=== PATIENT | male | born 1935 | race Caucasian/White ===

== ENCOUNTER → 2016-03-19 | Outpatient (CLI) | payer BC ==
[~2016-03-19] MED LIST: AMT25 PO; ASPI-435 PO; AZEL0.056 NAE; B-CO-25 PO; CHOL20007 PO; COEN150C PO; COEN1CAP46 PO; COLC0.6T54 PO; FRN PO; GLUC15002 PO; HYDR-5688 PO; LPT40 PO; MAGN200T3 PO; MAGN250T3 PO; MULT-221 PO; NITR0.4S UT; OMEGCAP2 PO; PANT1TAB48 PO; PANT40TA PO; PROP60CA5 PO; RANI150T3 PO; RIZA10TA18 PO; SUCR1TAB29 PO; TRAMTAB5 PO; TRIA0.25 PO; TRIA0.2580 PO; ZINC1TAB PO; tumeric PO
[2016-03-19 17:56] LABS: URINE APPEARANCE CLEAR (CLEAR); URINE BILIRUBIN NEG (NEG); URINE COLOR YELLOW; URINE NITRITE NEG (NEG); URINE PH 5.5 (4.5-7.5); URINE SPECIFIC GRAVITY 1.024 (1.000-1.030); UROBILINOGEN NEG (NEG)
[2016-03-19 18:08] LABS: MANUAL MICROSCOPIC REQUIRED? NO; REVIEW REQ? NO
[2016-03-19 18:24] LABS: HEMATOCRIT 42.5 % (42-52); MEAN CELL VOLUME 86.4 fL (80-100); MEAN CORPUSCULAR HEMOGLOBIN 28.3 pg (25-34); MEAN CORPUSCULAR HGB CONC 32.7 g/dl (32-36); MEAN PLATELET VOLUME 11.1 fL (7.4-10.4); PLATELET COUNT 182 K/uL (130-400); RED BLOOD COUNT 4.92 M/uL (4.7-6.1); WHITE BLOOD COUNT 7.72 K/uL (4.8-10.8)
== END | disposition home or self-care (01) ==
LOC: C.LABMFLN 15:13
PROVIDERS: ATTEND Family Medicine
DX: Z00.00 Encounter for general adult medical examination without abnormal findings (principal)

== ENCOUNTER 2016-05-11 11:25 | Emergency (ER) | payer BC ==
[~2016-05-11] VITALS: Ht 177.8 cm; Wt 93.4 kg
[~2016-05-11 11:25] MED LIST changes: -B-CO-25 PO; -CHOL20007 PO; -COEN150C PO; -MAGN250T3 PO; -MULT-221 PO; -NITR0.4S UT; -OMEGCAP2 PO; -PANT40TA PO; -RANI150T3 PO; -SUCR1TAB29 PO; -TRAMTAB5 PO; -TRIA0.25 PO; -tumeric PO
[2016-05-11 11:28] VITALS: TEMP 36.6; Ht 177.8 cm; Wt 93.4 kg
[2016-05-11] MEDS ORDERED: MoRPHine SULFATE 4 MG/ML 1 ML CARP\\VIAL IV STA (11:49)
[2016-05-11] MEDS ORDERED: ONDANSETRON INJ 2 MG/ML 2 ML VIAL IV STA (11:49)
[2016-05-11] MEDS ORDERED: MULT-221 PO (11:54)
[2016-05-11] MEDS ORDERED: COEN150C PO (11:54)
[2016-05-11] MEDS ORDERED: OMEGCAP2 PO (11:54)
--- NOTE | 2016-05-11 12:24 | DIAGNOSTIC IMAGING REPORT ---
SINGLE VIEW CHEST CLINICAL HISTORY: Hiatal hernia. Esophageal reflux. Atypical chest pain. FINDINGS: An AP, portable, upright chest radiograph is compared to study dated 12/07/2014. The examination is degraded by portable technique and patient rotation. The cardiac silhouette is mildly enlarged and there is atherosclerotic calcification of the thoracic aorta. The pulmonary vasculature is noncongested. Chronic interstitial thickening is similar to previous. There is minimal bibasilar atelectasis. No airspace consolidation, large pleural effusion, or pneumothorax is seen. The skeletal structures are osteopenic. The bony thorax is grossly intact. Degenerative change is noted throughout the thoracic spine. IMPRESSION: Mild cardiac enlargement and chronic parenchymal changes as above. There is no acute cardiopulmonary abnormality. Electronically signed by: Donis Camarena M.D. 05/11/2016 12:23 PM Dictated Date/Time: 05/11/2016 12:22 PM
[2016-05-11 12:25] LABS: BASO % 0.1 %; BASO ABS # 0.01 K/uL (0-0.2); COMPLETE YES; EOS % 1.8 %; HEMATOCRIT 42.9 % (42-52); IG% 0.1 %; LYMPH % 32.5 %; LYMPH ABS # 2.22 K/uL (1.2-3.4); MEAN CELL VOLUME 85.8 fL (80-100); MEAN CORPUSCULAR HEMOGLOBIN 27.2 pg (25-34); MEAN CORPUSCULAR HGB CONC 31.7 g/dl (32-36); MEAN PLATELET VOLUME 9.9 fL (7.4-10.4); MONO % 8.5 %; PLATELET COUNT 214 K/uL (130-400); WHITE BLOOD COUNT 6.83 K/uL (4.8-10.8)
[2016-05-11 12:34] LABS: PARTIAL THROMBOPLASTIN RATIO 0.9; PROTHROMBIN TIME (PATIENT) 10.2 SECONDS (9.0-12.0)
[2016-05-11 12:56] LABS: ALT/SGPT 46 U/L (12-78); AST/SGOT 25 U/L (15-37); BLOOD UREA NITROGEN 13 mg/dl (7-18); BUN/CREATININE RATIO 13.2 (10-20); CALCIUM 8.8 mg/dl (8.5-10.1); CARBON DIOXIDE 29 mmol/L (21-32); CHLORIDE 107 mmol/L (98-107); CREATININE 0.99 mg/dl (0.60-1.40); GLUCOSE 98 mg/dl (70-99); SODIUM 144 mmol/L (136-145)
[2016-05-11 13:01] LABS: ALKALINE PHOSPHATASE 65 U/L (45-117)
--- NOTE | 2016-05-11 13:54 | DIAGNOSTIC IMAGING REPORT ---
ULTRASOUND RIGHT UPPER QUADRANT ABDOMEN CLINICAL HISTORY: Right upper quadrant abdominal pain. COMPARISON STUDY: Abdominal ultrasound dated 12/07/2014. Abdominal CT dated 08/11/2014. TECHNIQUE: Real-time, grayscale, and color flow sonography of the right upper quadrant of the abdomen was performed. Images are reviewed in the transverse and longitudinal planes. FINDINGS: Liver: The liver is normal in size and demonstrates heterogeneously increased echotexture suggesting hepatic steatosis. There is no intrahepatic biliary ductal dilatation. The main portal vein is patent. Gallbladder: The gallbladder is normal in appearance. No gallstones are identified. There is no gallbladder wall thickening or pericholecystic fluid. A sonographic Brice's sign is reportedly absent. The common bile duct measures up to 0.5 cm in diameter. Pancreas: Visualized portions of the pancreatic head and body are normal in appearance. The splenic vein is patent. Right kidney: Survey images of the right kidney demonstrate cortical atrophy. There is no hydronephrosis. Ascites: None. IMPRESSION: 1. No acute sonographic abnormality is identified. No gallstones are seen. 2. Findings suggest mild hepatic steatosis. Electronically signed by: Donis Camarena M.D. 05/11/2016 1:53 PM Dictated Date/Time: 05/11/2016 1:51 PM
[2016-05-11 14:20] LABS: MANUAL MICROSCOPIC REQUIRED? NO; REVIEW REQ? NO; URINE APPEARANCE CLEAR (CLEAR); URINE BILIRUBIN NEG (NEG); URINE COLOR YELLOW; URINE NITRITE NEG (NEG); URINE PH 5.5 (4.5-7.5); URINE SPECIFIC GRAVITY 1.018 (1.000-1.030); UROBILINOGEN NEG (NEG)
[2016-05-11] MEDS ORDERED: OPTIRAY 320 IV PRN (14:30)
--- NOTE | 2016-05-11 15:13 | DIAGNOSTIC IMAGING REPORT ---
CT SCAN OF THE ABDOMEN AND PELVIS WITH IV CONTRAST CLINICAL HISTORY: Generalized abdominal pain. Nausea and diarrhea. COMPARISON STUDY: Abdominal CT dated 08/11/2014. Abdominal ultrasound dated 05/11/2016. TECHNIQUE: Following the IV administration of 118 cc of Optiray 320, CT scan of the abdomen and pelvis is performed from the lung bases to the proximal femora. Images are reviewed in the axial, sagittal, and coronal planes. IV contrast was administered without complication. Automated dose control exposure was utilized. CT DOSE: 596.04 mGy.cm FINDINGS: Lung bases: The heart is enlarged and without pericardial effusion. There is a calcified granuloma at the right lung base. The lung bases are otherwise clear noting dependent atelectasis. A small to moderate hiatal hernia is noted. Liver: The contrast-enhanced liver is normal in size, contour, and attenuation. There is no intrahepatic biliary ductal dilatation. The hepatic veins and portal veins are patent. Gallbladder: Unremarkable. Spleen: Normal in size and attenuation. Pancreas: Unremarkable. Adrenal glands: Unremarkable. Kidneys: The contrast enhanced kidneys demonstrate cortical atrophy and are without hydronephrosis. The kidneys enhance symmetrically. A 1.7 cm indeterminant hypodensity in the left kidney seen on image #149 has not significant changed from 08/11/2014. This was previously shown to represent a complex/hyperdense cyst. Small simple cysts measure up to 1.6 cm. Additional subcentimeter cortical hypodensities likely represent cysts but are too small for definitive characterization. There is a retroaortic left renal vein. Abdominal vasculature: The abdominal aorta is normal in course and caliber noting moderate atherosclerotic calcification. Bowel: The small bowel and colon are normal in course and caliber. The appendix is well-visualized and normal. Peritoneum: There is no intraperitoneal free air or abdominal ascites. There is a small fat-containing umbilical hernia. Lymphadenopathy: None. Pelvic viscera: The prostate gland is mildly enlarged and heterogeneous. The bladder is partially decompressed and grossly unremarkable. There is a small fat-containing left inguinal hernia. There is trace fluid in the pelvis. Skeletal structures: The skeletal structures are osteopenic. Mild lumbosacral spondylosis is observed. No lytic or blastic lesions are seen. IMPRESSION: 1. There is trace nonspecific free fluid in the pelvis, likely reactive. 2. No additional infectious or inflammatory findings are identified in the abdomen or pelvis. 3. Cardiomegaly and hiatal hernia. 4. Additional findings as above. Electronically signed by: Donis Camarena M.D. 05/11/2016 3:12 PM Dictated Date/Time: 05/11/2016 3:04 PM
[2016-05-11] MEDS ORDERED: SUCRALFATE 1 GM TAB PO ONE (15:30)
[2016-05-11] MEDS ORDERED: SUCR1TAB29 PO (15:36)
[2016-05-11 16:05] VITALS: BP 114/70; PULSE 58; O2SAT 97
--- NOTE | 2016-05-11 17:11 | EMERGENCY ROOM VISIT NOTE ---
History Report prepared by Rabia: Uma Robertson Under the Supervision of: Dr. Bryan Hodges M.D. First contact with patient: 11:41 Chief Complaint: ABDOMINAL PAIN Stated Complaint: PAIN AND NAUSEA/STOMACH History of Present Illness The patient is an 80 year old male who presents to the Emergency Room with complaints of persistent mid abdominal pain that began last night around midnight. He currently rates his discomfort as a 5/10 in severity, describing his discomfort as a pressure. The patient states that he has had ongoing acid reflux problems for the past several years, but notes that his symptoms are much more severe recently. He states that he takes Zantac and Protonix daily. The patient states that his pain is worsened with eating. He additionally associates nausea and increased acid reflux with his symptoms. The patient notes that for the last week and a half he has had loose, diarrhea stool. He denies any recent antibiotic use. The patient notes a family history of gallbladder disease, noting that his mother had a cholecystectomy in her 50s. He notes a history of a hernia repair, but denies any other abdominal surgeries. The patient additionally notes that he has had a rash to the back of his legs. The patient denies any chest pain, shortness of breath, fever vomiting, hematochezia, or melena. He reports normal urination. Source of History: patient Onset: last night around midnight Position: abdomen (mid) Symptom Intensity: 5/10 Quality: pressure Timing: other (persistent) Modifying Factors (Worsening): eating Associated Symptoms: + nausea, + urinary symptoms (loose), No SOB, No chest pain, No fevers, No hematochezia, No melena, No vomiting Note: Associated Symptoms: increased acid reflux Review of Systems See HPI for pertinent positives & negatives. A total of 10 systems reviewed and were otherwise negative. Past Medical & Surgical Medical Problems: (1) Arthritis (2) Heart stents (3) Kidney stones Family History Diabetes mellitus Hypertension Kidney disease Kidney stones Seizures Social History Smoking Status: Never Smoker Alcohol Use: none Drug Use: none Marital Status: Housing Status: lives with significant other Occupation Status: retired Current/Historical Medications Scheduled Amitriptyline HCl (Amitriptyline HCl), 25 MG PO HS Aspirin (Aspirin 81), 81 MG PO QAM Atorvastatin (Atorvastatin Calcium), 40 MG PO HS Coenzyme Q10 (Ubidecarenone) (Co Q-10), 150 MG PO DAILY Colchicine (Colchicine), 0.6 MG PO BID Magnesium (Magnesium), 100 MG PO DAILY Multiple Vitamins W/ Minerals (Multi For Him 50+), 1 TAB PO DAILY [place]-3 Fatty Acids (Fish Oil), 1 CAP PO DAILY Pantoprazole (Protonix), 40 MG PO BID Propranolol Hcl (Inderal La), 60 MG PO QAM Sucralfate (Carafate), 1 TAB PO TID Zinc Gluconate (Zinc), 50 MG PO HS Scheduled PRN Yxuxdcmwkn-Brwwhhm-Ukwzwpdp (Butalbital/Aspirin/Caffei 50-325-40 mg), 1 CAP PO for Headache Rizatriptan Benzoate (Maxalt), 10 MG PO UD PRN for Headache Allergies Coded Allergies: No Known Allergies (Unverified , 06/12/14) Physical Exam Vital Signs Date Time Temp Pulse Resp B/P Pulse Ox O2 Delivery O2 Flow Rate FiO2 05/11/16 16:05 58 18 114/70 97 05/11/16 11:28 36.6 66 18 115/73 97 Room Air Physical Exam Constitutional: Vital signs reviewed. Eyes: Pupils are equal round reactive to light. Conjunctiva are noninjected. ENT: Pharynx is clear without erythema or exudate. Mucous membranes are moist. Neck supple without meningeal signs. Respiratory: Clear to auscultation bilaterally. Breath sounds are equal bilaterally. Cardiovascular: Regular rate and rhythm. No rubs or gallops. GI: Epigastric, right sided abdominal tenderness, no guarding. Soft, nondistended. Bowel sounds are present. Musculoskeletal: No peripheral edema. No lower extremity tenderness. Integumentary: Tinea cruris. Neurological: The patient is awake and alert. No focal deficits. Psychiatric: Normal affect. Medical Decision & Procedures ER Provider Diagnostic Interpretation: Radiology results as stated below per my review and the radiologist's interpretation: ULTRASOUND RIGHT UPPER QUADRANT ABDOMEN CLINICAL HISTORY: Right upper quadrant abdominal pain. COMPARISON STUDY: Abdominal ultrasound dated 12/07/2014. Abdominal CT dated 08/11/2014. TECHNIQUE: Real-time, grayscale, and color flow sonography of the right upper quadrant of the abdomen was performed. Images are reviewed in the transverse and longitudinal planes. FINDINGS: Liver: The liver is normal in size and demonstrates heterogeneously increased echotexture suggesting hepatic steatosis. There is no intrahepatic biliary ductal dilatation. The main portal vein is patent. Gallbladder: The gallbladder is normal in appearance. No gallstones are identified. There is no gallbladder wall thickening or pericholecystic fluid. A sonographic Brice's sign is reportedly absent. The common bile duct measures up to 0.5 cm in diameter. Pancreas: Visualized portions of the pancreatic head and body are normal in appearance. The splenic vein is patent. Right kidney: Survey images of the right kidney demonstrate cortical atrophy. There is no hydronephrosis. Ascites: None. IMPRESSION: 1. No acute sonographic abnormality is identified. No gallstones are seen. 2. Findings suggest mild hepatic steatosis. Electronically signed by: Donis Camarena M.D. 05/11/2016 1:53 PM Dictated Date/Time: 05/11/2016 1:51 PM SINGLE VIEW CHEST CLINICAL HISTORY: Hiatal hernia. Esophageal reflux. Atypical chest pain. FINDINGS: An AP, portable, upright chest radiograph is compared to study dated 12/07/2014. The examination is degraded by portable technique and patient rotation. The cardiac silhouette is mildly enlarged and there is atherosclerotic calcification of the thoracic aorta. The pulmonary vasculature is noncongested. Chronic interstitial thickening is similar to previous. There is minimal bibasilar atelectasis. No airspace consolidation, large pleural effusion, or pneumothorax is seen. The skeletal structures are osteopenic. The bony thorax is grossly intact. Degenerative change is noted throughout the thoracic spine. IMPRESSION: Mild cardiac enlargement and chronic parenchymal changes as above. There is no acute cardiopulmonary abnormality. Electronically signed by: Donis Camarena M.D. 05/11/2016 12:23 PM Dictated Date/Time: 05/11/2016 12:[address] SCAN OF THE ABDOMEN AND PELVIS WITH IV CONTRAST CLINICAL HISTORY: Generalized abdominal pain. Nausea and diarrhea. COMPARISON STUDY: Abdominal CT dated 08/11/2014. Abdominal ultrasound dated 05/11/2016. TECHNIQUE: Following the IV administration of 118 cc of Optiray 320, CT scan of the abdomen and pelvis is performed from the lung bases to the proximal femora. Images are reviewed in the axial, sagittal, and coronal planes. IV contrast was administered without complication. Automated dose control exposure was utilized. CT DOSE: 596.04 mGy.cm FINDINGS: Lung bases: The heart is enlarged and without pericardial effusion. There is a calcified granuloma at the right lung base. The lung bases are otherwise clear noting dependent atelectasis. A small to moderate hiatal hernia is noted. Liver: The contrast-enhanced liver is normal in size, contour, and attenuation. There is no intrahepatic biliary ductal dilatation. The hepatic veins and portal veins are patent. Gallbladder: Unremarkable. Spleen: Normal in size and attenuation. Pancreas: Unremarkable. Adrenal glands: Unremarkable. Kidneys: The contrast enhanced kidneys demonstrate cortical atrophy and are without hydronephrosis. The kidneys enhance symmetrically. A 1.7 cm indeterminant hypodensity in the left kidney seen on image #149 has not significant changed from 08/11/2014. This was previously shown to represent a complex/hyperdense cyst. Small simple cysts measure up to 1.6 cm. Additional subcentimeter cortical hypodensities likely represent cysts but are too small for definitive characterization. There is a retroaortic left renal vein. Abdominal vasculature: The abdominal aorta is normal in course and caliber noting moderate atherosclerotic calcification. Bowel: The small bowel and colon are normal in course and caliber. The appendix is well-visualized and normal. Peritoneum: There is no intraperitoneal free air or abdominal ascites. There is a small fat-containing umbilical hernia. Lymphadenopathy: None. Pelvic viscera: The prostate gland is mildly enlarged and heterogeneous. The bladder is partially decompressed and grossly unremarkable. There is a small fat-containing left inguinal hernia. There is trace fluid in the pelvis. Skeletal structures: The skeletal structures are osteopenic. Mild lumbosacral spondylosis is observed. No lytic or blastic lesions are seen. IMPRESSION: 1. There is trace nonspecific free fluid in the pelvis, likely reactive. 2. No additional infectious or inflammatory findings are identified in the abdomen or pelvis. 3. Cardiomegaly and hiatal hernia. 4. Additional findings as above. Electronically signed by: Donis Camarena M.D. 05/11/2016 3:12 PM Dictated Date/Time: 05/11/2016 3:04 PM Laboratory Results 05/11/16 12:15 Red Blood Count 5.00, Mean Corpuscular Volume 85.8, Mean Corpuscular Hemoglobin 27.2, Mean Corpuscular Hemoglobin Concent 31.7, Mean Platelet Volume 9.9, Neutrophils (%) (Auto) 57.0, Lymphocytes (%) (Auto) 32.5, Monocytes (%) (Auto) 8.5, Eosinophils (%) (Auto) 1.8, Basophils (%) (Auto) 0.1, Neutrophils # (Auto) 3.89, Lymphocytes # (Auto) 2.22, Monocytes # (Auto) 0.58, Eosinophils # (Auto) 0.12, Basophils # (Auto) 0.01 05/11/16 12:15 Test 05/11/16 12:15 05/11/16 14:00 White Blood Count 6.83 K/uL (4.8-10.8) Red Blood Count 5.00 M/uL (4.7-6.1) Hemoglobin 13.6 g/dL (14.0-18.0) Hematocrit 42.9 % (42-52) Mean Corpuscular Volume 85.8 fL (80-100) Mean Corpuscular Hemoglobin 27.2 pg (25-34) Mean Corpuscular Hemoglobin Concent 31.7 g/dl (32-36) Platelet Count 214 K/uL (130-400) Mean Platelet Volume 9.9 fL (7.4-10.4) Neutrophils (%) (Auto) 57.0 % Lymphocytes (%) (Auto) 32.5 % Monocytes (%) (Auto) 8.5 % Eosinophils (%) (Auto) 1.8 % Basophils (%) (Auto) 0.1 % Neutrophils # (Auto) 3.89 K/uL (1.4-6.5) Lymphocytes # (Auto) 2.22 K/uL (1.2-3.4) Monocytes # (Auto) 0.58 K/uL (0.11-0.59) Eosinophils # (Auto) 0.12 K/uL (0-0.5) Basophils # (Auto) 0.01 K/uL (0-0.2) RDW Standard Deviation 41.3 fL (36.4-46.3) RDW Coefficient of Variation 13.2 % (11.5-14.5) Immature Granulocyte % (Auto) 0.1 % Immature Granulocyte # (Auto) 0.01 K/uL (0.00-0.02) Prothrombin Time 10.2 SECONDS (9.0-12.0) Prothromb Time International Ratio 1.0 (0.9-1.1) Activated Partial Thromboplast Time 24.0 SECONDS (21.0-31.0) Partial Thromboplastin Ratio 0.9 Anion Gap 8.0 mmol/L (3-11) Est Creatinine Clear Calc Drug Dose 68.3 ml/min Estimated GFR () 83.0 Estimated GFR (Non- 71.6 BUN/Creatinine Ratio 13.2 (10-20) Calcium Level 8.8 mg/dl (8.5-10.1) Total Bilirubin 0.3 mg/dl (0.2-1) Direct Bilirubin < 0.1 mg/dl (0-0.2) Aspartate Amino Transf (AST/SGOT) 25 U/L (15-37) Alanine Aminotransferase (ALT/SGPT) 46 U/L (12-78) Alkaline Phosphatase 65 U/L (45-117) Troponin I < 0.015 ng/ml (0-0.045) Total Protein 6.7 gm/dl (6.4-8.2) Albumin 3.3 gm/dl (3.4-5.0) Lipase 325 U/L (73-393) Urine Color YELLOW Urine Appearance CLEAR (CLEAR) Urine pH 5.5 (4.5-7.5) Urine Specific [place] 1.018 (1.000-1.030) Urine Protein NEG (NEG) Urine Glucose (UA) NEG (NEG) Urine Ketones NEG (NEG) Urine Occult Blood NEG (NEG) Urine Nitrite NEG (NEG) Urine Bilirubin NEG (NEG) Urine Urobilinogen NEG (NEG) Urine Leukocyte Esterase NEG (NEG) Laboratory results as reviewed by me. Medications Administered Medications (Trade) Dose Ordered Sig/Yasmany Route Start Time Stop Time Status Last Admin Dose Admin Morphine Sulfate (MoRPHine SULFATE INJ) 4 mg ONE STAT IV 05/11/16 11:49 05/11/16 11:53 DC 05/11/16 12:20 4 MG Ondansetron HCl (Zofran Inj) 4 mg NOW STAT IV 05/11/16 11:49 05/11/16 11:53 DC 05/11/16 12:19 4 MG Sucralfate (Carafate Tab) 1 gm NOW ONCE PO 05/11/16 15:30 05/11/16 15:31 DC 05/11/16 15:35 1 GM ECG Indication: abdominal pain Rate (beats per minute): 56 Rhythm: sinus bradycardia Findings: no acute ischemic change, no ectopy ED Course 1142: The patient was evaluated in room A11B. A complete history and physical exam was performed. 1149: Ordered Zofran Inj 4 mg IV, Morphine Sulfate 4 mg IV. 1354: I reevaluated the patient and he states that he feels better. I discussed his blood tests with him at this time. 1530: I reevaluated the patient and he is doing fine. I discussed the test results with him and his and I discussed the treatment plan. I recommended close follow up, due to the cause of his pain being unclear. He is going to be placed on Carafate for his reflux. The patient denies any current pain or abdominal tenderness. He verbalized complete understanding and agreement. He is ready to go home. Ordered Carafate Tab 1 gm PO. Medical Decision This is an 80-year-old male who presents with heartburn and abdominal pain with diarrhea. Differential diagnosis includes GERD, cholelithiasis, cholecystitis, peptic ulcer disease, pancreatitis. I did perform a limited focused review of portions of the patient's old chart on the electronic medical record. The patient has had no recent pertinent visits to this hospital. I did evaluate the patient as noted above. Patient is presenting with mid abdominal pain and has tenderness in the epigastric region as well as the right abdomen. He does not have a Brice sign. He also complains of reflux disease. He is on Protonix and Zantac and has had reflux for a long time. He does state that it has been getting worse. He is compliant with his medications. IV access was established. I did treat patient with IV morphine and Zofran. I did order and personally review the patient's 12-lead EKG and chest x-ray as described above. I did order and review the patient's blood work as noted in the electronic medical record. His white blood cell count is not elevated. LFTs and lipase are unremarkable. Troponin is negative. I did order an ultrasound of the right upper quadrant. I did review the images myself as well as the radiology report as described above. There is no evidence of gallbladder disease. I did order a CT of the abdomen and pelvis after discussion with the patient. The CAT scan did not show any evidence of acute process. He did have some incidental findings which I discussed with him. On reexamination the patient is not having any pain or tenderness. He states he feels much better. Urinalysis showed no evidence of infection. The cause of his pain is unclear at this time and so I recommended close follow up with his doctor. There is no indication for hospitalization currently. He was given Carafate and discharged with a prescription for Carafate. He was given return instructions as outlined below. Impression Primary Impression: Right upper quadrant abdominal pain Additional Impression: Heart burn Scribe Attestation The scribe's documentation has been prepared under my direct and personally reviewed by me in its entirety. I confirm that the note above accurately reflects all work, treatment, procedures, and medical decision making performed by me. Departure Information Dispostion Home / Self-Care Prescriptions Sucralfate (CARAFATE) 1 Gm Tab 1 TAB PO TID, #40 TAB 1 Refill Prov: Bryan Hodges M.D. 05/11/16 Referrals No Doctor, Assigned (PCP) Forms HOME CARE DOCUMENTATION FORM, IMPORTANT VISIT INFORMATION Patient Instructions ED Abd Pain Unkn Cause Male, My [facility] Additional Instructions You have been examined and treated today on an emergency basis only. This is not a substitute for, or an effort to provide, complete comprehensive medical care. It is impossible to recognize and treat all injuries or illnesses in a single emergency department visit. It is therefore important that you follow up closely with your physician in 48 hours. Call as soon as possible for an appointment. Return for worsening symptoms or if you develop fever, vomiting, rectal bleeding, chest pain, shortness of breath or any other concerning symptoms. Problem Qualifiers
[2016-07-19] MEDS ORDERED: CHOL20007 PO (08:12)
[2016-07-19] MEDS ORDERED: NITR0.4S UT (08:12)
[2016-07-19] MEDS ORDERED: MAGN250T3 PO (08:12)
[2016-07-19] MEDS ORDERED: TRAMTAB5 PO (08:12)
[2016-07-19] MEDS ORDERED: PANT40TA PO (08:12)
[2016-07-19] MEDS ORDERED: RANI150T3 PO (08:12)
[2016-07-19] MEDS ORDERED: B-CO-25 PO (08:12)
[2016-07-19] MEDS ORDERED: SUCR1TAB29 PO (08:12)
[2016-07-19] MEDS ORDERED: TRIA0.25 PO (08:22)
[2016-09-06] MEDS ORDERED: tumeric PO (10:31)
== END 2016-05-11 16:06 | disposition home or self-care (01) ==
LOC: C.EDB 11:27 → C.EDA 16:06
DX: R10.11 Right upper quadrant pain (principal); R12 Heartburn; M19.90 Unspecified osteoarthritis, unspecified site

== ENCOUNTER → 2016-06-27 | Outpatient (CLI) | payer BC ==
[~2016-06-27] MED LIST changes: -AZEL0.056 NAE; +B-CO-25 PO; +CHOL20007 PO; +COEN150C PO; -COEN1CAP46 PO; -GLUC15002 PO; -HYDR-5688 PO; +MAGN250T3 PO; +MULT-221 PO; +NITR0.4S UT; +OMEGCAP2 PO; +PANT40TA PO; +RANI150T3 PO; +SUCR1TAB29 PO; +TRAMTAB5 PO; +TRIA0.25 PO; -TRIA0.2580 PO; +tumeric PO
[2016-06-27 13:48] LABS: BLOOD UREA NITROGEN 14 mg/dl (7-18); BUN/CREATININE RATIO 12.8 (10-20); CALCIUM 9.3 mg/dl (8.5-10.1); CARBON DIOXIDE 32 mmol/L (21-32); CHLORIDE 108 mmol/L (98-107); GLUCOSE 98 mg/dl (70-99); POTASSIUM 4.3 mmol/L (3.5-5.1); SODIUM 144 mmol/L (136-145)
[2016-06-27 13:49] LABS: ESTIMATED AVERAGE GLUCOSE 131 mg/dl; HA1C FLAG Normal (Normal)
--- NOTE | 2016-07-01 09:40 | CODING QUERY MEDICAL NECESSITY ---
SUPPORTING DIAGNOSIS NEEDED A supporting diagnosis is required for the test/procedure performed on this patient in order for us to be reimbursed by the patient's insurance. Please provide a supporting diagnosis for the following test/procedure listed below next to the test name along with your signature. *If there is no additional diagnosis for this patient that would support the following test/procedure please document that below next to the test/procedure. Test(s)/Procedure(s) that require a supporting diagnosis: DOS 06/27 * Hba1c DIAGNOSIS: Provider Signature: Date: Thank you Bryanna Roca Health Information Management Once completed, please kindly fax back to [phone] For questions please call [phone]
== END | disposition home or self-care (01) ==
LOC: C.LABMFLN 09:11
PROVIDERS: ATTEND Family Medicine
DX: Z13.1 Encounter for screening for diabetes mellitus (principal); E11.9 Type 2 diabetes mellitus without complications

== ENCOUNTER → 2016-07-08 | Outpatient (CLI) | payer BC ==
--- NOTE | 2016-07-08 11:32 | DIAGNOSTIC IMAGING REPORT ---
CT OF THE LUMBAR SPINE WITHOUT CONTRAST CT DOSE: 940.61 mGy.cm CLINICAL HISTORY: Back pain with radiculopathy. TECHNIQUE: Axial images of the lumbar spine were obtained without IV contrast. Sagittal and coronal reconstructions were viewed. COMPARISON STUDY: Lumbar spine radiograph December 08, 2015. FINDINGS: For purposes of numbering on this exam, the L5-S1 disc space is assigned to axial image 334 of 410. Alignment of the lumbar spine is anatomic. Vertebral body heights are maintained. There is no fracture or suspicious lesion. A 1.5 cm hyperdense left renal cyst is better depicted on prior imaging studies. No paravertebral abnormalities are identified. Central canal is suboptimally assessed by CT but no epidural fluid collection is identified. Central canal and neural foramen are suboptimally assessed by CT. L1-L2: The central canal and neural foramen are patent. L2-L3: The central canal and neural foramen are patent. L3-L4: There is disc bulge with ligamentous hypertrophy and facet arthrosis. There is suspected moderate narrowing of the central canal and lateral recesses as well as the neural foramen. L4-L5: There is disc space narrowing with vacuum disc phenomenon. There is minimal narrowing of the central canal and mild narrowing of both neural foramen. L5-S1: The central canal is patent. There is facet arthrosis. There is mild disc bulge. There is moderate narrowing of the left neural foramen. IMPRESSION: 1. No acute lumbar spine fracture or subluxation. 2. 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 Disc bulge with ligamentous hypertrophy and facet arthrosis at L3-L4 likely result in moderate narrowing of the central canal, lateral recesses and neural foramen. Electronically signed by: Piero Hahn M.D. 07/08/2016 11:31 AM Dictated Date/Time: 07/08/2016 11:13 AM
== END | disposition home or self-care (01) ==
LOC: C.CTS 10:50
PROVIDERS: ATTEND Family Medicine
DX: M54.16 Radiculopathy, lumbar region (principal)

== ENCOUNTER → 2016-07-23 | Day surgery (SDC) | payer BC ==
[2016-07-19 08:13] VITALS: Ht 177.8 cm; Wt 93.2 kg
[~2016-07-23] VITALS: Ht 177.8 cm; Wt 93.2 kg
[~2016-07-23] MED LIST changes: -COLC0.6T54 PO; +LIDOCAINE HCL 2% 2 ML VIAL (20MG/ML) ONE; -MAGN200T3 PO; +MIDAZOLAM HCL 1 MG/ML 2ML VIAL ONE; -MULT-221 PO; -OMEGCAP2 PO; +ONDANSETRON INJ 2 MG/ML 2 ML VIAL ONE; -PANT1TAB48 PO; +PROPOFOL IV EMULSION 10 MG/ML 20 ML VIAL IV ONE; +SODIUM CHLORIDE 0.9% 500ML 500 ML IV ONE
--- NOTE | 2016-07-23 08:48 | Endo History and Physical ---
History & Physical Date of Service: July 23, 2016. Chief Complaint: GERD Referring Physician: DR VICKERS History of Present Illness 81 yo CM who presents for EGD secondary to severe GERD with worsening symptoms. Past Medical History Angioplasty/Stent, Arthritis, ASHD, Reflux, High Cholesterol, Heart Disease, Hypertension, Kidney Disease, Depression Past Surgical History Hx Cardiac Surgery: Yes (HEART CATH, STENT X2) Hx Internal Defibrillator: No Hx Pacemaker: No Hx Abdominal Surgery: Yes (HERNIA REPAIR) Hx of Implantable Prosthesis: No Hx Post-Op Nausea and Vomiting: No Hx Cancer Surgery: No Hx Thoracic Surgery: No Hx Orthopedic: Yes (RT KNEE SCOPE, LT SHOULDER SURGERY) Hx Urinary Tract Surgery: Yes (URETAL STENTS, LITHOTRIPSY, AND ATTEMPT FOR REMOVAL) Family History None Social History Smoking Status: Never Smoker Hx Substance Use: No Hx Alcohol Use: Yes (RARELY) Allergies Uncoded Allergies: SHINGLES VACCINE (Allergy, Unknown, HIVES AND SORENESS AT INJECTION SITE, ) Current Medications Reported Home Medications Medications Dose Route/Sig Max Daily Dose Days Date Category Halcion (Triazolam) 0.25 Mg Tab 0.25 Mg PO HS PRN 07/19/16 Reported Magnesium 250 mg (Magnesium) 1 Tab Tab 1 Tab PO QAM 07/19/16 Reported Vitamin D3 (Cholecalciferol) 2,000 Unit Tab 1 Tab PO QAM 07/19/16 Reported Super B Complex Maxi (B-Complex W/ Folic Acid) 1 Tab Tab 1 Tab PO QPM 07/19/16 Reported Nitrostat (Nitroglycerin) 0.4 Mg Sub 0.4 Mg UT PRN PRN 07/19/16 Reported Ultracet (Tramadol/Acetaminophen) 37.5 Mg/325 Mg Tab 1 Tab PO TID PRN 07/19/16 Reported Carafate (Sucralfate) 1 Gm Tab 1 Gm PO QID 07/19/16 Reported Zantac (Ranitidine HCl) 150 Mg Tab 150 Mg PO BID 07/19/16 Reported Protonix (Pantoprazole Sodium) 40 Mg Tab 40 Mg PO BID 07/19/16 Reported Co Q-10 (Coenzyme Q10 (Ubidecarenone)) 150 Mg Cap 100 Mg PO QAM 05/11/16 Reported Maxalt (Rizatriptan Benzoate) 10 Mg Tab 10 Mg PO UD PRN 12/07/14 Reported Zinc (Zinc Gluconate) 50 Mg Tab 50 Mg PO QPM 06/09/14 Reported Inderal La (Propranolol Hcl) 60 Mg Cap 60 Mg PO QAM 06/09/14 Reported Butalbital/Aspirin/Caffei 50-325-40 mg (Ycjgeqnrly-Rhkobmt-Hljbpimm) 1 Cap Cap 1 Cap PO Q4-6H PRN 06/09/14 Reported Atorvastatin Calcium (Atorvastatin) 40 Mg Tab 40 Mg PO HS 06/09/14 Reported Aspirin 81 (Aspirin) 81 Mg Tab 81 Mg PO QAM 06/09/14 Reported Amitriptyline HCl 25 Mg Tab 25 Mg PO HS 06/09/14 Reported Vital Signs Weight (Kilograms): 93.18 Height (Feet): 5 Height (Inches): 10 Date Time Temp Pulse Resp B/P Pulse Ox O2 Delivery O2 Flow Rate FiO2 07/23/16 08:32 36.6 70 20 129/81 97 Room Air Physical Exam General Appearance: WD/WN, no apparent distress Respiratory/Chest: Auscultation: breath sounds normal Cardiovascular: Heart Auscultation: RRR Abdomen: Bowel Sounds: normal Inspection & Palpation: soft, non-distended, no tenderness, guarding & rebound Assessment and Plan Assessment: 81 yo CM who presents for EGD secondary to severe GERD with worsening symptoms. Plan: Proceed with EGD.
--- NOTE | 2016-07-23 09:33 | Discharge Instructions ---
Endoscopy Patient Instructions Date / Procedure(s) Performed July 23, 2016. EGD Allergy Information Uncoded Allergies: SHINGLES VACCINE (Allergy, Unknown, HIVES AND SORENESS AT INJECTION SITE, ) Discharge Date / Findings July 23, 2016. Gastritis s/p biopsies Hiatal hernia Schatzki's Ring s/p dilation Medication Instructions Stopped Medication(s): ASPIRIN 81MG LAST DOSE 07/22/16 CARAFATE STOPPED 07/21/16 0900 DIRECTED OK to resume all medications today as prescribed Reported Home Medications Medications Dose Route/Sig Max Daily Dose Days Date Category Halcion (Triazolam) 0.25 Mg Tab 0.25 Mg PO HS PRN 07/19/16 Reported Magnesium 250 mg (Magnesium) 1 Tab Tab 1 Tab PO QAM 07/19/16 Reported Vitamin D3 (Cholecalciferol) 2,000 Unit Tab 1 Tab PO QAM 07/19/16 Reported Super B Complex Maxi (B-Complex W/ Folic Acid) 1 Tab Tab 1 Tab PO QPM 07/19/16 Reported Nitrostat (Nitroglycerin) 0.4 Mg Sub 0.4 Mg UT PRN PRN 07/19/16 Reported Ultracet (Tramadol/Acetaminophen) 37.5 Mg/325 Mg Tab 1 Tab PO TID PRN 07/19/16 Reported Carafate (Sucralfate) 1 Gm Tab 1 Gm PO QID 07/19/16 Reported Zantac (Ranitidine HCl) 150 Mg Tab 150 Mg PO BID 07/19/16 Reported Protonix (Pantoprazole Sodium) 40 Mg Tab 40 Mg PO BID 07/19/16 Reported Co Q-10 (Coenzyme Q10 (Ubidecarenone)) 150 Mg Cap 100 Mg PO QAM 05/11/16 Reported Maxalt (Rizatriptan Benzoate) 10 Mg Tab 10 Mg PO UD PRN 12/07/14 Reported Zinc (Zinc Gluconate) 50 Mg Tab 50 Mg PO QPM 06/09/14 Reported Inderal La (Propranolol Hcl) 60 Mg Cap 60 Mg PO QAM 06/09/14 Reported Butalbital/Aspirin/Caffei 50-325-40 mg (Yubtczgsft-Ksoivav-Rhccfghh) 1 Cap Cap 1 Cap PO Q4-6H PRN 06/09/14 Reported Atorvastatin Calcium (Atorvastatin) 40 Mg Tab 40 Mg PO HS 06/09/14 Reported Aspirin 81 (Aspirin) 81 Mg Tab 81 Mg PO QAM 06/09/14 Reported Amitriptyline HCl 25 Mg Tab 25 Mg PO HS 06/09/14 Reported Provider Instructions Activity Restrictions - No exercising or heavy lifting for 24 hours. - Do not drink alcohol the day of the procedure. - Do not drive a car or operate machinery until the day after the procedure. - Do not make any important decisions or sign important papers in 24 hours after the procedure. Following Day: - Return to full activity which may include returning to work/school. Diet Start your diet with liquids and light foods (jello, soup, juice, toast). Then eat your usual diet if not nauseated. Treatment For Common After Affects For mild abdominal pain, bloating, or excessive gas: - Rest - Eat lightly - Lie on right side Follow-Up Information Follow-up with DR VICKERS as scheduled Anesthesia Information What You Should Know You have had a procedure that required some medicine to reduce anxiety and discomfort. This treatment is called moderate sedation. After receiving the treatment, you may be sleepy, but you will be able to breathe on your own. The effects of the treatment may last for several hours. Follow these instructions along with Activity/Diet recommendations noted above: * Do NOT do anything where dizziness or clumsiness would be dangerous. * Rest quietly at home today, then you can be up and about tomorrow. * Have a responsible person stay with you the rest of today. * You may have had an I.V. today. If so, you may take the dressing off later today. Recommendations Call your doctor if: * Trouble breathing * Continuous vomiting for more than 24 hours * Temperature above 101 degrees * Severe abdominal pain or bloating * Pain not relieved by pain medicine ordered * There is increased drainage or redness from any incision * A large amount of rectal bleeding greater than 2-3 tablespoons. (If you had a polyp/s removed or have hemorrhoids, a small amount of blood - from the rectum is to be expected.) * You have any unanswered questions or concerns. IN THE EVENT OF A SERIOUS EMERGENCY, GO TO THE NEAREST EMERGENCY ROOM Your discharge instructions were prepared by provider Osmel Regalado. Patient Instructions Signature Page Travis Benito Patient (or Guardian) Signature/Date: I have read and understand the instructions given to me by my caregivers. Caregiver/RN/Doctor Signature/Date: The above-named patient and/or guardian has received patient instructions on this date. + Original Patient Signature Page (only) stays with chart. Please make copy for patient.
--- NOTE | 2016-07-23 09:37 | GI REPORT ---
Procedure Date: 07/23/2016 8:49 AM Procedure: Upper GI endoscopy Indications: Gastro-esophageal reflux disease Medicines: Monitored Anesthesia Care Complications: No immediate complications. Estimated Blood Loss: Estimated blood loss: none. Procedure: Pre-Anesthesia Assessment: - Prior to the procedure, a History and Physical was performed, and patient medications and allergies were reviewed. The patient's tolerance of previous anesthesia was also reviewed. The risks and benefits of the procedure and the sedation options and risks were discussed with the patient. All questions were answered, and informed consent was obtained. Prior Anticoagulants: The patient has taken aspirin, last dose was 1 day prior to procedure. ASA Grade Assessment: III - A patient with severe systemic disease. After reviewing the risks and benefits, the patient was deemed in satisfactory condition to undergo the procedure. After obtaining informed consent, the endoscope was passed under direct vision. Throughout the procedure, the patient's blood pressure, pulse, and oxygen saturations were monitored continuously. The scope was introduced through the mouth, and advanced to the second part of duodenum. The upper GI endoscopy was accomplished without difficulty. The patient tolerated the procedure well. Findings: A mild Schatzki ring (acquired) was found at the gastroesophageal junction. A TTS dilator was passed through the scope. Dilation with an 18-19-20 mm balloon (to a maximum balloon size of 20 mm) dilator was performed. The dilation site was examined and showed no change. A medium-sized hiatus hernia was present. Localized mild inflammation characterized by erythema was found in the gastric antrum. Biopsies were taken with a cold forceps for histology. The examined duodenum was normal. Impression: - Mild Schatzki ring. Dilated. - Medium-sized hiatus hernia. - Gastritis. Biopsied. - Normal examined duodenum. Recommendation: - Resume previous diet. - Continue present medications. - Await pathology results. - Return to GI office as previously scheduled. Osmel Regalado DO 07/23/2016 9:36:19 AM This report has been signed electronically. Note Initiated On: 07/23/2016 8:49 AM I attest to the content of the Intraoperative Record and orders documented therein, exceptions below
[2016-07-23 10:15] VITALS: BP 125/82; PULSE 64; O2SAT 97
--- NOTE | 2016-07-23 10:31 | Anesthesiology Progress Note ---
Anesthesia Post Op Note Date & Time July 23, 2016 at 10:31 Vital Signs Pain Intensity: 0 Vital Signs Past 12 Hours Date Time Temp Pulse Resp B/P Pulse Ox O2 Delivery O2 Flow Rate FiO2 07/23/16 10:15 64 20 125/82 97 Room Air 07/23/16 09:51 70 16 126/75 95 Room Air 07/23/16 09:36 69 16 126/75 95 Room Air 07/23/16 08:32 36.6 70 20 129/81 97 Room Air Notes Mental Status: alert / awake / arousable, participated in evaluation Pt Amnestic to Procedure: Yes Nausea / Vomiting: adequately controlled Pain: adequately controlled Airway Patency, RR, SpO2: stable & adequate BP & HR: stable & adequate Hydration State: stable & adequate Anesthetic Complications: no major complications apparent
== END | disposition home or self-care (01) ==
LOC: C.GI 07:45
PROVIDERS: ATTEND Internal Medicine
DX: K21.9 Gastro-esophageal reflux disease without esophagitis (principal); I25.10 Atherosclerotic heart disease of native coronary artery without angina pectoris; K22.2 Esophageal obstruction; K44.9 Diaphragmatic hernia without obstruction or gangrene; K29.70 Gastritis, unspecified, without bleeding; Z98.890 Other specified postprocedural states; E78.00 Pure hypercholesterolemia, unspecified; I10 Essential (primary) hypertension; M19.90 Unspecified osteoarthritis, unspecified site; Z88.7 Allergy status to serum and vaccine; Z68.29 Body mass index [BMI] 29.0-29.9, adult

== ENCOUNTER → 2016-12-27 | Outpatient (CLI) | payer BC ==
[~2016-12-27] MED LIST changes: -LIDOCAINE HCL 2% 2 ML VIAL (20MG/ML) ONE; -MIDAZOLAM HCL 1 MG/ML 2ML VIAL ONE; -ONDANSETRON INJ 2 MG/ML 2 ML VIAL ONE; -PROPOFOL IV EMULSION 10 MG/ML 20 ML VIAL IV ONE; -SODIUM CHLORIDE 0.9% 500ML 500 ML IV ONE; -SUCR1TAB29 PO; -TRAMTAB5 PO
[2016-12-27 14:34] LABS: ALKALINE PHOSPHATASE 60 U/L (45-117); ALT/SGPT 33 U/L (12-78); CHOLESTEROL 148 mg/dl (0-200); CHOLESTEROL/HDL RATIO 3.6; FERRITIN 57.8 ng/ml (8.0-388.0); HDL CHOLESTEROL 41 mg/dl; TRIGLYCERIDES 128 mg/dl (0-150); URIC ACID 6.5 mg/dl (2.6-7.2); VERY LOW DENSITY LIPOPROT CALC 26 mg/dl
== END | disposition home or self-care (01) ==
LOC: C.LABMFLN 08:44
PROVIDERS: ATTEND Family Medicine
DX: M11.269 Other chondrocalcinosis, unspecified knee (principal); E78.00 Pure hypercholesterolemia, unspecified

== ENCOUNTER 2017-02-23 14:34 | Observation (INO) | payer BC ==
[~2017-02-23] VITALS: Ht 177.8 cm; Wt 92.0 kg
[2017-02-23] MEDS ORDERED: ONDANSETRON INJ 2 MG/ML 2 ML VIAL IV STA (14:44)
[2017-02-23] MEDS ORDERED: SODIUM CHLORIDE 0.9% 1000ML 1,000 ML IV STA (14:44)
[2017-02-23] MEDS ORDERED: FAMOTIDINE 20MG/5ML IV PUSH IV STA (14:44)
[2017-02-23] MEDS ORDERED: OPTIRAY 320 IV PRN (15:00)
--- NOTE | 2017-02-23 15:07 | DIAGNOSTIC IMAGING REPORT ---
CHEST ONE VIEW PORTABLE CLINICAL HISTORY: 81 years-old Male presenting with CHEST PAIN. TECHNIQUE: Portable upright AP view of the chest was obtained. COMPARISON: 05/11/2016. FINDINGS: Atherosclerosis of aortic arch. Cardiac silhouette normal in size. Coronary artery stents versus coronary artery calcification may be present. Mild prominence of pulmonary vasculature. Improved aeration of the left lung base. No focal infiltrate. No large effusion or pneumothorax. Osseous structures normal. Upper abdomen normal. IMPRESSION: 1. Mild volume overload may be present. Otherwise no acute cardiopulmonary disease. Electronically signed by: Stephan Baird M.D. 02/23/2017 3:06 PM Dictated Date/Time: 02/23/2017 3:05 PM
--- NOTE | 2017-02-23 15:07 | EMERGENCY ROOM VISIT NOTE ---
History Report prepared by Rabia: Abdoulaye Daniels Under the Supervision of: Dr. Aiden Otoole M.D. First contact with patient: 14:41 Chief Complaint: BACK PAIN Stated Complaint: BACK PAIN History of Present Illness The patient is an 81 year old male who presents to the Emergency Room with complaints of constant severe back pain beginning an hour ago. The patient states that he began feeling abdominal pain yesterday afternoon. He notes that he went to a green party yesterday afternoon, and ate a large meal and became nauseous and began experiencing pain. He reports that his pain lasted for about 4 hours, but disappeared after he drank a little david kvng. He states that his nausea persisted even after his abdominal pain stopped. He denies drinking any alcohol at the green party. He notes that he still felt mildly nauseous this morning when he woke up. He reports that he took a nap today, but woke up an hour ago with severe pain in his back. The patient states that his pain does not feel like a tearing in his back. He notes that he took a baby aspirin early today, and took 4 nitro tablets in the last hour with relief of his symptoms. He reports that he is still experiencing mild abdominal discomfort, as well as left shoulder and arm pain that is worse than usual. He denies any diarrhea, SOB , and vomiting. The patient states that he has body pain and sleeping difficulty , for which he takes daily hydrocodone and sleeping pills. He notes that he has had two stents placed. He rates his current pain as a 3-4/10, but notes that his initial pain was a 9-10/10. Source of History: patient Onset: an hour ago Position: back Symptom Intensity: originally 9-10/10, but down to a 3-4/10 with nitro Timing: constant Modifying Factors (Relieving): other (nitro tablets) Associated Symptoms: + nausea, No SOB, No vomiting, No diarrhea Note: He also complains of left shoulder and arm pain, as well as abdominal discomfort. Review of Systems See HPI for pertinent positives and negatives. A total of ten systems were reviewed and were otherwise negative. Past Medical & Surgical Medical Problems: (1) Arthritis (2) BPH (benign prostatic hyperplasia) (3) Heart stents (4) Kidney stones (5) Pain in scapula (6) Rheumatoid arthritis Surgical Problems: (1) History of heart artery stent Family History Diabetes mellitus Hypertension Kidney disease Kidney stones Seizures Social History Smoking Status: Never Smoker Alcohol Use: none Drug Use: none Marital Status: Housing Status: lives with significant other Occupation Status: retired Current/Historical Medications Scheduled Aspirin (Aspirin 81), 81 MG PO QAM Atorvastatin (Atorvastatin Calcium), 40 MG PO HS B-Complex W/ Folic Acid (Super B Complex Maxi), 1 TAB PO QPM Cholecalciferol (Vitamin D3), 1 TAB PO QAM Coenzyme Q10 (Ubidecarenone) (Co Q-10), 100 MG PO QAM Magnesium (Magnesium 250 mg), 1 TAB PO QAM Pantoprazole (Protonix), 40 MG PO DAILY Ranitidine Hcl (Zantac), 150 MG PO DAILY Zinc Gluconate (Zinc), 50 MG PO QPM Scheduled PRN Wqxkybevpn-Aedzhjc-Yxaxbkvp (Butalbital/Aspirin/Caffei 50-325-40 mg), 1 CAP PO Q4-6H PRN for Headache Nitroglycerin (Nitrostat), 0.4 MG UT PRN PRN for Chest Pain Rizatriptan Benzoate (Maxalt), 10 MG PO UD PRN for Headache Triazolam (Halcion), 0.25 MG PO HS PRN for Sleep Allergies Uncoded Allergies: SHINGLES VACCINE (Allergy, Unknown, HIVES AND SORENESS AT INJECTION SITE, ) Physical Exam Vital Signs Date Time Temp Pulse Resp B/P (MAP) Pulse Ox O2 Delivery O2 Flow Rate FiO2 02/23/17 20:01 135/84 02/23/17 20:00 60 23 99 02/23/17 19:26 67 18 127/79 98 Room Air 02/23/17 19:25 63 02/23/17 18:38 63 20 121/78 100 Room Air 02/23/17 17:16 62 26 112/70 99 Room Air 02/23/17 16:49 59 19 100 02/23/17 16:39 111/66 02/23/17 15:49 58 20 98 02/23/17 15:34 62 17 96 02/23/17 15:22 63 02/23/17 15:19 65 26 96 02/23/17 15:08 96 Room Air 02/23/17 14:36 36.8 80 18 110/70 96 Room Air Physical Exam GENERAL: Awake, alert, uncomfortable-appearing, in no distress HENT: Normocephalic, atraumatic. Oropharynx unremarkable. Dry mucous membranes. EYES: Normal conjunctiva. Sclera non-icteric. NECK: Supple. No nuchal rigidity. FROM. No JVD. RESPIRATORY: Clear to auscultation. CARDIAC: Regular rate, normal rhythm. Extremities warm and well perfused. Pulses equal. ABDOMEN: Soft, non-distended. No tenderness to palpation. No rebound or guarding. No masses. RECTAL: Deferred. MUSCULOSKELETAL: Chest examination reveals no tenderness. The back is symmetrical on inspection without obvious abnormality. There is no CVA tenderness to palpation. No joint edema. LOWER EXTREMITIES: Calves are equal size bilaterally and non-tender. No edema. No discoloration. NEURO: Normal sensorium. No sensory or motor deficits noted. SKIN: No rash or jaundice noted. Medical Decision & Procedures ER Provider Diagnostic Interpretation: Radiology results as stated below per my review and radiologist interpretation: CHEST ONE VIEW PORTABLE FINDINGS: Atherosclerosis of aortic arch. Cardiac silhouette normal in size. Coronary artery stents versus coronary artery calcification may be present. Mild prominence of pulmonary vasculature. Improved aeration of the left lung base. No focal infiltrate. No large effusion or pneumothorax. Osseous structures normal. Upper abdomen normal. IMPRESSION: 1. Mild volume overload may be present. Otherwise no acute cardiopulmonary disease. Electronically signed by: Stephan Baird M.D. 02/23/2017 3:06 PM CHEST COMBO ANGIO DISSECTION FINDINGS: Plant Maintenance Technician topogram: Unremarkable. Pulmonary vasculature: The study is adequate for assessment of the aorta. Precontrast imaging demonstrates no evidence of intramural hematoma or postsurgical change. Postcontrast imaging demonstrates a three-vessel aortic arch with mild atherosclerosis. Patent origins of the branch vessels. No evidence of acute aortic injury. No filling defect within the pulmonary arteries to suggest embolus. Main pulmonary artery is not enlarged. No flattening of the interventricular septum. No intracardiac intracardiac filling defect. No reflux of contrast into the hepatic veins. Mild coronary artery calcification. Normal heart size. Remaining chest: On soft tissue windows, normal thyroid and thoracic inlet. Numerous prominent subcentimeter mediastinal and bilateral hilar lymph nodes. No pericardial or pleural effusion. Small hiatal hernia. Hepatic steatosis by liver density. On lung windows, dependent opacities likely atelectasis. No other focal infiltrate. Large airways patent. On bone windows, mildly exaggerated thoracic kyphosis. Mild degenerative changes of the thoracic spine. Osteopenia. IMPRESSION: 1. No evidence of acute aortic injury or pulmonary embolus. 2. Numerous prominent subcentimeter mediastinal and bilateral hilar lymph nodes likely reactive. 3. Hepatic steatosis. 4. Small hiatal hernia. 5. Osteopenia. Electronically signed by: Stephan Baird M.D. 02/23/2017 4:31 PM ANGIO ABD/PELVIS WITH CONTRAST FINDINGS: Plant Maintenance Technician topogram: Unremarkable. Lung bases: Minimal dependent changes likely atelectasis. Calcified granuloma noted at the right lung base. Minimal bandlike opacity likely also atelectasis at the right lower lobe. Normal heart size. No pericardial or pleural effusion. Liver: Normal morphology. Density consistent with hepatic steatosis. Accessory left hepatic artery arising from the left gastric artery. Biliary: No gross biliary ductal dilatation allowing for the phase of contrast. Normal gallbladder. Pancreas: Mild parenchymal atrophy. Spleen: Normal. Adrenal glands: Normal. Kidneys and ureters: Multifocal hypodensities in the kidneys likely cysts, some too small to characterize. Single right main renal artery with a widely patent origin though with atherosclerosis. 2 left renal arteries also patent. Ureters normal. Bladder: Normal. Pelvic organs: Prostate enlargement likely secondary to benign prostatic hyperplasia. Bowel: Normal appendix. No bowel obstruction. Small hiatal hernia. Peritoneal cavity: No free fluid or intraperitoneal gas. Lymph nodes: No enlarged lymph nodes in the abdomen or pelvis. Vasculature: Atherosclerosis of the normal caliber abdominal aorta. Major branch vessels are patent although mild stenosis of the celiac artery is noted 5 mm from its origin. Calcified atherosclerotic plaque at the origin of the superior mesenteric artery does not significantly narrow its lumen. The inferior mesenteric artery is also widely patent. Beyond the aortic bifurcation, a dissection flap or web is evident in the right external iliac artery (series 8 image 349). This is limited to the right external iliac artery and does not extend proximally or distally. Abdominal wall: Fat-containing left inguinal hernia. Musculoskeletal: Degenerative changes of the spine. Degenerative changes of the hips and sacroiliac joints. Osteopenia without evidence of a compression deformity. IMPRESSION: 1. No evidence of aortic dissection or acute aortic injury. 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 2. No acute intra-abdominal pathology. 3. Prostatomegaly. 4. Osteopenia without evidence of a compression deformity. Electronically signed by: Stephan Baird M.D. 02/23/2017 4:42 PM Laboratory Results Test 02/23/17 15:01 Immature Granulocyte % (Auto) 0.0 % White Blood Count 5.45 K/uL (4.8-10.8) Red Blood Count 4.75 M/uL (4.7-6.1) Hemoglobin 13.2 g/dL (14.0-18.0) Hematocrit 41.3 % (42-52) Mean Corpuscular Volume 86.9 fL (80-100) Mean Corpuscular Hemoglobin 27.8 pg (25-34) Mean Corpuscular Hemoglobin Concent 32.0 g/dl (32-36) Platelet Count 175 K/uL (130-400) Mean Platelet Volume 10.6 fL (7.4-10.4) Neutrophils (%) (Auto) 50.9 % Lymphocytes (%) (Auto) 37.2 % Monocytes (%) (Auto) 7.3 % Eosinophils (%) (Auto) 4.2 % Basophils (%) (Auto) 0.4 % Neutrophils # (Auto) 2.77 K/uL (1.4-6.5) Lymphocytes # (Auto) 2.03 K/uL (1.2-3.4) Monocytes # (Auto) 0.40 K/uL (0.11-0.59) Eosinophils # (Auto) 0.23 K/uL (0-0.5) Basophils # (Auto) 0.02 K/uL (0-0.2) Immature Granulocyte # (Auto) 0.00 K/uL (0.00-0.02) Total Bilirubin 0.3 mg/dl (0.2-1) Direct Bilirubin < 0.1 mg/dl (0-0.2) Aspartate Amino Transf (AST/SGOT) 22 U/L (15-37) Alanine Aminotransferase (ALT/SGPT) 32 U/L (12-78) Alkaline Phosphatase 65 U/L (45-117) Pro-B-Type Natriuretic Peptide 112 pg/ml (0-1800) Total Protein 6.5 gm/dl (6.4-8.2) Albumin 3.4 gm/dl (3.4-5.0) Lipase 306 U/L (73-393) Laboratory results reviewed by me Medications Administered Medications (Trade) Dose Ordered Sig/Yasmany Route Start Time Stop Time Status Last Admin Dose Admin Sodium Chloride 1,000 ml @ 999 mls/hr Q1H1M STAT IV 02/23/17 14:44 02/23/17 15:44 DC 02/23/17 15:21 999 MLS/HR Famotidine (Pepcid 20mg Iv Push) 20 mg NOW STAT IV 02/23/17 14:44 02/23/17 14:52 DC 02/23/17 15:21 20 MG Ondansetron HCl (Zofran Inj) 4 mg NOW STAT IV 02/23/17 14:44 02/23/17 14:52 DC 02/23/17 15:21 4 MG ECG Indication: back/shoulder pain Rate (beats per minute): 63 Rhythm: normal sinus Findings: no acute ischemic change, other (Normal axis) ED Course 1443: The patient was evaluated in room B2. A complete history and physical exam was performed. 1649: I paged the hospitalist. 1714: I reevaluated and updated the patient. 1715: The secretaries confirmed that the hospitalist was aware of the patient. 8: Upon reexamination, the patient was stable. I discussed the test results and treatment plan with him. The patient will be evaluated for further management. Medical Decision I reviewed the patient's past medical history, medications, and the nursing notes as described above. Differential diagnoses include: ACS, PE, dissection, CHF, pneumonia, bronchitis , gastritis, reflux, and peptic ulcer. The patient is an 81-year-old gentleman with a past medical history of CAD status post stents who presents emergency Department with back pain that woke him up from a nap today in the setting of having epigastric pain with nausea that began yesterday per history of present illness. Patient took nitroglycerin at home with some improvement in his back pain from an 8 to 3. EKG shows LAD but otherwise unremarkable. CTA was done negative for acute dissection is a question of an iliac chronic dissection. Troponin negative. PE not likely given not hypoxic or tachycardic. Otherwise, patient has a heart score of 5, moderate risk, thus admission for further ACS rule out is appropriate. Patient will be admitted to the [facility] hospitalist service. Case d/ w Dr. Spears, who will admit the patient for further management. Medication Reconcilliation Current Medication List: was personally reviewed by me Blood Pressure Screening Patient's blood pressure: Normal blood pressure Blood pressure disposition: Did not require urgent referral Consults Time Called: 1646 Consulting Physician: ZEINAB Pantoja Returned Call: 1648 I paged the hospitalist. Additional Consults: Time Called: 2045 Consulted Physician: ZEINAB Landaverde Returned Call: [phone] Additional Comments: I discussed the patient with ZEINAB Landaverde. He will evaluate the patient for further treatment. Impression Primary Impression: Substernal chest pain Scribe Attestation The scribe's documentation has been prepared under my direction and personally reviewed by me in its entirety. I confirm that the note above accurately reflects all work, treatment, procedures, and medical decision making performed by me. Departure Information Dispostion Being Evaluated By Hospitalist Referrals No Doctor, Assigned (PCP) Patient Instructions My [facility]
[2017-02-23 15:17] LABS: BASO % 0.4 %; BASO ABS # 0.02 K/uL (0-0.2); COMPLETE YES; EOS % 4.2 %; HEMATOCRIT 41.3 % (42-52); LYMPH % 37.2 %; LYMPH ABS # 2.03 K/uL (1.2-3.4); MEAN CELL VOLUME 86.9 fL (80-100); MEAN CORPUSCULAR HEMOGLOBIN 27.8 pg (25-34); MEAN PLATELET VOLUME 10.6 fL (7.4-10.4); MONO % 7.3 %; NEUT % 50.9 %; PLATELET COUNT 175 K/uL (130-400); RED BLOOD COUNT 4.75 M/uL (4.7-6.1); WHITE BLOOD COUNT 5.45 K/uL (4.8-10.8)
[2017-02-23 15:35] LABS: ALT/SGPT 32 U/L (12-78); AST/SGOT 22 U/L (15-37); BLOOD UREA NITROGEN 16 mg/dl (7-18); BUN/CREATININE RATIO 14.1 (10-20); CALCIUM 8.7 mg/dl (8.5-10.1); CARBON DIOXIDE 28 mmol/L (21-32); CHLORIDE 109 mmol/L (98-107); GLUCOSE 119 mg/dl (70-99); POTASSIUM 4.5 mmol/L (3.5-5.1); SODIUM 143 mmol/L (136-145)
[2017-02-23 15:40] LABS: ALKALINE PHOSPHATASE 65 U/L (45-117)
--- NOTE | 2017-02-23 16:32 | DIAGNOSTIC IMAGING REPORT ---
CHEST COMBO ANGIO DISSECTION CLINICAL HISTORY: 81 years-old Male presenting with ^back and abd pain, r/o dissection. TECHNIQUE: Multidetector CT angiography of the chest was performed after administration of intravenous contrast. 3-D volumetric and/or maximum intensity projection (MIP) images were subsequently reconstructed for review. IV contrast: 118 mL of Optiray 320. A dose lowering technique was used consistent with the principles of ALARA (as low as reasonably achievable). COMPARISON: None. CT DOSE (mGy.cm): The estimated cumulative dose is 1536.19 inclusive of the CTA abdomen and pelvis. FINDINGS: Three Dimensional Art Instructor topogram: Unremarkable. Pulmonary vasculature: The study is adequate for assessment of the aorta. Precontrast imaging demonstrates no evidence of intramural hematoma or postsurgical change. Postcontrast imaging demonstrates a three-vessel aortic arch with mild atherosclerosis. Patent origins of the branch vessels. No evidence of acute aortic injury. No filling defect within the pulmonary arteries to suggest embolus. Main pulmonary artery is not enlarged. No flattening of the interventricular septum. No intracardiac intracardiac filling defect. No reflux of contrast into the hepatic veins. Mild coronary artery calcification. Normal heart size. Remaining chest: On soft tissue windows, normal thyroid and thoracic inlet. Numerous prominent subcentimeter mediastinal and bilateral hilar lymph nodes. No pericardial or pleural effusion. Small hiatal hernia. Hepatic steatosis by liver density. On lung windows, dependent opacities likely atelectasis. No other focal infiltrate. Large airways patent. On bone windows, mildly exaggerated thoracic kyphosis. Mild degenerative changes of the thoracic spine. Osteopenia. IMPRESSION: 1. No evidence of acute aortic injury or pulmonary embolus. 2. Numerous prominent subcentimeter mediastinal and bilateral hilar lymph nodes likely reactive. 3. Hepatic steatosis. 4. Small hiatal hernia. 5. Osteopenia. Electronically signed by: Stephan Baird M.D. 02/23/2017 4:31 PM Dictated Date/Time: 02/23/2017 4:23 PM
--- NOTE | 2017-02-23 16:44 | DIAGNOSTIC IMAGING REPORT ---
ANGIO ABD/PELVIS WITH CONTRAST CLINICAL HISTORY: 81 years-old Male presenting with back and abdominal pain, clinical concern for aortic dissection. TECHNIQUE: Multidetector CT angiography of the abdomen and pelvis was performed after the administration of intravenous contrast. 3-D volumetric and/or maximum intensity projection (MIP) images were subsequently reconstructed for review. IV contrast: 118 mL of Optiray 320. A dose lowering technique was used consistent with the principles of ALARA (as low as reasonably achievable). Stenosis measurements were based on NASCET-like criteria. COMPARISON: 05/11/2016. CT DOSE (mGy.cm): The estimated cumulative dose is 1536.19 mGy.cm. FINDINGS: Inspector Mechanical topogram: Unremarkable. Lung bases: Minimal dependent changes likely atelectasis. Calcified granuloma noted at the right lung base. Minimal bandlike opacity likely also atelectasis at the right lower lobe. Normal heart size. No pericardial or pleural effusion. Liver: Normal morphology. Density consistent with hepatic steatosis. Accessory left hepatic artery arising from the left gastric artery. Biliary: No gross biliary ductal dilatation allowing for the phase of contrast. Normal gallbladder. Pancreas: Mild parenchymal atrophy. Spleen: Normal. Adrenal glands: Normal. Kidneys and ureters: Multifocal hypodensities in the kidneys likely cysts, some too small to characterize. Single right main renal artery with a widely patent origin though with atherosclerosis. 2 left renal arteries also patent. Ureters normal. Bladder: Normal. Pelvic organs: Prostate enlargement likely secondary to benign prostatic hyperplasia. Bowel: Normal appendix. No bowel obstruction. Small hiatal hernia. Peritoneal cavity: No free fluid or intraperitoneal gas. Lymph nodes: No enlarged lymph nodes in the abdomen or pelvis. Vasculature: Atherosclerosis of the normal caliber abdominal aorta. Major branch vessels are patent although mild stenosis of the celiac artery is noted 5 mm from its origin. Calcified atherosclerotic plaque at the origin of the superior mesenteric artery does not significantly narrow its lumen. The inferior mesenteric artery is also widely patent. Beyond the aortic bifurcation, a dissection flap or web is evident in the right external iliac artery (series 8 image 349). This is limited to the right external iliac artery and does not extend proximally or distally. Abdominal wall: Fat-containing left inguinal hernia. Musculoskeletal: Degenerative changes of the spine. Degenerative changes of the hips and sacroiliac joints. Osteopenia without evidence of a compression deformity. IMPRESSION: 1. No evidence of aortic dissection or acute aortic injury. 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 2. No acute intra-abdominal pathology. 3. Prostatomegaly. 4. Osteopenia without evidence of a compression deformity. Electronically signed by: Stephan Baird M.D. 02/23/2017 4:42 PM Dictated Date/Time: 02/23/2017 4:32 PM
[2017-02-23] MEDS ORDERED: NITROGLYCERIN 0.4 MG SL PER TAB CHARGE UT PRN (20:30)
[2017-02-23] MEDS ORDERED: MoRPHine SULFATE 2 MG/ML CARP IV PRN (20:30)
[2017-02-23] MEDS ORDERED: NITROGLYCERIN 0.4 MG SL PER TAB CHARGE SL PRN (20:30)
[2017-02-23] MEDS ORDERED: POLYETHYLENE (MIRALAX) 17 GM PACK PO PRN (20:30)
[2017-02-23] MEDS ORDERED: ZOLPIDEM TARTRATE 5 MG TAB PO PRN (20:30)
[2017-02-23] MEDS ORDERED: RIZATRIPTAN BENZOATE 10 MG TAB PO PRN (20:30)
[2017-02-23] MEDS ORDERED: ALUMINUM/MAGNESIUM/SIMETH (MAALOX MAX) 30 ML UDC PO PRN (20:30)
[2017-02-23] MEDS ORDERED: ONDANSETRON INJ 2 MG/ML 2 ML VIAL IV PRN (20:30)
[2017-02-23] MEDS ORDERED: MAGNESIUM HYDROXIDE SUSP 30 ML UDC PO PRN (20:30)
[2017-02-23] MEDS ORDERED: ACETAMINOPHEN 325 MG TAB PO PRN (20:30)
--- NOTE | 2017-02-23 20:33 | History and Physical ---
History & Physical Date & Time of Service: Feb 23, 2017 at 20:30 Chief Complaint: Back Pain Primary Care Physician: Antony Long M.D. History of Present Illness Source: patient, family, clinic records, hospital records 81M with a PMHx of cardiac stents in 2008, GERD p/w abdominal discomfort and scapular pain x 1 day. Patient was recently at an [employer] constitution party yesterday and shortly afterward felt nauseous and starting having abdominal pain in the epigastric area. He was unable to sleep because of abdominal discomfort although he admits he does have chronic insomnia issues. Today after holiness he started having scapular pain as well. He has a history of chronic joint and muscle aches that has tentatively been diagnosed as fibromyalgia but he has never had mid scapular pain as part of his symptoms. He describe the scapular pain as sharp and stabbing. His nausea and epigastric abdominal discomfort persisted to today. His scapular pain went away after taking his 4th nitro tablets earlier this afternoon. He admits he may have eaten something odd at [employer] however he denies any vomiting or changes in his bowel movements. According to Dr. Dinero the patient admits to getting abdominal pain after eating x many months and loose stools over this time period. PMHx: chronic pain, fibromyalgia, he has been self weaning from Opiate medications, has only taken 1 oxycodone in about two weeks. Past Medical/Surgical History Medical Problems: (1) Arthritis Status: Chronic (2) Heart stents Status: Chronic (3) Kidney stones Status: Resolved Family History Diabetes mellitus Hypertension Kidney disease Kidney stones Seizures Social History Smoking Status: Never Smoker Smokeless Tobacco Use: No Alcohol Use: none Drug Use: none Marital Status: Housing status: lives with family Occupational Status: retired Immunizations History of Influenza Vaccine: Unknown History of Tetanus Vaccine?: Unknown History of Pneumococcal: Unknown History of Hepatitis B Vaccine: Unknown Multi-Drug Resistant Organisms History of MDRO: No Allergies Uncoded Allergies: SHINGLES VACCINE (Allergy, Unknown, HIVES AND SORENESS AT INJECTION SITE, ) Home Medications Scheduled Aspirin (Aspirin 81), 81 MG PO QAM Atorvastatin (Atorvastatin Calcium), 40 MG PO HS B-Complex W/ Folic Acid (Super B Complex Maxi), 1 TAB PO QPM Cholecalciferol (Vitamin D3), 1 TAB PO QAM Coenzyme Q10 (Ubidecarenone) (Co Q-10), 100 MG PO QAM Magnesium (Magnesium 250 mg), 1 TAB PO QAM Pantoprazole (Protonix), 40 MG PO DAILY Ranitidine Hcl (Zantac), 150 MG PO DAILY Zinc Gluconate (Zinc), 50 MG PO QPM Scheduled PRN Ytfjnvrofh-Lqxjigq-Oorpfnmq (Butalbital/Aspirin/Caffei 50-325-40 mg), 1 CAP PO Q4-6H PRN for Headache Nitroglycerin (Nitrostat), 0.4 MG UT PRN PRN for Chest Pain Rizatriptan Benzoate (Maxalt), 10 MG PO UD PRN for Headache Triazolam (Halcion), 0.25 MG PO HS PRN for Sleep Review of Systems Constitutional: No fever, No chills ENT: No hearing loss Respiratory: No cough, No sputum, No wheezing, No shortness of breath, No dyspnea on exertion Abdomen: + pain, + nausea, No vomiting, No diarrhea, No constipation Musculoskeletal: + joint pain (chronic) Genitourinary - Male: No dysuria Integumentary: No rash Physical Exam Vital Signs Date Time Temp Pulse Resp B/P (MAP) Pulse Ox O2 Delivery O2 Flow Rate FiO2 02/23/17 19:26 67 18 127/79 98 Room Air 02/23/17 19:25 63 02/23/17 18:38 63 20 121/78 100 Room Air 02/23/17 17:16 62 26 112/70 99 Room Air 02/23/17 16:49 59 19 100 02/23/17 16:39 111/66 02/23/17 15:49 58 20 98 02/23/17 15:34 62 17 96 02/23/17 15:22 63 02/23/17 15:19 65 26 96 02/23/17 15:08 96 Room Air 02/23/17 14:36 36.8 80 18 110/70 96 Room Air General Appearance: WD/WN, no apparent distress Eyes: PERRL Neck: supple Respiratory/Chest: chest non-tender, lungs clear, normal breath sounds, no respiratory distress, no accessory muscle use Cardiovascular: regular rate, rhythm, no edema, no gallop, no JVD, no murmur, normal peripheral pulses Abdomen/GI: normal bowel sounds, non tender, soft, no organomegaly Extremities/Musculoskelatal: normal inspection, no pedal edema, + pertinent finding (feet were cold but not purple, 2+ DP pulses bilaterally, no calf tenderness. No tendeness in the scapular, shoulder exam was normal (no pain on passive ROM, pain when trying to put his arms above his head), no pain on shoulder internal or external rotation against resistance. 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, no motor/sensory deficits, alert, normal mood/affect, oriented x 3 Diagnostics Laboratory Results Results Past 24 Hours Test 02/23/17 15:01 Range/Units White Blood Count 5.45 4.8-10.8 K/uL Red Blood Count 4.75 4.7-6.1 M/uL Hemoglobin 13.2 14.0-18.0 g/dL Hematocrit 41.3 42-52 % Mean Corpuscular Volume 86.9 80-100 fL Mean Corpuscular Hemoglobin 27.8 25-34 pg Mean Corpuscular Hemoglobin Concent 32.0 32-36 g/dl Platelet Count 175 130-400 K/uL Mean Platelet Volume 10.6 7.4-10.4 fL Neutrophils (%) (Auto) 50.9 % Lymphocytes (%) (Auto) 37.2 % Monocytes (%) (Auto) 7.3 % Eosinophils (%) (Auto) 4.2 % Basophils (%) (Auto) 0.4 % Neutrophils # (Auto) 2.77 1.4-6.5 K/uL Lymphocytes # (Auto) 2.03 1.2-3.4 K/uL Monocytes # (Auto) 0.40 0.11-0.59 K/uL Eosinophils # (Auto) 0.23 0-0.5 K/uL Basophils # (Auto) 0.02 0-0.2 K/uL RDW Standard Deviation 41.4 36.4-46.3 fL RDW Coefficient of Variation 12.9 11.5-14.5 % Immature Granulocyte % (Auto) 0.0 % Immature Granulocyte # (Auto) 0.00 0.00-0.02 K/uL Sodium Level 143 136-145 mmol/L Potassium Level 4.5 3.5-5.1 mmol/L Chloride Level 109 98-107 mmol/L Carbon Dioxide Level 28 21-32 mmol/L Anion Gap 7.0 3-11 mmol/L Blood Urea Nitrogen 16 7-18 mg/dl Creatinine 1.10 0.60-1.40 mg/dl Est Creatinine Clear Calc Drug Dose 60.3 ml/min Estimated GFR () 72.6 Estimated GFR (Non- 62.6 BUN/Creatinine Ratio 14.1 10-20 Random Glucose 119 70-99 mg/dl Calcium Level 8.7 8.5-10.1 mg/dl Total Bilirubin 0.3 0.2-1 mg/dl Direct Bilirubin < 0.1 0-0.2 mg/dl Aspartate Amino Transf (AST/SGOT) 22 15-37 U/L Alanine Aminotransferase (ALT/SGPT) 32 12-78 U/L Alkaline Phosphatase 65 45-117 U/L Troponin I < 0.015 0-0.045 ng/ml Pro-B-Type Natriuretic Peptide 112 0-1800 pg/ml Total Protein 6.5 6.4-8.2 gm/dl Albumin 3.4 3.4-5.0 gm/dl Lipase 306 73-393 U/L Diagnostic Radiology ANGIO ABD/PELVIS WITH CONTRAST CLINICAL HISTORY: 81 years-old Male presenting with back and abdominal pain, clinical concern for aortic dissection. TECHNIQUE: Multidetector CT angiography of the abdomen and pelvis was performed after the administration of intravenous contrast. 3-D volumetric and/or maximum intensity projection (MIP) images were subsequently reconstructed for review. IV contrast: 118 mL of Optiray 320. A dose lowering technique was used consistent with the principles of ALARA (as low as reasonably achievable). Stenosis measurements were based on NASCET-like criteria. COMPARISON: 05/11/2016. CT DOSE (mGy.cm): The estimated cumulative dose is 1536.19 mGy.cm. 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 Lung bases: Minimal dependent changes likely atelectasis. Calcified granuloma noted at the right lung base. Minimal bandlike opacity likely also atelectasis at the right lower lobe. Normal heart size. No pericardial or pleural effusion. Liver: Normal morphology. Density consistent with hepatic steatosis. Accessory left hepatic artery arising from the left gastric artery. Biliary: No gross biliary ductal dilatation allowing for the phase of contrast. Normal gallbladder. Pancreas: Mild parenchymal atrophy. Spleen: Normal. Adrenal glands: Normal. Kidneys and ureters: Multifocal hypodensities in the kidneys likely cysts, some too small to characterize. Single right main renal artery with a widely patent origin though with atherosclerosis. 2 left renal arteries also patent. Ureters normal. Bladder: Normal. Pelvic organs: Prostate enlargement likely secondary to benign prostatic hyperplasia. Bowel: Normal appendix. No bowel obstruction. Small hiatal hernia. Peritoneal cavity: No free fluid or intraperitoneal gas. Lymph nodes: No enlarged lymph nodes in the abdomen or pelvis. Vasculature: Atherosclerosis of the normal caliber abdominal aorta. Major branch vessels are patent although mild stenosis of the celiac artery is noted 5 mm from its origin. Calcified atherosclerotic plaque at the origin of the superior mesenteric artery does not significantly narrow its lumen. The inferior mesenteric artery is also widely patent. Beyond the aortic bifurcation, a dissection flap or web is evident in the right external iliac artery (series 8 image 349). This is limited to the right external iliac artery and does not extend proximally or distally. Abdominal wall: Fat-containing left inguinal hernia. Musculoskeletal: Degenerative changes of the spine. Degenerative changes of the hips and sacroiliac joints. Osteopenia without evidence of a compression deformity. IMPRESSION: 1. No evidence of aortic dissection or acute aortic injury. 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 2. No acute intra-abdominal pathology. 3. Prostatomegaly. 4. Osteopenia without evidence of a compression deformity. CHEST COMBO ANGIO DISSECTION CLINICAL HISTORY: 81 years-old Male presenting with ^back and abd pain, r/o dissection. TECHNIQUE: Multidetector CT angiography of the chest was performed after administration of intravenous contrast. 3-D volumetric and/or maximum intensity projection (MIP) images were subsequently reconstructed for review. IV contrast: 118 mL of Optiray 320. A dose lowering technique was used consistent with the principles of ALARA (as low as reasonably achievable). COMPARISON: None. CT DOSE (mGy.cm): The estimated cumulative dose is 1536.19 inclusive of the CTA abdomen and pelvis. 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 Pulmonary vasculature: The study is adequate for assessment of the aorta. Precontrast imaging demonstrates no evidence of intramural hematoma or postsurgical change. Postcontrast imaging demonstrates a three-vessel aortic arch with mild atherosclerosis. Patent origins of the branch vessels. No evidence of acute aortic injury. No filling defect within the pulmonary arteries to suggest embolus. Main pulmonary artery is not enlarged. No flattening of the interventricular septum. No intracardiac intracardiac filling defect. No reflux of contrast into the hepatic veins. Mild coronary artery calcification. Normal heart size. Remaining chest: On soft tissue windows, normal thyroid and thoracic inlet. Numerous prominent subcentimeter mediastinal and bilateral hilar lymph nodes. No pericardial or pleural effusion. Small hiatal hernia. Hepatic steatosis by liver density. On lung windows, dependent opacities likely atelectasis. No other focal infiltrate. Large airways patent. On bone windows, mildly exaggerated thoracic kyphosis. Mild degenerative changes of the thoracic spine. Osteopenia. IMPRESSION: 1. No evidence of acute aortic injury or pulmonary embolus. 2. Numerous prominent subcentimeter mediastinal and bilateral hilar lymph nodes likely reactive. 3. Hepatic steatosis. 4. Small hiatal hernia. 5. Osteopenia. CHEST ONE VIEW PORTABLE CLINICAL HISTORY: 81 years-old Male presenting with CHEST PAIN. TECHNIQUE: Portable upright AP view of the chest was obtained. COMPARISON: 05/11/2016. FINDINGS: Atherosclerosis of aortic arch. Cardiac silhouette normal in size. Coronary artery stents versus coronary artery calcification may be present. Mild prominence of pulmonary vasculature. Improved aeration of the left lung base. No focal infiltrate. No large effusion or pneumothorax. Osseous structures normal. Upper abdomen normal. IMPRESSION: 1. Mild volume overload may be present. Otherwise no acute cardiopulmonary disease. EKG Normal sinus rhythm Normal ECG When compared with ECG of 11-MAY-2016 12:00, No significant change was found Impression Assessment and Plan 81M p/w two day history of abdo pain and stabbing scapular pain. Substernal/Epigastric Pain +Scapular Pain with the history of history of CAD - Trop neg x 1, BNP normal, CT shows no evidence of aortic dissection. - Per chart review h/o kidney stones but no CVA tenderness. - EKG reviewed, normal sinus rhythm - Echo in the AM - Daily EKGs. - Admit to tele. - Trop neg x 1, will trend. - c/w home ASA daily. Acute on Chronic Abdo pain in a history of loose stools. - History of RUQ pain after eating for many months suspicious of GB pathology. - Afebrile, WBC normal. Abdomen non tender to palpation. Hepatic Steatosis on CT. - LFTs WNL, Lipase WNL. - Will make NPO after midnight. 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 Made patient aware. To be included in discharge instructions. - Monitor BP. Numerous prominent subcentimeter mediastinal and bilateral hilar lymph nodes likely reactive. - Unsure where the reactive LN are coming from, lungs clear, afebrile, no WBC count, could be related to GB/ - Will get UA. HLD -Continue Lipitor 40mg daily. GERD - c/w PPI +Ranitidine. H/o Migraines Maxalt 10 MG PO UD PRN for Headache Dispo: Tele, Obs, NPO after midnight for HIDA scan. DVT Proph: Hep SQ BID. FULL CODE Attending addendum: I have physically seen this patient, have supervised the medical residents activities, and agree with the H&P unless as otherwise noted. Assessment and Plan: Substernal/epigastric/intrascapular pain/CAD/coronary artery stents-- The patient will be admitted to telemetry for serial cardiac enzymes, cardiac rhythm monitoring and a 2-D echocardiogram with Dopplers. Continue aspirin 81 mg every morning Epigastric/right upper quadrant pain/loose stools for several months/hepatic steatosis on CT of abdomen and pelvis-- Nothing by mouth after midnight except meds Continue pantoprazole 40 mg by mouth every morning and Yvonne Bryn 150 mg by mouth daily. Order HIDA scan with gallbladder ejection fraction. Chronic right external iliac artery dissection/web-- No symptoms of claudication She'll be monitored by outpatient physician Bilateral mediastinal/hilar lymphadenopathy-- Suggestion of prior granulomatous infection No active issues as far symptoms go at this time. Migraine headaches-- Maxalt 10 mg daily when necessary Hyperlipidemia--continue atorvastatin 40 mg by mouth bedtime Level of Care Telemetry Advanced Directives Existing Advance Directive: No Existing Living Will: No Existing Power of [employer]ed [employer] Panels Deburrer: No Resuscitation Status FULL RESUSCITATION VTE Prophylaxis VTE Risk Assessment Done? Y/N: Yes Risk Level: Moderate Given or contraindicated: SCD's Resident Involvement: Resident Care Provided Care Provided: Adult Hospital Medicine
[2017-02-23] MEDS ORDERED: IV FLUIDS COMPLETED PRN (20:45)
[2017-02-23 21:46] VITALS: BP 139/77; PULSE 60; TEMP 36.8; O2SAT 96; Ht 177.8 cm; Wt 92.0 kg
[2017-02-23 22:48] LABS: URINE APPEARANCE CLEAR (CLEAR); URINE BILIRUBIN NEG (NEG); URINE COLOR YELLOW; URINE NITRITE NEG (NEG); URINE PH 7.5 (4.5-7.5); URINE SPECIFIC GRAVITY > 1.045 (1.000-1.030); UROBILINOGEN NEG (NEG); ZZUR CULT IF INDIC CLEAN CATCH NO
[2017-02-23 23:00] LABS: MANUAL MICROSCOPIC REQUIRED? NO; REVIEW REQ? NO
[2017-02-23] MEDS: ATORVASTATIN 40 MG TAB PO SCH (23:11)
[2017-02-23] MEDS: NITROGLYCERIN OINT 2% 1GM PACKET EXT SCH (23:12)
[2017-02-23] MEDS: ZOLPIDEM TARTRATE 5 MG TAB PO PRN (23:12)
[2017-02-24] VITALS (7 sets, daily range): BP systolic 116–149; BP diastolic 62–82; PULSE 59–72; TEMP 36.3–36.8; O2SAT 94–98
[2017-02-24 02:02] LABS: HEMATOCRIT 39.2 % (42-52); MEAN CORPUSCULAR HEMOGLOBIN 27.6 pg (25-34); MEAN CORPUSCULAR HGB CONC 32.1 g/dl (32-36); MEAN PLATELET VOLUME 10.1 fL (7.4-10.4); PLATELET COUNT 158 K/uL (130-400); RED BLOOD COUNT 4.56 M/uL (4.7-6.1); WHITE BLOOD COUNT 6.96 K/uL (4.8-10.8)
[2017-02-24 02:20] LABS: PARTIAL THROMBOPLASTIN RATIO 0.8; PROTHROMBIN TIME (PATIENT) 10.4 SECONDS (9.0-12.0)
[2017-02-24 02:35] LABS: BLOOD UREA NITROGEN 14 mg/dl (7-18); BUN/CREATININE RATIO 13.8 (10-20); CALCIUM 8.5 mg/dl (8.5-10.1); CARBON DIOXIDE 28 mmol/L (21-32); CHLORIDE 110 mmol/L (98-107); CHOLESTEROL 137 mg/dl (0-200); CHOLESTEROL/HDL RATIO 4.4; CKMB/CK RATIO 2.5 (0-3.0); GLUCOSE 93 mg/dl (70-99); HDL CHOLESTEROL 31 mg/dl; LDL CHOLESTEROL CALCULATED 58 mg/dl; POTASSIUM 3.8 mmol/L (3.5-5.1); SODIUM 141 mmol/L (136-145); TRIGLYCERIDES 239 mg/dl (0-150); VERY LOW DENSITY LIPOPROT CALC 48 mg/dl
[2017-02-24] MEDS: NITROGLYCERIN OINT 2% 1GM PACKET EXT SCH ×4 (04:37→22:21)
[2017-02-24] MEDS ORDERED: SODIUM CHLORIDE 0.9% IV ONE (08:30)
[2017-02-24] MEDS ORDERED: SINCALIDE IV ONE (08:30)
[2017-02-24] MEDS ORDERED: ASPIRIN 81 MG ECTAB PO SCH (09:00)
[2017-02-24] MEDS ORDERED: ASPIRIN 81 MG CHEW PO SCH (09:00)
[2017-02-24] MEDS ORDERED: ASPIRIN 325 MG ECTAB PO SCH (09:00)
[2017-02-24] MEDS: PANTOprazole SOD 40 MG TAB PO SCH (10:16)
[2017-02-24] MEDS: ASPIRIN 81 MG ECTAB PO SCH (10:16)
[2017-02-24] MEDS: RANITIDINE HCL 150 MG TAB PO SCH (10:17)
[2017-02-24] MEDS: HEPARIN SOD 5000 UNIT/0.5 ML CARP SQ SCH ×2 (10:19→20:35)
--- NOTE | 2017-02-24 10:20 | DIAGNOSTIC IMAGING REPORT ---
NUCLEAR MEDICINE HEPATOBILIARY SCAN INCLUDING EJECTION FRACTION ANALYSIS CLINICAL HISTORY: Right upper quadrant abdominal pain after eating COMPARISON STUDY: No previous studies for comparison. FINDINGS: The patient was injected with 5.5 mCi of technetium 99m Choletec. Sequential anterior imaging was performed. The gallbladder was first visualized on the 10 minute image. Hepatic excretion appeared unremarkable. At 1 hour, the patient was administered 1.87 mcg of sincalide utilizing a 30 minute intravenous infusion. The gallbladder ejection fraction was normal measuring 98%. There is normal passage of activity into small bowel. IMPRESSION: Normal study. No evidence of cystic duct obstruction. Normal gallbladder ejection fraction of 98%. Electronically signed by: Rhett Hameed M.D. 02/24/2017 10:19 AM Dictated Date/Time: 02/24/2017 10:03 AM
[2017-02-24 12:22] LABS: CKMB/CK RATIO 2.4 (0-3.0)
[2017-02-24] MEDS ORDERED: DOBUTamine HCL 12.5 MG/ML 20 ML VIAL ONE (13:32)
[2017-02-24] MEDS ORDERED: ATROPINE SULFATE 0.1 MG/ML 5ML SYR ONE (13:32)
[2017-02-24] MEDS ORDERED: METOPROLOL TARTRATE 1 MG/ML VIAL ONE (13:32)
--- NOTE | 2017-02-24 14:17 | Progress Note ---
Subjective Date of Service: Feb 24, 2017. Subjective Pt evaluation today including: conversation w/ patient, conversation w/ family , physical exam, chart review, lab review, review of studies, conversation w/ employee relations consultant, review of inpatient medication list Voiding: no voiding problems No pain, tolerate diet, Problem List Medical Problems: (1) Substernal chest pain Status: Acute Review of Systems Constitutional: No fever, No chills, No sweats, No weight loss, No weakness, No fatigue, No problem reported Eyes: No worsening of vision, No eye pain, No redness, No discharge, No diplopia ENT: No hearing loss, No unusual epistaxis, No nasal symptoms, No sore throat, No tinnitus, No dental problems, No trouble swallowing Respiratory: No cough, No sputum, No wheezing, No shortness of breath, No dyspnea on exertion, No dyspnea at rest, No hemoptysis Cardiac: No chest pain, No orthopnea, No PND, No edema, No claudication, No palpitations Abdomen: No pain, No nausea, No vomiting, No diarrhea, No constipation Musculoskeletal: No joint pain, No muscle pain, No swelling, No calf pain Male : No dysuria, No urinary frequency, No incontinence, No nocturia more than once/night, No slowing stream, No hematuria Neurologic: No memory loss, No paralysis, No weakness, No numbness/tingling, No vertigo, No balance problems Psychiatric: No depression symptoms, No anhedonism, No anxiety, No insomnia, No substance abuse Heme: No abnormal bleeding/bruising, No clotting problems, No swollen lymph nodes, No night sweats Endo: No fatigue, No excessive thirst, No excessive urination Skin: No rash, No itch, No new/changing skin lesions, No color change, No bleeding Objective Vital Signs Date Time Temp Pulse Resp B/P (MAP) Pulse Ox O2 Delivery O2 Flow Rate FiO2 02/24/17 12:00 Room Air 02/24/17 12:00 36.5 59 18 149/82 (104) 95 Room Air 02/24/17 08:00 Room Air 02/24/17 07:41 36.8 72 18 136/62 (86) 96 02/24/17 04:37 36.8 59 18 116/63 (80) 98 Room Air 02/24/17 04:00 Room Air 02/24/17 00:08 36.3 66 18 120/67 (84) 96 Room Air 02/24/17 00:02 Room Air 02/23/17 21:46 36.8 60 22 139/77 96 Room Air 02/23/17 21:03 36.8 64 16 113/74 97 02/23/17 21:00 61 16 113/74 97 02/23/17 20:30 62 20 98 02/23/17 20:01 135/84 02/23/17 20:00 60 23 99 02/23/17 19:26 67 18 127/79 98 Room Air 02/23/17 19:25 63 02/23/17 18:38 63 20 121/78 100 Room Air 02/23/17 17:16 62 26 112/70 99 Room Air 02/23/17 16:49 59 19 100 02/23/17 16:39 111/66 02/23/17 15:49 58 20 98 02/23/17 15:34 62 17 96 02/23/17 15:22 63 02/23/17 15:19 65 26 96 02/23/17 15:08 96 Room Air 02/23/17 14:36 36.8 80 18 110/70 96 Room Air Physical Exam General Appearance: WD/WN, no apparent distress Eyes: normal inspection, PERRL, EOMI, sclerae normal ENT: normal ENT inspection, hearing grossly normal, pharynx normal Neck: supple, no adenopathy, thyroid normal, no JVD, no carotid bruits, trachea midline Respiratory/Chest: chest non-tender, normal breath sounds, no respiratory distress, no accessory muscle use, + decreased breath sounds Cardiovascular: regular rate, rhythm, no edema, no gallop, no JVD, no murmur Abdomen: normal bowel sounds, non tender, soft, no organomegaly, no pulsatile mass Extremities: normal range of motion, non-tender, normal inspection, no pedal edema, no calf tenderness, normal capillary refill, pelvis stable 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, no motor/sensory deficits, alert, normal mood/affect, oriented x 3 Skin: normal color, warm/dry, no rash Lymphatic: no adenopathy Laboratory Results Last 24 Hours Test 02/23/17 15:01 02/23/17 22:15 02/24/17 01:53 02/24/17 11:31 White Blood Count 5.45 K/uL 6.96 K/uL Red Blood Count 4.75 M/uL 4.56 M/uL Hemoglobin 13.2 g/dL 12.6 g/dL Hematocrit 41.3 % 39.2 % Mean Corpuscular Volume 86.9 fL 86.0 fL Mean Corpuscular Hemoglobin 27.8 pg 27.6 pg Mean Corpuscular Hemoglobin Concent 32.0 g/dl 32.1 g/dl Platelet Count 175 K/uL 158 K/uL Mean Platelet Volume 10.6 fL 10.1 fL Neutrophils (%) (Auto) 50.9 % Lymphocytes (%) (Auto) 37.2 % Monocytes (%) (Auto) 7.3 % Eosinophils (%) (Auto) 4.2 % Basophils (%) (Auto) 0.4 % Neutrophils # (Auto) 2.77 K/uL Lymphocytes # (Auto) 2.03 K/uL Monocytes # (Auto) 0.40 K/uL Eosinophils # (Auto) 0.23 K/uL Basophils # (Auto) 0.02 K/uL RDW Standard Deviation 41.4 fL 40.9 fL RDW Coefficient of Variation 12.9 % 13.0 % Immature Granulocyte % (Auto) 0.0 % Immature Granulocyte # (Auto) 0.00 K/uL Sodium Level 143 mmol/L 141 mmol/L Potassium Level 4.5 mmol/L 3.8 mmol/L Chloride Level 109 mmol/L 110 mmol/L Carbon Dioxide Level 28 mmol/L 28 mmol/L Anion Gap 7.0 mmol/L 3.0 mmol/L Blood Urea Nitrogen 16 mg/dl 14 mg/dl Creatinine 1.10 mg/dl 1.00 mg/dl Est Creatinine Clear Calc Drug Dose 60.3 ml/min 66.6 ml/min Estimated GFR () 72.6 81.4 Estimated GFR (Non- 62.6 70.3 BUN/Creatinine Ratio 14.1 13.8 Random Glucose 119 mg/dl 93 mg/dl Calcium Level 8.7 mg/dl 8.5 mg/dl Total Bilirubin 0.3 mg/dl Direct Bilirubin < 0.1 mg/dl Aspartate Amino Transf (AST/SGOT) 22 U/L Alanine Aminotransferase (ALT/SGPT) 32 U/L Alkaline Phosphatase 65 U/L Troponin I < 0.015 ng/ml < 0.015 ng/ml < 0.015 ng/ml Pro-B-Type Natriuretic Peptide 112 pg/ml Total Protein 6.5 gm/dl Albumin 3.4 gm/dl Lipase 306 U/L Urine Color YELLOW Urine Appearance CLEAR Urine pH 7.5 Urine Specific [place] > 1.045 Urine Protein NEG Urine Glucose (UA) NEG Urine Ketones NEG Urine Occult Blood NEG Urine Nitrite NEG Urine Bilirubin NEG Urine Urobilinogen NEG Urine Leukocyte Esterase NEG Prothrombin Time 10.4 SECONDS Prothromb Time International Ratio 1.0 Activated Partial Thromboplast Time 21.0 SECONDS Partial Thromboplastin Ratio 0.8 Magnesium Level 2.0 mg/dl Total Creatine Kinase 59 U/L 59 U/L Creatine Kinase MB 1.5 ng/ml 1.4 ng/ml Creatine Kinase MB Ratio 2.5 2.4 Triglycerides Level 239 mg/dl Cholesterol Level 137 mg/dl HDL Cholesterol 31 mg/dl LDL Cholesterol, Calculated 58 mg/dl VLDL Cholesterol, Calculated 48 mg/dl Cholesterol/HDL Ratio 4.4 Assessment and Plan 81M admitted on 02/23/2017 because of two day history of abdo pain and stabbing scapular pain. Substernal/Epigastric Pain +Scapular Pain with the history of history of CAD with 2 stents Trop neg x 2, BNP normal, CT shows no evidence of aortic dissection, or acute pulmonary embolization c/w home ASA daily, ordered a stress echo tomorrow to rule out ACS because of Patient has significant heart disease with 2 stents Acute on Chronic Abdo pain in a history of loose stools. 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 Made patient aware. To be included in discharge instructions, advise him to follow-up with PCP about this Numerous prominent subcentimeter mediastinal and bilateral hilar lymph nodes likely reactive, advise patient to follow-up with PCP HLD GERD H/o Migraines Above condition stable continue home medication DVT prophylaxis is covered Possible discharge home tomorrow afternoon negative stress test, will consult [facility] advertising manager if stress test positive Continued [facility] stay due to: multiple IV medications needed Discharge planning: home
--- NOTE | 2017-02-24 15:35 | ECHOCARDIOGRAM REPORT ---
*NOTICE TO RECEIVING REPUBLICAN AGENCY This information is strictly Confidential and protected under [place] law. [place] law prohibits you from making any further disclosure of this information unless further disclosure is expressly permitted by the written consent of the person to whom it pertains or is authorized by law. A general authorization for the release of medical or other information is not sufficient for this purpose. Hospital accepts no responsibility if the information is made available to any other person, INCLUDING THE PATIENT. Interpretation Summary * Name: HOMAR BLUM Study Date: 02/24/2017 06:48 AM BP: 136/62 mmHg * Patient Location: C.2T\S\S230\S\1 HR: 72 * : 1935 (M/d/yyy) Gender: Male Height: 70 in * Age: 81 yrs Ethnicity: [place] Weight: 205 lb * Ordering Physician: Amish Sosa * Referring Physician: Self, Referred * Performed By: Uma Arzola RDCS * * Reason For Study: CHEST PAIN * BSA: 2.1 m2 * -- Conclusions -- * 1. Normal LV size. Normal LV wall thickness. * 2. Normal LV systolic function. LVEF 65-70%. No regional wall motion abnormalities. * 3. Normal RV size and function. * 4. Aortic valve sclerosis without stenosis. * 5. Mild mitral regurgitation. * 6. Compared with prior study on 12/08/2014: No significant change Procedure Details * A complete two-dimensional transthoracic echocardiogram was performed (2D, M-mode, Doppler and color flow Doppler). Left Ventricle * The left ventricle is grossly normal size. * There is normal left ventricular wall thickness. * Ejection Fraction = 65-70%. * No regional wall motion abnormalities noted. Right Ventricle * The right ventricle is grossly normal size. * The right ventricular systolic function is normal as assessed by tricuspid annular plane systolic excursion (TAPSE) (normal >1.5 cm). Atria * The left atrial size is normal. * Right atrial size is normal. * No ASD detected; PFO is not assessed. Mitral Valve * The mitral valve anatomy is normal. * There is no mitral valve stenosis. * There is mild mitral regurgitation. Tricuspid Valve * The tricuspid valve is not well visualized, but is grossly normal. * There is no tricuspid stenosis. * There is trace tricuspid regurgitation. Aortic Valve * The aortic valve is trileaflet. * Aortic valve sclerosis mild, without significant aortic valvular stenosis. * No hemodynamically significant valvular aortic stenosis. * There is no significant aortic regurgitation. Pulmonic Valve * The pulmonary valve is inadequately visualized, but the Doppler data is adequate for interpretation. * Pulmonic stenosis is absent. * There is no significant pulmonary regurgitation. Great Vessels * The aortic root and proximal ascending aorta are normal sized. Pericardium/Pleural * There is no pericardial effusion. Great Vessels * IVC < 2.1, <50% change with respiration. Est 8 mmHg. MMode 2D Measurements and Calculations IVSd 1.4 cm IVSs 1.9 cm LVIDd 3.5 cm LVIDs 2.3 cm LVPWd 1.6 cm LVPWs 1.9 cm IVS/LVPW 0.88 FS 34.6 % EDV(Teich) 50.5 ml ESV(Teich) 17.8 ml EF(Teich) 64.8 % EDV(cubed) 42.4 ml ESV(cubed) 11.9 ml EF(cubed) 72.0 % % IVS thick 39.1 % % LVPW thick 22.3 % LV mass(C)d 184.2 grams LV mass(C)dI 87.3 grams/m\S\2 LV mass(C)s 177.9 grams LV mass(C)sI 84.3 grams/m\S\2 SV(Teich) 32.7 ml SI(Teich) 15.5 ml/m\S\2 SV(cubed) 30.6 ml SI(cubed) 14.5 ml/m\S\2 Ao root diam 3.4 cm Ao root area 9.1 cm\S\2 LA dimension 3.7 cm LA/Ao 1.1 LVAd ap4 30.7 cm\S\2 LVLd ap4 8.8 cm EDV(MOD-sp4) 89.5 ml EDV(sp4-el) 90.8 ml LVAs ap4 16.3 cm\S\2 LVLs ap4 7.2 cm ESV(MOD-sp4) 31.7 ml ESV(sp4-el) 31.5 ml EF(MOD-sp4) 64.7 % EF(sp4-el) 65.3 % LVAd ap2 28.9 cm\S\2 LVLd ap2 8.7 cm EDV(MOD-sp2) 81.5 ml EDV(sp2-el) 81.7 ml LVAs ap2 15.1 cm\S\2 LVLs ap2 7.4 cm ESV(MOD-sp2) 27.7 ml ESV(sp2-el) 26.2 ml EF(MOD-sp2) 66.0 % EF(sp2-el) 67.9 % LVLd %diff -1.44 % EDV(MOD-bp) 86.0 ml LVLs %diff 2.8 % ESV(MOD-bp) 29.7 ml EF(MOD-bp) 65.5 % SV(MOD-sp4) 57.9 ml SI(MOD-sp4) 27.4 ml/m\S\2 SV(MOD-sp2) 53.8 ml SI(MOD-sp2) 25.5 ml/m\S\2 SV(MOD-bp) 56.3 ml SI(MOD-bp) 26.7 ml/m\S\2 SV(sp4-el) 59.2 ml SI(sp4-el) 28.1 ml/m\S\2 SV(sp2-el) 55.5 ml SI(sp2-el) 26.3 ml/m\S\2 Doppler Measurements and Calculations MV E max lesa 85.6 cm/sec MV A max lesa 78.7 cm/sec MV E/A 1.1 MV dec time 0.18 sec Ao V2 max 162.5 cm/sec Ao max PG 10.6 mmHg Ao max PG (full) 7.1 mmHg LV V1 max PG 3.5 mmHg LV V1 max 93.7 cm/sec TR max lesa 227.4 cm/sec
--- NOTE | 2017-02-24 15:41 | DOBUTAMINE ECHO ---
*NOTICE TO RECEIVING CONSTITUTION PARTY AGENCY This information is strictly Confidential and protected under [place] law. [place] law prohibits you from making any further disclosure of this information unless further disclosure is expressly permitted by the written consent of the person to whom it pertains or is authorized by law. A general authorization for the release of medical or other information is not sufficient for this purpose. Hospital accepts no responsibility if the information is made available to any other person, INCLUDING THE PATIENT. Interpretation Summary * : HOMAR BLUM Study Date: 02/24/2017 01:41 PM BP: 149/65 mmHg * Patient Location: C.2T\S\S230\S\1 HR: 74 * : 1935 (M/d/y) Gender: Male Height: 70 in * Age: 81 yrs Ethnicity: [place] Weight: 206 lb * Ordering Physician: Landon Thompson * Referring Physician: Self, Referred * Performed By: Uma Arzola RDCS * * Reason For Study: CHEST PAIN * BSA: 2.1 m2 * -- Conclusions -- * 1. Negative dobutamine stress echo for ischemia at 87% MPHR. * 2. Negative dobutamine stress ECG for ischemia. * 3. Normal resting LV size and function. See prior echo report from earlier today for full details of resting function. Procedure Details * DOBUTAMINE ECHO, CPT#91721 Left Ventricular Findings with Stress * This was essentially a normal study. Stress Parameters * Normal baseline electrocardiogram. * Stress ECG: No ST changes. No arrhythmias. * Rest heart rate was '74' BPM. * Rest blood pressure was '149/65' * Maximum heart rate achieved was 121 bpm. * Maximum heart rate was 87 % of maximum age-predicted heart rate. * Maximum blood pressure was '160/35' * Maximum Dobutamine infusion rate was '50' mcg/kg/min. * Dobutamine infusion was terminated due to achieving target heart rate * A total of 5 mg of IV Metoprolol was administered to reverse Dobutamine-induced tachycardia. Left Ventricular Findings with Stress * The study was technically good with many images being of high quality.
[2017-02-24 16:16] LABS: CKMB/CK RATIO 1.8 (0-3.0)
[2017-02-24] MEDS: ATORVASTATIN 40 MG TAB PO SCH (20:32)
[2017-02-24 21:09] LABS: CKMB/CK RATIO 2.1 (0-3.0)
[2017-02-24] MEDS: ZOLPIDEM TARTRATE 5 MG TAB PO PRN (23:55)
[2017-02-25 03:03] VITALS: BP 125/75; PULSE 59; TEMP 36.5; O2SAT 99
[2017-02-25] MEDS: NITROGLYCERIN OINT 2% 1GM PACKET EXT SCH (05:00)
[2017-02-25 06:15] LABS: HEMATOCRIT 41.3 % (42-52); MEAN CORPUSCULAR HEMOGLOBIN 27.4 pg (25-34); MEAN CORPUSCULAR HGB CONC 32.2 g/dl (32-36); MEAN PLATELET VOLUME 10.9 fL (7.4-10.4); PLATELET COUNT 184 K/uL (130-400); RED BLOOD COUNT 4.86 M/uL (4.7-6.1); WHITE BLOOD COUNT 7.02 K/uL (4.8-10.8)
[2017-02-25 06:42] LABS: BUN/CREATININE RATIO 16.3 (10-20); CALCIUM 8.9 mg/dl (8.5-10.1); CREATININE 1.02 mg/dl (0.60-1.40); MAGNESIUM 2.1 mg/dl (1.8-2.4)
[2017-02-25 08:06] VITALS: BP 146/74; PULSE 74; TEMP 36.9; O2SAT 98
[2017-02-25] MEDS: PANTOprazole SOD 40 MG TAB PO SCH (08:22)
[2017-02-25] MEDS: ASPIRIN 81 MG ECTAB PO SCH (08:22)
[2017-02-25] MEDS: RANITIDINE HCL 150 MG TAB PO SCH (08:22)
[2017-02-25] MEDS: HEPARIN SOD 5000 UNIT/0.5 ML CARP SQ SCH (09:00)
[2017-02-25 11:09] VITALS: BP 158/81; PULSE 66; TEMP 36.9; O2SAT 98
--- NOTE | 2017-02-25 11:12 | Discharge Instructions ---
Discharge Instructions Date of Service Feb 25, 2017. Admission Reason for Admission: Pain In Scapula Discharge Discharge Diagnosis / Problem: atypical Substernal/Epigastric Pain has aron our ACS Discharge Goals Goal(s): Decrease discomfort, Improve function, Increase independence, Improve disease control, Improve nutritional status, Learn about illness, Diagnostic testing, Therapeutic intervention, Prevent Disease Progression, Specific goals Activity Recommendations Activity Limitations: resume your previous activity . Instructions / Follow-Up Instructions / Follow-Up you have Substernal/Epigastric Pain +Scapular Pain with history of CAD with 2 stents so far , your pain likely is noncardiac related, however I recommend you to follow up with your PCP and your qc lab technician, further evaluation if needed You have Acute on Chronic Abdo pain in a history of loose stools. 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 he need to to follow-up with PCP about this You have Numerous prominent subcentimeter mediastinal and bilateral hilar lymph nodes likely reactive, you need to to follow-up with PCP - you need to follow up with your primary care physician in 1 week, - take medication as instructed, never overdose or any misuse, or take with alcohol, because misuse of medicine may cause organ damage or , call your primary care physician if have questions of medicaitons. - call your primary care physician OR go to local emergency room if has any fever/chill, chest pain, shortness of breathing, nausea/vomiting/abdominal pain , facial droop/slurry speech/local weakness, or if has any questions. - fall precaution - diet as instructed - you need to follow up with your subspecialist - you should understand that it is important to follow up the above instruction , and "not following the above instruction" may cause delayed or missed care of your medical conditions which may cause permanent organ damage and even . Current Hospital Diet Patient's current hospital diet: AHA Diet (Heart Healthy) Discharge Diet Recommended Diet: AHA Diet (Heart Healthy) Pending Studies Studies pending at discharge: no Laboratory Results Lipid Panel Test 02/24/17 01:53 Range/Units Triglycerides Level 239 H 0-150 mg/dl Cholesterol Level 137 0-200 mg/dl HDL Cholesterol 31 mg/dl Cholesterol/HDL Ratio 4.4 LDL Cholesterol, Calculated 58 mg/dl Medical Emergencies . Who to Call and When: Medical Emergencies: If at any time you feel your situation is an emergency, please call 911 immediately. . Non-Emergent Contact Non-Emergency issues call your: Primary Care Provider, Group Captain . . "Provider Documentation" section prepared by Landon Thompson. . VTE Core Measure Inpt VTE Proph given/why not?: SCD's
[2017-02-25 11:19] VITALS: BP 158/81; PULSE 66; TEMP 36.9; O2SAT 98
--- NOTE | 2017-02-25 15:02 | Discharge Summary ---
Discharge Summary Date of Service Feb 25, 2017. Discharge Summary Admission Date: Feb 23, 2017 at 20:24 Discharge Date: Feb 25, 2017 Discharge Disposition: Home Principal Diagnosis: atypical chest pain Problems/Secondary Diagnoses: Acute on Chronic Abdo pain , HIDA Scan is being done which is unremarkable Chronic Right External Iliac Artery Dissection, Numerous prominent subcentimeter mediastinal and bilateral hilar lymph nodes likely reactive Immunizations: Have You Had Influenza Vaccine: Unknown History of Tetanus Vaccine?: Unknown History of Pneumococcal: Unknown History of Hepatitis B Vaccine: Unknown Procedures: No Consultations: No Medication Reconciliation Continued Medications: Aspirin (Aspirin 81) 81 Mg Tab 81 MG PO QAM Atorvastatin (Atorvastatin Calcium) 40 Mg Tab 40 MG PO HS B-Complex W/ Folic Acid (Super B Complex Maxi) 1 Tab Tab 1 TAB PO QPM Epxvquhdws-Mdulzqe-Fvcsdset (Butalbital/Aspirin/Caffei 50-325-40 mg) 1 Cap Cap 1 CAP PO Q4-6H PRN for Headache Cholecalciferol (Vitamin D3) 2,000 Unit Tab 1 TAB PO QAM Coenzyme Q10 (Ubidecarenone) (Co Q-10) 150 Mg Cap 100 MG PO QAM Magnesium (Magnesium 250 mg) 1 Tab Tab 1 TAB PO QAM Nitroglycerin (Nitrostat) 0.4 Mg Sub 0.4 MG UT PRN PRN for Chest Pain Pantoprazole (Protonix) 40 Mg Tab 40 MG PO DAILY Ranitidine Hcl (Zantac) 150 Mg Tab 150 MG PO DAILY Rizatriptan Benzoate (Maxalt) 10 Mg Tab 10 MG PO UD PRN for Headache, TAB Triazolam (Halcion) 0.25 Mg Tab 0.25 MG PO HS PRN for Sleep Zinc Gluconate (Zinc) 50 Mg Tab 50 MG PO QPM Discharge Exam No more chest pain, up and walk, no complaint, no dyspnea on exertion, no exertional chest pain Review of Systems: Constitutional: No fever, No chills, No sweats, No weight loss, No weakness , No fatigue, No problem reported Eyes: No worsening of vision, No eye pain, No redness, No discharge, No diplopia, No problem reported ENT: No hearing loss, No unusual epistaxis, No nasal symptoms, No sore throat, No tinnitus, No dental problems, No trouble swallowing, No problem reported Respiratory: No cough, No sputum, No wheezing, No shortness of breath, No dyspnea on exertion, No dyspnea at rest, No hemoptysis, No problem reported Cardiovascular: No chest pain, No orthopnea, No PND, No edema, No claudication, No palpitations, No problem reported Abdomen: No pain, No nausea, No vomiting, No diarrhea, No constipation, No GI bleeding, No problem reported Musculoskeletal: No joint pain, No muscle pain, No swelling, No calf pain, No problem reported Genitourinary - Male: No hematuria, No dysuria, No urinary frequency, No urinary urgency, No urinary hesitancy, No urinary retention, No urinary incontinence, No penile discharge, No lesions, No impotence, No problem reported Neurologic: No memory loss, No paralysis, No weakness, No numbness/tingling , No vertigo, No balance problems, No problem reported Psychiatric: No depression symptoms, No anhedonism, No anxiety, No insomnia , No substance abuse, No problem reported Endocrine: No fatigue, No excessive thirst, No excessive urination, No problem reported Hematologic / Lymphatic: No abnormal bleeding/bruising, No clotting problems , No swollen lymph nodes, No night sweats, No problem reported Integumentary: No rash, No itch, No new/changing skin lesions, No color change, No bleeding, No problem reported Hospital Course 81M admitted on 02/23/2017 because of two day history of abdo pain and stabbing scapular pain. Substernal/Epigastric Pain +Scapular Pain with the history of history of CAD with 2 stents Trop neg x 2, BNP normal, CT shows no evidence of aortic dissection, or acute pulmonary embolization c/w home ASA daily, ordered a stress echo tomorrow to rule out ACS because of Patient has significant heart disease with 2 stents. Stress echo was negative per report, therefore patient was having atypical chest pain Acute on Chronic Abdo pain in a history of loose stools. 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 Made patient aware. To be included in discharge instructions, advise him to follow-up with PCP about this Numerous prominent subcentimeter mediastinal and bilateral hilar lymph nodes likely reactive, advise patient to follow-up with PCP HLD GERD H/o Migraines Above condition stable continue home medication DVT prophylaxis is covered Possible discharge home tomorrow afternoon negative stress test, will consult [facility] rehabilitation clerk if stress test positive Instructions / Follow-Up you have Substernal/Epigastric Pain +Scapular Pain with history of CAD with 2 stents so far , your pain likely is noncardiac related, however I recommend you to follow up with your PCP and your rehabilitation clerk, further evaluation if needed You have Acute on Chronic Abdo pain in a history of loose stools. 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 he need to to follow-up with PCP about this You have Numerous prominent subcentimeter mediastinal and bilateral hilar lymph nodes likely reactive, you need to to follow-up with PCP - you need to follow up with your primary care physician in 1 week, - take medication as instructed, never overdose or any misuse, or take with alcohol, because misuse of medicine may cause organ damage or , call your primary care physician if have questions of medicaitons. - call your primary care physician OR go to local emergency room if has any fever/chill, chest pain, shortness of breathing, nausea/vomiting/abdominal pain , facial droop/slurry speech/local weakness, or if has any questions. - fall precaution - diet as instructed - you need to follow up with your subspecialist - you should understand that it is important to follow up the above instruction , and "not following the above instruction" may cause delayed or missed care of your medical conditions which may cause permanent organ damage and even . Total Time Spent: Less than 30 minutes This includes examination of the patient, discharge planning, medication reconciliation, and communication with other providers. Discharge Instructions Please refer to the electronic Patient Visit Report (Discharge Instructions) for additional information. Additional Copies To Antony Long M.D.
== END 2017-02-25 11:15 | disposition home or self-care (01) ==
LOC: C.EDB 14:35 → C.2T 20:24 → ENRESERV 20:38
PROVIDERS: ADMIT Hospitalist; ATTEND Hospitalist
DX: R07.89 Other chest pain (principal); I25.10 Atherosclerotic heart disease of native coronary artery without angina pectoris; Z95.5 Presence of coronary angioplasty implant and graft; M06.9 Rheumatoid arthritis, unspecified; N40.0 Benign prostatic hyperplasia without lower urinary tract symptoms; M19.90 Unspecified osteoarthritis, unspecified site; Z79.82 Long term (current) use of aspirin; Z79.899 Other long term (current) drug therapy; G89.29 Other chronic pain; R10.13 Epigastric pain; I77.72 Dissection of iliac artery; R59.0 Localized enlarged lymph nodes; E78.5 Hyperlipidemia, unspecified; K21.9 Gastro-esophageal reflux disease without esophagitis

== ENCOUNTER → 2017-03-12 | Outpatient (CLI) | payer BC ==
[~2017-03-12] MED LIST changes: -AMT25 PO; -PROP60CA5 PO; +VERA120T15 PO; -tumeric PO
== END | disposition home or self-care (01) ==
LOC: C.LABMFLN 10:21
PROVIDERS: ATTEND Family Medicine
DX: M81.0 Age-related osteoporosis without current pathological fracture (principal)

== ENCOUNTER → 2017-03-13 | Outpatient (CLI) | payer BC ==
[~2017-03-13] MED LIST changes: -VERA120T15 PO
== END | disposition home or self-care (01) ==
LOC: C.LABMFLN 10:06
PROVIDERS: ATTEND Family Medicine
DX: R19.7 Diarrhea, unspecified (principal)

== ENCOUNTER → 2017-06-12 | Outpatient (CLI) | payer BC ==
[~2017-06-12] MED LIST changes: -PANT40TA PO; -ZINC1TAB PO
[2017-06-12 18:01] LABS: HEMATOCRIT 44.3 % (42-52); HEMOGLOBIN 14.3 g/dL (14.0-18.0)
[2017-06-12 18:17] LABS: ALBUMIN 3.6 gm/dl (3.4-5.0); ALKALINE PHOSPHATASE 58 U/L (45-117); ALT/SGPT 41 U/L (12-78); AST/SGOT 23 U/L (15-37); TOTAL PROTEIN 7.3 gm/dl (6.4-8.2)
== END | disposition home or self-care (01) ==
LOC: C.LABMFLN 16:48
PROVIDERS: ATTEND Family Medicine
DX: K29.00 Acute gastritis without bleeding (principal)

== ENCOUNTER → 2017-10-01 | Outpatient (CLI) | payer BC | END | disposition home or self-care (01) | LOC: C.LABMFLN 10:08 | PROVIDERS: ATTEND Urology | DX: N40.1 Benign prostatic hyperplasia with lower urinary tract symptoms (principal) ==

== ENCOUNTER 2018-11-30 09:51 | Observation (INO) ==
--- NOTE | 2018-11-30 11:12 | Emergency Department Note ---
History of Present Illness General Chief complaint: Shortness of Breath/Dyspnea Stated complaint: NAUSEA Time Seen by Provider: 11/30/18 10:52 History of Present Illness This is an 83-year-old male presenting to the emergency department for evaluation of chest tightness that began around 7 AM, roughly 3 hours prior to arrival. The patient reports a history of stroke last month where he was evaluated in [facility]. He was ultimately discharged home. Patient has been recovering well and does not have ambulatory dysfunction. The reports that since the stroke the patient has been experiencing increased anxiety and restlessness, especially at night. The patient has difficulty falling asleep most nights, and often wakes up and walks around the house. The patient was not doing anything out of the ordinary at the time of onset of symptoms. He does not have reports of fevers or chills. He does not have distinct chest pains. He may have had some swelling in his feet yesterday but this has resolved. No new medications. He rates his current discomfort a 1/10. He has not taken anything ctua-nhl-kwwajlq for his symptoms. He does not identify aggravating or alleviating factors. Home Medications Home Medications Medication Instructions Recorded Confirmed Type baclofen 20 mg PO BID PRN 02/10/18 11/30/18 History rzlobnscaf-wkwobehyap-qxe-cod 1 cap PO Q4H PRN 02/10/18 11/30/18 History cholecalciferol (vitamin D3) 2,000 unit PO QAM 02/10/18 11/30/18 History [Vitamin D3] docusate sodium [Colace] 100 mg PO BID 02/10/18 11/30/18 History rizatriptan 10 mg PO UD PRN 02/10/18 11/30/18 History zinc 50 mg PO HS 02/10/18 11/30/18 History atorvastatin 40 mg PO PM 07/01/18 11/30/18 History ipratropium bromide 2 spray INTRANASAL BID 07/01/18 11/30/18 History vitamin B complex [Super B-50 1 cap PO QAM 07/01/18 11/30/18 History Complex] coenzyme Q10 [Co Q-10] 100 mg PO BID 09/03/18 11/30/18 History gabapentin 100 mg PO TID 09/03/18 11/30/18 History xkdhkmpd-tfxhf-vsr6-C-sobeida-bor 1 tab PO BID 09/03/18 11/30/18 History [Fwvorhci-Cxzbe-OLE(with boron)] loratadine [Claritin] 10 mg PO QAM 09/03/18 11/30/18 History omeprazole magnesium [Prilosec OTC] 20 mg PO QAM 09/03/18 11/30/18 History levetiracetam [Keppra] 500 mg PO BID 11/01/18 11/30/18 History magnesium oxide [MagOx] 400 mg PO QAM 11/01/18 11/30/18 History dutasteride 0.5 mg PO QAM 11/30/18 11/30/18 History tadalafil 20 mg PO DAILY PRN 11/30/18 11/30/18 History triazolam 0.5 mg PO HS 11/30/18 11/30/18 History Allergies Allergy/AdvReac Type Severity Reaction Status Date / Time celecoxib [From Celebrex] Allergy Unknown Verified 11/30/18 10:46 tramadol Allergy Unknown Verified 11/30/18 10:46 SHINGLES VACCINE Allergy Unknown HIVES AND Uncoded 11/30/18 10:46 SORENESS AT INJECTION SITE Past Med/Surg History Medical History Hiatal hernia (Chronic) Migraine (Chronic) 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) Seizure disorder (Chronic) CAD (coronary artery disease) (Chronic) 2008 - GINNA to LAD and 2nd diagonal 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 Kidney stones (Resolved) GERD (gastroesophageal reflux disease) (Chronic) BPH (benign prostatic hyperplasia) (Chronic) Arthritis (Chronic) Surgical History History of lithotripsy (Chronic) History of hernia surgery (Chronic) History of left cataract surgery (Chronic) Was given 2mg of versed on 07/14 18 Family History Grandfather (Paternal) Family history of diabetes mellitus Social History Preferred Language: Uzbek Communication Ability: Effective Seal Skinner Required: No Beliefs That Will Affect Care: Muslim Muslim Beliefs: Mosque marital status: Current Living Situation: Spouse Other Information That Helps Us Care for You: No Feels Safe at Home: Yes Safety Concerns: Feels Safe At This Time Smoking Status: Never smoker Second Hand Exposure: No ; Hx Alcohol Use: No Hx Substance Use: No Review of Systems A total of 10 systems reviewed and were otherwise negative Physical Exam Vital Signs Vital Signs - 24 hr 11/30/18 09:57 11/30/18 10:34 11/30/18 10:36 Temperature 36.8 C Temperature Source Oral Sepsis Recent Fever Within 48 Hours No Sepsis New/Unexplained Change in Mental Status No Sepsis Action Taken by Nursing No Action Required Pulse Rate 61 55 L Pulse Rate from SpO2 Sensor 55 L Respiratory Rate 18 13 Respiratory Effort / Characteristics Non-Labored Spontaneous Respiratory Depth Normal Normal Respiratory Pattern Regular Blood Pressure 107/69 111/61 Blood Pressure Mean 81 77 Pulse Oximetry 96 97 Oxygen Delivery Method Room Air 11/30/18 12:30 11/30/18 13:00 11/30/18 13:30 Temperature Temperature Source Sepsis Recent Fever Within 48 Hours Sepsis New/Unexplained Change in Mental Status Sepsis Action Taken by Nursing Pulse Rate 56 L 56 L 57 L Pulse Rate from SpO2 Sensor 56 L 56 L 57 L Respiratory Rate 21 17 16 Respiratory Effort / Characteristics Respiratory Depth Respiratory Pattern Blood Pressure 113/63 123/68 117/63 Blood Pressure Mean 79 86 81 Pulse Oximetry 98 98 98 Oxygen Delivery Method 11/30/18 13:55 11/30/18 14:00 11/30/18 15:00 Temperature Temperature Source Sepsis Recent Fever Within 48 Hours Sepsis New/Unexplained Change in Mental Status Sepsis Action Taken by Nursing Pulse Rate 101 H 56 L Pulse Rate from SpO2 Sensor 98 H 56 L Respiratory Rate 17 17 Respiratory Effort / Characteristics Respiratory Depth Respiratory Pattern Blood Pressure 141/80 H 127/81 Blood Pressure Mean 100 96 Pulse Oximetry 93 99 Oxygen Delivery Method VITALS: Vitals are noted on the nurse's note and reviewed by myself. Vital signs stable. GENERAL: Well-developed, well-nourished, white male, who is in no acute distress and resting comfortably. Patient is cooperative with the examination. HEAD: Normocephalic atraumatic. NECK: Supple without nuchal rigidity. No lymphadenopathy. No thyromegaly. Cervical spine is nontender. HEART: Regular rate and rhythm with systolic murmur LUNGS: Clear to auscultation bilaterally without wheezes, rales or rhonchi. No retractions or accessory muscle use. ABDOMEN: Positive normal bowel sounds x 4. Soft, nontender, without masses or organomegaly. No guarding or rebound tenderness. MUSCULOSKELETAL: No muscle atrophy, erythema, or edema noted. Full range of motion in all extremities. NEURO: Patient was alert and oriented to person place and time. CN II through XII grossly intact. GCS 15. No obvious neurologic deficit. Medical Decision Making Differential Diagnosis Differential diagnosis includes, but is not limited to: Myocardial infarction, dysrhythmia, pericarditis, pneumothorax, aortic aneurysm/dissection, DVT/PE, anxiety, GERD, PUD, electrolyte imbalance, thyroid disorder, pneumonia, bronchitis, pancreatitis, and others Laboratory Data Result diagrams: 11/30/18 10:40 11/30/18 10:40 Lab Results 11/30/18 11/30/18 11/30/18 Range/Units 10:40 10:40 12:58 WBC 9.75 (4.8-10.8) K/uL RBC 4.49 L (4.7-6.1) M/uL Hgb 12.7 L (14.0-18.0) g/dL Hct 39.7 L (42-52) % MCV 88.4 (80-100) fL MCH 28.3 (25-34) pg MCHC 32.0 (32-36) g/dL RDW Std Deviation 42.0 (36.4-46.3) fL RDW Coeff of Sukhdev 13.1 (11.5-14.5) % Plt Count 168 (130-400) K/uL MPV 11.4 H (7.4-10.4) fL Immature Gran % (Auto) 0.1 % Neut % (Auto) 74.1 % Lymph % (Auto) 17.5 % Cross % (Auto) 6.8 % Eos % (Auto) 1.4 % Baso % (Auto) 0.1 % Immature Gran # (Auto) 0.01 (0.00-0.02) K/uL Neut # (Auto) 7.22 H (1.4-6.5) K/uL Lymph # (Auto) 1.71 (1.2-3.4) K/uL Cross # (Auto) 0.66 H (0.11-0.59) K/uL Eos # (Auto) 0.14 (0-0.5) K/uL Baso # (Auto) 0.01 (0-0.2) K/uL Sodium 141 (136-145) mmol/L Potassium 4.4 (3.5-5.1) mmol/L Chloride 107 (98-107) mmol/L Carbon Dioxide 29 (21-32) mmol/L Anion Gap 5.0 (3-11) BUN 19 H (7-18) mg/dl Creatinine 0.97 (0.6-1.4) mg/dl Est Cr Clr Drug Dosing 59.6 ml/min Est GFR ( Amer) 83.3 Est GFR (Non-Af Amer) 71.9 BUN/Creatinine Ratio 19.5 (10-20) Glucose 101 H (70-99) mg/dl Calcium 9.5 (8.5-10.1) mg/dl Magnesium 2.2 (1.8-2.4) mg/dl Total Bilirubin 0.4 (0.2-1) mg/dl AST 17 (15-37) U/L ALT 25 (12-78) U/L Alkaline Phosphatase 65 (45-117) U/L Troponin I 0.027 0.041 (0-0.045) ng/ml Total Protein 6.9 (6.4-8.2) gm/dl Albumin 3.5 (3.4-5.0) gm/dl Globulin 3.4 (2.5-4.0) gm/dl Albumin/Globulin Ratio 1.0 (0.9-2) TSH 0.325 (0.300-4.500) uIu/ml Urine Color Urine Appearance (Clear) Urine pH (4.5-7.5) Ur Specific [place] (1.000-1.030) Urine Protein (Negative) Urine Glucose (UA) (Negative) Urine Ketones (Negative) Urine Blood (Negative) Urine Nitrite (Negative) Urine Bilirubin (Negative) Urine Urobilinogen (Negative) Ur Leukocyte Esterase (Negative) 11/30/18 Range/Units 13:43 WBC (4.8-10.8) K/uL RBC (4.7-6.1) M/uL Hgb (14.0-18.0) g/dL Hct (42-52) % MCV (80-100) fL MCH (25-34) pg MCHC (32-36) g/dL RDW Std Deviation (36.4-46.3) fL RDW Coeff of Sukhdev (11.5-14.5) % Plt Count (130-400) K/uL MPV (7.4-10.4) fL Immature Gran % (Auto) % Neut % (Auto) % Lymph % (Auto) % Cross % (Auto) % Eos % (Auto) % Baso % (Auto) % Immature Gran # (Auto) (0.00-0.02) K/uL Neut # (Auto) (1.4-6.5) K/uL Lymph # (Auto) (1.2-3.4) K/uL Cross # (Auto) (0.11-0.59) K/uL Eos # (Auto) (0-0.5) K/uL Baso # (Auto) (0-0.2) K/uL Sodium (136-145) mmol/L Potassium (3.5-5.1) mmol/L Chloride (98-107) mmol/L Carbon Dioxide (21-32) mmol/L Anion Gap (3-11) BUN (7-18) mg/dl Creatinine (0.6-1.4) mg/dl Est Cr Clr Drug Dosing ml/min Est GFR ( Amer) Est GFR (Non-Af Amer) BUN/Creatinine Ratio (10-20) Glucose (70-99) mg/dl Calcium (8.5-10.1) mg/dl Magnesium (1.8-2.4) mg/dl Total Bilirubin (0.2-1) mg/dl AST (15-37) U/L ALT (12-78) U/L Alkaline Phosphatase (45-117) U/L Troponin I (0-0.045) ng/ml Total Protein (6.4-8.2) gm/dl Albumin (3.4-5.0) gm/dl Globulin (2.5-4.0) gm/dl Albumin/Globulin Ratio (0.9-2) TSH (0.300-4.500) uIu/ml Urine Color Yellow Urine Appearance Clear (Clear) Urine pH 7.0 (4.5-7.5) Ur Specific [place] 1.022 (1.000-1.030) Urine Protein Negative (Negative) Urine Glucose (UA) Negative (Negative) Urine Ketones Negative (Negative) Urine Blood Negative (Negative) Urine Nitrite Negative (Negative) Urine Bilirubin Negative (Negative) Urine Urobilinogen Negative (Negative) Ur Leukocyte Esterase Negative (Negative) Imaging Data Radiologist's Impression: XR chest 2V routine CLINICAL HISTORY: 83 years-old Male presenting with Chest tightness. TECHNIQUE: PA and lateral views of the chest were obtained. COMPARISON: 11/09/2018. FINDINGS: Atherosclerosis of the aortic arch. Cardiac silhouette normal in size. Lungs and pleural spaces clear. Flowing anterior osteophytosis likely diffuse idiopathic skeletal hyperostosis. Upper abdomen normal. IMPRESSION: 1. No acute cardiopulmonary disease. ECG Data Additional Comments: Sinus bradycardia @53bpm No acute ST elevation Cannot rule out Inferior infarct , age undetermined Abnormal ECG When compared with ECG of 09-NOV-2018 08:07, No significant change was found MDM Narrative Physical exam and history were performed. Nursing notes, EMR, and Medication List were personally reviewed. Patient appears to have chest tightness for the past several hours bringing him to the ER. The patient has a recent history of hemorrhagic stroke, and because of this I did hold aspirin and nitroglycerin. EKG was performed and was sinus bradycardia without significant changes from previous EKG. The patient does not appear toxic on examination. IV access was established and labs were obtained. He was placed on the awake overnight monitor. The patient blood work is as above and was reviewed. He does not have a significantly elevated white blood cell count, gross anemia, bandemia, or significant electrolyte imbalance. Lipase and transaminases are not diagnostic. Initial troponin was 0.027. Repeat troponin performed roughly 2 hours later was 0.041. Overall I do have concern for the patient overall well-being. The case was discussed with my attending, Dr. Hodges, who also independently evaluated the patient. The patient has had some significant health issues over the past month, and at this time he does have a troponin that while normal, is trending up. [facility] to evaluate the patient here in the ER. Please see their dictation for further patient course, plan, and disposition. The chart was completed utilizing [employer] Voice Recognition Software. Grammatical errors, random word insertions, pronoun errors, and incomplete sentences are an occasional consequence of this system due to software limitations, ambient noise, and hardware issues. Any formal questions or concerns about the content, text, or information contained within the body of this dictation should be directly addressed to the provider for clarification. . Impression & Plan Chest tightness Discharge Plan Visit Data *Final* Discharge Date/Time: 11/30/18 16:55 Chief Complaint: Shortness of Breath/Dyspnea Stated Complaint: NAUSEA ED Provider: Bryan Hodges ED Midlevel Provider: Feliz Conley Discharge Problem: Chest tightness Patient Disposition: Admitted As Inpatient Discharge Instructions Interventions: ED Discharge Assessment Last Done: 11/30/18 16:55
[2018-11-30 11:35] LABS: Basophils # (auto) 0.01 K/uL (0-0.2); Basophils % (auto) 0.1 %; Eosinophils # (auto) 0.14 K/uL (0-0.5); Eosinophils % (auto) 1.4 %; Hematocrit (blood only) 39.7 % (42-52); Hemoglobin 12.7 g/dL (14.0-18.0); Immature Granulocytes # (auto) 0.01 K/uL (0.00-0.02); Immature Granulocytes % (auto) 0.1 %; Lymphocytes # (auto) 1.71 K/uL (1.2-3.4); Lymphocytes % (auto) 17.5 %; Mean Corpuscular Hemoglobin 28.3 pg (25-34); Mean Corpuscular Volume 88.4 fL (80-100); Mean Platelet Volume 11.4 fL (7.4-10.4); Monocytes # (auto) 0.66 K/uL (0.11-0.59); Monocytes % (auto) 6.8 %; Neutrophils # (auto) 7.22 K/uL (1.4-6.5); Neutrophils % (auto) 74.1 %; Platelet Count 168 K/uL (130-400); RDW Coefficient of Variation 13.1 % (11.5-14.5); Red Blood Count 4.49 M/uL (4.7-6.1); White Blood Count 9.75 K/uL (4.8-10.8)
[2018-11-30 11:46] LABS: Albumin Level 3.5 gm/dl (3.4-5.0); BUN Creatinine Ratio 19.5 (10-20); Calcium 9.5 mg/dl (8.5-10.1); Creatinine Clr Calc Pharmacy 59.6 ml/min; Est GFR (African American) 83.3; Est GFR (Non-African American) 71.9; Magnesium 2.2 mg/dl (1.8-2.4); Potassium 4.4 mmol/L (3.5-5.1)
[2018-11-30 11:57] LABS: Bilirubin,Total 0.4 mg/dl (0.2-1); Globulin 3.4 gm/dl (2.5-4.0); Thyroid Stimulating Hormone 0.325 uIu/ml (0.300-4.500); Total Protein 6.9 gm/dl (6.4-8.2); Troponin I 0.027 ng/ml (0-0.045)
--- NOTE | 2018-11-30 13:47 | Emergency Department Note ---
ED Visit Note I did evaluate and examine this patient myself. I did guide management for the patient. I agree with the PA's assessment as discussed. Please see the PAs dictation for further details. I did independently review the twelve-lead EKG and blood work. The patient has been having chest tightness since this morning. He has a delta upwards for his repeat troponin and so he will be hospitalized for repeat cardiac biomarkers and further evaluation. .
--- NOTE | 2018-11-30 14:14 | XRay Report ---
XR chest 2V routine CLINICAL HISTORY: 83 years-old Male presenting with Chest tightness. TECHNIQUE: PA and lateral views of the chest were obtained. COMPARISON: 11/09/2018. FINDINGS: Atherosclerosis of the aortic arch. Cardiac silhouette normal in size. Lungs and pleural spaces clear . Flowing anterior osteophytosis likely diffuse idiopathic skeletal hyperostosis. Upper abdomen yaneth l. IMPRESSION: 1. No acute cardiopulmonary disease. Electronically signed by: Stephan Baird M.D. 11/30/2018 2:13 PM
[2018-11-30 14:16] LABS: Appearance Urine Clear (Clear); Bilirubin Urine Negative (Negative); Blood Urine Negative (Negative); Color Urine Yellow; Glucose Urine UA Negative (Negative); Ketones Urine Negative (Negative); Leukocyte Esterase Urine Negative (Negative); Nitrite Urine Negative (Negative); Protein Urine Negative (Negative); Specific Gravity Urine 1.022 (1.000-1.030); Urobilinogen Urine Negative (Negative)
--- NOTE | 2018-11-30 16:06 | Cardiology Consultation ---
Date of Consultation November 30, 2018 Assessment & Plan (1) Chest pain: Patient presented with chest discomfort. History is little bit difficult to determine due to his cognitive impairment. EKG is reassuring. Although troponin not undetectable, it is still within normal limits. Continue to follow the patient. Check resting echocardiogram for comparison to the one that he had [place] [facility] Remain off of antiplatelet therapy. The admitting team was going to discuss the patient's case with his neurologist in [place]. The patient's most recent CT of the brain had taken place on 11/17/2018 with reported evolution of right MCA territory hemorrhagic stroke without new problem. (2) Hemorrhagic stroke: As noted above, will continue to follow the patient. Continue statin therapy. History of Present Illness History of Present Illness Javan Benito is an 83 year old male seen in cardiology consultation per the request [facility]LE[facility] the [facility] of chest pain. The patient was seen in ED room B. During my assessment the patient is asymptomatic. He denies any chest discomfort at present. He noted awaking this morning at around 7:00, and had mild chest pressure. He went for a brief walk, his symptoms persisted. EKG was performed at 1027 this morning which revealed sinus bradycardia 53 bpm. Age-indeterminate inferior infarction pattern cannot be excluded based on small Q waves noted in inferior leads III and aVF, with normal ST segments, unchanged compared to a prior EKG in the [facility] system dated 10/15/2018 per my personal comparison. Past Cardiac / Vascular History: 1. History of chronic coronary heart disease having had a cardiac catheterization at [facility] in [facility] 2008. He had drug-eluting stents placed to a bifurcating lesion of the LAD and second diagonal. 2. Patient transitioned his cardiac care from [place] to [facility] having been seen by the undersigned 1 tablet 05/25/2018, at that time he described on anginal chest, shoulder, and hip pain. His cardiac medications were continued at that time including aspirin 81 mg, and atorvastatin 40 mg 3. 3.Presented to the emergency department at [facility] in October 2018 with lower extremity weakness, he was transferred to [facility] [place], and was found to have a right middle cerebral artery territory ischemic stroke. Echocardiogram performed at [facility] dated 10/16/2018 revealed normal LV systolic function normal valve function. In order for a Zio cardiac monittor was placed during that admission by neurology, but it does not appear that this has taken place yet. The patient was ultimately hospitalized from 10/15/2018 to 10/17/2018 at [facility] and was discharged with having transitioned his aspirin 81 mg to clopidogrel 75 mg 4. 11/04/2018, 11/06/2018, seen by urology for hematuria 5. 11/09/18 , presented to the emergency room again with several complaints incl uding back pain, family had noticed recent changes in his personality, and a CT of the brain revealed a right intraparenchymal hematoma encompassing the frontal and right parietal lobes consistent with hemorrhagic conversion of the recent subacute stroke. The patient was transferred to [facility]. Plavix discontinued. Allergies Allergy/AdvReac Type Severity Reaction Status Date / Time celecoxib [From Celebrex] Allergy Unknown Verified 11/30/18 10:46 tramadol Allergy Unknown Verified 11/30/18 10:46 SHINGLES VACCINE Allergy Unknown HIVES AND Uncoded 11/30/18 10:46 SORENESS AT INJECTION SITE Home Medications Home Medications Medication Instructions Recorded Confirmed Type baclofen 20 mg PO BID PRN 02/10/18 11/30/18 History pvaucpmbgm-kmkhsyvdnw-tim-cod 1 cap PO Q4H PRN 02/10/18 11/30/18 History cholecalciferol (vitamin D3) 2,000 unit PO QAM 02/10/18 11/30/18 History [Vitamin D3] docusate sodium [Colace] 100 mg PO BID 02/10/18 11/30/18 History rizatriptan 10 mg PO UD PRN 02/10/18 11/30/18 History zinc 50 mg PO HS 02/10/18 11/30/18 History atorvastatin 40 mg PO PM 07/01/18 11/30/18 History ipratropium bromide 2 spray INTRANASAL BID 07/01/18 11/30/18 History vitamin B complex [Super B-50 1 cap PO QAM 07/01/18 11/30/18 History Complex] coenzyme Q10 [Co Q-10] 100 mg PO BID 09/03/18 11/30/18 History gabapentin 100 mg PO TID 09/03/18 11/30/18 History dtenlvbx-cqeud-gko6-C-sobeida-bor 1 tab PO BID 09/03/18 11/30/18 History [Xvqliizl-Dinzj-MVZ(with boron)] loratadine [Claritin] 10 mg PO QAM 09/03/18 11/30/18 History omeprazole magnesium [Prilosec OTC] 20 mg PO QAM 09/03/18 11/30/18 History levetiracetam [Keppra] 500 mg PO BID 11/01/18 11/30/18 History magnesium oxide [MagOx] 400 mg PO QAM 11/01/18 11/30/18 History dutasteride 0.5 mg PO QAM 11/30/18 11/30/18 History tadalafil 20 mg PO DAILY PRN 11/30/18 11/30/18 History triazolam 0.5 mg PO HS 11/30/18 11/30/18 History Patient History Medical History Arthritis (Chronic) BPH (benign prostatic hyperplasia) GERD (gastroesophageal reflux disease) Hearing deficit HOOPA Hiatal hernia History of gastric ulcer History of kidney stones Hyperlipidemia Migraine Transient ischemic attack (TIA) APPROX 1 MONTH AGO unconfirmed, symptoms lasted for 1 day (left sided weakness), called PCP office and made aware (no further testing or medications added). Informed him that it needs to be brought up with his PCP appointment on 07/08. Surgical History History of cardiac cath 06/2008 - [facility] HERNANDE[facility] - CP - 2 STENTS PLACED - FOLLOWS W/ [facility] History of colonoscopy History of cystoscopy History of heart artery stent History of hernia surgery History of left cataract surgery Was given 2mg of versed on 07/14 18 History of lithotripsy History of removal of cyst Social History Preferred Language: Panamanian Communication Ability: Effective Rn Palliative Care Required: No Beliefs That Will Affect Care: None marital status: Current Living Situation: Spouse Feels Safe at Home: Yes Smoking Status: Never smoker Second Hand Exposure: No ; Hx Alcohol Use: Yes Alcohol type: beer Hx Substance Use: No Review of Systems Review of Systems: All systems reviewed & are unremarkable except as noted in HPI & below Physical Exam Physical Exam: Temp Pulse Resp BP Pulse Ox 36.8 C 56 L 17 127/81 99 11/30/18 09:57 11/30/18 15:00 11/30/18 15:00 11/30/18 14:00 11/30/18 15:00 Constitutional: WD/WN, vitals as above Respiratory: normal respiratory effort, lungs clear to auscultation Cardiovascular: RRR, no murmur, no edema Gastrointestinal (Abdomen): normal bowel sounds, soft, nontender, no hepatosplenomegaly Neurologic: No apparent recent focal motor deficits, the patient and his spouse describe mild cognitive impairment in terms of his recent memory. Results & Data Vital Signs (Past 12 Hours) Vital Signs Temp Pulse Resp BP Pulse Ox 11/30/18 15:00 56 L 17 99 11/30/18 14:00 127/81 11/30/18 13:55 101 H 17 141/80 H 93 11/30/18 13:30 57 L 16 117/63 98 11/30/18 13:00 56 L 17 123/68 98 11/30/18 12:30 56 L 21 113/63 98 11/30/18 10:36 97 11/30/18 10:34 55 L 13 111/61 11/30/18 09:57 36.8 C 61 18 107/69 96 Laboratory Results Cardiac Enzymes 11/30/18 11/30/18 Range/Units 10:40 12:58 AST 17 (15-37) U/L Troponin I 0.027 0.041 (0-0.045) ng/ml CBC 11/30/18 Range/Units 10:40 WBC 9.75 (4.8-10.8) K/uL RBC 4.49 L (4.7-6.1) M/uL Hgb 12.7 L (14.0-18.0) g/dL Hct 39.7 L (42-52) % Plt Count 168 (130-400) K/uL Neut # (Auto) 7.22 H (1.4-6.5) K/uL Lymph # (Auto) 1.71 (1.2-3.4) K/uL [place] # (Auto) 0.66 H (0.11-0.59) K/uL Eos # (Auto) 0.14 (0-0.5) K/uL Baso # (Auto) 0.01 (0-0.2) K/uL Comprehensive Metabolic Panel 11/30/18 Range/Units 10:40 Sodium 141 (136-145) mmol/L Potassium 4.4 (3.5-5.1) mmol/L Chloride 107 (98-107) mmol/L Carbon Dioxide 29 (21-32) mmol/L BUN 19 H (7-18) mg/dl Creatinine 0.97 (0.6-1.4) mg/dl Glucose 101 H (70-99) mg/dl Calcium 9.5 (8.5-10.1) mg/dl AST 17 (15-37) U/L ALT 25 (12-78) U/L Alkaline Phosphatase 65 (45-117) U/L Total Protein 6.9 (6.4-8.2) gm/dl Albumin 3.5 (3.4-5.0) gm/dl Intake and Output 11/30/18 11/30/18 11/30/18 06:59 14:59 22:59 Other: Weight 87.5 kg Patient Weight 12/01/18 06:59 Weight 87.5 kg
[2018-11-30] MEDS ORDERED: ACETAMINOPHEN 325 MG TAB PO PRN (16:54)
--- NOTE | 2018-11-30 18:30 | History & Physical Report ---
Date of Service November 30, 2018 Assessment & Plan (1) Chest pain: (2) CAD (coronary artery disease): -Admit to telemetry -Patient presenting from home with reports of chest pressure that subsequently resolved on its own -History of CAD, S/P GINNA to LAD and second diagonal in 2008 -Recently taken off aspirin and Plavix due to right MCA CVA with hemorrhagic conversion -EKG without acute ST changes, troponin 0.027 -> .041 -Continue cycle cardiac enzymes, check resting echo -? If symptoms are due to underlying anxiety -Cardiology consult, case discussed with Dr. Anders -Attempted to contact patient's neurologist, Dr. Singh in [place] ([phone]) to discuss reinitiating aspirin/Plavix however she is out of the office today (3) CVA (cerebral vascular accident): -Recent right MCA CVA with hemorrhagic conversion -Continue statin -Per neurology, aspirin and Plavix are on hold (4) Anxiety and depression: -Patient has been struggling with increasing anxiety and depression since his recent stroke -Willing to speak to mental health while admitted (5) Seizure disorder: -Continue Keppra (6) BPH (benign prostatic hyperplasia): -Continue dutasteride (7) GERD (gastroesophageal reflux disease): -Continue PPI (8) DVT prophylaxis: -SCDs due to recent CVA with hemorrhagic conversion History of Present Illness Chief Complaint: Chest Pressure Primary Care Provider: Scar Porras MD 83-year-old male who presents to the ED for evaluation of chest pain. Recent history includes, patient was admitted to [facility] 10/15 through 10/17 for right MCA CVA. EEG was also completed that showed right frontotemporal sharp waves. During that admission, patient's prior aspirin was changed to Plavix and he was also started on Keppra. Patient then presented to [facility] ED on 11/09 with back pain and personality changes. CT head showed hemorrhagic conversion of prior stroke and patient was transferred to [facility]. While there, Plavix was discontinued. Patient did not require any acute interventions. He was discharged on 11/11. Since his recent CVA, patient has had significant personality changes with anxiety. He reports persistent anxiety and very poor sleeping patterns. He reports he is up most of the night pacing. He states he feels depressed because he is unable to do many of the things he used to as he was very active. He reports sometimes he wishes he wasn't here however denies any active suicidal or homicidal plans. This morning, around 7 AM, patient developed some chest pressure. He then went outside to take a walk however chest pressure worsened. He then presented to the ED for further evaluation. He denies any associated shortness of breath, diaphoresis, nausea, lightheadedness. He does have sublingual nitroglycerin at home however did not take any. Chest pressure eventually subsided on its own. Patient denies abdominal pain, vomiting, diarrhea. No other recent illnesses, fevers, chills. He denies any urinary symptoms. In the ED, EKG does not show any acute ST changes. Initial troponin was 0.027 and repeat 0.041. Allergies Allergy/AdvReac Type Severity Reaction Status Date / Time celecoxib [From Celebrex] Allergy Unknown Verified 11/30/18 10:46 tramadol Allergy Unknown Verified 11/30/18 10:46 SHINGLES VACCINE Allergy Unknown HIVES AND Uncoded 11/30/18 10:46 SORENESS AT INJECTION SITE Home Medications Home Medications Medication Instructions Recorded Confirmed Type baclofen 20 mg PO BID PRN 02/10/18 11/30/18 History panpnxvaui-xqhrleicdf-lcb-cod 1 cap PO Q4H PRN 02/10/18 11/30/18 History cholecalciferol (vitamin D3) 2,000 unit PO QAM 02/10/18 11/30/18 History [Vitamin D3] docusate sodium [Colace] 100 mg PO BID 02/10/18 11/30/18 History rizatriptan 10 mg PO UD PRN 02/10/18 11/30/18 History zinc 50 mg PO HS 02/10/18 11/30/18 History atorvastatin 40 mg PO PM 07/01/18 11/30/18 History ipratropium bromide 2 spray INTRANASAL BID 07/01/18 11/30/18 History vitamin B complex [Super B-50 1 cap PO QAM 07/01/18 11/30/18 History Complex] coenzyme Q10 [Co Q-10] 100 mg PO BID 09/03/18 11/30/18 History gabapentin 100 mg PO TID 09/03/18 11/30/18 History vysnuroo-cigzu-qcz2-C-sobeida-bor 1 tab PO BID 09/03/18 11/30/18 History [Dffqufsb-Dryfk-TPN(with boron)] loratadine [Claritin] 10 mg PO QAM 09/03/18 11/30/18 History omeprazole magnesium [Prilosec OTC] 20 mg PO QAM 09/03/18 11/30/18 History levetiracetam [Keppra] 500 mg PO BID 11/01/18 11/30/18 History magnesium oxide [MagOx] 400 mg PO QAM 11/01/18 11/30/18 History dutasteride 0.5 mg PO QAM 11/30/18 11/30/18 History tadalafil 20 mg PO DAILY PRN 11/30/18 11/30/18 History triazolam 0.5 mg PO HS 11/30/18 11/30/18 History Past Med/Surg History Medical History Hiatal hernia (Chronic) Migraine (Chronic) 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) Seizure disorder (Chronic) CAD (coronary artery disease) (Chronic) 2008 - GINNA to LAD and 2nd diagonal 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 Kidney stones (Resolved) GERD (gastroesophageal reflux disease) (Chronic) BPH (benign prostatic hyperplasia) (Chronic) Arthritis (Chronic) Surgical History History of lithotripsy (Chronic) History of hernia surgery (Chronic) History of left cataract surgery (Chronic) Was given 2mg of versed on 07/14 18 Family History Grandfather (Paternal) Family history of diabetes mellitus Social History Preferred Language: Georgian Communication Ability: Effective 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: No Beliefs That Will Affect Care: Synagogue Synagogue Beliefs: Yazidism marital status: Current Living Situation: Spouse Other Information That Helps Us Care for You: No Feels Safe at Home: Yes Safety Concerns: Feels Safe At This Time Smoking Status: Never smoker Second Hand Exposure: No ; Hx Alcohol Use: No Hx Substance Use: No Review of Systems Review of Systems: ROS per HPI, all other systems reviewed and negative Physical Exam Constitutional: WD/WN, vitals as above Eyes: PERRL, conjunctivae normal, anicteric sclerae ENMT: external ear and nose normal, oropharynx normal Respiratory: normal respiratory effort, lungs clear to auscultation Cardiovascular: Rate/Rhythm: regular rate and regular rhythm Vessels: normal peripheral pulses Extremities: no edema Gastrointestinal (Abdomen): normal bowel sounds, soft, nontender, no hepatosplenomegaly Musculoskeletal: no cyanosis or clubbing, extremities motor strength 5/5 Skin: no rashes, warm and dry Neurologic: PERRL, EOMI, accommodation nl, no face palsy, no dysarthria Psychiatric: Orientation: alert and oriented x 3 Affect: + depressed affect Results & Data Vital Signs (Past 12 Hours) Vital Signs Temp Pulse Pulse Resp BP BP Pulse Ox 11/30/18 16:43 36.7 C 56 L 18 144/74 H 99 11/30/18 15:00 56 L 17 99 11/30/18 14:00 127/81 11/30/18 13:55 101 H 17 141/80 H 93 11/30/18 13:30 57 L 16 117/63 98 11/30/18 13:00 56 L 17 123/68 98 11/30/18 12:30 56 L 21 113/63 98 11/30/18 10:36 97 11/30/18 10:34 55 L 13 111/61 11/30/18 09:57 36.8 C 61 18 107/69 96 Laboratory Results Short CBC 11/30/18 11/30/18 11/30/18 Range/Units 10:40 10:40 12:58 WBC 9.75 (4.8-10.8) K/uL Hgb 12.7 L (14.0-18.0) g/dL Hct 39.7 L (42-52) % Plt Count 168 (130-400) K/uL Troponin I 0.027 0.041 (0-0.045) ng/ml BMP 11/30/18 10:40 Sodium 141 Potassium 4.4 Chloride 107 Carbon Dioxide 29 BUN 19 H Creatinine 0.97 Glucose 101 H Calcium 9.5 Cardiac Enzymes 11/30/18 11/30/18 Range/Units 10:40 12:58 Troponin I 0.027 0.041 (0-0.045) ng/ml Liver Function 09/23/19 Range/Units 10:40 Total Bilirubin 0.4 (0.2-1) mg/dl AST 17 (15-37) U/L ALT 25 (12-78) U/L Alkaline Phosphatase 65 (45-117) U/L Albumin 3.5 (3.4-5.0) gm/dl Urine 11/30/18 Range/Units 13:43 Urine Color Yellow Urine Appearance Clear (Clear) Urine pH 7.0 (4.5-7.5) Ur Specific [place] 1.022 (1.000-1.030) Urine Protein Negative (Negative) Urine Glucose (UA) Negative (Negative) Diagnostic Findings CXR IMPRESSION: 1. No acute cardiopulmonary disease. Code Status & VTE Plan Code Status Patient is a full code as per my discussion with him. VTE Prophylaxis Plan VTE Prophylaxis will be ordered: Yes Supervising Physician Co-Signing Physician Notes HISTORY: Record reviewed. Patient interviewed and examined in ED. Care coordinated with SELENA Nguyen; please refer to her documentation for patient's history. Briefly, 83 YO male with history of CAD s/p PCI years ago. Suffered ischemic right MCA stroke in October of this year with subsequent hemorrhagic transformation in November. No significant residual deficit, but has been troubled by severe anxiety, insomnia, and depression since the event. Experienced chest pressure today while ambulating. Pain-free in ED. EXAM: General- no distress Lungs- clear to auscultation; no respiratory distress Cardiovascular- RRR; no murmur; no gallop; no JVD; no pretibial edema Abdomen- + bowel sounds, soft, nontender Extremities- no cyanosis; no calf tenderness Neuro- alert, oriented; PERRL, EOMI; no facial palsy; no dysarthria or aphasia; motor strength upper and lower extremities 5/5 Skin- warm & dry DATA: Troponin 0.027. Other lab studies as noted. Chest x-ray did not show any acute findings. EKG performed at 10:27 reviewed and demonstrated SB at 53 / minute, possible age-indeterminate inferior TX. ASSESSMENT AND PLAN: Exertional chest pain. History of CAD. Has not been on antiplatelet meds for past few weeks because of hemorrhagic transformation of right MCA stroke. No beta anna because of bradycardia. Continue statin. Check serial cardiac markers. Consult Cardiology. Severe anxiety, insomnia, depression since stroke. Tried mirtazapine, but had side effects. Best to avoid SSRI's because of their antiplatelet effects. Check TSH. Try trazodone HS. Psychiatry consulted. Please refer to WRAREN Jhaveri's documentation for discussion of other issues.
[2018-11-30] MEDS: GABAPENTIN 100 MG CAP PO SCH (20:54)
[2018-11-30] MEDS: levETIRAcetam 500 MG TAB PO SCH (20:54)
[2018-11-30] MEDS: ATORVASTATIN 40 MG TAB PO SCH (20:54)
[2018-11-30] MEDS: DOCUSATE SODIUM 100 MG CAP PO SCH (20:54)
[2018-11-30] MEDS ORDERED: TRAZODONE HCL 50 MG TAB PO SCH (21:00)
[2018-11-30] MEDS ORDERED: TRIAZOLAM 0.5 MG PO SCH (21:00)
[2018-11-30] MEDS ORDERED: NON-FORMULARY MEDICATION (Coenzyme Q10 [Co Q-10] 100 MG) PO SCH (21:00)
[2018-12-01] MEDS: ALPRAZolam 0.25 MG TABLET PO PRN (03:10)
[2018-12-01 07:12] LABS: Hematocrit (blood only) 38.3 % (42-52); Hemoglobin 12.1 g/dL (14.0-18.0); Mean Corpuscular Hemoglobin 27.7 pg (25-34); Mean Corpuscular Hgb Conc 31.6 g/dL (32-36); Mean Corpuscular Volume 87.6 fL (80-100); Mean Platelet Volume 10.7 fL (7.4-10.4); Platelet Count 157 K/uL (130-400); RDW Coefficient of Variation 12.9 % (11.5-14.5); RDW Standard Deviation 41.6 fL (36.4-46.3); Red Blood Count 4.37 M/uL (4.7-6.1); White Blood Count 6.56 K/uL (4.8-10.8)
[2018-12-01 07:42] LABS: BUN Creatinine Ratio 17.1 (10-20); Calcium 9.8 mg/dl (8.5-10.1); Creatinine Clr Calc Pharmacy 61.5 ml/min; Est GFR (African American) 86.6; Est GFR (Non-African American) 74.7
[2018-12-01 07:52] LABS: Thyroid Stimulating Hormone 0.345 uIu/ml (0.300-4.500)
[2018-12-01] MEDS: DOCUSATE SODIUM 100 MG CAP PO SCH ×2 (08:31→21:38)
[2018-12-01] MEDS: levETIRAcetam 500 MG TAB PO SCH ×2 (08:32→21:37)
[2018-12-01] MEDS: GABAPENTIN 100 MG CAP PO SCH ×3 (08:32→21:37)
[2018-12-01] MEDS: PANTOprazole 40 MG TAB PO SCH (08:32)
[2018-12-01] MEDS: CHOLECALCIFEROL 1,000 UNITS TAB PO SCH (08:33)
[2018-12-01] MEDS: LORATADINE 10 MG TAB PO SCH (08:33)
[2018-12-01] MEDS: MAGNESIUM OXIDE 400 MG TAB PO SCH (08:33)
[2018-12-01] MEDS: VITAMIN B COMPLEX TAB PO SCH (08:34)
--- NOTE | 2018-12-01 10:32 | Psychiatric Consultation ---
Date of Consultation December 01, 2018 Impression / Recommendations Impression 83-year-old male admitted medically on 11/30/18 after presenting to the ED with chest pain. Pt reportedly suffered from a CVA on 10/15/18 and was hospitalized at [facility]. It is reported that the patient has experienced "personality changes" and anxiety since his CVA. Pt and 's larger concern is patient's lack of sleep since the CVA - which they feel is largely contributing to these concerns. Given lack of prior psychiatric history any presence of symptoms for only a few weeks, diagnoses of adjustment disorder with anxiety and depressed mood and insomnia seem to be most appropriate diagnoses at this time. Pt reports difficulty falling asleep, only able to sustain sleep for ~1 hour at night, if at all. Pt reports he had benefitted from triazolam 0.25mg for several years in the past for sleep, but had stopped the medication about 6 weeks before his stroke. He states he has been concerned to restart the medication without discussing the option with his neurologist. Although there are cases in which benefit outweighs risk, it is not generally ideal that benzodiazepines be utilized long-term in the elderly population due to increased risk of confusion, falls, and respiratory depression. Will defer to patient's PCP/Neurologist for decision to resume triazolam as an outpatient. It would be appropriate to consider the following options for interim treatment, or even long-term management. Would consider continuation of trazodone to assist with sleep. Trial of 100mg qHS seems appropriate, as patient did not notice significant response to initial dose of trazodone 50mg last evening but also denies side effects. This medication could also be beneficial for mood and anxiety concerns. Another option would be consideration of hydroxyzine or diphenhydramine to encourage sleep. Could utilize 50-100mg of hydroxyzine or 50mg of diphenhydramine to assist with sleep. Of course, healthy sleep habits can be beneficial as well, including avoiding "screen time" for at least a half hour prior to sleep, remaining compliant with a regular and relaxing sleep routine, keeping consistent sleep/wake times, and remaining active and awake during the day. The above treatment options were discussed with both the patient and the who are agreeable to recommendations, and are ultimately planning to follow-up with their neurologist after discharge. Will defer specific management and discharge planning to primary team, as it appears the patient may be discharged today and therefore our service's ability to monitor response to medications may not be possible. Pt is reportedly currently meeting with a psychologist/counselor though a stroke recovery program, and patient and admit they would be interested in learning more about therapy options in their area as patient continues to cope with his medical conditions and recovery process. We will provide patient with a booklet of mental health services in the area. If time permits prior to discharge, it may be possible to make referrals if the family is interested. Dr. Stefani Houston was directly involved in review and discussion of the patient's case and participated in medical decision making regarding treatment recommendations. PLAN: 12/01 - Consider continuation of trazodone, with titration to 100mg qHS to assist with sleep - Alternative consideration to utilize hydroxyzine (50-100mg) or diphenhydramine (50mg) for sleep - Will defer to patient's PCP/Neurologist with regard to consideration to restart triazolam, which had previously been beneficial for sleep per the patient - No acute psychiatric needs requiring inpatient psychiatric treatment CPT Code Initial Consultation: 47791 Psych History Identifying Data 83-year-old male admitted medically on 11/30/18 due to chest pain. Pt was admitted to [facility] from 10/15/18 - 10/17/18 after a right MCA CVA, which has reported contributed to worsening anxiety and depression. There is also concern for recent difficulty sleeping, further contributing to patient's anxiety. Psychiatric consultation was requested to evaluated patient for anxiety. Information is gathered from hospital documentation, patient's , and the patient himself - the combination of which is considered to be reliable. Chief Complaint "With the depression and anxiety since my stroke, I have not been able to sleep." History of Present Illness Travis Benito is an 83-year-old male admitted medically on 11/30/18 after presenting to the ED with chest pain. Patient suffered from a CVA on 10/15/18, and it is reported that he has since developed anxiety, depression, and personality changes. Pt was hospitalized for observation and continued cardiac monitoring. Psychiatric consultation was requested to evaluate patient for anxiety. Patient's case was reviewed with psychiatric nurse liaison and psychiatrist. It appears that last evening the patient was provided with trazodone 50mg. He later received alprazolam 0.25mg. There is also a canceled order for diphenhydramine, which appears to have not been given to the patient. Nursing notes suggest the patient was awake during hourly round after the 2:00AM hour. Patient was agreeable to psychiatric evaluation, and requests that his , Leydi, remain present to assist with interview. Pt states, "With the depression and anxiety since my stroke, I have not been able to sleep." Pt and both report significant concern related to patient's ongoing insomnia. Pt states that he has had difficulty sleeping for several years, previously treated with triazolam 0.25mg. He states that his dose had recently been increased to allow for a second 0.25mg dose during the night if necessary. He states that he had stopped the medication about 6 weeks prior to his stroke, and has been hesitant to resume the medication without discussing with his Neurologist, "Dr. Travis" Pt admits that he may sleep in about 1 hour increments since his stroke, but reports more often "there I times I don't even get to sleep." Pt's states that she also has had difficulty sleeping, "I'm up and keeping an eye on him, worried about him." The patient's states that he is able to briefly sleep with a particular news show, and states, "I usually record it an wait to watch it until around 8:00(pm), he's usually asleep within 2 minutes, but that's the only thing that works." The patient admits that he has undergone a lot of adjustments since his stroke, and is finding this difficult. Between the patient's lack of sleep and adjustment difficulties, he reports increased anxiety and worry. Pt's largest concerns surround finding activities he is able to participate in that continue to give him a purpose. Pt admits that he has already been looking for volunteer opportunities around their alf community that can help to keep him busy. Pt states, "I get cabin fever. That makes the anxiety worse. We used to travel all the time and now I feel like I can't go anywhere." He states he has a hard time relying more heavily on his for driving and other needs. Despite these difficulties, the patient admits that he continues to bike and walk daily. He is eating regularly with no significant change in appetite. He admits to difficulty concentrating, but feels this is not due to the presence of racing thoughts. Pt states that he has a lot of motivation to get back to enjoying activities, but finds it difficult to accept that this may take time. When asked about the presence of hopelessness, the patient states, "yes, I find I'm not sure if I'll keep getting enjoyment out of things." When asked about the presence of suicidal thoughts, he denies active ideation. He states, "I'm too much of a coward to hurt myself, but I have prayed to the Lord to take me home, to leave this mess behind." Pt states he is a judaism man and feels that there is "a beautiful spot waiting for me in psychiatric hospital when the Lord is ready to call me home, it sounds delightful, doesn't it?" He states that while he is not afraid of , he has not thought about taking any steps to quicken his demise. Pt denies any psychiatric history prior to his stroke. He states he has not suffered from low mood or decreased motivation for several weeks or months. He denies history of anxiety as well. Upon further review, it appears patient was prescribed duloxetine 20mg in 12/2017, but denied known prior history of antidepressant medication trials. He was given mirtazapine to assist with sleep, filled 11/16/18, but did not tolerate the medication. It is reported that the patient became more irritable on the medication. Pt's states there were 1-2 episodes in which the patient had demonstrated paranoia and delusions ("He removed all the candles from the windows and put them on the table. He started calling me a witch, just the accusations... He didn't remember any of it when he woke up."). believes this may be related to the mirtazapine, as it has not recurred since the medication was discontinued. Patient's states that the patient is currently enrolled in a stroke recovery program which incorporates nursing services, physical/speech therapies, and psychotherapy. This service is likely brief, but they admit they would be interested in continuing with a counselor on an outpatient basis if possible. Past Psychiatric History Previous Psych History: Denies, reports anxiety and depressive symptoms began after a CVA on 10/15/18 Outpatient Services: No outpatient psychiatrist. Brief counseling services available through a stroke recovery program, which includes access to therapis ts, nursing, and psychologists. Previous Psych Admissions: Denies History of Previous Suicide Attempt: No Past Medication Trials: Per patient reports: 1. Remeron - anger, confusion, paranoia 2. Cymbalta - external med list shows Rx filled for Cymbalta 20mg in 12/2017 3. Triazolam - reportedly beneficial for sleep for 5+ years Allergies Allergy/AdvReac Type Severity Reaction Status Date / Time celecoxib [From Celebrex] Allergy Unknown Verified 11/30/18 10:46 tramadol Allergy Unknown Verified 11/30/18 10:46 SHINGLES VACCINE Allergy Unknown HIVES AND Uncoded 11/30/18 10:46 SORENESS AT INJECTION SITE Home Medications Home Medications Medication Instructions Recorded Confirmed Type baclofen 20 mg PO BID PRN 02/10/18 11/30/18 History ujxxlztzdm-syxyauunzh-udz-cod 1 cap PO Q4H PRN 02/10/18 11/30/18 History cholecalciferol (vitamin D3) 2,000 unit PO QAM 02/10/18 11/30/18 History [Vitamin D3] docusate sodium [Colace] 100 mg PO BID 02/10/18 11/30/18 History rizatriptan 10 mg PO UD PRN 02/10/18 11/30/18 History zinc 50 mg PO HS 02/10/18 11/30/18 History atorvastatin 40 mg PO PM 07/01/18 11/30/18 History ipratropium bromide 2 spray INTRANASAL BID 07/01/18 11/30/18 History vitamin B complex [Super B-50 1 cap PO QAM 07/01/18 11/30/18 History Complex] coenzyme Q10 [Co Q-10] 100 mg PO BID 09/03/18 11/30/18 History gabapentin 100 mg PO TID 09/03/18 11/30/18 History cjkzivxj-kjxtc-pcu3-C-sobeida-bor 1 tab PO BID 09/03/18 11/30/18 History [Yknelsbp-Hldei-NGB(with boron)] loratadine [Claritin] 10 mg PO QAM 09/03/18 11/30/18 History omeprazole magnesium [Prilosec OTC] 20 mg PO QAM 09/03/18 11/30/18 History levetiracetam [Keppra] 500 mg PO BID 11/01/18 11/30/18 History magnesium oxide [MagOx] 400 mg PO QAM 11/01/18 11/30/18 History dutasteride 0.5 mg PO QAM 11/30/18 11/30/18 History tadalafil 20 mg PO DAILY PRN 11/30/18 11/30/18 History triazolam 0.5 mg PO HS 11/30/18 11/30/18 History Family History No known family history of mental health diagnoses. Substance Abuse History Denies tobacco use. Episodic alcohol use, reporting a case of beer generally lasts about 2 years. Pt denies use of other illicit substances. 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) Seizure disorder (Chronic) CAD (coronary artery disease) (Chronic) 2008 - GINNA to LAD and 2nd diagonal 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 Kidney stones (Resolved) GERD (gastroesophageal reflux disease) (Chronic) BPH (benign prostatic hyperplasia) (Chronic) Arthritis (Chronic) Surgical History History of lithotripsy (Chronic) History of hernia surgery (Chronic) History of left cataract surgery (Chronic) Was given 2mg of versed on 07/14 18 Family History Grandfather (Paternal) Family history of diabetes mellitus Social History Preferred Language: [place]er Communication Ability: Effective 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 Pt is appropriately dressed in a hospital gown. Pt appears well-groomed with adequate hygiene. Level of hydration appears adequate. Eye Contact: good eye contact Motor Behavior: no abnormal motor movements (observed while laying in bed) Speech: normal rate/rhythm/volume of speech (soft tone) Affect: + blunted affect (not appearing overtly depressed, but is subdued) and mood congruent with affect Mood: + depressed mood and + anxious mood Thought Process: goal directed thought process, linear/logical thought process, clear/coherent thought process and thought association intact Thought Content: reality based without delusions and + hopelessness ("not sure how to get enjoyment out of things anymore", episodic) Suicidal Thoughts: denies suicidal thoughts, denies suicidal plan and denies suicidal intent But admits, "I have prayed to the Lord to take me home and leave this all behind." Homicidal Thoughts: denies homicidal thoughts Hallucinations: no auditory hallucinations and no visual hallucinations Cognition: remote memory grossly intact, attention grossly intact and language grossly intact Estimated Intelligence: consistent with education level Insight: + fair insight Judgement: + fair judgement Vital Signs (Past 24 Hours): Last Vital Signs Temp 36.6 C 12/01/18 07:49 Pulse 58 L 12/01/18 07:49 Resp 16 12/01/18 07:49 BP 125/71 12/01/18 07:49 Pulse Ox 96 12/01/18 07:49 Review of Systems Constitutional: reports fatigue, difficulty sleeping Cardiovascular: reports improvement in chest pain Respiratory: denied Gastrointestinal: denied Neurological: denied Musculoskeletal: reports generalized body aches and stiffness Psychiatric: denies symptoms other than stated above Total of at least 10 systems reviewed, pertinent positives as above and in HPI. Results & Data Medications Administered Alprazolam (Xanax) 0.25 mg PO Q12H PRN PRN Reason: insomnia or anxiety Stop: 12/31/18 02:39 Last Admin: 12/01/18 03:10 Dose: 0.25 mg Documented by: [id number] Atorvastatin Calcium (Lipitor) 40 mg PO PM [facility] Stop: 12/30/18 20:59 Last Admin: 11/30/18 20:54 Dose: 40 mg Documented by: [id number] Docusate Sodium (Colace) 100 mg PO BID [facility] Stop: 12/30/18 20:59 Last Admin: 12/01/18 08:31 Dose: 100 mg Documented by: [id number] Cosigned by: [id number] Admin: 11/30/18 20:54 Dose: 100 mg Documented by: [id number] Gabapentin (Neurontin) 100 mg PO TID [facility] Stop: 12/30/18 20:59 Last Admin: 12/01/18 08:32 Dose: 100 mg Documented by: [id number] Cosigned by: [id number] Admin: 11/30/18 20:54 Dose: 100 mg Documented by: [id number] Levetiracetam (Keppra) 500 mg PO BID [facility] Stop: 12/30/18 20:59 Last Admin: 12/01/18 08:32 Dose: 500 mg Documented by: [id number] Cosigned by: [id number] Admin: 11/30/18 20:54 Dose: 500 mg Documented by: [id number] Loratadine (Claritin) 10 mg PO QAM [facility] Stop: 12/31/18 08:59 Last Admin: 12/01/18 08:33 Dose: 10 mg Documented by: [id number] Cosigned by: [id number] Magnesium Oxide (Mag-Ox) 400 mg PO QAM [facility] Stop: 12/31/18 08:59 Last Admin: 12/01/18 08:33 Dose: 400 mg Documented by: [id number] Cosigned by: [id number] Miscellaneous (Order Awaiting Action) 1 ea N/A QS [facility] Stop: 12/31/18 00:00 Last Admin: 12/01/18 08:37 Dose: Not Given Documented by: [id number] Admin: 12/01/18 01:48 Dose: Not Given Documented by: [id number] Pantoprazole Sodium (Protonix) 40 mg PO QAM [facility] Stop: 12/31/18 08:59 Last Admin: 12/01/18 08:32 Dose: 40 mg Documented by: [id number] Cosigned by: [id number] Trazodone HCl (Desyrel) 50 mg PO [facility] Stop: 12/30/18 20:59 Last Admin: 11/30/18 22:58 Dose: 50 mg Documented by: [id number] Vitamin B Complex (Vitamin B Complex) 1 tab PO [facility] Stop: 12/31/18 08:59 Last Admin: 12/01/18 08:34 Dose: 1 tab Documented by: [id number] Cosigned by: [id number] Vitamin D (Vitamin D3) 2,000 units PO [facility] Stop: 12/31/18 08:59 Last Admin: 12/01/18 08:33 Dose: 2,000 units Documented by: [id number] Cosigned by: [id number]
--- NOTE | 2018-12-01 13:31 | Cardiology Progress Note ---
Date of Service December 01, 2018 Assessment & Plan (1) Chest tightness: EKG nonischemic. Symptoms resolved. The patient's troponin peaked at 0.049 NG per mL overnight last night, upper limit of normal 0.045 ng/ml, and then trended down to 0.038 ng/ml. I think this is reassuring. The patient had a recent ischemic right middle cerebral artery territory stroke with subsequent hemorrhagic conversion after he had been transitioned from aspirin to clopidogrel. At this time, he is less than 1 month out from this event, and I would continue to hold antiplatelet therapy. Await echocardiogram. Patient's significant concerns are his difficulty with sleeping. Psychiatry input noted and appreciated. Subjective Chief complaint: Follow-up chest pain Subjective: Patient seen and examined this morning. No recurrent chest discomfort thus far. EKG this morning 12/01/18 7:16 AM and reviewed independently revealed sinus bradycardia at 50 bpm with first-degree AV block, normal ST segments were noted. Review of Systems Review of Systems: All systems reviewed & are unremarkable except as noted in HPI & below Physical Exam Physical Exam: Temp Pulse Resp BP Pulse Ox 36.7 C 63 19 117/67 99 12/01/18 11:40 12/01/18 11:40 12/01/18 11:40 12/01/18 11:40 12/01/18 11:40 Constitutional: WD/WN, vitals as above Respiratory: normal respiratory effort, lungs clear to auscultation Cardiovascular: RRR, no murmur, no edema Gastrointestinal (Abdomen): normal bowel sounds, soft, nontender, no hepatosplenomegaly Neurologic: No focal motor deficit, mild cognitive impairment. Results & Data Vital Signs (Past 12 Hours) Vital Signs Temp Pulse Pulse Resp BP Pulse Ox 12/01/18 11:40 36.7 C 63 19 117/67 99 12/01/18 07:49 36.6 C 58 L 16 125/71 96 12/01/18 05:37 36.5 C 76 20 133/77 97 12/01/18 02:44 36.4 C L 59 L 18 125/70 96
--- NOTE | 2018-12-01 13:41 | Hospitalist Progress Note ---
Date of Service December 01, 2018 Assessment & Plan (1) Chest pain: Presented with transient chest heaviness, Symptom has completely resolved, Appreciate input from cardiology, (2) CAD (coronary artery disease): -Presented from home with reports of chest pressure that subsequently resolved on its own -History of CAD, S/P GINNA to LAD and second diagonal in 2008 -Recently taken off aspirin and Plavix due to right MCA CVA with hemorrhagic conversion -EKG without acute ST changes, troponin 0.027 -> peaked at 0 .041- then trended down to 0.038 Not had any recurrence of chest heaviness since admission Much of his symptoms possibly secondary to anxiety related -Appreciate input from cardiology Given patient has recent ischemic right middle cerebellar artery stroke with subsequent hemorrhagic conversion Within last 4 weeks, Patient should not be placed on antiplatelets Resting echo ordered, No change of medication recommended per cardiology (3) CVA (cerebral vascular accident): -Recent right MCA CVA with hemorrhagic conversion noted on CT scan on 10/17/2018 -Continue statin -Aspirin and Plavix has been kept on hold for hemorrhagic CVA Complaint of headache, no new neurological symptoms of weakness or paresthesia Repeat CT head noncontrast ordered -A patient follows with neurologist, Dr. Singh in [place] ([phone]) (4) Anxiety and depression: -Patient has been struggling with increasing anxiety and depression since his recent stroke Has been having a lack of sleep/severe insomnia Patient has been following with psychologist as a part of stroke recover program -Had adverse reaction with Remeron in the past leading to agitation combativeness Psychiatry consulted appreciate input Recommends continue trazodone: Started last night, pt reports did not had much benefit with 50 mg dose increased to 100 mg hs added prn benadryl (5) Seizure disorder: -Continue Keppra (6) BPH (benign prostatic hyperplasia): -Continue dutasteride (7) GERD (gastroesophageal reflux disease): -Continue PPI (8) DVT prophylaxis: -SCDs due to recent CVA with hemorrhagic conversion Subjective Patient seen in room 231 bed 1, Sitting comfortable in chair, No complaint of chest pain or chest heaviness His biggest concern is lack of sleep/insomnia which has been ongoing since his stroke in October 2018. Patient denies of any dizzy spell or lightheadedness no shortness of breath no dyspnea on exertion, vitals remained stable no fever chills Review of Systems Review of Systems: All systems reviewed & are unremarkable except as noted in HPI & below Physical Exam Constitutional: WD/WN, vitals as above Eyes: PERRL, conjunctivae normal, anicteric sclerae ENMT: external ear and nose normal, oropharynx normal Neck: trachea midline, no thyromegaly Respiratory: normal respiratory effort, lungs clear to auscultation Cardiovascular: RRR, no murmur, no edema Gastrointestinal (Abdomen): normal bowel sounds, soft, nontender, no hepatosplenomegaly Musculoskeletal: no cyanosis or clubbing, extremities motor strength 5/5 Skin: no rashes, warm and dry Neurologic: PERRL, EOMI, accommodation nl, no face palsy, no dysarthria Psychiatric: A+Ox3, euthymic affect Results & Data Vital Signs (Past 12 Hours) Vital Signs Temp Pulse Pulse Resp BP Pulse Ox 12/01/18 11:40 36.7 C 63 19 117/67 99 12/01/18 07:49 36.6 C 58 L 16 125/71 96 12/01/18 05:37 36.5 C 76 20 133/77 97 12/01/18 02:44 36.4 C L 59 L 18 125/70 96
[2018-12-01] MEDS ORDERED: TRAZODONE HCL 50 MG TAB PO SCH (21:00)
[2018-12-01] MEDS: ATORVASTATIN 40 MG TAB PO SCH (21:37)
[2018-12-02] MEDS: ALPRAZolam 0.25 MG TABLET PO PRN (01:23)
[2018-12-02] MEDS: PANTOprazole 40 MG TAB PO SCH (08:40)
[2018-12-02] MEDS: DOCUSATE SODIUM 100 MG CAP PO SCH (08:40)
[2018-12-02] MEDS: LORATADINE 10 MG TAB PO SCH (08:40)
[2018-12-02] MEDS: GABAPENTIN 100 MG CAP PO SCH ×2 (08:41→13:06)
[2018-12-02] MEDS: CHOLECALCIFEROL 1,000 UNITS TAB PO SCH (08:41)
[2018-12-02] MEDS: MAGNESIUM OXIDE 400 MG TAB PO SCH (08:41)
[2018-12-02] MEDS: VITAMIN B COMPLEX TAB PO SCH (08:41)
[2018-12-02] MEDS: levETIRAcetam 500 MG TAB PO SCH (08:41)
--- NOTE | 2018-12-02 09:00 | CT Scan Report ---
CT OF THE HEAD WITHOUT CONTRAST CLINICAL HISTORY: RECENT CVA WITH HGE CHANGE COMPARISON STUDY: Head CT November 17, 2018. CT DOSE: 614.27 mGy.cm TECHNIQUE: Helical axial images of the head were obtained without IV contrast. Automated exposure con trol was utilized for the study. A dose lowering technique was utilized adhering to the principles o f ALARA. FINDINGS: A small amount of hemorrhage within the right temporoparietal region has diminished since S epte2018. Suspected associated infarct is again noted. No new sites of hemorrhage are presen t. There is no mass effect. Ventricular system is unremarkable. The basilar cisterns are patent. Ther e are no extra-axial collections. There are no findings to suggest acute dural sinus thrombosis. Ther e are no significant calvarial abnormalities. IMPRESSION: Expected evolution of the suspected hemorrhagic infarct within the right temporoparietal region since head CT of November 17, 2018. Interval decrease in hemorrhage. No new sites of hemorrh age. No mass effect. Electronically signed by: Piero Hahn M.D. 12/02/2018 8:59 AM
--- NOTE | 2018-12-02 10:58 | Cardiology Progress Note ---
Date of Service December 02, 2018 Assessment & Plan (1) Chest tightness: No recurrent symptoms. EKGs without ischemic changes. Resting echo with normal wall motion. OK to discharge from cardiac perspective on prior to arrival cardiac medications. 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 CT of brain 12/02 with interval improvement. Follow up with neuro. Pt will need copy of films for review by his outside neurologist. Subjective CC: follow up chest tightness Subjective: Pt feeling well. No recurrent chest tightness. Rested well. He is off of telemetry. Review of Systems Review of Systems: All systems reviewed & are unremarkable except as noted in HPI & below Physical Exam Physical Exam: Temp Pulse Resp BP Pulse Ox 36.3 C L 62 16 118/69 95 12/02/18 07:05 12/02/18 07:05 12/02/18 07:05 12/02/18 07:05 12/02/18 07:05 Constitutional: WD/WN, vitals as above Respiratory: normal respiratory effort, lungs clear to auscultation Cardiovascular: RRR, no murmur, no edema Vessels: no JVD Gastrointestinal (Abdomen): normal bowel sounds, soft, nontender, no hepatosplenomegaly Neurologic: No focal motor deficit. 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 Results & Data Vital Signs (Past 12 Hours) Vital Signs Temp Pulse Resp BP Pulse Ox 12/02/18 07:05 36.3 C L 62 16 118/69 95 Laboratory Results Intake and Output 12/01/18 12/02/18 12/02/18 22:59 06:59 14:59 Other: Other Intake Source late transfer # Unmeasured Voids 2
--- NOTE | 2018-12-02 13:32 | Hospitalist Progress Note ---
Date of Service December 02, 2018 Assessment & Plan (1) Chest pain: Patient presented with transient chest heaviness EKG: No signs of acute ischemia ECHO: No wall motion abnormality No recurrence of symptoms Appreciate Cardiology Input (2) CAD (coronary artery disease): H/O CAD, S/P GINNA to LAD and second diagonal in 2008 Recently taken off aspirin and Plavix due to right MCA CVA with hemorrhagic conversion Troponin trended down Symptoms likely related to anxiety (3) CVA (cerebral vascular accident): Recent right MCA CVA with hemorrhagic conversion noted on CT scan on 10/17/2018 Continue statin Aspirin and Plavix has been kept on hold for hemorrhagic CVA No new neurological symptoms of weakness or paresthesia Repeat CT head-- Expected evolution of the suspected hemorrhagic infarct within the right temporoparietal region since head CT of November 17, 2018. Interval decrease in hemorrhage. No new sites of hemorrhage. No mass effect. Follows with neurologist, Dr. Singh in [place] ([phone]) (4) Anxiety and depression: Increased anxiety and depression since his recent stroke Also reports Insomnia Patient follows with psychologist as a part of stroke recover program H/O adverse reaction with Remeron in the past leading to agitation combativeness Appreciate Psychiatry Input Started on trazodone 100 mg hs for Insomnia (5) Seizure disorder: Continue Keppra (6) BPH (benign prostatic hyperplasia): Continue dutasteride (7) GERD (gastroesophageal reflux disease): Continue PPI (8) DVT prophylaxis: SCDs due to recent CVA with hemorrhagic conversion Code Status Full Code Disposition Plan to discharge home today Subjective Patient is seen and examined at bedside Doing well today No new complaints No recurrence of chest pain Reviewed CT head results with patient Want to be discharged home today Family at bedside Review of Systems Review of Systems: All systems reviewed & are unremarkable except as noted in HPI & below Physical Exam Physical Exam: Physical Exam: Vitals signs as noted above General Appearance:Moderately built and nourished, no apparent distress Head: normocephalic, Atraumatic Eyes: normal inspection, EOMI Neck: supple, Trachea midline Respiratory/Chest: Normal breath sounds, CTA Cardiovascular: S1, S2, No murmur Abdomen/GI:Soft, Non tender, Bowel sounds present Extremities/Musculoskelatal:normal inspection, no edema Neurologic/Psych:AAOX3, grossly no focal neurological deficits Skin: normal color, warm Results & Data Vital Signs (Past 12 Hours) Vital Signs Temp Pulse Resp BP Pulse Ox 12/02/18 07:05 36.3 C L 62 16 118/69 95
--- NOTE | 2018-12-02 13:38 | Discharge Summary ---
Date of Service December 02, 2018 Admission HPI Per Admitting Provider Travis Benito is an 83-year-old male admitted medically on 11/30/18 after presenting to the ED with chest pain. Patient suffered from a CVA on 10/15/18, and it is reported that he has since developed anxiety, depression, and personality changes. Pt was hospitalized for observation and continued cardiac monitoring. Psychiatric consultation was requested to evaluate patient for anxiety. Patient's case was reviewed with psychiatric nurse liaison and psychiatrist. It appears that last evening the patient was provided with trazodone 50mg. He later received alprazolam 0.25mg. There is also a canceled order for di phenhydramine, which appears to have not been given to the patient. Nursing notes suggest the patient was awake during hourly round after the 2:00AM hour. Patient was agreeable to psychiatric evaluation, and requests that his , Leydi, remain present to assist with interview. Pt states, "With the depression and anxiety since my stroke, I have not been able to sleep." Pt and both report significant concern related to patient's ongoing insomnia. Pt states that he has had difficulty sleeping for several years, previously treated with triazolam 0.25mg. He states that his dose had recently been increased to allow for a second 0.25mg dose during the night if necessary. He states that he had stopped the medication about 6 weeks prior to his stroke, and has been hesitant to resume the medication without discussing with his Neurologist, "Dr. Travis" Pt admits that he may sleep in about 1 hour increments since his stroke, but reports more often "there I times I don't even get to sleep." Pt's states that she also has had difficulty sleeping, "I'm up and keeping an eye on him, worried about him." The patient's states that he is able to briefly sleep with a particular news show, and states, "I usually record it an wait to watch it until around 8:00(pm), he's usually asleep within 2 minutes, but that's the only thing that works." The patient admits that he has undergone a lot of adjustments since his stroke, and is finding this difficult. Between the patient's lack of sleep and adjustment difficulties, he reports increased anxiety and worry. Pt's largest concerns surround finding activities he is able to participate in that continue to give him a purpose. Pt admits that he has already been looking for volunteer opportunities around their [employer] [facility] that can help to keep him busy. Pt states, "I get cabin fever. That makes the anxiety worse. We used to travel all the time and now I feel like I can't go anywhere." He states he has a hard time relying more heavily on his for driving and other needs. Despite these difficulties, the patient admits that he continues to bike and walk daily. He is eating regularly with no significant change in appetite. He admits to difficulty concentrating, but feels this is not due to the presence of racing thoughts. Pt states that he has a lot of motivation to get back to enjoying activities, but finds it difficult to accept that this may take time. When asked about the presence of hopelessness, the patient states, "yes, I find I'm not sure if I'll keep getting enjoyment out of things." When asked about the presence of suicidal thoughts, he denies active ideation. 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 Pt denies any psychiatric history prior to his stroke. He states he has not suffered from low mood or decreased motivation for several weeks or months. He denies history of anxiety as well. Upon further review, it appears patient was prescribed duloxetine 20mg in 12/2017, but denied known prior history of antidepressant medication trials. He was given mirtazapine to assist with sleep, filled 11/16/18, but did not tolerate the medication. It is reported that the patient became more irritable on the medication. Pt's states there were 1-2 episodes in which the patient had demonstrated paranoia and delusions ("He removed all the candles from the windows and put them on the table. He s tarted calling me a witch, just the accusations... He didn't remember any of it when he woke up."). believes this may be related to the mirtazapine, as it has not recurred since the medication was discontinued. Patient's states that the patient is currently enrolled in a stroke recovery program which incorporates nursing services, physical/speech therapies, and psychotherapy. This service is likely brief, but they admit they would be interested in continuing with a counselor on an outpatient basis if possible. Admission Exam Per Admitting Provider Physical Exam Constitutional: WD/WN, vitals as above Eyes: PERRL, conjunctivae normal, anicteric sclerae ENMT: external ear and nose normal, oropharynx normal Respiratory: normal respiratory effort, lungs clear to auscultation Cardiovascular: Rate/Rhythm: regular rate and regular rhythm Vessels: normal peripheral pulses Extremities: no edema Gastrointestinal (Abdomen): normal bowel sounds, soft, nontender, no hepatosplenomegaly Musculoskeletal: no cyanosis or clubbing, extremities motor strength 5/5 Skin: no rashes, warm and dry Neurologic: PERRL, EOMI, accommodation nl, no face palsy, no dysarthria Psychiatric: Orientation: alert and oriented x 3 Affect: + depressed affect Principal Diagnosis CHEST TIGHTNESS: RESOLVED, DEPRESSION/ANXIETY DISORDER STATUS POST ACUTE CVA INSOMNIA Discharge Data Allergies Allergy/AdvReac Type Severity Reaction Status Date / Time celecoxib [From Celebrex] Allergy Unknown Verified 11/30/18 10:46 tramadol Allergy Unknown Verified 11/30/18 10:46 SHINGLES VACCINE Allergy Unknown HIVES AND Uncoded 11/30/18 10:46 SORENESS AT INJECTION SITE Consultations 11/30/18 13:55 ED Decision to Admit Stat 11/30/18 16:54 Consult Cardiology Routine Consult Psychiatry Routine 12/02/18 12:55 Burn CD for patient Routine Procedures Performed CT Head: Expected evolution of the suspected hemorrhagic infarct within the right temporoparietal region since head CT of November 17, 2018. Interval decrease in hemorrhage. No new sites of hemorrhage. No mass effect. CXR: No acute cardiopulmonary disease. Ordered Studies 12/02/18 09:00 CT head/brain wo con Routine Hospital Course (1) Chest pain: Patient presented with transient chest heaviness EKG: No signs of acute ischemia ECHO: No wall motion abnormality No recurrence of symptoms Appreciate Cardiology Input (2) CAD (coronary artery disease): H/O CAD, S/P GINNA to LAD and second diagonal in 2008 Recently taken off aspirin and Plavix due to right MCA CVA with hemorrhagic conversion Troponin trended down Symptoms likely related to anxiety (3) CVA (cerebral vascular accident): Recent right MCA CVA with hemorrhagic conversion noted on CT scan on 10/17/2018 Continue statin Aspirin and Plavix has been kept on hold for hemorrhagic CVA No new neurological symptoms of weakness or paresthesia Repeat CT head-- Expected evolution of the suspected hemorrhagic infarct within the right temporoparietal region since head CT of November 17, 2018. Interval decrease in hemorrhage. No new sites of hemorrhage. No mass effect. Follows with neurologist, Dr. Singh in [place] ([phone]) (4) Anxiety and depression: Increased anxiety and depression since his recent stroke Also reports Insomnia Patient follows with psychologist as a part of stroke recover program H/O adverse reaction with Remeron in the past leading to agitation combativeness Appreciate Psychiatry Input Started on trazodone 100 mg hs for Insomnia (5) Seizure disorder: Continue Keppra (6) BPH (benign prostatic hyperplasia): Continue dutasteride (7) GERD (gastroesophageal reflux disease): Continue PPI (8) DVT prophylaxis: SCDs due to recent CVA with hemorrhagic conversion Code Status Full Code Disposition Plan to discharge home today Total Time Total Time Spent Total Time Spent (In Minutes): 38 minutes Total Time Includes: Examination of the Patient, Discharge Planning, Medication Reconciliation, Communication With Other Providers and Other Discharge Plan Discharge Items Patient Disposition: Home - Home Health Services Reason For Visit: CHEST PRESSURE Discharge Diagnosis: CHEST TIGHTNESS: RESOLVED, DEPRESSION/ANXIETY DISORDER STATUS POST ACUTE CVA INSOMNIA Activity: Resume your previous activity Non-emergency contact: Primary Care Provider and Neurologist Call non-emergency contact if: you have any medication questions, your symptoms worsen, your pain is not controlled, your pain is worsening, your pain is unusual for you, your pain is concerning for you and you have a fever Follow-up/Referrals: Scar Porras MD [Primary Care Provider] - 12/08/18 12:25 pm Diet: Heart Healthy Addtl Attending Provider Instructions: Follow up with your PCP on Dec 09, 2018 at 10:40AM Follow up with your Neurologist Dr. Singh in [place] in 2-4 weeks Seek immediate medical attention if your symptoms reoccur or worsens Pending Studies at Discharge: No Stand-Alone Forms: My [facility] Medications and DC Order Prescriptions: New trazodone 50 mg Tablet 100 mg PO HS 30 Days Qty: 60 RF: 0 Continued rizatriptan 10 mg tablet 10 mg PO UD PRN (Reason: Migraine Headache) RF: 0 baclofen 20 mg tablet 20 mg PO BID PRN (Reason: Cramps) RF: 0 fbhkhvcveq-eihwhodkkt-jnk-cod [id number] mg capsule 1 cap PO Q4H PRN (Reason: Migraine Headache) RF: 0 docusate sodium [Colace] 100 mg Capsule 100 mg PO BID RF: 0 zinc 50 mg Tablet 50 mg PO HS RF: 0 cholecalciferol (vitamin D3) [Vitamin D3] 2,000 unit Tablet 2,000 unit PO QAM RF: 0 atorvastatin 40 mg Tablet 40 mg PO PM RF: 0 ipratropium bromide 42 mcg (0.06 %) Piru,Non-Aerosol 2 spray INTRANASAL BID RF: 0 vitamin B complex [Super B-50 Complex] Capsule 1 cap PO QAM RF: 0 levetiracetam [Keppra] 500 mg tablet 500 mg PO BID RF: 0 magnesium oxide [MagOx] 400 mg (241.3 mg magnesium) Tablet 400 mg PO QAM RF: 0 dutasteride 0.5 mg capsule 0.5 mg PO QAM RF: 0 triazolam 0.25 mg tablet 0.5 mg PO HS RF: 0 tadalafil 20 mg tablet 20 mg PO DAILY PRN (Reason: Erectile Dysfunction) RF: 0 gabapentin 100 mg capsule 100 mg PO TID RF: 0 loratadine [Claritin] 10 mg Tablet 10 mg PO QAM RF: 0 coenzyme Q10 [Co Q-10] 100 mg Capsule 100 mg PO BID RF: 0 Prilosec OTC 20 mg Tablet,Delayed Release (Dr/Ec) 20 mg PO QAM RF: 0 capjulks-fpuxl-stp3-C-sobeida-bor [Echcmgzp-Kslor-REN(with boron)] [id number] mg Tablet 1 tab PO BID RF: 0 Discharge Orders: Discharge Order (Routine); Ordered 12/02/18 Ordered By: Sahil Swanson/Other Patient Handouts: Trazodone Hydrochloride Oral tablet Admission Data Admit Date/Time: 11/30/18 16:40 Attending Provider: Sahil Zaman Admit Provider: Javan Villagomez Primary Care Provider: Scar Porras I. Other Providers: Javan Villagomez ; Feliz Anders ; Antony Rosario I Other Interventions: Discharge Summary Assessment (RN) Last Done: 12/02/18 14:02 DC Date/Time DO NOT enter until pt leaves facility: 12/02/18 14:34
== END 2018-12-02 14:34 | disposition home health service (06) ==
LOC: ED 09:51 → 2S 09:51 → SUATTDRO 16:40 → 2S 16:55 → 3W 12-01 18:05

== ENCOUNTER 2019-02-08 16:12 | Inpatient (IN) ==
[2019-02-08 17:02] LABS: iSTAT Ionized Calcium 1.27 mmol/l (1.12-1.32); iSTAT Potassium 4.5 mEq/L (3.3-5.0)
[2019-02-08 17:03] LABS: Prothrombin Time 10.3 Seconds (9.0-12.0)
[2019-02-08 17:11] LABS: Alanine Aminotransferase 28 U/L (12-78); Albumin Level 3.7 gm/dl (3.4-5.0); Aspartate Aminotransferase 22 U/L (15-37); BUN Creatinine Ratio 15.4 (10-20); Blood Urea Nitrogen 16 mg/dl (7-18); Carbon Dioxide 27 mmol/L (21-32); Chloride 107 mmol/L (98-107); Creatinine Clr Calc Pharmacy 56.1 ml/min; Est GFR (African American) 77.5; Est GFR (Non-African American) 66.9; Glucose 112 mg/dl (70-99); Magnesium 2.1 mg/dl (1.8-2.4); Potassium 4.4 mmol/L (3.5-5.1); Sodium 140 mmol/L (136-145)
[2019-02-08 17:15] LABS: Albumin Globulin Ratio 1.1 (0.9-2); Alkaline Phosphatase 67 U/L (45-117); Bilirubin,Total 0.3 mg/dl (0.2-1); Globulin 3.5 gm/dl (2.5-4.0); Total Protein 7.2 gm/dl (6.4-8.2); Troponin I < 0.015 ng/ml (0-0.045)
[2019-02-08 17:16] LABS: Partial Thromboplastin Ratio 0.7; Partial Thromboplastin Time < 20.0 Seconds (21.0-31.0)
[2019-02-08] MEDS: SODIUM CHLORIDE 0.9% 1000ML 1,000 ML IV SCH (17:17)
--- NOTE | 2019-02-08 17:18 | XRay Report ---
XR chest 1V portable CLINICAL HISTORY: weak dyspnea COMPARISON STUDY: 01/19/2018 FINDINGS: The bones soft tissues and hemidiaphragms are normal. The cardiomediastinal silhouette is n ormal. The lungs are clear. The pulmonary vasculature is normal. IMPRESSION: Negative chest. The above report was generated using voice recognition software. It may contain grammatical, syntax or spelling errors. Electronically signed by: Amish Hayes M.D. 02/08/2019 5:17 PM
[2019-02-08 17:32] LABS: Basophils # (auto) 0.01 K/uL (0-0.2); Basophils % (auto) 0.1 %; Eosinophils # (auto) 0.02 K/uL (0-0.5); Eosinophils % (auto) 0.2 %; Hematocrit (blood only) 41.5 % (42-52); Hemoglobin 13.3 g/dL (14.0-18.0); Immature Granulocytes # (auto) 0.01 K/uL (0.00-0.02); Immature Granulocytes % (auto) 0.1 %; Lymphocytes # (auto) 0.84 K/uL (1.2-3.4); Lymphocytes % (auto) 10.3 %; Mean Corpuscular Hemoglobin 27.7 pg (25-34); Mean Corpuscular Volume 86.3 fL (80-100); Mean Platelet Volume 10.3 fL (7.4-10.4); Monocytes # (auto) 0.28 K/uL (0.11-0.59); Monocytes % (auto) 3.4 %; Neutrophils # (auto) 6.99 K/uL (1.4-6.5); Neutrophils % (auto) 85.9 %; Platelet Count 166 K/uL (130-400); RDW Coefficient of Variation 12.5 % (11.5-14.5); RDW Standard Deviation 39.9 fL (36.4-46.3); Red Blood Count 4.81 M/uL (4.7-6.1); White Blood Count 8.15 K/uL (4.8-10.8)
[2019-02-08] MEDS ORDERED: OPTIRAY 320 125ml IV PRN (17:39)
--- NOTE | 2019-02-08 17:51 | CT Scan Report ---
CT head/brain wo con CT DOSE: HISTORY: Mental status change Stroke evaluation TECHNIQUE: Multiaxial CT images of the head were performed without the use of intravenous contrast. A dose lowering technique was utilized adhering to the principles of ALARA. Comparison: 12/29/2018 Findings: The paranasal sinuses and mastoid air cells are clear. Old right temporoparietal infarct. N o evidence for hemorrhagic component at this time. No new or interval findings. The ventricular system is midline. Impression: 1. Old right cerebral infarct. This shows no evidence for residual hemorrhagic change. 3. No acute or interval findings. The above report was generated using voice recognition software. It may contain grammatical, syntax or spelling errors. Electronically signed by: Amish Hayes M.D. 02/08/2019 5:50 PM
--- NOTE | 2019-02-08 17:57 | CT Scan Report ---
CT angio head w con HISTORY: Dyspnea. Mental status change. weakness TECHNIQUE: Multiaxial CT angiography of the head was performed IV contrast: 100 cc Maximum intensi ty projection images were also obtained. A dose lowering technique was utilized adhering to the prin ciples of JAMIR. COMPARISON: 12/29/2018 FINDINGS: There is no mass, hematoma, midline shift, or acute infarct. Visualized intracranial ad operations intern al carotid arteries, distal vertebral arteries, and basilar artery are widely patent. There is no sig nificant stenosis, occlusion, or aneurysm seen within the bilateral ACAs, MCAs, or coronary care unit nurse. 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 This appears to be a pre-existing finding. IMPRESSION: 1. No acute intracranial vascular abnormality. 2. 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 The above report was generated using voice recognition software. It may contain grammatical, syntax or spelling errors. Electronically signed by: Amish Hayes M.D. 02/08/2019 5:56 PM
--- NOTE | 2019-02-08 18:00 | CT Scan Report ---
CT angio neck with con CLINICAL HISTORY: weakness POSSIBLE STROKE COMPARISON STUDY: 12/29/2018 TECHNIQUE: CT angiography was performed from the aortic arch to the skull base. MIP imaging was perfo rmed. The patient was scanned in a dynamic helical fashion during intravenous administration of 120 c c of Optiray 320. A dose lowering technique was utilized adhering to the principles of ALARA. CT DOSE: 1285.17 mGy.cm Technique: CT angiogram of the carotid and vertebral arteries was obtained using intravenous contrast and 3-D reconstruction. NASCET criteria was utilized. Findings: There is dense calcific plaque at the right carotid bifurcation. There is a 60-65% diameter stenosis of the proximal right internal carotid artery. There is no aneurysm. There is no dissection. There is atheromatous plaque at the level left carotid bulb without evidence of significant narrowing . There is no evidence of vertebral dissection. There is no evidence of hemodynamically significant sundar tebral artery stenosis. IMPRESSION: 1. 60-65% diameter stenosis of the proximal right internal carotid artery. 2. No evidence of hemodynamically significant left internal carotid artery stenosis. 3. No evidence of vertebral artery stenosis or dissection. Electronically signed by: Rhett Hameed M.D. 02/08/2019 5:58 PM
--- NOTE | 2019-02-08 18:50 | Emergency Department Note ---
Entered by Sepideh Ramirez acting as a scribe for History of Present Illness General Chief complaint: Neuro Symptoms/Deficit Stated complaint: MEMORY PROBLEMS Time Seen by Provider: 02/08/19 16:20 Source: patient History of Present Illness Provider complaint: Neuro Symptoms/Deficit Onset (ago): day(s) 1 Location: head Relieved By: + none Exacerbated By: + none Associated symptoms: + confusion; no headaches and no nausea/vomiting The patient is a 83 year old male who presents to the Emergency Room with complaints of neurological symptoms that began this morning. The patient notes that he felt fine when he went to bed and woke up "not feeling like himself." The patient states the symptoms are not relieved nor exacerbated by anything specific. The patient reports experiencing confusion but denies any headaches or nausea/vomiting. The patient mentioned that he has a history of a stroke and his doctors at [place] are not sure why it occurred. Home Medications Home Medications Medication Instructions Recorded Confirmed Type baclofen 20 mg PO BID PRN 02/10/18 02/08/19 History jbveaocjih-svahixoxrn-ger-cod 1 cap PO Q4H PRN 02/10/18 02/08/19 History cholecalciferol (vitamin D3) 2,000 unit PO QAM 02/10/18 02/08/19 History [Vitamin D3] docusate sodium [Colace] 100 mg PO BID 02/10/18 02/08/19 History atorvastatin 40 mg PO HS 07/01/18 02/08/19 History ipratropium bromide 2 spray INTRANASAL BID 07/01/18 02/08/19 History Prilosec OTC 20 mg PO QAM 09/03/18 02/08/19 History coenzyme Q10 [Co Q-10] 100 mg PO BID 09/03/18 02/08/19 History gabapentin 100 mg PO TID 09/03/18 02/08/19 History jehsmqem-xeugh-bze3-C-sobeida-bor 1 tab PO BID 09/03/18 02/08/19 History [Qdsiuqry-Gjxsu-DQR(with boron)] loratadine [Claritin] 10 mg PO QAM 09/03/18 02/08/19 History magnesium oxide [MagOx] 400 mg PO QAM 11/01/18 02/08/19 History dutasteride 0.5 mg PO QAM 11/30/18 02/08/19 History tadalafil 20 mg PO DAILY PRN 11/30/18 02/08/19 History acetaminophen [Tylenol Extra 500 mg PO Q6H PRN 01/19/19 02/08/19 History Strength] nitroglycerin [Nitrostat] 0.4 mg SUBLINGUAL DIRECTED PRN 01/19/19 02/08/19 History trazodone 100 mg PO HS 01/19/19 02/08/19 History lorazepam [Ativan] 1 mg PO BID PRN 02/08/19 02/08/19 History vitamin B complex-folic acid 1 tab PO DAILY 02/08/19 02/08/19 History [Super B Maxi Complex] zinc gluconate 50 mg PO DAILY 02/08/19 02/08/19 History Allergies Allergy/AdvReac Type Severity Reaction Status Date / Time vaccine adjuvant system, Allergy Intermediate HIVES AND Verified 02/08/19 16:51 [id number] liposomal SORENESS [From Shingrix (PF)] AT INJECTION SITE varicella-zoster virus Allergy Intermediate HIVES AND Verified 02/08/19 16:51 glycoprotein E, recombinant SORENESS [From Shingrix (PF)] AT INJECTION SITE celecoxib [From Celebrex] Allergy Unknown Unknown Verified 02/08/19 16:51 duloxetine [From Cymbalta] Allergy Unknown Unknown Verified 02/08/19 16:51 tramadol Allergy Unknown Unknown Verified 02/08/19 16:51 Past Med/Surg History Medical History Anxiety and depression Arthritis (Chronic) BPH (benign prostatic hyperplasia) (Chronic) CAD (coronary artery disease) (Chronic) 2008 - GINNA to LAD and 2nd diagonal 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 GERD (gastroesophageal reflux disease) (Chronic) Hiatal hernia (Chronic) Kidney stones (Resolved) Migraine (Chronic) 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) Seizure disorder (Chronic) Surgical History History of hernia surgery (Chronic) History of left cataract surgery (Chronic) Was given 2mg of versed on 07/14 18 History of lithotripsy (Chronic) Family History Grandfather (Paternal) Family history of diabetes mellitus Social History Preferred Language: Malay Communication Ability: Effective Test Center Manager Required: No Beliefs That Will Affect Care: Alevism Alevism Beliefs: Anabaptist marital status: Current Living Situation: Spouse Feels Safe at Home: Yes Smoking Status: Never smoker Second Hand Exposure: No ; Hx Alcohol Use: No Hx Substance Use: No Review of Systems See HPI for pertinent positives & negatives. and A total of 10 systems reviewed and were otherwise negative Physical Exam Vital Signs Vital Signs - 24 hr 02/08/19 16:17 02/08/19 17:51 02/08/19 18:30 Temperature 36.7 C Temperature Source Oral Pulse Rate 78 Pulse Rate [Apical] 65 59 L Pulse Rhythm [Apical] Regular Regular Respiratory Rate 20 17 17 Respiratory Effort / Characteristics Non-Labored Spontaneous Non-Labored Spontaneous Non-Labored Spontaneous Respiratory Depth Normal Normal Normal Respiratory Pattern Regular Regular Regular Blood Pressure 145/72 H Blood Pressure [Left Arm] 132/73 146/82 H Blood Pressure Mean 96 Blood Pressure Mean [Left Arm] 92 103 Pulse Oximetry 97 97 100 Oxygen Delivery Method Room Air Room Air Room Air Sepsis Recent Fever Within 48 Hours No Sepsis Action Taken by Nursing No Action Required GENERAL: Patient is awake, alert, and in no acute distress.Patient is resting comfortably and showing no signs of anxiety EYES: The conjunctivae are clear. The pupils are round and reactive. EARS, NOSE, MOUTH AND THROAT: The nose is without any evidence of any deformity. Mucous membranes are moist.Tongue is midline NECK: The neck is nontender and supple. RESPIRATORY: Normal respiratory effort is noted. There is no evidence of wheezing rhonchi or rales to auscultation. CARDIOVASCULAR: Regular rate and rhythm noted. There no murmurs rubs or gallops normal S1 normal S2 GASTROINTESTINAL: The abdomen is soft. Bowel sounds are present in all quadrants. Abdomen is nontender. MUSCULOSKELETAL/EXTREMITIES: There is no evidence of gross deformity. Full range of motion is noted in the hips and shoulders. SKIN: There is no obvious evidence of any rash. There are no petechiae, pallor or cyanosis noted. NEUROLOGIC: Patient is awake alert and oriented to person, place and situation. Speech was clear. Strength is symmetric. Patellar reflexes are 2+ bilaterally. No drift. Course Course 1625: Past medical records reviewed. The patient was evaluated in room B12B. A complete history and physical exam was performed. 1817: I reevaluated and discussed the test results with the patient. The patient is resting comfortably. 1836: I spoke with Li Lee PA-C about the patient's case and Dr. Villagomez- Hospitalist will accept the patient for further evaluation. Administered Medications Sodium Chloride (Nss 1000ml) 1,000 mls @ 50 mls/hr IV .Q20H ANDREY Stop: 03/10/19 16:44 Last Admin: 02/08/19 17:17 Dose: 50 mls/hr Documented by: [id number] Ioversol (Optiray 320 125ml) 120 ml IV ONCE PRN PRN Reason: Interaction Checking Stop: 02/12/19 17:38 Last Admin: 02/08/19 17:39 Dose: 120 ml Documented by: [id number] Medical Decision Making Differential Diagnosis Differential Diagnosis includes but is not limited to dehydration, stroke, anemia, hypoglycemia, hyponatremia, hypernatremia, urinary tract infection, pneu monia, bronchitis, sepsis, gastroenteritis, additional abdominal pathology, metabolic abnormalities and infections. Medical Records Attestation: I reviewed the patient's medical records. Home Medications Current Medication List: was personally reviewed by me Laboratory Data Attestation: I reviewed the patient's lab results. Result diagrams: 02/08/19 17:03 02/08/19 16:31 Lab Results 02/08/19 02/08/19 02/08/19 Range/Units 16:24 16:31 16:31 WBC TNP RBC TNP Hgb TNP POC Hgb (14.0-18.0) g/dl Hct TNP POC Hct (42-52) % MCV TNP MCH TNP MCHC TNP RDW Std Deviation TNP RDW Coeff of Sukhdev TNP Plt Count Not Reportable MPV (7.4-10.4) fL Immature Gran % (Auto) % Neut % (Auto) % Lymph % (Auto) % Cobb % (Auto) % Eos % (Auto) % Baso % (Auto) % Immature Gran # (Auto) (0.00-0.02) K/uL Neut # (Auto) (1.4-6.5) K/uL Lymph # (Auto) (1.2-3.4) K/uL Cobb # (Auto) (0.11-0.59) K/uL Eos # (Auto) (0-0.5) K/uL Baso # (Auto) (0-0.2) K/uL PT 10.3 (9.0-12.0) Seconds INR 1.0 (0.9-1.1) APTT < 20.0 L (21.0-31.0) Seconds PTT Ratio 0.7 POC Sodium (135-144) mEq/L Sodium (136-145) mmol/L POC Potassium (3.3-5.0) mEq/L Potassium (3.5-5.1) mmol/L POC Chloride (101-112) mEq/L Chloride (98-107) mmol/L Carbon Dioxide (21-32) mmol/L POC Total CO2 (24-31) mEq/l Anion Gap (3-11) POC Anion Gap (16-25) mmol/L POC BUN (7-18) mg/dl BUN (7-18) mg/dl Creatinine (0.6-1.4) mg/dl POC Creatinine (0.6-1.3) mg/dl Est Cr Clr Drug Dosing ml/min Est GFR ( Amer) Est GFR (Non-Af Amer) BUN/Creatinine Ratio (10-20) Glucose (70-99) mg/dl POC Glucose 115 H (70-99) POC Glucose (other) (70-99) mg/dl Calcium (8.5-10.1) mg/dl POC Ioniz Calcium Andrey (1.12-1.32) mmol/l Magnesium (1.8-2.4) mg/dl Total Bilirubin (0.2-1) mg/dl AST (15-37) U/L ALT (12-78) U/L Alkaline Phosphatase (45-117) U/L Troponin I (0-0.045) ng/ml Total Protein (6.4-8.2) gm/dl Albumin (3.4-5.0) gm/dl Globulin (2.5-4.0) gm/dl Albumin/Globulin Ratio (0.9-2) 02/08/19 02/08/19 02/08/19 Range/Units 16:31 16:45 17:03 WBC 8.15 RBC 4.81 Hgb 13.3 L POC Hgb 15.0 (14.0-18.0) g/dl Hct 41.5 L POC Hct 44 (42-52) % MCV 86.3 MCH 27.7 MCHC 32.0 RDW Std Deviation 39.9 RDW Coeff of Sukhdev 12.5 Plt Count 166 MPV 10.3 (7.4-10.4) fL Immature Gran % (Auto) 0.1 % Neut % (Auto) 85.9 % Lymph % (Auto) 10.3 % Cobb % (Auto) 3.4 % Eos % (Auto) 0.2 % Baso % (Auto) 0.1 % Immature Gran # (Auto) 0.01 (0.00-0.02) K/uL Neut # (Auto) 6.99 H (1.4-6.5) K/uL Lymph # (Auto) 0.84 L (1.2-3.4) K/uL Cobb # (Auto) 0.28 (0.11-0.59) K/uL Eos # (Auto) 0.02 (0-0.5) K/uL Baso # (Auto) 0.01 (0-0.2) K/uL PT (9.0-12.0) Seconds INR (0.9-1.1) APTT (21.0-31.0) Seconds PTT Ratio POC Sodium 140 (135-144) mEq/L Sodium 140 (136-145) mmol/L POC Potassium 4.5 (3.3-5.0) mEq/L Potassium 4.4 (3.5-5.1) mmol/L POC Chloride 105 (101-112) mEq/L Chloride 107 (98-107) mmol/L Carbon Dioxide 27 (21-32) mmol/L POC Total CO2 28 (24-31) mEq/l Anion Gap 6.0 (3-11) POC Anion Gap 12.0 L (16-25) mmol/L POC BUN 16 (7-18) mg/dl BUN 16 (7-18) mg/dl Creatinine 1.03 (0.6-1.4) mg/dl POC Creatinine 1.0 (0.6-1.3) mg/dl Est Cr Clr Drug Dosing 56.1 ml/min Est GFR ( Amer) 77.5 Est GFR (Non-Af Amer) 66.9 BUN/Creatinine Ratio 15.4 (10-20) Glucose 112 H (70-99) mg/dl POC Glucose (70-99) POC Glucose (other) 113 H (70-99) mg/dl Calcium 10.0 (8.5-10.1) mg/dl POC Ioniz Calcium Andrey 1.27 (1.12-1.32) mmol/l Magnesium 2.1 (1.8-2.4) mg/dl Total Bilirubin 0.3 (0.2-1) mg/dl AST 22 (15-37) U/L ALT 28 (12-78) U/L Alkaline Phosphatase 67 (45-117) U/L Troponin I < 0.015 (0-0.045) ng/ml Total Protein 7.2 (6.4-8.2) gm/dl Albumin 3.7 (3.4-5.0) gm/dl Globulin 3.5 (2.5-4.0) gm/dl Albumin/Globulin Ratio 1.1 (0.9-2) Imaging Data Radiologist's Impression: Radiology results as stated below per my review and the radiologist's interpretation: XR chest 1V portable CLINICAL HISTORY: weak dyspnea COMPARISON STUDY: 01/19/2018 FINDINGS: The bones soft tissues and hemidiaphragms are normal. The cardiomediastinal silhouette is normal. The lungs are clear. The pulmonary v asculature is normal. IMPRESSION: Negative chest. The above report was generated using voice recognition software. It may contain grammatical, syntax or spelling errors. Electronically signed by: Amish Hayes M.D. 02/08/2019 5:[address] head/brain wo con CT DOSE: HISTORY: Mental status change Stroke evaluation TECHNIQUE: Multiaxial CT images of the head were performed without the use of intravenous contrast. A dose lowering technique was utilized adhering to the principles of ALARA. Comparison: 12/29/2018 Findings: The paranasal sinuses and mastoid air cells are clear. Old right temporoparietal infarct. No evidence for hemorrhagic component at this time. No new or interval findings. The ventricular system is midline. Impression: 1. Old right cerebral infarct. This shows no evidence for residual hemorrhagic change. 3. No acute or interval findings. The above report was generated using voice recognition software. It may contain grammatical, syntax or spelling errors. Electronically signed by: Amish Hayes M.D. 02/08/2019 5:[address] angio head w con HISTORY: Dyspnea. Mental status change. weakness TECHNIQUE: Multiaxial CT angiography of the head was performed IV contrast: 100 cc Maximum intensity projection images were also obtained. A dose lowering technique was utilized adhering to the principles of ALARA. COMPARISON: 12/29/2018 FINDINGS: There is no mass, hematoma, midline shift, or acute infarct. Visualized intracranial internal carotid arteries, distal vertebral arteries, and basilar artery are widely patent. There is no significant stenosis, occlusion, or aneurysm seen within the bilateral ACAs, MCAs, or hand glass cutter. 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 This appears to be a pre-existing finding. IMPRESSION: 1. No acute intracranial vascular abnormality. 2. 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 The above report was generated using voice recognition software. It may contain grammatical, syntax or spelling errors. Electronically signed by: Amish Hayes M.D. 02/08/2019 5:56 PM ECG Data Attestation: I personally reviewed and interpreted this ECG as follows: Indication: + weakness Rate (beats per minute): 64 Rhythm: + normal sinus ECG ST segments: + Normal ST segments ECG Findings: no PACs and no PVCs Comparison ECG Date: from (03/21/18) Change: no significant change Blood Pressure Blood Pressure Findings: Elevated blood pressure Blood Pressure Disposition: further management by hospitalist [facility] Narrative The patient is an 83-year-old male who presented to the emergency department for neurologic complaints. The patient was recently diagnosed with a hemorrhagic CVA in November of this year. The patient states he had a good recovery from the stroke and was doing well up until this morning. The patient states when he awoke he felt "off". He is been seen by his primary care physician recently and started on medications for depression and anxiety. The patient states that he has been having trouble with his thought process since this morning. His significant other does provide some of the history as well. The patient's significant other states that the patient has been having significant problems with thinking and speaking. He has been having significant word finding and his voice is "soft" compared to his baseline. I discussed the patient's laboratory and radiographic studies with him. He does have a history of carotid stenosis. The patient appears to have no significant change in his presentation. Given the patient's recent history of hemorrhagic CVA I do feel that he is high risk for decompensation and given that his symptoms just started this morning I will discuss his case with the on-call [facility] hospitalist group. They have agreed to evaluate the patient in the emergency department for further management disposition. I discussed patient's laboratory and radiographic studies with him. Impression & Plan Confusion, Carotid stenosis Discharge Plan Visit Data Chief Complaint: Neuro Symptoms/Deficit Stated Complaint: MEMORY PROBLEMS ED Provider: Dutch Hester Discharge Problem: Confusion, Carotid stenosis Forms Stand Alone Forms: [facility] Prescriptions Prescriptions: No Action baclofen 20 mg tablet 20 mg PO BID PRN (Reason: Cramps) RF: 0 zbpeoifsrn-xdunmmrvhk-wcf-cod [id number] mg capsule 1 cap PO Q4H PRN (Reason: Migraine Headache) RF: 0 docusate sodium [Colace] 100 mg Capsule 100 mg PO BID RF: 0 cholecalciferol (vitamin D3) [Vitamin D3] 2,000 unit Tablet 2,000 unit PO QAM RF: 0 atorvastatin 40 mg Tablet 40 mg PO HS RF: 0 ipratropium bromide 42 mcg (0.06 %) [place],Non-Aerosol 2 spray INTRANASAL BID RF: 0 magnesium oxide [MagOx] 400 mg (241.3 mg magnesium) Tablet 400 mg PO QAM RF: 0 dutasteride 0.5 mg capsule 0.5 mg PO QAM RF: 0 tadalafil 20 mg tablet 20 mg PO DAILY PRN (Reason: Erectile Dysfunction) RF: 0 zinc gluconate 50 mg Tablet 50 mg PO DAILY RF: 0 vitamin B complex-folic acid [Super B Maxi Complex] 0.4 mg Tablet 1 tab PO DAILY RF: 0 lorazepam [Ativan] 1 mg tablet 1 mg PO BID PRN (Reason: anxiety) RF: 0 gabapentin 100 mg capsule 100 mg PO TID RF: 0 loratadine [Claritin] 10 mg Tablet 10 mg PO QAM RF: 0 coenzyme Q10 [Co Q-10] 100 mg Capsule 100 mg PO BID RF: 0 Prilosec OTC 20 mg Tablet,Delayed Release (Dr/Ec) 20 mg PO QAM RF: 0 xexfypou-xcyhe-ssg5-C-sobeida-bor [Jikhirno-Tacio-JVT(with boron)] 577-988-09-1 mg Tablet 1 tab PO BID RF: 0 trazodone 50 mg Tablet 100 mg PO HS RF: 0 acetaminophen [Tylenol Extra Strength] 500 mg Tablet 500 mg PO Q6H PRN (Reason: Pain) RF: 0 nitroglycerin [Nitrostat] 0.4 mg Tablet, Sublingual 0.4 mg sublingual DIRECTED PRN (Reason: Chest Pain) RF: 0 Discharge Problem: Carotid stenosis Qualifiers: Laterality: unspecified laterality Qualified Code(s): I65.29 - Occlusion and stenosis of unspecified carotid artery The scribe's documentation has been prepared under my direction and personally reviewed by me in its entirety. I confirm that the note above accurately reflects all work, treatment, procedures, and medical decision making performed by me.
--- NOTE | 2019-02-08 19:39 | History & Physical Report ---
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 -Difficulty with word finding, confusion since this morning -No focal neuro deficits on exam -CT head without acute intracranial abnormality, CTA head with known truncation of tributaries of the mid and distal right middle cerebral artery unchanged from prior studies and consistent with the patient's old right middle cerebral arterial territorial infarct. 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 No evidence of hemodynamically significant left internal carotid artery stenosis. No evidence of vertebral artery stenosis or dissection -Brain MRI w/wo contrast pending, echo with bubble study -Neuro checks, PT, OT, speech therapy evaluations -Routine neurology consult -Follows with neurologist, Dr. 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 Routine consult placed. (4) Seizure disorder: Previously taking Keppra but last filled in December 2018- patient states he was told to discontinue by one of his physicians -Will need further clarification from (attempted to call) and neurologist (5) CAD (coronary artery disease): H/O CAD, S/P GINNA to LAD and second diagonal in 2008 -Taken off of plavix and aspirin decreased to every other day 2/2 right MCA CVA with hemorrhagic conversion -No chest pain (6) Nodular prostate with lower urinary tract symptoms: Continue dutasteride DVT Ppx: SCDs in setting of h/o hemorrhagic conversion Code status: DNR per discussion with patient and PCP: Chiquita Dispo: Observation med tele. Discharge planning ordered. Patient seen in collaboration with Dr. Cobian. Please see addendum. 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 Patient states he was in normal state of health until this morning when he woke up and felt like he was mentating slowly and having difficulty getting his words out. Patient's states he definitely seemed confused this morning and much quieter than usual for the past 3 days. Since stroke back in October 2018, patient has struggled with anxiety and depression as a result of significant life changes. Has been taking trazodone 100 mg at bedtime for insomnia for the past 3 months. Was seen in [facility] 2.5 weeks ago for atypical chest pain and was prescribed Ativan 1 mg twice daily as needed, which seemed to help. Followed up with psychiatrist 4 days ago who changed Ativan dose to 0.5 mg 3 times daily as needed and started patient on Zoloft 25 mg daily. Patient denies any other medication changes. Patient denies any difficulty speaking or swallowing, weakness or sensory deficits. No ambulatory dysfunction. Denies any fever, chills, lightheadedness, dizziness, chest pain, palpitations, shortness of breath, nausea, vomiting, abdominal pain, dysuria, diarrhea or constipation. Allergies Allergy/AdvReac Type Severity Reaction Status Date / Time vaccine adjuvant system, Allergy Intermediate HIVES AND Verified 02/08/19 16:51 AS01B liposomal SORENESS [From Shingrix (PF)] AT INJECTION SITE varicella-zoster virus Allergy Intermediate HIVES AND Verified 02/08/19 16:51 glycoprotein E, recombinant SORENESS [From Shingrix (PF)] AT INJECTION SITE celecoxib [From Celebrex] Allergy Unknown Unknown Verified 02/08/19 16:51 duloxetine [From Cymbalta] Allergy Unknown Unknown Verified 02/08/19 16:51 tramadol Allergy Unknown Unknown Verified 02/08/19 16:51 Home Medications Home Medications Medication Instructions Recorded Confirmed Type baclofen 20 mg PO BID PRN 02/10/18 02/08/19 History dtidabpncg-vzosumdfrw-fkv-cod 1 cap PO Q4H PRN 02/10/18 02/08/19 History cholecalciferol (vitamin D3) 2,000 unit PO QAM 02/10/18 02/08/19 History [Vitamin D3] docusate sodium [Colace] 100 mg PO BID 02/10/18 02/08/19 History atorvastatin 40 mg PO HS 07/01/18 02/08/19 History ipratropium bromide 2 spray INTRANASAL BID 07/01/18 02/08/19 History Prilosec OTC 20 mg PO QAM 09/03/18 02/08/19 History coenzyme Q10 [Co Q-10] 100 mg PO BID 09/03/18 02/08/19 History vhcvejcd-cdmgu-eor9-C-sobeida-bor 1 tab PO BID 09/03/18 02/08/19 History [Vjcmupzx-Hahdv-DJY(with boron)] loratadine [Claritin] 10 mg PO QAM 09/03/18 02/08/19 History magnesium oxide [MagOx] 400 mg PO QAM 11/01/18 02/08/19 History dutasteride 0.5 mg PO QAM 11/30/18 02/08/19 History tadalafil 20 mg PO DAILY PRN 11/30/18 02/08/19 History acetaminophen [Tylenol Extra 500 mg PO Q6H PRN 01/19/19 02/08/19 History Strength] nitroglycerin [Nitrostat] 0.4 mg SUBLINGUAL DIRECTED PRN 01/19/19 02/08/19 History trazodone 100 mg PO HS 01/19/19 02/08/19 History aspirin 81 mg PO Q2D 02/08/19 02/08/19 History lorazepam [Ativan] 0.5 mg PO TID PRN 02/08/19 02/08/19 History sertraline 25 mg PO DAILY 02/08/19 02/08/19 History vitamin B complex-folic acid 1 tab PO DAILY 02/08/19 02/08/19 History [Super B Maxi Complex] zinc gluconate 50 mg PO DAILY 02/08/19 02/08/19 History Past Med/Surg History Medical History Anxiety and depression Arthritis (Chronic) BPH (benign prostatic hyperplasia) (Chronic) CAD (coronary artery disease) (Chronic) 2009 - GINNA to LAD and 2nd diagonal 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 GERD (gastroesophageal reflux disease) (Chronic) Hiatal hernia (Chronic) Kidney stones (Resolved) Migraine (Chronic) 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) Seizure disorder (Chronic) Family History Grandfather (Paternal) Family history of diabetes mellitus Social History Preferred Language: Kyrgyz Communication Ability: Effective 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 Physical Exam Physical Exam: General Appearance: WD/WN, vitals as above, NAD, sitting up in bed, pleasant, conversing easily, + anxious Head: normocephalic, atraumatic Eyes: normal inspection, PERRL, conjunctivae normal, anicteric sclerae ENT: external ear and nose normal, oropharynx normal Neck: trachea midline, no thyromegaly normal visual inspection Respiratory: normal respiratory effort, lungs clear to auscultation, no wheeze, rales, rhonchi. Normal insp/exp effort, no accessory muscle use Cardiovascular: regular rate, rhythm, no murmur, normal peripheral pulses. Vessels: no JVD or carotid bruit Chest: normal inspection of chest Abdomen/GI: normal bowel sounds, soft, nontender, no hepatosplenomegaly Extremities/Musculoskelatal: no cyanosis or clubbing, extremities motor strength 5/5 Neurologic: PERRL, EOMI, accommodation nl, no face palsy, no dysarthria, CN's II-XI intact bilaterally and moves all extremities Psychiatric: A+Ox3, anxious Skin: no rashes, normal color, warm/dry Results & Data Vital Signs (Past 12 Hours) Vital Signs Temp Pulse Pulse Resp BP BP Pulse Ox 02/08/19 18:30 59 L 17 146/82 H 100 02/08/19 17:51 65 17 132/73 97 02/08/19 16:17 36.7 C 78 20 145/72 H 97 Laboratory Results Short CBC 02/08/19 02/08/19 Range/Units 16:31 17:03 WBC TNP 8.15 Hgb TNP 13.3 L Hct TNP 41.5 L Plt Count Not Reportable 166 BMP 02/08/19 16:31 Sodium 140 Potassium 4.4 Chloride 107 Carbon Dioxide 27 BUN 16 Creatinine 1.03 Glucose 112 H Calcium 10.0 Cardiac Enzymes 02/08/19 Range/Units 16:31 Troponin I < 0.015 (0-0.045) ng/ml Liver Function 02/08/19 Range/Units 16:31 Total Bilirubin 0.3 (0.2-1) mg/dl AST 22 (15-37) U/L ALT 28 (12-78) U/L Alkaline Phosphatase 67 (45-117) U/L Albumin 3.7 (3.4-5.0) gm/dl Diagnostic Findings CT head: Impression: 1. Old right cerebral infarct. This shows no evidence for residual hemorrhagic change. 3. No acute or interval findings. Head CTA: IMPRESSION: 1. No acute intracranial vascular abnormality. 2. 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 Neck CTA: IMPRESSION: 1. 60-65% diameter stenosis of the proximal right internal carotid artery. 2. No evidence of hemodynamically significant left internal carotid artery stenosis. 3. No evidence of vertebral artery stenosis or dissection. CXR: IMPRESSION: Negative chest. Supervising Physician Co-Signing Physician Notes Care coordinated with Li Javier PA-C. Agree with above note. Patient seen and examined. Please refer to her notes for full details. Vital signs reviewed. Physical exam: General exam: Alert and oriented. Not in acute distress. Hard of hearing CVS: S1 and S2 heard, regular rate and rhythm, no murmurs. RS: Clear to auscultation, no wheezing or crackles. ABD: Soft, bowel sounds present, nontender, no distention. 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 EXT: No edema, no erythema. Labs: Reviewed. Assessment and plan: Confusion word finding dificulty Improved hx of Rt MCA stroke Ct head, CTA head and neck unremarkable except for 60-65% stenosis of right internal carotid artery. Will follow [facility] Neuro consult Medication induced? on trazadone, ativan and recently started on zoloft will hold zoloft and consult psychiatry in am Hx of questionable seizures marina says he never had seizures since there was a question of keppra causing depression it was stopped and he didnot take it since labour day weekend. will monitor Other diagnosis and plan of care as per Yaya Jefferson PA-C. Chapincito erwin MD.
[2019-02-08] MEDS ORDERED: BACLOFEN 20 MG TAB PO PRN (20:56)
[2019-02-08] MEDS ORDERED: ACETAMINOPHEN 500 MG TAB PO PRN (20:56)
[2019-02-08] MEDS ORDERED: PHARMACIST DISCHARGE MED REC CONSULT PRN (20:56)
[2019-02-08] MEDS ORDERED: NON-FORMULARY MEDICATION (Coenzyme Q10 [Co Q-10] 100 MG) PO SCH (21:00)
[2019-02-08] MEDS: ATORVASTATIN 40 MG TAB PO SCH (21:56)
[2019-02-08] MEDS: TRAZODONE HCL 100 MG TAB PO SCH (21:56)
[2019-02-08] MEDS: DOCUSATE SODIUM 100 MG CAP PO SCH (21:56)
[2019-02-09] MEDS ORDERED: GADOBUTROL 65ML VIAL IV PRN (00:54)
[2019-02-09 06:00] LABS: Estimated Average Glucose 126 mg/dl
--- NOTE | 2019-02-09 07:37 | Magnetic Resonance Report ---
MRI OF THE BRAIN COMBO CLINICAL HISTORY: Strokelike symptoms. COMPARISON STUDY: CT of the brain dated 02/08/2019. TECHNIQUE: MRI of the brain was performed utilizing various T1 and T2-weighted sequences in the axial , sagittal, and coronal planes. Contrast-enhanced sequences were acquired following the administratio n of 8.4 cc of Gadavist. The examination is compromised by motion artifact. FINDINGS: Brain parenchyma: Right temporoparietal encephalomalacia is consistent with a remote infarct. Minimal enhancement within the encephalomalacia likely represent gliosis. There are subcentimeter foci of re stricted diffusion identified within the left temporal and occipital lobe cortex consistent with acut e to subacute ischemia. There is no hemorrhage or mass effect. No enhancing mass lesion is identifie d on the postcontrast images. Vo-white matter differentiation is preserved. No extra-axial fluid co llection is seen. The cerebellar tonsils are normal in configuration. Ventricles, sulci, and cisterns: Prominent secondary to involutional change. Megacisterna magna is in cidentally noted. Pituitary and sella: Unremarkable. Intracranial vasculature: Normal flow voids are maintained at the skull base. Orbits: The bony orbits are grossly intact. Orbital contents are normal in appearance noting bilatera l ocular lens implants. Sinuses and mastoids: Clear. Calvarium: Unremarkable. Cervical cord: Partially visualized cervical spinal cord is normal in morphology and signal intensity . IMPRESSION: 1. There are 2 subcentimeter foci of restricted diffusion identified within the left temporal and occ ipital lobe cortex consistent with acute to subacute ischemia. 2. No additional foci of acute ischemia are identified. 3. There is no hemorrhage or mass effect. 4. Senescent change and remote infarct as above. Electronically signed by: Donis Camarena M.D. 02/09/2019 7:35 AM
[2019-02-09 07:42] LABS: Hematocrit (blood only) 41.6 % (42-52); Hemoglobin 13.1 g/dL (14.0-18.0); Mean Corpuscular Hemoglobin 27.1 pg (25-34); Mean Corpuscular Hgb Conc 31.5 g/dL (32-36); Mean Platelet Volume 10.3 fL (7.4-10.4); Platelet Count 154 K/uL (130-400); RDW Coefficient of Variation 12.5 % (11.5-14.5); RDW Standard Deviation 39.7 fL (36.4-46.3); Red Blood Count 4.84 M/uL (4.7-6.1); White Blood Count 8.42 K/uL (4.8-10.8)
[2019-02-09 08:14] LABS: BUN Creatinine Ratio 15.7 (10-20); Calcium 10.1 mg/dl (8.5-10.1); Creatinine Clr Calc Pharmacy 64.3 ml/min; Est GFR (African American) 92.5; Est GFR (Non-African American) 79.8; Potassium 4.5 mmol/L (3.5-5.1)
[2019-02-09] MEDS: LORATADINE 10 MG TAB PO SCH (10:19)
[2019-02-09] MEDS: DOCUSATE SODIUM 100 MG CAP PO SCH ×2 (10:20→19:44)
[2019-02-09] MEDS: PANTOprazole 40 MG TAB PO SCH (10:20)
[2019-02-09] MEDS: MAGNESIUM OXIDE 400 MG TAB PO SCH (10:20)
[2019-02-09] MEDS: CHOLECALCIFEROL 1,000 UNITS TAB PO SCH (10:21)
[2019-02-09] MEDS: VITAMIN B COMPLEX TAB PO SCH (10:21)
[2019-02-09] MEDS: ZINC SULFATE 220 MG CAPSULE PO SCH (10:21)
[2019-02-09] MEDS: LORazepam 0.5 MG TAB PO PRN ×2 (10:22→22:30)
--- NOTE | 2019-02-09 13:05 | Psychiatric Consultation ---
Date of Consultation February 09, 2019 Impression / Recommendations Impression 83-year-old male admitted medically on 02/08/19 with stroke-like symptoms. Pt had a prior CVA in 10/2018 - seen on psychiatric consult service during 11/2018 admission with concern for anxiety/depression. Recommendation at that time was to continue trazodone for sleep, with consideration for titration to 100mg qHS - which is now patient's current dose. Risk of long-term use of benzodiazepines was reviewed. He was provided with lorazepam 1mg BID prn in 01/2019 after an ED visit - which was continued by his PCP. Following evaluation by his new outpatient psychiatrist, lorazepam was adjusted to 0.5mg TID prn - which patient states he is utilizing at maximum availability (denying overuse). Sertraline was also initiated at 25mg during that visit. While the timing of initiation of sertraline is suspicious, it is unusual that such a low dose would alone be leading to his presenting symptoms. It is also unusual that symptoms are isolated to sertraline trial - as it seems that onset of confusion was rather acute, and developed several days after initiation of the medication. Would suggest continued work-up per medical team to rule-out other possible factors contributing to confusion this morning. Acute recommendations would be for development of coping strategies that will assist with management of anxiety, and outpatient psychiatric follow-up. The idea behind utilizing an SSRI to reduce generalized anxiety, and reserving lorazepam for acute anxiety was reviewed - as had been laid out by his outpatient psychiatrist. Although patient and verbalized understanding with this recommendation, they are not interested in resuming an SSRI until confusion has resolved. They are not interested in continuing sertraline at this time. Short-term management with lorazepam may be appropriate, if general goal is to continue taper to discontinuation on an outpatient basis. Risks of benzodiazepine use in the elderly population was reviewed with the patient and (concerns include: risk of dependence, confusion, falls, and respiratory depression). Would recommend patient resume visits with outpatient psychiatry after discharge to continue the treatment plan to seems to have been initiated, with consideration for alternative SSRI/SNRI. Dr. Stefani Houston was directly involved in review and discussion of the patient's case and participated in medical decision making regarding treatment recommendations. Psych History Identifying Data 83-year-old male admitted medically on 02/08/19 after presenting to the ED with AMS stroke-like symptoms. Pt was seen on psychiatric consult service in 11/2018 and evaluated for insomnia, anxiety, and depression - seemingly with some relation to lifestyle changes after suffering a CVA in 10/2018. Psychiatric consultation was requested on this admission for "confusion, recent psych medication changes." Information is gathered from hospital documentation, the p atient himself, and his - combination of which is considered to be reliable. Chief Complaint "Well, I was in 1-2 weeks ago and they put me on Ativan. I had a good week going for me...then I don't know what happened." History of Present Illness Travis Benito is an 83-year-old male admitted medically on 02/08/19 after presenting to the ED with AMS and stroke-like symptoms. Pt suffered a stroke in 10/2018, which has reportedly altered his lifestyle rather significantly. He was previously seen on psychiatric consult service during a hospitalization in 11/2018 - with evaluation for insomnia, anxiety, and depression. Psychiatric consultation is requested during this admission to evaluate patient for confusion, with concern related to recent psychiatric medication adjustments. Pt was initially interviewed independently, then joined by his - conversation continued with his verbal permission. Pt states that he had noticed improvement in insomnia after his trazodone had been titrated to 100mg qHS. He admits his anxiety continued to be elevated at times. He was seen in the ED on 01/19 for chest pain, seemingly related to anxiety. He was discharged from the ED with lorazepam to be utilized 1mg BID prn anxiety. This prescription was continued by his PCP until psychiatric referral could be completed. Pt was seen by a psychiatrist recently, who adjusted lorazepam dosing to 0.5mg TID prn and initiated sertraline 25mg daily. Patient and report concern that confusion today may be related to sertraline, as it had been started 2-3 days prior to reported AMS. Pt's states she noticed patient "could not form a sentence, could not talk" the morning of 02/08, and was concerned about his confusion. They did attend an appointment for an injection to treat hip pain and then presented to the ED, as confusion was ongoing. Pt's states she had made sandwiches for lunch "and he couldn't even put it together, he was still talking crazy. It was scary." Pt presented to the ED and was admitted medically for further work-up. Pt states that his anxiety had been adequately managed with lorazepam 0.5mg TID for anxiety (prescribed prn, but utilized at maximum availability at home). He states, "for 2 weeks I was doing excellent, for the first time in a while." Th is provider reviewed concern for long-term use of benzodiazepines and explained reasoning for initiation of sertraline to better manage anxiety long-term. They verbalized understanding, but state that "the sertraline was a set-back." We discussed that the primary medical team is continuing to rule out potential causes for his confusion and that trial of another SSRI would be recommended - they are not agreeable with this until he has cleared cognitively. Pt denies SI, HI, SIB, A/V hallucinations, paranoia, higinio/hypomania, other symptoms more suggestive of a bipolar presentation, and other specific psychiatric symptoms. Past Psychiatric History Current Psychiatric Diagnosis: Anxiety, depression Outpatient Services: Psychiatrist - Dr. Freedman Previous Psych Admissions: None History of Previous Suicide Attempt: No Past Medication Trials: Per prior documentation: 1. Remeron - concern for anger, confusion, and paranoia 2. Cymbalta - listed as allergy, with unknown response 3. Triazolam - reportedly beneficial for sleep for 5+ years 4. Lorazepam 5. Zoloft Allergies Allergy/AdvReac Type Severity Reaction Status Date / Time vaccine adjuvant system, Allergy Intermediate HIVES AND Verified 02/08/19 16:51 AS01B liposomal SORENESS [From Shingrix (PF)] AT INJECTION SITE varicella-zoster virus Allergy Intermediate HIVES AND Verified 02/08/19 16:51 glycoprotein E, recombinant SORENESS [From Shingrix (PF)] AT INJECTION SITE celecoxib [From Celebrex] Allergy Unknown Unknown Verified 02/08/19 16:51 duloxetine [From Cymbalta] Allergy Unknown Unknown Verified 02/08/19 16:51 tramadol Allergy Unknown Unknown Verified 02/08/19 16:51 Home Medications Home Medications Medication Instructions Recorded Confirmed Type baclofen 20 mg PO BID PRN 02/10/18 02/08/19 History ghbhvjtwbo-vlufqiqaxb-yte-cod 1 cap PO Q4H PRN 02/10/18 02/08/19 History cholecalciferol (vitamin D3) 2,000 unit PO QAM 02/10/18 02/08/19 History [Vitamin D3] docusate sodium [Colace] 100 mg PO BID 02/10/18 02/08/19 History atorvastatin 40 mg PO HS 07/01/18 02/08/19 History ipratropium bromide 2 spray INTRANASAL BID 07/01/18 02/08/19 History Prilosec OTC 20 mg PO QAM 09/03/18 02/08/19 History coenzyme Q10 [Co Q-10] 100 mg PO BID 09/03/18 02/08/19 History sztbcapj-xexdb-gps8-C-sobeida-bor 1 tab PO BID 09/03/18 02/08/19 History [Zyovrqkf-Hmjrn-JRF(with boron)] loratadine [Claritin] 10 mg PO QAM 09/03/18 02/08/19 History magnesium oxide [MagOx] 400 mg PO QAM 11/01/18 02/08/19 History dutasteride 0.5 mg PO QAM 11/30/18 02/08/19 History tadalafil 20 mg PO DAILY PRN 11/30/18 02/08/19 History acetaminophen [Tylenol Extra 500 mg PO Q6H PRN 01/19/19 02/08/19 History Strength] nitroglycerin [Nitrostat] 0.4 mg SUBLINGUAL DIRECTED PRN 01/19/19 02/08/19 History trazodone 100 mg PO HS 01/19/19 02/08/19 History aspirin 81 mg PO Q2D 02/08/19 02/08/19 History lorazepam [Ativan] 0.5 mg PO TID PRN 02/08/19 02/08/19 History sertraline 25 mg PO DAILY 02/08/19 02/08/19 History vitamin B complex-folic acid 1 tab PO DAILY 02/08/19 02/08/19 History [Super B Maxi Complex] zinc gluconate 50 mg PO DAILY 02/08/19 02/08/19 History Family History No known family history of mental health diagnoses. Substance Abuse History Denies tobacco use. Episodic alcohol use, reporting a case of beer generally lasts about 2 years. Pt denies use of other illicit substances. Personal History Living Arrangements: Supervised Living (with , both reportedly reside within a correction community) Born In: [place] Highest Grade Completed: High School Graduate Employment Status: Retired (Previously employed by [employer] - retired 22 years ago) Marital Status: (to second of 40 years; previously ) Number Of Children: 1 daughter; 1 step-daughter Beliefs That Will Affect Care: Baptism History of Legal Problems: Denies Psychological Trauma History Comment: Denies Patient History Medical History Anxiety and depression Arthritis (Chronic) BPH (benign prostatic hyperplasia) (Chronic) CAD (coronary artery disease) (Chronic) 2009 - GINNA to LAD and 2nd diagonal 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 GERD (gastroesophageal reflux disease) (Chronic) Hiatal hernia (Chronic) Kidney stones (Resolved) Migraine (Chronic) 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) Seizure disorder (Chronic) Surgical History History of hernia surgery (Chronic) History of left cataract surgery (Chronic) Was given 2mg of versed on 07/14 18 History of lithotripsy (Chronic) Family History Grandfather (Paternal) Family history of diabetes mellitus Social History Preferred Language: Vietnamese Communication Ability: Effective 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 Beliefs That Will Affect Care: Baptism Baptism Beliefs: Zoroastrian marital status: Current Living Situation: Spouse Other Information That Helps Us Care for You: No Feels Safe at Home: Yes Safety Concerns: Feels Safe At This Time Smoking Status: Never smoker Second Hand Exposure: No ; Hx Alcohol Use: No Hx Substance Use: No Physical Exam Psychiatric: Orientation: alert, oriented x 3 and cooperative Apperance: appropriately dressed (in hospital gown), appropriately groomed and appeared stated age Eye Contact: good eye contact Motor Behavior: no abnormal motor movements (observed while laying in bed) Speech: normal rate/rhythm/volume of speech Affect: + blunted affect and mood congruent with affect Mood: + depressed mood and + anxious mood ("yesterday was definitely a set-back") Thought Process: goal directed thought process, clear/coherent thought process and thought association intact Present thought process is organized and coherent - able to participate appropriately in conversation. Thought Content: reality based without delusions; no hopelessness Suicidal Thoughts: denies suicidal thoughts and denies suicidal intent Homicidal Thoughts: denies homicidal thoughts Hallucinations: no auditory hallucinations and no visual hallucinations Cognition: attention grossly intact and language grossly intact Insight: + fair insight Judgement: + fair judgement Vital Signs (Past 24 Hours): Last Vital Signs Temp 36.7 C 02/09/19 12:11 Pulse 62 02/09/19 12:11 Resp 18 02/09/19 12:11 BP 137/75 02/09/19 12:11 Pulse Ox 97 02/09/19 12:11 Review of Systems Constitutional: reports mild weakness, improvement in level of confusion Cardiovascular: denied Respiratory: denied Gastrointestinal: denied Neurological: denied Psychiatric: denies symptoms other than stated above Total of at least 10 systems reviewed, pertinent positives as above and in HPI. Results & Data Medications Administered Atorvastatin Calcium (Lipitor) 40 mg PO HS [facility] Stop: 03/10/19 20:59 Last Admin: 02/08/19 21:56 Dose: 40 mg Documented by: [id number] Docusate Sodium (Colace) 100 mg PO BID [facility] Stop: 03/10/19 20:59 Last Admin: 02/09/19 10:20 Dose: 100 mg Documented by: [id number] Admin: 02/08/19 21:56 Dose: 100 mg Documented by: [id number] Gadobutrol (Gadavist 65ml) 8.4 ml IV ONCE PRN PRN Reason: Interaction Checking Stop: 02/13/19 00:53 Last Admin: 02/09/19 00:34 Dose: 8.4 ml Documented by: [id number] Sodium Chloride (Nss 1000ml) 1,000 mls @ 50 mls/hr IV .Q20H [facility] Stop: 03/10/19 16:44 Last Infusion: 02/08/19 23:38 Dose: 0 mls/hr Documented by: [id number] Admin: 02/08/19 17:17 Dose: 50 mls/hr Documented by: [id number] Loratadine (Claritin) 10 mg PO QAM [facility] Stop: 03/11/19 08:59 Last Admin: 02/09/19 10:19 Dose: 10 mg Documented by: [id number] Lorazepam (Ativan) 0.5 mg PO TID PRN PRN Reason: Anxiety Stop: 03/10/19 21:30 Last Admin: 02/09/19 10:22 Dose: 0.5 mg Documented by: [id number] Magnesium Oxide (Mag-Ox) 400 mg PO QAM [facility] Stop: 03/11/19 08:59 Last Admin: 02/09/19 10:20 Dose: 400 mg Documented by: [id number] Miscellaneous (Order Awaiting Action) 1 ea N/A QS [facility] Stop: 03/11/19 00:00 Last Admin: 02/09/19 10:15 Dose: Not Given Documented by: [id number] Admin: 02/08/19 23:52 Dose: Not Given Documented by: [id number] Miscellaneous (Order Awaiting Action) 1 ea N/A QS [facility] Stop: 03/11/19 00:00 Last Admin: 02/09/19 10:15 Dose: Not Given Documented by: [id number] Admin: 02/08/19 23:53 Dose: Not Given Documented by: [id number] Pantoprazole Sodium (Protonix) 40 mg PO [facility] Stop: 03/11/19 08:59 Last Admin: 02/09/19 10:20 Dose: 40 mg Documented by: [id number] Trazodone HCl (Desyrel) 100 mg PO [facility] Stop: 03/10/19 20:59 Last Admin: 02/08/19 21:56 Dose: 100 mg Documented by: [id number] Vitamin B Complex (Vitamin B Complex) 1 tab PO DAILY [facility] Stop: 03/11/19 08:59 Last Admin: 02/09/19 10:21 Dose: 1 tab Documented by: [id number] Vitamin D (Vitamin D3) [facility] Stop: 03/11/19 08:59 Last Admin: 02/09/19 10:21 Dose: 2,000 units Documented by: [id number] Zinc Sulfate (Zinc Sulfate) 220 mg PO DAILY [facility] Stop: 03/11/19 08:59 Last Admin: 02/09/19 10:21 Dose: 220 mg Documented by: [id number] Coding Level of Care Code 03382 [facility] Intl Hosp Care Lvl 3
[2019-02-09] MEDS: SODIUM CHLORIDE 0.9% 1000ML 1,000 ML IV SCH (14:35)
--- NOTE | 2019-02-09 16:23 | Hospitalist Progress Note ---
Date of Service February 09, 2019 Assessment & Plan (1) Stroke-like symptoms: This is an 83yo M with a PMH of R MCA CVA with hemorrhagic conversion in October 2018, subsequent anxiety and depression, CAD (s/p stents), BPH and other medical problems as below who presents with strokelike symptoms since this morning. Possible stroke in left temporal and occipital lobe -Difficulty with word finding, confusion since this morning -No focal neuro deficits on exam -CT head without acute intracranial abnormality, CTA head with known truncation of tributaries of the mid and distal right middle cerebral artery unchanged from prior studies and consistent with the patient's old right middle cerebral arterial territorial infarct. 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 No evidence of hemodynamically significant left internal carotid artery stenosis. No evidence of vertebral artery stenosis or dissection -Brain MRI::1. There are 2 subcentimeter foci of restricted diffusion identified within the left temporal and occipital lobe cortex consistent with acute to subacute ischemia. 2. No additional foci of acute ischemia are identified. 3. There is no hemorrhage or mass effect. 4. Senescent change and remote infarct as above. ECHO: There is mild concentric left ventricular hypertrophy, left ventricle wall motion is normal, EF was 55 to 60%, interatrial septum is intact with no evidence of an atrial septal defect and no significant valvular abnormality -Neuro checks, PT, OT, speech therapy evaluations -Neuro consult requested -Follows with neurologist, Dr. 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 Routine consult placed. -Appreciate psychiatric input and recommendation (4) Seizure disorder: Previously taking Keppra but last filled in December 2018- patient states he was told to discontinue by one of his physicians -Will need further clarification from (attempted to call) and neurologist -No more seizures since discontinuation of medication (5) CAD (coronary artery disease): H/O CAD, S/P GINNA to LAD and second diagonal in 2008 -Taken off of plavix and aspirin decreased to every other day 2/2 right MCA CVA with hemorrhagic conversion -No chest pain (6) Nodular prostate with lower urinary tract symptoms: Continue dutasteride DVT Ppx: SCDs in setting of h/o hemorrhagic conversion Code status: DNR per discussion with patient and PCP: Chiquita Dispo: Observation med tele. Discharge planning ordered. Subjective 02/09 The patient was seen and examined in medical telemetry unit He has generalized anxiety disorder and was admitted with the dysphasia and mild confusion but did not have any focal localizing signs Admitted with the possible strokelike symptoms Denies any neurological symptoms today except anxiety Review of Systems Review of Systems: All systems reviewed and are unremarkable except as noted below Neurologic: Has generalized anxiety without any tremor Physical Exam Physical Exam: Lying in bed without any acute symptoms Constitutional: well developed, well nourished and + ill appearing; no acute d istress Eyes: PERRL, conjunctivae normal, anicteric sclerae ENMT: external ear and nose normal, oropharynx normal Neck: trachea midline, no thyromegaly Respiratory: normal respiratory effort; no respiratory distress Auscultation: lungs clear to auscultation bilaterally Cardiovascular: Rate/Rhythm: regular rate and regular rhythm Heart Sounds: no murmur Gastrointestinal (Abdomen): Inspection/Auscultation: abdomen normal to inspection and normal bowel sounds Percussion/Palpation: abdomen nontender Musculoskeletal: No acute arthritis in any joints Neurologic: moves all extremities; no focal motor deficits Speech / Cognition: normal speech Motor/Sensory: no tremor Alert, awake and oriented x3. No focal sensory and/or motor deficit appreciated. No more dysarthria Results & Data Vital Signs (Past 12 Hours) Vital Signs Temp Pulse Pulse Resp BP BP Pulse Ox 02/09/19 15:38 37.0 C 72 18 129/70 97 02/09/19 12:11 36.7 C 62 18 137/75 97 02/09/19 08:00 65 02/09/19 04:15 36.4 C L 66 16 143/80 H 98 Laboratory Results Short CBC 02/08/19 02/08/19 02/09/19 Range/Units 16:31 17:03 07:31 WBC TNP 8.15 8.42 Hgb TNP 13.3 L 13.1 L Hct TNP 41.5 L 41.6 L Plt Count Not Reportable 166 154 BMP 02/08/19 02/09/19 16:31 07:31 Sodium 140 140 Potassium 4.4 4.5 Chloride 107 108 H Carbon Dioxide 27 27 BUN 16 14 Creatinine 1.03 0.87 Glucose 112 H 103 H Calcium 10.0 10.1 Cardiac Enzymes 02/08/19 Range/Units 16:31 Troponin I < 0.015 (0-0.045) ng/ml Liver Function 02/08/19 Range/Units 16:31 Total Bilirubin 0.3 (0.2-1) mg/dl AST 22 (15-37) U/L ALT 28 (12-78) U/L Alkaline Phosphatase 67 (45-117) U/L Albumin 3.7 (3.4-5.0) gm/dl Medications Administered Current Inpatient Medications Acetaminophen (Tylenol) 500 mg PO Q6H PRN PRN Reason: Pain Stop: 03/10/19 20:55 Aspirin (Ecotrin Ectab) 81 mg PO Q2D@0900 [facility] Stop: 03/12/19 08:59 Atorvastatin Calcium (Lipitor) [address] [facility] Stop: 03/10/19 20:59 Last Admin: 02/08/19 21:56 Dose: 40 mg Documented by: Baclofen (Lioresal) 20 mg PO BID PRN PRN Reason: Cramps Stop: 03/10/19 20:55 Docusate Sodium (Colace) [address] [facility] Stop: 03/10/19 20:59 Last Admin: 02/09/19 10:20 Dose: 100 mg Documented by: Gadobutrol (Gadavist 65ml) 8.4 ml IV ONCE PRN PRN Reason: Interaction Checking Stop: 02/13/19 00:53 Last Admin: 02/09/19 00:34 Dose: 8.4 ml Documented by: Sodium Chloride (Nss 1000ml) 1,000 mls @ 50 mls/hr IV .Q20H [facility] Stop: 03/10/19 16:44 Last Admin: 02/09/19 14:35 Dose: 50 mls/hr Documented by: Loratadine (Claritin) [address] [facility] Stop: 03/11/19 08:59 Last Admin: 02/09/19 10:19 Dose: 10 mg Documented by: Lorazepam (Ativan) 0.5 mg PO TID PRN PRN Reason: Anxiety Stop: 03/10/19 21:30 Last Admin: 02/09/19 10:22 Dose: 0.5 mg Documented by: Magnesium Oxide (Mag-Ox) [address] [facility] Stop: 03/11/19 08:59 Last Admin: 02/09/19 10:20 Dose: 400 mg Documented by: Miscellaneous (Order Awaiting Action) 1 ea N/A QS [facility] Stop: 03/11/19 00:00 Last Admin: 02/09/19 10:15 Dose: Not Given Documented by: Miscellaneous (Order Awaiting Action) 1 ea N/A QS [facility] Stop: 03/11/19 00:00 Last Admin: 02/09/19 10:15 Dose: Not Given Documented by: Miscellaneous Information (Pharmacist Discharge Med Rec Consult) 1 ea N/A UD PRN PRN Reason: Consult Stop: 03/10/19 20:55 Pantoprazole Sodium (Protonix) 40 mg PO [facility] Stop: 03/11/19 08:59 Last Admin: 02/09/19 10:20 Dose: 40 mg Documented by: Sertraline HCl (Zoloft) [address] [facility] Stop: 03/11/19 08:59 Trazodone HCl (Desyrel) [address] [facility] Stop: 03/10/19 20:59 Last Admin: 02/08/19 21:56 Dose: 100 mg Documented by: Vitamin B Complex (Vitamin B Complex) [address] [facility] Stop: 03/11/19 08:59 Last Admin: 02/09/19 10:21 Dose: 1 tab Documented by: Vitamin D (Vitamin D3) 2,000 [facility] [place] Stop: 03/11/19 08:59 Last Admin: 02/09/19 10:21 Dose: 2,000 units Documented by: Zinc Sulfate (Zinc Sulfate) [address] [facility] Stop: 03/11/19 08:59 Last Admin: 02/09/19 10:21 Dose: 220 mg Documented by:
[2019-02-09] MEDS: SERTRALINE HCL 50 MG TABLET PO SCH (16:28)
--- NOTE | 2019-02-09 19:27 | Consultation Report ---
DATE OF CONSULTATION: 02/09/2019 REASON FOR CONSULTATION: New stroke. 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 He was in his usual state of health. Yesterday morning sometime after awakening, he noted some difficulty with language and word finding. This persisted for about 7 hours. In spite of this, the patient went to the hospital for lumbar epidural steroids, which were successfully given. At lunchtime, the patient's noted he was having difficulty making a sandwich and sounds as if he was both clumsy and dyspraxic. Symptoms have resolved. There was no alteration of consciousness. CT of the head noncontrast showed evolutionary changes of a right MCA infarction. There was no evidence of hemorrhagic transformation. MRI of the brain showed 2 subcentimeter foci of restricted diffusion in the left temporal and occipital lobe cortex consistent with acute to subacute ischemia. No additional foci of ischemia are identified. No hemorrhage or mass effect. Senescent changes and remote infarct as noted. I have some difficulty noting the occipital lobe cortical infarction. CTA of the head shows no acute intracranial vascular abnormality, truncation of tributaries of the right and distal MCA unchanged from prior studies consistent with the patient's old right MCA territorial infarct. CTA of the neck shows a 60%-65% diameter stenosis of the proximal right internal carotid artery. Echocardiography showed an ejection fraction of 55-60 and intact interatrial septum without ASD, no significant valvular abnormality. Left atrial size is normal, right atrial size is normal. The patient's electrocardiogram on admission showed normal sinus rhythm. By way of review in 10/2018, the patient presented to [facility] with weakness affecting the left side. A nondominant right MCA infarction was noted. According to the patient and his , the patient was not given TPA. At the time that the patient was hospitalized at [facility], he was placed on aspirin and Plavix. I believe he had taken aspirin regularly prior to that admission and while hospitalized, he was on subQ heparin. Subsequently, within a week or so after discharge, he re-presented to our hospital for chest pain. I believe a CAT scan of the head was done for further evaluation of the infarct with question of infarct and whether or not it would have an impact on management of cardiac chest pain. It was found that the right MCA infarction had undergone a hemorrhagic transformation. The patient was transferred to [place]. My understanding is that he was off antiplatelet therapy until about 3 weeks ago. He is followed by a neurologist at the [place] area. He was taking aspirin every other day until about 4-5 days ago when he stopped aspirin for his epidural spinal procedure. In the interim, he had also had gross hematuria, I am assuming this was attributed in part to aspirin, Plavix and the discovered kidney stone. When the patient had initially presented in October, by report, a provider in the Emergency Room thought that he had seen a seizure, so began the patient on Keppra. Keppra was continued upon discharge. Keppra was discontinued by the outside neurologist somewhere between 4-8 weeks ago. I am assuming an outpatient EEG was performed. In part, the Keppra was discontinued because the patient had mood-related changes, which have improved. In general, the patient had been otherwise well. Prior to the stroke, he had not had any unexplained weight loss, head or neck trauma, chest pain, palpitations other than noted above. He has no history of rheumatic fever, atrial fibrillation, DVT, or PE. FAMILY HISTORY: No family history of stroke. SOCIAL HISTORY: Nonsmoker, nondrinker. On this admission, laboratories, complete blood count was unremarkable. PT, PTT were normal. Chemistry profile notable for a nonfasting blood sugar of 112. Urinalysis negative. PHYSICAL EXAMINATION: VITAL SIGNS: 129/70, 71, 18, 37, 94%. GENERAL: The patient is awake, alert, and oriented x3. No right/left confusion. Naming, repetitions and 3-step commands are normal. NECK: There are no carotid bruits. HEART: No heart murmurs. Heart is regular rate and rhythm. NEUROLOGIC: Pupils are equal, but postsurgical. Optic nerves are grossly normal. There is normal somers and motility. No visual extinction. Normal facial sensation and facial symmetry. There may be mild weakness of the right software development coordinator strength. There are mildly decreased rapid alternating movements and the right hand is mildly clumsy. Sensation is intact to light touch and vibration sense. Obnbic-gz-oymt as above. Uzaf-zg-mleg normal. Gait is unremarkable. Reflexes symmetric. Toes are downgoing. IMPRESSION AND PLAN: This patient had a right middle cerebral artery infarction in October in the setting of moderate right internal carotid stenosis. Dual antiplatelet therapy was complicated by hemorrhagic transformation of the right middle cerebral artery infarction. It sounds as if that was asymptomatic. It also sounds if dual antiplatelet therapy was complicated by gross hematuria related to a kidney stone. The patient had mood-related changes on Keppra. This new stroke, which is cortical, occurred in the setting of the patient being off antiplatelet therapy. These bilateral infarctions raised the question of whether or not there may be a cardioembolic source. The patient needs to be monitored overnight to rule out atrial dysrhythmia and needs to be set up as an outpatient with a Zio patch or prolonged cardiac monitoring. We discussed potentially using dual antiplatelet therapy at present and the patient indicates that he is "gun-shy." We will resume aspirin. Lipids seem to be well managed as is blood pressure. Provided the EEG does not show any seizure activity, I have no objection to the patient being off anticonvulsants. It is difficult to say whether or not the patient had a seizure at the onset of his neurologic symptoms or stroke, although in the absence of an abnormal EEG, this would not necessarily warrant ongoing therapy. The patient elects to followup post-discharge with his neurologist in [place]. We will follow. BRIAN
[2019-02-09] MEDS: ATORVASTATIN 40 MG TAB PO SCH (19:44)
[2019-02-09] MEDS: TRAZODONE HCL 100 MG TAB PO SCH (19:44)
[2019-02-09] MEDS ORDERED: ONDANSETRON INJ 2 MG/ML 2 ML VIAL IV PRN (21:26)
[2019-02-09] MEDS ORDERED: OXYCODONE HCL IR 5 MG TAB (IMMEDIATE RELEASE) PO PRN (22:18)
[2019-02-10] MEDS ORDERED: ASPIRIN 81 MG ECTAB PO SCH (09:00)
[2019-02-10] MEDS: LORATADINE 10 MG TAB PO SCH (09:57)
[2019-02-10] MEDS: DOCUSATE SODIUM 100 MG CAP PO SCH (09:57)
[2019-02-10] MEDS: MAGNESIUM OXIDE 400 MG TAB PO SCH (09:58)
[2019-02-10] MEDS: VITAMIN B COMPLEX TAB PO SCH (09:58)
[2019-02-10] MEDS: PANTOprazole 40 MG TAB PO SCH (09:58)
[2019-02-10] MEDS: SERTRALINE HCL 50 MG TABLET PO SCH (10:00)
[2019-02-10] MEDS: ZINC SULFATE 220 MG CAPSULE PO SCH (10:00)
[2019-02-10] MEDS: CHOLECALCIFEROL 1,000 UNITS TAB PO SCH (10:00)
[2019-02-10] MEDS: LORazepam 0.5 MG TAB PO PRN (10:02)
[2019-02-10] MEDS: SODIUM CHLORIDE 0.9% 1000ML 1,000 ML IV SCH (10:49)
[2019-02-10] MEDS ORDERED: STROKE PATIENT DISCHARGE STA (14:17)
--- NOTE | 2019-02-10 14:38 | Discharge Summary ---
Date of Service February 10, 2019 Admission HPI Per Admitting Provider This is an 83yo M with a PMH of R MCA CVA with hemorrhagic conversion in October 2018, subsequent anxiety and depression, CAD (s/p stents), BPH and other medical problems as below who presents with strokelike symptoms since this morning. Patient states he was in normal state of health until this morning when he woke up and felt like he was mentating slowly and having difficulty getting his words out. Patient's states he definitely seemed confused this morning and much quieter than usual for the past 3 days. Since stroke back in October 2018, patient has struggled with anxiety and depression as a result of significant life changes. Has been taking trazodone 100 mg at bedtime for insomnia for the past 3 months. Was seen in [facility] ED 2.5 weeks ago for atypical chest pain and was prescribed Ativan 1 mg twice daily as needed, which seemed to help. Followed up with psychiatrist 4 days ago who changed Ativan dose to 0.5 mg 3 times daily as needed and started patient on Zoloft 25 mg daily. Patient denies any other medication changes. Patient denies any difficulty speaking or swallowing, weakness or sensory deficits. No ambulatory dysfunction. Denies any fever, chills, lightheadedness, dizziness, chest pain, palpitations, shortness of breath, nausea, vomiting, abdominal pain, dysuria, diarrhea or constipation. Admission Exam Per Admitting Provider General Appearance: WD/WN, vitals as above, NAD, sitting up in bed, pleasant, conversing easily, + anxious Head: normocephalic, atraumatic Eyes: normal inspection, PERRL, conjunctivae normal, anicteric sclerae ENT: external ear and nose normal, oropharynx normal Neck: trachea midline, no thyromegaly normal visual inspection Respiratory: normal respiratory effort, lungs clear to auscultation, no wheeze, rales, rhonchi. Normal insp/exp effort, no accessory muscle use Cardiovascular: regular rate, rhythm, no murmur, normal peripheral pulses. Vessels: no JVD or carotid bruit Chest: normal inspection of chest Abdomen/GI: normal bowel sounds, soft, nontender, no hepatosplenomegaly Extremities/Musculoskelatal: no cyanosis or clubbing, extremities motor st rength 5/5 Neurologic: PERRL, EOMI, accommodation nl, no face palsy, no dysarthria, CN's II-XI intact bilaterally and moves all extremities Psychiatric: A+Ox3, anxious Skin: no rashes, normal color, warm/dry Principal Diagnosis Stroke Discharge Exam Physical Exam: Elderly male lying in bed in no acute distress Constitutional: well developed, well nourished, no acute distress Eyes: PERRL, EOMI, conjunctivae normal, anicteric sclerae ENMT: external ear and nose normal, oropharynx normal Neck: trachea midline, no thyromegaly Respiratory: normal respiratory effort; no respiratory distress Auscultation: lungs clear to auscultation bilaterally Cardiovascular: Rate/Rhythm: regular rate and regular rhythm Heart Sounds: no murmur Gastrointestinal (Abdomen): Inspection/Auscultation: abdomen normal to inspection and normal bowel sounds Percussion/Palpation: abdomen nontender Musculoskeletal: No acute arthritis in any joints Neurologic: moves all extremities, strength 5/5 in all 4 extremities; no focal motor deficits Speech / Cognition: normal speech Motor/Sensory: no tremor Alert, awake and oriented x3. No focal sensory and/or motor deficit appreciated. No more dysarthria. Discharge Data Allergies Allergy/AdvReac Type Severity Reaction Status Date / Time vaccine adjuvant system, Allergy Intermediate HIVES AND Verified 02/08/19 16:51 AS01B liposomal SORENESS [From Shingrix (PF)] AT INJECTION SITE varicella-zoster virus Allergy Intermediate HIVES AND Verified 02/08/19 16:51 glycoprotein E, recombinant SORENESS [From Shingrix (PF)] AT INJECTION SITE celecoxib [From Celebrex] Allergy Unknown Unknown Verified 02/08/19 16:51 duloxetine [From Cymbalta] Allergy Unknown Unknown Verified 02/08/19 16:51 tramadol Allergy Unknown Unknown Verified 02/08/19 16:51 Consultations 02/08/19 18:37 ED Decision to Admit Stat 02/08/19 20:56 Consult Case Management - Discharge Planning Routine Consult Neurology Routine Consult Psychiatry Routine Risk Factors for Stroke: You can reduce your chances of stroke by working with your medical provider to adopt a healthy lifestyle. Some specific ways to lower your chance of stroke are: * If you are a smoker, now is the time to stop smoking cigarettes * If you are diabetic, improve the control of your blood sugars * Avoid excessive amounts of alcohol * Control high blood pressure * Lose weight if you are overweight * Be sure to lead an active lifestyle * Eat a healthy diet low in salt, cholesterol and fat You should know about other risk factors for stroke that you are unable to control. These include: * Age 55 years or older * Male gender * Certain racial groups: , or / * Family History of Stroke, Mini stroke or Heart Attack * Sickle Cell Disease Follow Up: It is important for you to keep your follow up appointments with your medical provider. Who to Call and When: Medical Emergencies: Call 911 immediately if you experience any of the following warning signs and symptoms of Stroke: * Sudden numbness or weakness of the face, arm or leg, especially on one side of the body * Sudden confusion, trouble speaking or understanding * Sudden trouble seeing in one or both eyes * Sudden trouble walking, dizziness, loss of balance or coordination * Sudden severe headache with no cause Do not delay calling 911 if you experience any warning signs or symptoms of a stroke. Delay in seeking medical attention may affect what treatments can be given to you. . Ordered Studies 02/08/19 16:31 CT head/brain wo con Stat FINDINGS: There is no mass, hematoma, midline shift, or acute infarct. Visualized intracranial internal carotid arteries, distal vertebral arteries, and basilar artery are widely patent. There is no significant stenosis, occlusion, or aneurysm seen within the bilateral ACAs, MCAs, or purchasing specialist. 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 This appears to be a pre-existing finding. IMPRESSION: 1. No acute intracranial vascular abnormality. 2. 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 02/08/19 16:34 CT angio head w con Stat CT angio neck with con Stat Findings: There is dense calcific plaque at the right carotid bifurcation. There is a 60- 65% diameter stenosis of the proximal right internal carotid artery. There is no aneurysm. There is no dissection. There is atheromatous plaque at the level left carotid bulb without evidence of significant narrowing. There is no evidence of vertebral dissection. There is no evidence of hemodynamically significant vertebral artery stenosis. IMPRESSION: 1. 60-65% diameter stenosis of the proximal right internal carotid artery. 2. No evidence of hemodynamically significant left internal carotid artery stenosis. 3. No evidence of vertebral artery stenosis or dissection. 02/08/19 20:56 MR brain wo/w con Routine FINDINGS: Brain parenchyma: Right temporoparietal encephalomalacia is consistent with a remote infarct. Minimal enhancement within the encephalomalacia likely represent gliosis. There are subcentimeter foci of restricted diffusion identified within the left temporal and occipital lobe cortex consistent with acute to subacute ischemia. There is no hemorrhage or mass effect. No enhancing mass lesion is identified on the postcontrast images. Vo-white matter differentiation is preserved. No extra-axial fluid collection is seen. The cerebellar tonsils are normal in configuration. Ventricles, sulci, and cisterns: Prominent secondary to involutional change. Megacisterna magna is incidentally noted. Pituitary and sella: Unremarkable. Intracranial vasculature: Normal flow voids are maintained at the skull base. Orbits: The bony orbits are grossly intact. Orbital contents are normal in appea cristian noting bilateral ocular lens implants. Sinuses and mastoids: Clear. Calvarium: Unremarkable. Cervical cord: Partially visualized cervical spinal cord is normal in morphology and signal intensity. IMPRESSION: 1. There are 2 subcentimeter foci of restricted diffusion identified within the left temporal and occipital lobe cortex consistent with acute to subacute ischemia. 2. No additional foci of acute ischemia are identified. 3. There is no hemorrhage or mass effect. 4. Senescent change and remote infarct as above. Hospital Course (1) Stroke-like symptoms: This is an 83yo M with a PMH of R MCA CVA with hemorrhagic conversion in October 2018, subsequent anxiety and depression, CAD (s/p stents), BPH and other medical problems as below who presents with strokelike symptoms since this morning. Stroke in left temporal and occipital lobe cortex (per MRI) -Difficulty with word finding, confusion -No focal neuro deficits on exam -CT head without acute intracranial abnormality, CTA head with known truncation of tributaries of the mid and distal right middle cerebral artery unchanged from prior studies and consistent with the patient's old right middle cerebral arterial territorial infarct. 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 No evidence of hemodynamically significant left internal carotid artery stenosis. No evidence of vertebral artery stenosis or dissection -Brain MRI::1. There are 2 subcentimeter foci of restricted diffusion identified within the left temporal and occipital lobe cortex consistent with acute to subacute ischemia. 2. No additional foci of acute ischemia are identified. 3. There is no hemorrhage or mass effect. 4. Senescent change and remote infarct as above. ECHO: There is mild concentric left ventricular hypertrophy, left ventricle wall motion is normal, EF was 55 to 60%, interatrial septum is intact with no evidence of an atrial septal defect and no significant valvular abnormality -Neuro checks, PT, OT, speech therapy evaluations - telemetry - remains in sinus rhythm -tPA not given on admission - likely d/t hx of hemorrhagic conversion in the past (pt had CVA in 10/2018) - continue statin -Neuro consulted -recommend to resume aspirin, follow-up with patient has neurologist in the [place] (02/16/2019 scheduled appointment), will fax neurology consultation note to patient's neurologist, patient was also provided with CD with images from this hospitalization, outpatient prolonged cardiac monitoring recommended -Follows with neurologist, Dr. 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 Routine consult placed. -Recommend coping strategies, follow-up with his psychiatrist as outpatient -Patient will follow-up as outpatient with his psychiatrist (4) Seizure disorder: Previously taking Keppra but last filled in December 2018- patient states he was told to discontinue by one of his physicians -No more seizures since discontinuation of medication -neurology consulted while inpt, do not recommend starting anticonvulsants at this time (5) CAD (coronary artery disease): H/O CAD, S/P GINNA to LAD and second diagonal in 2008 -Taken off of plavix and aspirin decreased to every other day 2/2 right MCA CVA with hemorrhagic conversion - plan to resume ASA (per neuro) - No chest pain (6) Nodular prostate with lower urinary tract symptoms: Continue dutasteride Total Time Total Time Spent Total Time Spent (In Minutes): 45 Total Time Includes: Examination of the Patient, Discharge Planning, Medication Reconciliation and Communication With Other Providers Discharge Plan Discharge Items Patient Disposition: Home - Self-Care Reason For Visit: CONFUSION, STROKELIKE SYMPTOMS Discharge Diagnosis: Stroke Activity: Resume your previous activity Activity Comment: as tolerated, pace yourself, ask for help as needed Non-emergency contact: Primary Care Provider and Neurologist Call non-emergency contact if: you have any medication questions and your symptoms worsen Follow-up/Referrals: Scar Porras MD [Primary Care Provider] - Diet: Heart Healthy Addtl Attending Provider Instructions: Make sure to follow-up with your primary care provider within 1 week of dis charge. Please make sure to follow-up with your neurologist, current appointment scheduled for February 16. Records of images were provided to you. We will fax neurology consult note from your hospitalization to your neurologist. Please continue to take aspirin daily. You will also need prolonged cardiac monitoring as outpatient, this will be communicated to your physicians. Pending Studies at Discharge: No Stand-Alone Forms: [facility] Dx, Smoking Cessation Medications and DC Order Prescriptions: Continued baclofen 20 mg tablet 20 mg PO BID PRN (Reason: Cramps) RF: 0 xggxfpyynq-qjkopqpcew-fnr-cod [id number] mg capsule 1 cap PO Q4H PRN (Reason: Migraine Headache) RF: 0 docusate sodium [Colace] 100 mg Capsule 100 mg PO BID RF: 0 cholecalciferol (vitamin D3) [Vitamin D3] 2,000 unit Tablet 2,000 unit PO QAM RF: 0 atorvastatin 40 mg Tablet 40 mg PO HS RF: 0 ipratropium bromide 42 mcg (0.06 %) Henefer,Non-Aerosol 2 spray INTRANASAL BID RF: 0 magnesium oxide [MagOx] 400 mg (241.3 mg magnesium) Tablet 400 mg PO QAM RF: 0 dutasteride 0.5 mg capsule 0.5 mg PO QAM RF: 0 tadalafil 20 mg tablet 20 mg PO DAILY PRN (Reason: Erectile Dysfunction) RF: 0 zinc gluconate 50 mg Tablet 50 mg PO DAILY RF: 0 vitamin B complex-folic acid [Super B Maxi Complex] 0.4 mg Tablet 1 tab PO DAILY RF: 0 lorazepam [Ativan] 1 mg tablet 0.5 mg PO TID PRN (Reason: anxiety) RF: 0 sertraline 25 mg Tablet 25 mg PO DAILY RF: 0 loratadine [Claritin] 10 mg Tablet 10 mg PO QAM RF: 0 coenzyme Q10 [Co Q-10] 100 mg Capsule 100 mg PO BID RF: 0 Prilosec OTC 20 mg Tablet,Delayed Release (Dr/Ec) 20 mg PO QAM RF: 0 inbnztft-qgetx-tcd2-C-sobeida-bor [Ovfapewq-Nigvr-KMC(with boron)] 565-647-92-1 mg Tablet 1 tab PO BID RF: 0 trazodone 50 mg Tablet 100 mg PO HS RF: 0 acetaminophen [Tylenol Extra Strength] 500 mg Tablet 500 mg PO Q6H PRN (Reason: Pain) RF: 0 nitroglycerin [Nitrostat] 0.4 mg Tablet, Sublingual 0.4 mg sublingual DIRECTED PRN (Reason: Chest Pain) RF: 0 Changed aspirin 81 mg Tablet,Delayed Release (Dr/Ec) 81 mg PO DAILY Qty: 0 RF: 0 Discharge Orders: Discharge Order (Routine); Ordered 02/10/19 Ordered By: Edilson Swanson/Other Patient Handouts: Diabetes Healthy Meals, Diabetes Exercise Benefits, A1C Admission Data Admit Date/Time: 02/09/19 11:45 Attending Provider: Edilson Welsh Admit Provider: Chapincito Cobian Primary Care Provider: Scar Porras I. Other Providers: Javan Villagomez ; Ivana Noel ; Stevie Ham ; Judy Hercules ; Casa Chamberlain ; Daniel Doty ; Deo Urias ; Liza Zamudio ; Jasper Kolb ; Malinda Mensah ; Stefani Houston ; Josefa Donaldson ; Parvin Charles ; Antony Rosario I. ; Gena Reid ; Sharmila Carty ; Vicki Langston ; [place] ; [place]ito Cobian ; Margie Qiu
== END 2019-02-10 15:45 | disposition home or self-care (01) | DRG 66 ==
LOC: ED 16:12 → 2W 16:12 → SUATTDRO 19:59 → 2W 20:28 → SUATTDRO 02-09 11:45

== ENCOUNTER 2019-03-15 12:08 | Inpatient (IN) ==
[2019-03-15] MEDS ORDERED: SODIUM CHLORIDE 0.9% 500 ML IV ONE (12:43)
[2019-03-15 12:57] LABS: Basophils # (auto) 0.01 K/uL (0-0.2); Basophils % (auto) 0.1 %; Eosinophils # (auto) 0.12 K/uL (0-0.5); Eosinophils % (auto) 1.4 %; Hematocrit (blood only) 42.6 % (42-52); Hemoglobin 13.3 g/dL (14.0-18.0); Immature Granulocytes # (auto) 0.01 K/uL (0.00-0.02); Immature Granulocytes % (auto) 0.1 %; Lymphocytes # (auto) 2.48 K/uL (1.2-3.4); Lymphocytes % (auto) 29.5 %; Mean Corpuscular Hemoglobin 27.8 pg (25-34); Mean Corpuscular Hgb Conc 31.2 g/dL (32-36); Mean Corpuscular Volume 89.1 fL (80-100); Mean Platelet Volume 10.9 fL (7.4-10.4); Monocytes # (auto) 0.57 K/uL (0.11-0.59); Monocytes % (auto) 6.8 %; Neutrophils # (auto) 5.23 K/uL (1.4-6.5); Neutrophils % (auto) 62.1 %; Platelet Count 148 K/uL (130-400); RDW Coefficient of Variation 13.3 % (11.5-14.5); RDW Standard Deviation 43.8 fL (36.4-46.3); Red Blood Count 4.78 M/uL (4.7-6.1); White Blood Count 8.42 K/uL (4.8-10.8)
[2019-03-15 13:04] LABS: Alanine Aminotransferase 27 U/L (12-78); Albumin Level 3.6 gm/dl (3.4-5.0); Aspartate Aminotransferase 17 U/L (15-37); BUN Creatinine Ratio 13.5 (10-20); Blood Urea Nitrogen 16 mg/dl (7-18); Calcium 10.3 mg/dl (8.5-10.1); Carbon Dioxide 29 mmol/L (21-32); Chloride 108 mmol/L (98-107); Creatinine Clr Calc Pharmacy 48.2 ml/min; Est GFR (African American) 64.4; Est GFR (Non-African American) 55.6; Glucose 117 mg/dl (70-99); Lipase 155 U/L (73-393); Magnesium 2.1 mg/dl (1.8-2.4); Sodium 143 mmol/L (136-145)
--- NOTE | 2019-03-15 13:12 | XRay Report ---
XR chest 1V portable CLINICAL HISTORY: Atypical chest pain COMPARISON STUDY: 02/08/2019 FINDINGS: The cardiac and mediastinal contours are normal. There is no evidence of focal pulmonary co nsolidation. There is no evidence of failure. No pleural effusions are visualized.[ IMPRESSION: No active disease in the chest. ACT 112: Negative or not required by law. Electronically signed by: Rhett aHmeed M.D. 03/15/2019 1:11 PM
[2019-03-15 13:15] LABS: Albumin Globulin Ratio 1.1 (0.9-2); Alkaline Phosphatase 51 U/L (45-117); Bilirubin,Total 0.5 mg/dl (0.2-1); Globulin 3.4 gm/dl (2.5-4.0); Phosphorus 3.4 mg/dl (2.5-4.9); Thyroid Stimulating Hormone 0.745 uIu/ml (0.300-4.500); Troponin I < 0.015 ng/ml (0-0.045)
[2019-03-15] MEDS ORDERED: FAMOTIDINE 20 MG TAB PO ONE (13:19)
[2019-03-15] MEDS ORDERED: GI COCKTAIL ED USE PO ONE (13:19)
[2019-03-15 13:59] LABS: Appearance Urine Clear (Clear); Bacteria Urine Automated Negative (Negative); Bilirubin Urine Negative (Negative); Blood Urine Negative (Negative); Color Urine Dark Yellow; Glucose Urine UA Negative (Negative); Ketones Urine Trace (Negative); Leukocyte Esterase Urine Negative (Negative); Nitrite Urine Negative (Negative); Protein Urine 1+ (Negative); RBC Urine Automated 0-4 /hpf (0-4); Specific Gravity Urine 1.026 (1.000-1.030); Urobilinogen Urine Negative (Negative)
[2019-03-15] MEDS ORDERED: OPTIRAY 320 125ml IV PRN (14:24)
--- NOTE | 2019-03-15 14:56 | CT Scan Report ---
CT angio chest dissec wo/w con CT DOSE: 828.06 mGy.cm HISTORY: Pain chest pain to back TECHNIQUE: Multiaxial CT images of the chest, abdomen, and pelvis were performed both before and afte r the intravenous administration of contrast to evaluate the aorta. Maximal intensity projection imag es were also obtained. A dose lowering technique was utilized adhering to the principles of ALARA. COMPARISON STUDY: 02/10/2018 FINDINGS: The thoracic aorta shows minimal atherosclerotic change. There is no evidence for aneurysm or dissection. No significant mediastinal or hilar adenopathy. Evaluation of the lung parenchyma shows no focal infiltrative change. There is minimal dependent basi lar atelectatic change. There is suggestion of a multifocal splenic laceration versus subcapsular hem atoma. There is no significant perisplenic fluid. There is a small pre-existing secondary and/or acce ssory spleen medial to the superior aspect of the spleen. A small hiatal hernia is present. IMPRESSION: 1. No evidence for aortic dissection. 2. Lungs are clear. 3. Apparent splenic rupture versus laceration with no significant perisplenic fluid at this time. ACT 112: Negative or not required by law. The above report was generated using voice recognition software. It may contain grammatical, syntax or spelling errors. Electronically signed by: Amish Hayes M.D. 03/15/2019 2:54 PM
--- NOTE | 2019-03-15 15:39 | Electrocardiogram Report ---
Test Reason : Blood Pressure : / mmHG Vent. Rate : 068 BPM Atrial Rate : 068 BPM P-R Int : 174 ms QRS Dur : 090 ms QT Int : 390 ms P-R-T Axes : 053 042 021 degrees QTc Int : 414 ms Normal sinus rhythm Normal ECG When compared with ECG of 08-FEB-2019 17:14, No significant change was found Confirmed by Dutch Rose ([id number]) on 03/15/2019 3:38:49 PM Referred By: REFERRED SELF Confirmed By:Dutch Rose
--- NOTE | 2019-03-15 16:56 | Surgery Consultation ---
Date of Consultation March 15, 2019 Assessment & Plan (1) Atypical chest pain: 83 year-old male who presented to ED with nausea and pain in left shoulder and back. History of fall off ladder in August or September however had CT scan of abdomen and pelvis in November which showed no abnormalities of the spleen at that time. Hemodynamically stable, no leukocytosis, H&H 13.3/42.6. No abdominal pain. Abdominal examination benign. Plan: Unsure of exact etiology of splenic abnormality. Could be chronic splenic laceration vs hematoma vs infarct vs metastatic disease (however does not have any known primary lesions). He has had no recent trauma. Likely more of a chronic etiology than acute/subacute however would recommend admission to hospital for observation for 1-2 days. Monitor abdominal examination, H&H, and vital signs. No need for surgical intervention at this time. Can have clear liquids Will follow along (2) History of CVA (cerebrovascular accident): previously on aspirin and plavix now just on 81 mg of aspirin Plan as above for splenic abnormality Dr. Olivares has seen patient. Please see addendum for further recommendations/plan. Supervising Physician Co-Signing Physician Notes I interviewed and examined this patient I agree with the above note. The nature and etiology of the splenic abnormality on CT scan is unclear. He has not been hemodynamically unstable and there is no history of recent trauma. He did have a fall in September but a CT scan in November did not demonstrate an issue. I do not feel there is any need for surgical intervention at this time. Would recommend observation and serial H&H for close monitoring. History of Present Illness Reason for Consultation: Splenic laceration vs subcapsular hematoma Requesting Physician: Dr. Otoole History of Present Illness Travis is a pleasant 83 year-old male who presented to emergency department today with complaint of nausea with central abdominal/lower chest pain that radiated to his left shoulder blade. Has a history of stroke in October and in February. Was on aspirin and plavix and now just 81 mg of aspirin. Had a fall in August or September 5 feet from ladder but not recent trauma or falls prior to this ED visit. States he has had some constipation since his stroke in which he takes bowel regimen. No bowel movement today. Travis states his appetite has been low but eats regularly. Denies of any fever, chills, vomiting, black/tarry stools, difficulty urinating, blood in urine. ER work-up included labs which showed no leukocytosis and hemoglobin 13 and CTA which showed suggestion of a multifocal splenic laceration versus subcapsular hematoma. There is no significant perisplenic fluid. There is a small pre-existing secondary and/or accessory spleen medial to the superior aspect of the spleen Allergies Allergy/AdvReac Type Severity Reaction Status Date / Time vaccine adjuvant system, Allergy Intermediate HIVES AND Verified 03/15/19 13:22 AS01B liposomal SORENESS [From Shingrix (PF)] AT INJECTION SITE varicella-zoster virus Allergy Intermediate HIVES AND Verified 03/15/19 13:22 glycoprotein E, recombinant SORENESS [From Shingrix (PF)] AT INJECTION SITE celecoxib [From Celebrex] Allergy Unknown Unknown Verified 03/15/19 13:22 duloxetine [From Cymbalta] Allergy Unknown Unknown Verified 03/15/19 13:22 tramadol Allergy Unknown Unknown Verified 03/15/19 13:22 Home Medications Home Medications Medication Instructions Recorded Confirmed Type iagsphqdvp-skrqibhnil-cyc-cod 1 cap PO Q4H PRN 02/10/18 03/15/19 History cholecalciferol (vitamin D3) 2,000 unit PO QAM 02/10/18 03/15/19 History [Vitamin D3] docusate sodium [Colace] 100 mg PO BID 02/10/18 03/15/19 History atorvastatin 40 mg PO HS 07/01/18 03/15/19 History ipratropium bromide 2 spray INTRANASAL BID 07/01/18 03/15/19 History Prilosec OTC 20 mg PO QAM 09/03/18 03/15/19 History coenzyme Q10 [Co Q-10] 100 mg PO BID 09/03/18 03/15/19 History arsvugun-gzkwm-jzv5-C-sobeida-bor 1 tab PO BID 09/03/18 03/15/19 History [Kkdrpjii-Giewh-EVO(with boron)] loratadine [Claritin] 10 mg PO QAM 09/03/18 03/15/19 History magnesium oxide [MagOx] 400 mg PO QAM 11/01/18 03/15/19 History dutasteride 0.5 mg PO QAM 11/30/18 03/15/19 History tadalafil 20 mg PO DAILY PRN 11/30/18 03/15/19 History acetaminophen [Tylenol Extra 500 mg PO Q6H PRN 01/19/19 03/15/19 History Strength] nitroglycerin [Nitrostat] 0.4 mg SUBLINGUAL DIRECTED PRN 01/19/19 03/15/19 History trazodone 100 mg PO HS 01/19/19 03/15/19 History lorazepam [Ativan] 0.5 mg PO TID PRN 02/08/19 03/15/19 History sertraline 25 mg PO DAILY 02/08/19 03/15/19 History vitamin B complex-folic acid 1 tab PO DAILY 02/08/19 03/15/19 History [Super B Maxi Complex] zinc gluconate 50 mg PO DAILY 02/08/19 03/15/19 History aspirin 81 mg PO DAILY #0 tab 02/10/19 03/15/19 Rx baclofen 20 mg PO BID 03/15/19 03/15/19 History divalproex 250 mg PO DAILY 03/15/19 03/15/19 History Patient History Medical History Anxiety and depression Arthritis (Chronic) BPH (benign prostatic hyperplasia) (Chronic) CAD (coronary artery disease) (Chronic) 2008 - GINNA to LAD and 2nd diagonal 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 GERD (gastroesophageal reflux disease) (Chronic) Hiatal hernia (Chronic) Kidney stones (Resolved) Migraine (Chronic) 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) Seizure disorder (Chronic) Surgical History History of hernia surgery (Chronic) History of left cataract surgery (Chronic) Was given 2mg of versed on 07/14 18 History of lithotripsy (Chronic) Family History Grandfather (Paternal) Family history of diabetes mellitus Social History Preferred Language: Chadian Communication Ability: Effective Straightener And Aligner Required: No Beliefs That Will Affect Care: Bahai Bahai Beliefs: Sikhism marital status: Current Living Situation: Spouse Feels Safe at Home: Yes Smoking Status: Never smoker Second Hand Exposure: No ; Hx Alcohol Use: No Hx Substance Use: No Review of Systems Review of Systems: All systems reviewed & are unremarkable except as noted in HPI & below Physical Exam Constitutional: WD/WN, vitals as above no acute distress Respiratory: normal respiratory effort, lungs clear to auscultation Cardiovascular: RRR, no murmur, no edema Gastrointestinal (Abdomen): Inspection/Auscultation: abdomen normal to inspection; abdomen not distended Percussion/Palpation: abdomen soft; abdomen nontender, no guarding and abdomen not rigid Skin: no rashes, warm and dry Psychiatric: A+Ox3, euthymic affect Results & Data Vital Signs (Past 12 Hours) Vital Signs Temp Pulse Resp BP Pulse Ox 03/15/19 16:30 62 15 151/74 H 96 03/15/19 16:01 87 15 03/15/19 15:30 55 L 19 123/64 99 03/15/19 15:25 58 L 17 116/64 99 03/15/19 15:00 54 L 16 97 03/15/19 14:34 58 L 23 03/15/19 14:00 58 L 14 105/56 L 97 03/15/19 13:31 61 22 100/64 95 03/15/19 13:00 63 23 98/58 L 98 03/15/19 12:31 98 03/15/19 12:30 64 20 99/57 L 96 03/15/19 12:18 36.7 C 85 16 84/56 L 96 Laboratory Results 03/15/19 03/15/19 03/15/19 Range/Units 14:01 13:45 12:34 WBC (4.8-10.8) K/uL RBC (4.7-6.1) M/uL Hgb (14.0-18.0) g/dL Hct (42-52) % MCV (80-100) fL MCH (25-34) pg MCHC (32-36) g/dL RDW Std Deviation (36.4-46.3) fL RDW Coeff of Sukhdev (11.5-14.5) % Plt Count (130-400) K/uL MPV (7.4-10.4) fL Immature Gran % (Auto) % Neut % (Auto) % Lymph % (Auto) % [place] % (Auto) % Eos % (Auto) % Baso % (Auto) % Immature Gran # (Auto) (0.00-0.02) K/uL Neut # (Auto) (1.4-6.5) K/uL Lymph # (Auto) (1.2-3.4) K/uL [place] # (Auto) (0.11-0.59) K/uL Eos # (Auto) (0-0.5) K/uL Baso # (Auto) (0-0.2) K/uL Sodium 143 (136-145) mmol/L Potassium 4.0 (3.5-5.1) mmol/L Chloride 108 H (98-107) mmol/L Carbon Dioxide 29 (21-32) mmol/L Anion Gap 6.0 (3-11) BUN 16 (7-18) mg/dl Creatinine 1.20 (0.6-1.4) mg/dl Est Cr Clr Drug Dosing 48.2 ml/min Est GFR ( Amer) 64.4 Est GFR (Non-Af Amer) 55.6 BUN/Creatinine Ratio 13.5 (10-20) Glucose 117 H (70-99) mg/dl Calcium 10.3 H (8.5-10.1) mg/dl Phosphorus 3.4 (2.5-4.9) mg/dl Magnesium 2.1 (1.8-2.4) mg/dl Total Bilirubin 0.5 (0.2-1) mg/dl AST 17 (15-37) U/L ALT 27 (12-78) U/L Alkaline Phosphatase 51 (45-117) U/L Troponin I < 0.015 < 0.015 (0-0.045) ng/ml Total Protein 7.0 (6.4-8.2) gm/dl Albumin 3.6 (3.4-5.0) gm/dl Globulin 3.4 (2.5-4.0) gm/dl Albumin/Globulin Ratio 1.1 (0.9-2) Lipase 155 (73-393) U/L TSH 0.745 (0.300-4.500) uIu/ml Urine Color Dark Yellow Urine Appearance Clear (Clear) Urine pH 5.0 (4.5-7.5) Ur Specific [place] 1.026 (1.000-1.030) Urine Protein 1+ H (Negative) Urine Glucose (UA) Negative (Negative) Urine Ketones Trace H (Negative) Urine Blood Negative (Negative) Urine Nitrite Negative (Negative) Urine Bilirubin Negative (Negative) Urine Urobilinogen Negative (Negative) Ur Leukocyte Esterase Negative (Negative) Urine WBC (Auto) 1-5 (0-5) /hpf Urine RBC (Auto) 0-4 (0-4) /hpf U Hyaline Cast (Auto) 10-30 H (0-5) /lpf U Epithel Cells (Auto) 10-20 H (0-5) /lpf Urine Bacteria (Auto) Negative (Negative) 03/15/19 Range/Units 12:34 WBC 8.42 (4.8-10.8) K/uL RBC 4.78 (4.7-6.1) M/uL Hgb 13.3 L (14.0-18.0) g/dL Hct 42.6 (42-52) % MCV 89.1 (80-100) fL MCH 27.8 (25-34) pg MCHC 31.2 L (32-36) g/dL RDW Std Deviation 43.8 (36.4-46.3) fL RDW Coeff of Sukhdev 13.3 (11.5-14.5) % Plt Count 148 (130-400) K/uL MPV 10.9 H (7.4-10.4) fL Immature Gran % (Auto) 0.1 % Neut % (Auto) 62.1 % Lymph % (Auto) 29.5 % [place] % (Auto) 6.8 % Eos % (Auto) 1.4 % Baso % (Auto) 0.1 % Immature Gran # (Auto) 0.01 (0.00-0.02) K/uL Neut # (Auto) 5.23 (1.4-6.5) K/uL Lymph # (Auto) 2.48 (1.2-3.4) K/uL [place] # (Auto) 0.57 (0.11-0.59) K/uL Eos # (Auto) 0.12 (0-0.5) K/uL Baso # (Auto) 0.01 (0-0.2) K/uL Sodium (136-145) mmol/L Potassium (3.5-5.1) mmol/L Chloride (98-107) mmol/L Carbon Dioxide (21-32) mmol/L Anion Gap (3-11) BUN (7-18) mg/dl Creatinine (0.6-1.4) mg/dl Est Cr Clr Drug Dosing ml/min Est GFR ( Amer) Est GFR (Non-Af Amer) BUN/Creatinine Ratio (10-20) Glucose (70-99) mg/dl Calcium (8.5-10.1) mg/dl Phosphorus (2.5-4.9) mg/dl Magnesium (1.8-2.4) mg/dl Total Bilirubin (0.2-1) mg/dl AST (15-37) U/L ALT (12-78) U/L Alkaline Phosphatase (45-117) U/L Troponin I (0-0.045) ng/ml Total Protein (6.4-8.2) gm/dl Albumin (3.4-5.0) gm/dl Globulin (2.5-4.0) gm/dl Albumin/Globulin Ratio (0.9-2) Lipase (73-393) U/L TSH (0.300-4.500) uIu/ml Urine Color Urine Appearance (Clear) Urine pH (4.5-7.5) Ur Specific [place] (1.000-1.030) Urine Protein (Negative) Urine Glucose (UA) (Negative) Urine Ketones (Negative) Urine Blood (Negative) Urine Nitrite (Negative) Urine Bilirubin (Negative) Urine Urobilinogen (Negative) Ur Leukocyte Esterase (Negative) Urine WBC (Auto) (0-5) /hpf Urine RBC (Auto) (0-4) /hpf U Hyaline Cast (Auto) (0-5) /lpf U Epithel Cells (Auto) (0-5) /lpf Urine Bacteria (Auto) (Negative) Diagnostic Findings CT angio chest dissec wo/w con CT DOSE: 828.06 mGy.cm HISTORY: Pain chest pain to back TECHNIQUE: Multiaxial CT images of the chest, abdomen, and pelvis were performed both before and after the intravenous administration of contrast to evaluate the aorta. Maximal intensity projection images were also obtained. A dose lowering technique was utilized adhering to the principles of ALARA. COMPARISON STUDY: 02/10/2018 FINDINGS: The thoracic aorta shows minimal atherosclerotic change. There is no evidence for aneurysm or dissection. No significant mediastinal or hilar adenopathy. Evaluation of the lung parenchyma shows no focal infiltrative change. There is minimal dependent basilar atelectatic change. There is suggestion of a multifocal splenic laceration versus subcapsular hematoma. There is no significant perisplenic fluid. There is a small pre-existing secondary and/or accessory spleen medial to the superior aspect of the spleen. A small hiatal hernia is present. IMPRESSION: 1. No evidence for aortic dissection. 2. Lungs are clear. 3. Apparent splenic rupture versus laceration with no significant perisplenic fluid at this time.
--- NOTE | 2019-03-15 18:27 | History & Physical Report ---
Date of Service March 15, 2019 Assessment & Plan (1) Abdominal pain: (2) Spleen hematoma: This is an 83yo M with a PMH of R MCA CVA with hemorrhagic conversion in October 2018 and L temporal and occipital lobe cortex CVA in 02/25,anxiety and depression, CAD (s/p stents), BPH and other medical problems listed below who is presenting with nausea, abdominal and back pain since earlier today and was found to have splenic abnormality on imaging. -Presented with abdominal and lower chest pain that is since resolved with GI cocktail and Pepcid -Chest CTA was negative for aortic dissection but did reveal apparent splenic rupture versus laceration with no significant perisplenic fluid at this time -Was evaluated by surgical service, who are unsure of exact etiology of splenic abnormality but considering chronic splenic laceration vs hematoma vs infarct vs metastatic disease (though no known primary lesion) in differential. Did have a CT abdomen pelvis performed in November that did not show any abnormalities of the spleen at that time -Hemodynamically stable with H&H of 13.3/42.6. No recent trauma -Likely more of a chronic etiology than acute/subacute but recommend observing for 1-2 days to continue monitoring vital signs and H&H. Okay to have clear liquids (3) Shoulder pain: Denies any chest pain. No EKG changes -Initial troponin negative but will repeat 1 more due to patient's shoulder pain. Likely musculoskeletal but has history of CAD -Baclofen for MSK pain (4) CAD (coronary artery disease): Continue baby aspirin, statin (5) History of CVA (cerebrovascular accident): Significant CVA history with R MCA CVA with hemorrhagic conversion in October 2018 and L temporal and occipital lobe cortex CVA in 02/25 -Continue baby aspirin due to significant stroke risk (6) Seizure disorder: Continue Depakote (7) Anxiety and depression: Continue SSRI and ativan PRN. Trazodone HS DVT Ppx: SCDs Code status: FULL per discussion with patient PCP: Chiquita Dispo: Admit to med tele. Discharge planning ordered. Patient seen in collaboration with Dr. Christie. Please see addendum. History of Present Illness Chief Complaint: Abdominal and lower chest pain Primary Care Provider: Scar Porras MD This is an 83yo M with a PMH of R MCA CVA with hemorrhagic conversion in October 2018 and L temporal and occipital lobe cortex CVA in 02/25,anxiety and depression, CAD (s/p stents), BPH and other medical problems listed below who is presenting with nausea, abdominal and back pain since earlier today. Patient endorses nausea beginning last evening and then pain in abdomen, lower chest, and bilateral shoulders starting earlier today. Thinks that shoulder pain may be related to ongoing musculoskeletal issues, with known cervical disc disease with last injection 6 months ago. Was given GI cocktail and Pepcid in the ED with resolution of abdominal and lower chest pain. Still having dull aching pain in bilateral shoulders. Underwent a chest CTA that was negative for aortic dissection but did reveal apparent splenic rupture versus laceration with no significant perisplenic fluid at this time. Was evaluated by surgical service, who are unsure of exact etiology of splenic abnormality but considering chronic splenic laceration vs hematoma vs infarct vs metastatic disease (though no known primary lesion) in differential. Did have a CT abdomen pelvis performed in November that did not show any abnormalities of the spleen at that time. Patient is afebrile and hemodynamically stable. H&H stable at 13.3/42.6. No recent trauma. Per surgery, likely more of a chronic etiology than acute/subacute but recommend observing for 1 to 2 days to continue monitoring vital signs and H&H. Okay to have clear liquids. Currently patient only endorsing shoulder discomfort. Denies any fever, chills, lightheadedness, visual changes, chest pain, shortness of breath, nausea, vomiting, abdominal pain, dysuria, diarrhea or constipation. Allergies Allergy/AdvReac Type Severity Reaction Status Date / Time vaccine adjuvant system, Allergy Intermediate HIVES AND Verified 03/15/19 13:22 AS01B liposomal SORENESS [From Shingrix (PF)] AT INJECTION SITE varicella-zoster virus Allergy Intermediate HIVES AND Verified 03/15/19 13:22 glycoprotein E, recombinant SORENESS [From Shingrix (PF)] AT INJECTION SITE celecoxib [From Celebrex] Allergy Unknown Unknown Verified 03/15/19 13:22 duloxetine [From Cymbalta] Allergy Unknown Unknown Verified 03/15/19 13:22 tramadol Allergy Unknown Unknown Verified 03/15/19 13:22 Home Medications Home Medications Medication Instructions Recorded Confirmed Type ujjvbadgkz-vtclmownvh-yxr-cod 1 cap PO Q4H PRN 02/10/18 03/15/19 History cholecalciferol (vitamin D3) 2,000 unit PO QAM 02/10/18 03/15/19 History [Vitamin D3] docusate sodium [Colace] 100 mg PO BID 02/10/18 03/15/19 History atorvastatin 40 mg PO HS 07/01/18 03/15/19 History ipratropium bromide 2 spray INTRANASAL BID 07/01/18 03/15/19 History Prilosec OTC 20 mg PO QAM 09/03/18 03/15/19 History coenzyme Q10 [Co Q-10] 100 mg PO BID 09/03/18 03/15/19 History xlzhhufo-xqjyl-txj3-C-sobeida-bor 1 tab PO BID 09/03/18 03/15/19 History [Bwaentes-Yezbp-GZS(with boron)] loratadine [Claritin] 10 mg PO QAM 09/03/18 03/15/19 History magnesium oxide [MagOx] 400 mg PO QAM 11/01/18 03/15/19 History tadalafil 20 mg PO DAILY PRN 11/30/18 03/15/19 History acetaminophen [Tylenol Extra 500 mg PO Q6H PRN 01/19/19 03/15/19 History Strength] nitroglycerin [Nitrostat] 0.4 mg SUBLINGUAL DIRECTED PRN 01/19/19 03/15/19 History trazodone 100 mg PO HS 01/19/19 03/15/19 History lorazepam [Ativan] 0.5 mg PO BID PRN 02/08/19 03/15/19 History sertraline 25 mg PO DAILY 02/08/19 03/15/19 History vitamin B complex-folic acid 1 tab PO DAILY 02/08/19 03/15/19 History [Super B Maxi Complex] zinc gluconate 50 mg PO DAILY 02/08/19 03/15/19 History aspirin 81 mg PO DAILY #0 tab 02/10/19 03/15/19 Rx baclofen 20 mg PO BID 03/15/19 03/15/19 History divalproex 250 mg PO DAILY 03/15/19 03/15/19 History Past Med/Surg History Medical History Anxiety and depression Arthritis (Chronic) BPH (benign prostatic hyperplasia) (Chronic) CAD (coronary artery disease) (Chronic) 2009 - [place] to LAD and 2nd diagonal 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 GERD (gastroesophageal reflux disease) (Chronic) Hiatal hernia (Chronic) Kidney stones (Resolved) Migraine (Chronic) 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) Seizure disorder (Chronic) Surgical History History of hernia surgery (Chronic) History of left cataract surgery (Chronic) Was given 2mg of versed on 07/14 18 History of lithotripsy (Chronic) Family History Grandfather (Paternal) Family history of diabetes mellitus Social History Preferred Language: Syriac Communication Ability: Effective Staff Reporter Required: No Beliefs That Will Affect Care: Rastafari Rastafari Beliefs: Temple marital status: Current Living Situation: Spouse Other Information That Helps Us Care for You: No Feels Safe at Home: Yes Smoking Status: Never smoker Second Hand Exposure: No ; Hx Alcohol Use: No Hx Substance Use: No Review of Systems Review of Systems: At least ten systems reviewed and negative except as noted in the HPI. Physical Exam Physical Exam: General Appearance: WD/WN, vitals as above, NAD, sitting up in bed, pleasant, conversing easily Head: normocephalic, atraumatic Eyes: normal inspection, PERRL, conjunctivae normal, anicteric sclerae ENT: external ear and nose normal, oropharynx normal Neck: trachea midline, no thyromegaly normal visual inspection Respiratory: lungs clear to auscultation, no wheeze, rales, rhonchi. Normal insp/exp effort, no accessory muscle use Cardiovascular: regular rate, rhythm, no murmur, normal peripheral pulses. Vessels: no JVD or carotid bruit Chest: normal inspection of chest, chest wall non-tender to palpation Abdomen/GI: normal bowel sounds, soft, nontender, no hepatosplenomegaly Extremities/Musculoskelatal: TTP along bony processes of clavicle and AC joints bilaterally. No Spinal TTP or deformities noted. No cyanosis or clubbing, extremities motor strength 5/5 Neurologic: PERRL, EOMI, accommodation nl, no face palsy, no dysarthria, CN's II-XI intact bilaterally and moves all extremities Psychiatric: A+Ox3, euthymic affect Skin: no rashes, normal color, warm/dry Results & Data Vital Signs (Past 12 Hours) Vital Signs Temp Pulse Resp BP Pulse Ox 03/15/19 17:30 63 23 140/79 98 03/15/19 17:00 66 20 134/73 99 03/15/19 16:30 62 15 151/74 H 96 03/15/19 16:01 87 15 03/15/19 15:30 55 L 19 123/64 99 03/15/19 15:25 58 L 17 116/64 99 03/15/19 15:00 54 L 16 97 03/15/19 14:34 58 L 23 03/15/19 14:00 58 L 14 105/56 L 97 03/15/19 13:31 61 22 100/64 95 03/15/19 13:00 63 23 98/58 L 98 03/15/19 12:31 98 03/15/19 12:30 64 20 99/57 L 96 03/15/19 12:18 36.7 C 85 16 84/56 L 96 Laboratory Results Short CBC 03/15/19 Range/Units 12:34 WBC 8.42 (4.8-10.8) K/uL Hgb 13.3 L (14.0-18.0) g/dL Hct 42.6 (42-52) % Plt Count 148 (130-400) K/uL BMP 03/15/19 12:34 Sodium 143 Potassium 4.0 Chloride 108 H Carbon Dioxide 29 BUN 16 Creatinine 1.20 Glucose 117 H Calcium 10.3 H Cardiac Enzymes 03/15/19 03/15/19 Range/Units 12:34 14:01 Troponin I < 0.015 < 0.015 (0-0.045) ng/ml Liver Function 03/15/19 Range/Units 12:34 Total Bilirubin 0.5 (0.2-1) mg/dl AST 17 (15-37) U/L ALT 27 (12-78) U/L Alkaline Phosphatase 51 (45-117) U/L Albumin 3.6 (3.4-5.0) gm/dl Urine 03/15/19 Range/Units 13:45 Urine Color Dark Yellow Urine Appearance Clear (Clear) Urine pH 5.0 (4.5-7.5) Ur Specific [place] 1.026 (1.000-1.030) Urine Protein 1+ H (Negative) Urine Glucose (UA) Negative (Negative) Diagnostic Findings CXR: IMPRESSION: No active disease in the chest. Chest CTA: IMPRESSION: 1. No evidence for aortic dissection. 2. Lungs are clear. 3. Apparent splenic rupture versus laceration with no significant perisplenic fluid at this time. ECG Rhythm: normal sinus Change: no significant change Code Status & VTE Plan VTE Prophylaxis Plan VTE Prophylaxis will be ordered: Yes Supervising Physician Co-Signing Physician Notes Pt was seen and examined. Agreed with Li BRISENO exam, assessment and plan. 83yo M with a PMH of R MCA CVA with hemorrhagic conversion in October 2018 and L temporal and occipital lobe cortex CVA in 02/25,anxiety and depression, CAD (s/p stents), BPH present with abdominal and back pain associated with nausea. He also complaints of b/l shoulder pain associated with chest pain. CT chest done in the ER showed No evidence for aortic dissection; apparent splenic rupture versus laceration with no significant perisplenic fluid at this time. Surgery on board and recommended conservative management. Hemoglobin stable. Pt is hemodynamically stable. Will continue aspirin 81 mg for now due to recent CVA. Will monitor hemoglobin. Continue pain control. Will continue monitor closely. MD Shahnaz (1) Spleen hematoma Encounter type: initial encounter Qualified Code(s): S36.029A - Unspecified contusion of spleen, initial encounter
--- NOTE | 2019-03-15 18:57 | Emergency Department Note ---
Entered by Vielka Moss acting as a scribe for Aiden Otoole MD History of Present Illness General Chief complaint: Chest Pain Stated complaint: CHEST PAIN, SLIGHT ARM PAIN, NECK PAIN Time Seen by Provider: 03/15/19 12:42 Source: patient History of Present Illness Onset (ago): hour(s) (0900 today) Location: chest Radiation: back and other (shoulder) Severity: similar to prior episodes Pain Consistency: + other (persistent) Maximum Pain Intensity: 7 Quality: + other (chest pain) Associated symptoms: + chest pain and + other (Positive burning abdomen sensation, urinary incontinence, shoulder pain. Negative neck pain.); no fever/chills and no shortness of breath Treatments prior to arrival: other (Nitroglycerin) The patient is an 83 year old male presenting to the Emergency Department complaining of persistent chest pain starting at 0900 today. The patient reports that he has chest pain that sometimes radiates to his back and shoulders. He states that 1 day ago he was indigested and described this as a burning sensation in his stomach. He notes that he went to his [facility] PCP this morning. He adds that he has experienced this kind of shoulder pain before but that it is worse than normal this time. 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 He states that he has shoulder and neck pain and used to receive steroid shots for this pain, however he no longer receives these shots because of his risk for DVT. He states that he last received a shot in the beginning of February 2019. He notes that he has been taking muscle relaxers for his shoulder pain that recently hasnt been helping. 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 The patients reports that the patient has an appointment with [facility] tomorrow. The patient denies current neck pain, shortness of breath, fevers and chills. Home Medications Home Medications Medication Instructions Recorded Confirmed Type olurucrivj-osrzosntoa-tcf-cod 1 cap PO Q4H PRN 02/10/18 03/15/19 History cholecalciferol (vitamin D3) 2,000 unit PO QAM 02/10/18 03/15/19 History [Vitamin D3] docusate sodium [Colace] 100 mg PO BID 02/10/18 03/15/19 History atorvastatin 40 mg PO HS 07/01/18 03/15/19 History ipratropium bromide 2 spray INTRANASAL BID 07/01/18 03/15/19 History Prilosec OTC 20 mg PO QAM 09/03/18 03/15/19 History coenzyme Q10 [Co Q-10] 100 mg PO BID 09/03/18 03/15/19 History ybjunyfz-fgyzm-afd7-C-sobeida-bor 1 tab PO BID 09/03/18 03/15/19 History [Ifvrdcoc-Mieqn-OJS(with boron)] loratadine [Claritin] 10 mg PO QAM 09/03/18 03/15/19 History magnesium oxide [MagOx] 400 mg PO QAM 11/01/18 03/15/19 History tadalafil 20 mg PO DAILY PRN 11/30/18 03/15/19 History acetaminophen [Tylenol Extra 500 mg PO Q6H PRN 01/19/19 03/15/19 History Strength] nitroglycerin [Nitrostat] 0.4 mg SUBLINGUAL DIRECTED PRN 01/19/19 03/15/19 History trazodone 100 mg PO HS 01/19/19 03/15/19 History lorazepam [Ativan] 0.5 mg PO BID PRN 02/08/19 03/15/19 History sertraline 25 mg PO DAILY 02/08/19 03/15/19 History vitamin B complex-folic acid 1 tab PO DAILY 02/08/19 03/15/19 History [Super B Maxi Complex] zinc gluconate 50 mg PO DAILY 02/08/19 03/15/19 History aspirin 81 mg PO DAILY #0 tab 02/10/19 03/15/19 Rx baclofen 20 mg PO BID 03/15/19 03/15/19 History divalproex 250 mg PO DAILY 03/15/19 03/15/19 History Allergies Allergy/AdvReac Type Severity Reaction Status Date / Time vaccine adjuvant system, Allergy Intermediate HIVES AND Verified 03/15/19 13:22 [id number] liposomal SORENESS [From Shingrix (PF)] AT INJECTION SITE varicella-zoster virus Allergy Intermediate HIVES AND Verified 03/15/19 13:22 glycoprotein E, recombinant SORENESS [From Shingrix (PF)] AT INJECTION SITE celecoxib [From Celebrex] Allergy Unknown Unknown Verified 03/15/19 13:22 duloxetine [From Cymbalta] Allergy Unknown Unknown Verified 03/15/19 13:22 tramadol Allergy Unknown Unknown Verified 03/15/19 13:22 Past Med/Surg History Medical History Anxiety and depression Arthritis (Chronic) BPH (benign prostatic hyperplasia) (Chronic) CAD (coronary artery disease) (Chronic) 2008 - GINNA to LAD and 2nd diagonal 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 GERD (gastroesophageal reflux disease) (Chronic) Hiatal hernia (Chronic) Kidney stones (Resolved) Migraine (Chronic) 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) Seizure disorder (Chronic) Surgical History History of hernia surgery (Chronic) History of left cataract surgery (Chronic) Was given 2mg of versed on 07/14 18 History of lithotripsy (Chronic) Family History Grandfather (Paternal) Family history of diabetes mellitus Social History Preferred Language: [place] Communication Ability: Effective Vp Information Technology Required: No Beliefs That Will Affect Care: Oriental Orthodox Oriental Orthodox Beliefs: Buddhism marital status: Current Living Situation: Spouse Other Information That Helps Us Care for You: No Feels Safe at Home: Yes Smoking Status: Never smoker Second Hand Exposure: No ; Hx Alcohol Use: No Hx Substance Use: No Review of Systems See HPI for pertinent positives & negatives. and A total of 10 systems reviewed and were otherwise negative Physical Exam Vital Signs Vital Signs - 24 hr 03/15/19 12:18 03/15/19 12:30 03/15/19 12:31 Temperature 36.7 C Temperature Source Oral Pulse Rate 85 64 Pulse Rate from SpO2 Sensor 64 Pulse Rhythm Regular Pulse Strength Normal Respiratory Rate 16 20 Respiratory Effort / Characteristics Non-Labored Respiratory Depth Normal Respiratory Pattern Regular Blood Pressure 84/56 L 99/57 L Blood Pressure Mean 65 62 Blood Pressure Position Sitting Pulse Oximetry 96 96 98 Oxygen Delivery Method Room Air Room Air Room Air Sepsis Recent Fever Within 48 Hours No Sepsis Action Taken by Nursing No Action Required 03/15/19 13:00 03/15/19 13:31 03/15/19 14:00 Temperature Temperature Source Pulse Rate 63 61 58 L Pulse Rate from SpO2 Sensor 63 63 57 L Pulse Rhythm Pulse Strength Respiratory Rate 23 22 14 Respiratory Effort / Characteristics Respiratory Depth Respiratory Pattern Blood Pressure 98/58 L 100/64 105/56 L Blood Pressure Mean 69 68 61 Blood Pressure Position Pulse Oximetry 98 95 97 Oxygen Delivery Method Room Air Room Air Room Air Sepsis Recent Fever Within 48 Hours Sepsis Action Taken by Nursing 03/15/19 14:34 03/15/19 15:00 03/15/19 15:25 Temperature Temperature Source Pulse Rate 58 L 54 L 58 L Pulse Rate from SpO2 Sensor 54 L 58 L Pulse Rhythm Pulse Strength Respiratory Rate 23 16 17 Respiratory Effort / Characteristics Respiratory Depth Respiratory Pattern Blood Pressure 116/64 Blood Pressure Mean 81 Blood Pressure Position Pulse Oximetry 97 99 Oxygen Delivery Method Sepsis Recent Fever Within 48 Hours Sepsis Action Taken by Nursing 03/15/19 15:30 03/15/19 16:01 03/15/19 16:30 Temperature Temperature Source Pulse Rate 55 L 87 62 Pulse Rate from SpO2 Sensor 54 L 61 Pulse Rhythm Pulse Strength Respiratory Rate 19 15 15 Respiratory Effort / Characteristics Respiratory Depth Respiratory Pattern Blood Pressure 123/64 151/74 H Blood Pressure Mean 83 94 Blood Pressure Position Pulse Oximetry 99 96 Oxygen Delivery Method Sepsis Recent Fever Within 48 Hours Sepsis Action Taken by Nursing 03/15/19 17:00 03/15/19 17:30 Temperature Temperature Source Pulse Rate 66 63 Pulse Rate from SpO2 Sensor 66 61 Pulse Rhythm Pulse Strength Respiratory Rate 20 23 Respiratory Effort / Characteristics Respiratory Depth Respiratory Pattern Blood Pressure 134/73 140/79 Blood Pressure Mean 77 89 Blood Pressure Position Pulse Oximetry 99 98 Oxygen Delivery Method Room Air Sepsis Recent Fever Within 48 Hours Sepsis Action Taken by Nursing GENERAL: Awake, alert, uncomfortable-appearing, in no distress HENT: Normocephalic, atraumatic. Oropharynx with dry mucous membranes and otherwise unremarkable. EYES: Normal conjunctiva. Sclera non-icteric. NECK: Supple. No nuchal rigidity. FROM. No JVD. RESPIRATORY: CTAB. CARDIAC: Regular rate, normal rhythm. Extremities warm and well perfused. Pulses equal. ABDOMEN: Soft, non-distended. No tenderness to palpation. No rebound or guarding. No masses. RECTAL: Deferred. MUSCULOSKELETAL: Mild discomfort of the mid thoracic paraspinal muscles. Chest examination reveals no tenderness. The back is symmetrical on inspection without obvious abnormality. There is no CVA tenderness to palpation. No joint edema. LOWER EXTREMITIES: Calves are equal size bilaterally and non-tender. No edema. No discoloration. NEURO: Normal sensorium. No sensory or motor deficits noted. 5/5 strength. SILT x 4 extremities. Normal reflexes. SKIN: No rash or jaundice noted. Course Course 1310: The patient was evaluated in room A12B, and a complete history and physical examination were performed. 1537: I reevaluated the patient at this time. 1544: I discussed the patients case with Leslye Britton General surgery SUZANNA. She will review the patients case and call back. 1632: I discussed the patients case with Dr. Marshall ARRIOLA general surgeon. He recommends that the patient come into the hospital for observation. 1646: I discussed the patients case with Li Javier PA-C. [facility] will evaluate the patient for further management. Administered Medications Atorvastatin Calcium (Lipitor) 40 mg PO HS [facility] Stop: 04/14/19 20:59 Last Admin: 03/15/19 21:30 Dose: 40 mg Documented by: [id number] Baclofen (Lioresal) 20 mg PO BID ANDREY Stop: 04/14/19 20:59 Last Admin: 03/15/19 21:30 Dose: 20 mg Documented by: [id number] Docusate Sodium (Colace) 100 mg PO BID ANDREY Stop: 04/14/19 20:59 Last Admin: 03/15/19 21:30 Dose: 100 mg Documented by: [id number] Ipratropium [place] (Atrovent Nasal [place] 0.06%) 2 sprays KONRAD BID [facility] Stop: 04/14/19 20:59 Last Admin: 03/15/19 21:30 Dose: Not Given Documented by: [id number] Oxycodone HCl (Roxicodone Immediate Rel) 2.5 - 5 mg PO Q8H PRN PRN Reason: severe pain Stop: 03/29/19 21:44 Last Admin: 03/15/19 22:29 Dose: 2.5 mg Documented by: [id number] Trazodone HCl (Desyrel) 100 mg PO HS [facility] Stop: 04/14/19 20:59 Last Admin: 03/15/19 21:31 Dose: 100 mg Documented by: [id number] Discontinued Medications Acetaminophen (Tylenol) Confirm Administered Dose 500 mg .ROUTE .STK-MED ONE Stop: 03/15/19 19:32 Last Admin: 03/15/19 19:32 Dose: 500 mg Documented by: [id number] Al Hydrox/Mg Hydrox/Simethicone () 1 dose PO ONE ONE Stop: 03/15/19 13:20 Last Admin: 03/15/19 13:45 Dose: 1 dose Documented by: [id number] Famotidine (Pepcid) 20 mg PO NOW ONE Stop: 03/15/19 13:20 Last Admin: 03/15/19 13:45 Dose: 20 mg Documented by: [id number] Sodium Chloride (Nss) 500 mls @ 999 mls/hr IV .Q31M ONE Stop: 03/15/19 13:13 Last Infusion: 03/15/19 13:30 Dose: 0 mls/hr Documented by: [id number] Admin: 03/15/19 12:48 Dose: 999 mls/hr Documented by: [id number] Ioversol (Optiray 320 125ml) 118 ml IV ONCE PRN PRN Reason: Interaction Checking Stop: 03/19/19 14:23 Last Admin: 03/15/19 14:24 Dose: 118 ml Documented by: [id number] Medical Decision Making Differential Diagnosis Differential diagnoses includes but is not limited to acute coronary syndrome, myocardial infarction, pericarditis, pulmonary embolus, aortic dissection, pneumonia, pneumothorax, musculoskeletal, shingles, esophageal. Medical Records Attestation: I reviewed the patient's medical records. Home Medications Current Medication List: was personally reviewed by me Laboratory Data Attestation: I reviewed the patient's lab results. Result diagrams: 03/15/19 20:20 03/15/19 12:34 Lab Results 03/15/19 03/15/19 03/15/19 Range/Units 12:34 12:34 13:45 WBC 8.42 (4.8-10.8) K/uL RBC 4.78 (4.7-6.1) M/uL Hgb 13.3 L (14.0-18.0) g/dL Hct 42.6 (42-52) % MCV 89.1 (80-100) fL MCH 27.8 (25-34) pg MCHC 31.2 L (32-36) g/dL RDW Std Deviation 43.8 (36.4-46.3) fL RDW Coeff of Sukhdev 13.3 (11.5-14.5) % Plt Count 148 (130-400) K/uL MPV 10.9 H (7.4-10.4) fL Immature Gran % (Auto) 0.1 % Neut % (Auto) 62.1 % Lymph % (Auto) 29.5 % [place]he % (Auto) 6.8 % Eos % (Auto) 1.4 % Baso % (Auto) 0.1 % Immature Gran # (Auto) 0.01 (0.00-0.02) K/uL Neut # (Auto) 5.23 (1.4-6.5) K/uL Lymph # (Auto) 2.48 (1.2-3.4) K/uL Ashe # (Auto) 0.57 (0.11-0.59) K/uL Eos # (Auto) 0.12 (0-0.5) K/uL Baso # (Auto) 0.01 (0-0.2) K/uL Sodium 143 (136-145) mmol/L Potassium 4.0 (3.5-5.1) mmol/L Chloride 108 H (98-107) mmol/L Carbon Dioxide 29 (21-32) mmol/L Anion Gap 6.0 (3-11) BUN 16 (7-18) mg/dl Creatinine 1.20 (0.6-1.4) mg/dl Est Cr Clr Drug Dosing 48.2 ml/min Est GFR ( Amer) 64.4 Est GFR (Non-Af Amer) 55.6 BUN/Creatinine Ratio 13.5 (10-20) Glucose 117 H (70-99) mg/dl Calcium 10.3 H (8.5-10.1) mg/dl Phosphorus 3.4 (2.5-4.9) mg/dl Magnesium 2.1 (1.8-2.4) mg/dl Total Bilirubin 0.5 (0.2-1) mg/dl AST 17 (15-37) U/L ALT 27 (12-78) U/L Alkaline Phosphatase 51 (45-117) U/L Troponin I < 0.015 (0-0.045) ng/ml Total Protein 7.0 (6.4-8.2) gm/dl Albumin 3.6 (3.4-5.0) gm/dl Globulin 3.4 (2.5-4.0) gm/dl Albumin/Globulin Ratio 1.1 (0.9-2) Lipase 155 (73-393) U/L TSH 0.745 (0.300-4.500) uIu/ml Urine Color Dark Yellow Urine Appearance Clear (Clear) Urine pH 5.0 (4.5-7.5) Ur Specific [place] 1.026 (1.000-1.030) Urine Protein 1+ H (Negative) Urine Glucose (UA) Negative (Negative) Urine Ketones Trace H (Negative) Urine Blood Negative (Negative) Urine Nitrite Negative (Negative) Urine Bilirubin Negative (Negative) Urine Urobilinogen Negative (Negative) Ur Leukocyte Esterase Negative (Negative) Urine WBC (Auto) 1-5 (0-5) /hpf Urine RBC (Auto) 0-4 (0-4) /hpf U Hyaline Cast (Auto) 10-30 H (0-5) /lpf U Epithel Cells (Auto) 10-20 H (0-5) /lpf Urine Bacteria (Auto) Negative (Negative) 03/15/19 Range/Units 14:01 WBC (4.8-10.8) K/uL RBC (4.7-6.1) M/uL Hgb (14.0-18.0) g/dL Hct (42-52) % MCV (80-100) fL MCH (25-34) pg MCHC (32-36) g/dL RDW Std Deviation (36.4-46.3) fL RDW Coeff of Sukhdev (11.5-14.5) % Plt Count (130-400) K/uL MPV (7.4-10.4) fL Immature Gran % (Auto) % Neut % (Auto) % Lymph % (Auto) % [place]he % (Auto) % Eos % (Auto) % Baso % (Auto) % Immature Gran # (Auto) (0.00-0.02) K/uL Neut # (Auto) (1.4-6.5) K/uL Lymph # (Auto) (1.2-3.4) K/uL [place]he # (Auto) (0.11-0.59) K/uL Eos # (Auto) (0-0.5) K/uL Baso # (Auto) (0-0.2) K/uL Sodium (136-145) mmol/L Potassium (3.5-5.1) mmol/L Chloride (98-107) mmol/L Carbon Dioxide (21-32) mmol/L Anion Gap (3-11) BUN (7-18) mg/dl Creatinine (0.6-1.4) mg/dl Est Cr Clr Drug Dosing ml/min Est GFR ( Amer) Est GFR (Non-Af Amer) BUN/Creatinine Ratio (10-20) Glucose (70-99) mg/dl Calcium (8.5-10.1) mg/dl Phosphorus (2.5-4.9) mg/dl Magnesium (1.8-2.4) mg/dl Total Bilirubin (0.2-1) mg/dl AST (15-37) U/L ALT (12-78) U/L Alkaline Phosphatase (45-117) U/L Troponin I < 0.015 (0-0.045) ng/ml Total Protein (6.4-8.2) gm/dl Albumin (3.4-5.0) gm/dl Globulin (2.5-4.0) gm/dl Albumin/Globulin Ratio (0.9-2) Lipase (73-393) U/L TSH (0.300-4.500) uIu/ml Urine Color Urine Appearance (Clear) Urine pH (4.5-7.5) Ur Specific [place] (1.000-1.030) Urine Protein (Negative) Urine Glucose (UA) (Negative) Urine Ketones (Negative) Urine Blood (Negative) Urine Nitrite (Negative) Urine Bilirubin (Negative) Urine Urobilinogen (Negative) Ur Leukocyte Esterase (Negative) Urine WBC (Auto) (0-5) /hpf Urine RBC (Auto) (0-4) /hpf U Hyaline Cast (Auto) (0-5) /lpf U Epithel Cells (Auto) (0-5) /lpf Urine Bacteria (Auto) (Negative) Imaging Data Radiologist's Impression: Radiology results as stated below per my review and the radiologist's interpretation: CT angio chest dissec wo/w con CT DOSE: 828.06 mGy.cm HISTORY: Pain chest pain to back TECHNIQUE: Multiaxial CT images of the chest, abdomen, and pelvis were performed both before and after the intravenous administration of contrast to evaluate the aorta. Maximal intensity projection images were also obtained. A dose lowering technique was utilized adhering to the principles of ALARA. COMPARISON STUDY: 02/10/2018 FINDINGS: The thoracic aorta shows minimal atherosclerotic change. There is no evidence for aneurysm or dissection. No significant mediastinal or hilar adenopathy. Evaluation of the lung parenchyma shows no focal infiltrative change. There is minimal dependent basilar atelectatic change. There is suggestion of a multifocal splenic laceration versus subcapsular hematoma. There is no significant perisplenic fluid. There is a small pre-existing secondary and/or ac cessory spleen medial to the superior aspect of the spleen. A small hiatal hernia is present. IMPRESSION: 1. No evidence for aortic dissection. 2. Lungs are clear. 3. Apparent splenic rupture versus laceration with no significant perisplenic fluid at this time. ACT 112: Negative or not required by law. The above report was generated using voice recognition software. It may contain grammatical, syntax or spelling errors. Electronically signed by: Amish Hayes M.D. 03/15/2019 2:54 PM XR chest 1V portable CLINICAL HISTORY: Atypical chest pain COMPARISON STUDY: 02/08/2019 FINDINGS: The cardiac and mediastinal contours are normal. There is no evidence of focal pulmonary consolidation. There is no evidence of failure. No pleural effusions are visualized.[ IMPRESSION: No active disease in the chest. ACT 112: Negative or not required by law. Electronically signed by: Rhett Hameed M.D. 03/15/2019 1:11 PM ECG Data Attestation: I personally reviewed and interpreted this ECG as follows: Indication: + chest pain Rate (beats per minute): 68 Rhythm: + normal sinus ECG [place]: + Normal ECG ST segments: no ST depression and no ST elevation ECG Findings: + Other (QT-c 414. QRS 90.); no PACs and no PVCs Blood Pressure Blood Pressure Findings: Elevated blood pressure Blood Pressure Disposition: further management by hospitalist ANDREEA Fair The patient is a pleasant 83-year-old gentleman with a past medical history of CVA with hemorrhagic conversion who presents emergency department with chest pain which radiates to his back per HPI. On arrival the patient is uncomfortable no acute distress, afebrile with stable vital signs. EKG without overt acute ischemia. Chest x-ray negative for acute process. WBC and platelets wnl. H/H 12.9/40.3 similar to prior values. Chemistry without acidosis. Ca 10.3 slightly increased from prior. Otherwise, LFTs and electrolytes unremarkable. UA negative for infection. Troponin negative/undetectable. CTA of the chest was performed with dissection protocol and negative for dissection. However there was note made of evidence of a splenic laceration versus rupture without any ac tive hemorrhage. Patient was reevaluated and he was feeling improved after IV fluid hydration and APAP. Abdomen continued to be nontender. Case was discussed with General surgery on-call, Merissa Womack PAC and Dr. Olivares, who evaluated the patient at the bedside and reviewed his imaging jointly with radiology, Dr. Hayes. Unclear significance to CT findings at this time. However, recommends admission to [facility] for monitoring of his pain and trending of his H&H. They will follow the patient. Case was discussed with Atuumn Neves PA-C, who evaluate the patient for admission. Impression & Plan Atypical chest pain, Spleen hematoma, History of cerebrovascular accident, Aspirin long-term use Discharge Plan Visit Data *Final* Discharge Date/Time: 03/15/19 19:26 Chief Complaint: Chest Pain Stated Complaint: CHEST PAIN, SLIGHT ARM PAIN, NECK PAIN ED Provider: Aiden Otoole Discharge Problem: Atypical chest pain, Spleen hematoma, History of cerebrovascular accident, Aspirin long-term use Patient Disposition: Admitted As Inpatient Discharge Instructions Interventions: ED Discharge Assessment Last Done: 03/15/19 19:26 Discharge Problem: Spleen hematoma Qualifiers: Encounter type: initial encounter Qualified Code(s): S36.029A - Unspecified contusion of spleen, initial encounter The scribe's documentation has been prepared under my direction and personally reviewed by me in its entirety. I confirm that the note above accurately reflects all work, treatment, procedures, and medical decision making performed by me.
[2019-03-15] MEDS ORDERED: ACETAMINOPHEN 500 MG TAB ONE (19:31)
[2019-03-15] MEDS ORDERED: BUTALBITAL/ACETAMIN/CAFFEINE TAB PO PRN (20:03)
[2019-03-15] MEDS ORDERED: NITROGLYCERIN SL 0.4 MG/TAB TAB SL PRN (20:03)
[2019-03-15] MEDS ORDERED: ACETAMINOPHEN 500 MG TAB PO PRN (20:03)
[2019-03-15] MEDS ORDERED: LORazepam 1 MG TAB PO PRN (20:03)
[2019-03-15 20:42] LABS: Hematocrit (blood only) 40.3 % (42-52); Hemoglobin 12.9 g/dL (14.0-18.0)
[2019-03-15] MEDS ORDERED: NON-FORMULARY MEDICATION (Coenzyme Q10 [Co Q-10] 100 MG) PO SCH (21:00)
[2019-03-15] MEDS: DOCUSATE SODIUM 100 MG CAP PO SCH (21:30)
[2019-03-15] MEDS: ATORVASTATIN 40 MG TAB PO SCH (21:30)
[2019-03-15] MEDS: BACLOFEN 20 MG TAB PO SCH (21:30)
[2019-03-15] MEDS: IPRATROPIUM BROMIDE NASAL SPRAY 0.06% 15ML NAE SCH (21:30)
[2019-03-15] MEDS: TRAZODONE HCL 100 MG TAB PO SCH (21:31)
[2019-03-15] MEDS: OXYCODONE HCL IR 5 MG TAB (IMMEDIATE RELEASE) PO PRN (22:29)
[2019-03-16 06:22] LABS: Hematocrit (blood only) 40.1 % (42-52); Hemoglobin 12.4 g/dL (14.0-18.0); Mean Corpuscular Hemoglobin 27.2 pg (25-34); Mean Corpuscular Hgb Conc 30.9 g/dL (32-36); Mean Corpuscular Volume 87.9 fL (80-100); Mean Platelet Volume 10.5 fL (7.4-10.4); Platelet Count 147 K/uL (130-400); RDW Coefficient of Variation 13.4 % (11.5-14.5); RDW Standard Deviation 43.1 fL (36.4-46.3); Red Blood Count 4.56 M/uL (4.7-6.1); White Blood Count 5.65 K/uL (4.8-10.8)
[2019-03-16 07:00] LABS: BUN Creatinine Ratio 15.7 (10-20); Creatinine Clr Calc Pharmacy 61.5 ml/min; Est GFR (African American) 86.6; Est GFR (Non-African American) 74.7; Potassium 4.2 mmol/L (3.5-5.1)
[2019-03-16] MEDS: IPRATROPIUM BROMIDE NASAL SPRAY 0.06% 15ML NAE SCH ×2 (08:46→20:42)
[2019-03-16] MEDS: SERTRALINE HCL 50 MG TABLET PO SCH (08:47)
[2019-03-16] MEDS: DIVALPROEX DELAY RELEASE 250 MG TABEC PO SCH (08:48)
[2019-03-16] MEDS: CHOLECALCIFEROL 1,000 UNITS TAB PO SCH (08:48)
[2019-03-16] MEDS: ASPIRIN 81 MG ECTAB PO SCH (08:48)
[2019-03-16] MEDS: VITAMIN B COMPLEX TAB PO SCH (08:48)
[2019-03-16] MEDS: BACLOFEN 20 MG TAB PO SCH ×2 (08:49→20:41)
[2019-03-16] MEDS: LORATADINE 10 MG TAB PO SCH (08:49)
[2019-03-16] MEDS: DOCUSATE SODIUM 100 MG CAP PO SCH ×2 (08:49→20:40)
[2019-03-16] MEDS ORDERED: NON-FORMULARY MEDICATION (Zinc Gluconate 50 MG) PO SCH (09:00)
[2019-03-16] MEDS ORDERED: MAGNESIUM OXIDE 400 MG TAB PO SCH (09:00)
[2019-03-16] MEDS ORDERED: POLYETHYLENE (MIRALAX) 17 GM PACK PO PRN (11:36)
[2019-03-16] MEDS: SENNA 8.6 MG TAB PO SCH ×2 (12:08→20:40)
[2019-03-16] MEDS: FAMOTIDINE 20 MG TAB PO SCH ×2 (12:08→20:40)
--- NOTE | 2019-03-16 14:27 | Surgery Progress Note ---
Date of Service March 16, 2019 Assessment & Plan (1) Atypical chest pain: 83 year-old male who presented to ED with nausea and pain in left shoulder and back. History of fall off ladder in August or September however had CT scan of abdomen and pelvis in November which showed no abnormalities of the spleen at that time. Hemodynamically stable, no leukocytosis, H&H 13.3/42.6. No abdominal pain. Abdominal examination benign. H&H 12.4/40.1 today Plan: Unsure of exact etiology of splenic abnormality. Could be chronic splenic laceration vs hematoma vs infarct vs metastatic disease (however does not have any known primary lesions). He has had no recent trauma. Likely more of a chronic etiology than acute/subacute. Monitor abdominal examination, H&H, and vital signs. No need for surgical intervention at this time. Can advance diet as tolerated Will follow along Dr. Olivares has seen and examined patient, agrees with above Supervising Physician Co-Signing Physician Notes I interviewed and examined this patient I agree with the above note. His abdomen is benign by exam. His H&H is stable. There is no evidence of bleeding. We will continue with conservative measures. Subjective had some right shoulder pain, better with movement no abdominal pain, n/v tolerating clear liquids passing gas but no bowel movement Physical Exam Constitutional: WD/WN, vitals as above no acute distress Respiratory: normal respiratory effort; no respiratory distress Gastrointestinal (Abdomen): Inspection/Auscultation: abdomen normal to inspection and normal bowel sounds; abdomen not distended Percussion/Palpation: abdomen soft; abdomen nontender, no guarding and abdomen not rigid Skin: no rashes, warm and dry Psychiatric: A+Ox3, euthymic affect Results & Data Vital Signs (Past 12 Hours) Vital Signs Temp Pulse Pulse Resp BP Pulse Ox 03/16/19 12:16 36.9 C 68 18 123/69 93 03/16/19 08:25 36.8 C 58 L 20 112/57 L 90 03/16/19 08:00 58 L 03/16/19 04:03 36.8 C 55 L 17 106/62 96 Laboratory Results 03/16/19 03/16/19 03/15/19 Range/Units 05:49 05:49 20:20 WBC 5.65 (4.8-10.8) K/uL RBC 4.56 L (4.7-6.1) M/uL Hgb 12.4 L 12.9 L (14.0-18.0) g/dL Hct 40.1 L 40.3 L (42-52) % MCV 87.9 (80-100) fL MCH 27.2 (25-34) pg MCHC 30.9 L (32-36) g/dL RDW Std Deviation 43.1 (36.4-46.3) fL RDW Coeff of Sukhdev 13.4 (11.5-14.5) % Plt Count 147 (130-400) K/uL MPV 10.5 H (7.4-10.4) fL Sodium 143 (136-145) mmol/L Potassium 4.2 (3.5-5.1) mmol/L Chloride 108 H (98-107) mmol/L Carbon Dioxide 31 (21-32) mmol/L Anion Gap 4.0 (3-11) BUN 15 (7-18) mg/dl Creatinine 0.94 (0.6-1.4) mg/dl Est Cr Clr Drug Dosing 61.5 ml/min Est GFR ( Amer) 86.6 Est GFR (Non-Af Amer) 74.7 BUN/Creatinine Ratio 15.7 (10-20) Glucose 94 (70-99) mg/dl Calcium 10.0 (8.5-10.1) mg/dl Troponin I (0-0.045) ng/ml 03/15/19 03/15/19 Range/Units 20:20 14:01 WBC (4.8-10.8) K/uL RBC (4.7-6.1) M/uL Hgb (14.0-18.0) g/dL Hct (42-52) % MCV (80-100) fL MCH (25-34) pg MCHC (32-36) g/dL RDW Std Deviation (36.4-46.3) fL RDW Coeff of Sukhdev (11.5-14.5) % Plt Count (130-400) K/uL MPV (7.4-10.4) fL Sodium (136-145) mmol/L Potassium (3.5-5.1) mmol/L Chloride (98-107) mmol/L Carbon Dioxide (21-32) mmol/L Anion Gap (3-11) BUN (7-18) mg/dl Creatinine (0.6-1.4) mg/dl Est Cr Clr Drug Dosing ml/min Est GFR ( Amer) Est GFR (Non-Af Amer) BUN/Creatinine Ratio (10-20) Glucose (70-99) mg/dl Calcium (8.5-10.1) mg/dl Troponin I < 0.015 < 0.015 (0-0.045) ng/ml
--- NOTE | 2019-03-16 17:00 | Hospitalist Progress Note ---
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 Atypical Chest Pain Presented with abdominal/lower chest pain that is since resolved with GI cocktail and Pepcid during presentaion Chest CTA was negative for aortic dissection but did reveal apparent splenic rupture versus laceration with no significant perisplenic fluid at this time Cardiac enzymes negative EKG no signs of acute ischemia Limited echo pending Continue aspirin, statin Continue Pepcid Abnormal CT Possible splenic rupture Vs laceration Vs subcapsular hematoma H/O fall off ladder in September 2018 No recent Fall/Trauma as per patient ? 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 Continue aspirin, statin (6) Seizure disorder: Continue Depakote (7) Anxiety and depression: Continue home medication DVT Px: SCDs Code status: Full Code PCP: Chiquita Disposition: PT/OT prior to discharge Subjective Patient is seen and examined at bedside Reports constipation States right-sided chest pain, shoulder pain improved Denies any nausea, vomiting, dizziness, abdominal pain Family at bedside Offers no other complaints Review of Systems Review of Systems: All systems reviewed & are unremarkable except as noted in HPI & below Physical Exam Physical Exam: Physical Exam: Vitals signs as noted above General Appearance:Moderately built and nourished, no apparent distress Head: normocephalic, Atraumatic Eyes: normal inspection, EOMI Neck: supple, Trachea midline Respiratory/Chest: Normal breath sounds, CTA Cardiovascular: S1, S2, No murmur Abdomen/GI:Soft, Non tender, No guarding, rigidity, Bowel sounds present Extremities/Musculoskelatal:normal inspection, no edema Neurologic/Psych:AAOX3, grossly no focal neurological deficits Skin: normal color, warm Results & Data Vital Signs (Past 12 Hours) Vital Signs Temp Pulse Pulse Resp BP Pulse Ox 03/16/19 15:53 36.6 C 61 20 112/63 96 03/16/19 12:16 36.9 C 68 18 123/69 93 03/16/19 08:25 36.8 C 58 L 20 112/57 L 90 03/16/19 08:00 58 L Laboratory Results Short CBC 03/15/19 03/16/19 Range/Units 20:20 05:49 WBC 5.65 (4.8-10.8) K/uL Hgb 12.9 L 12.4 L (14.0-18.0) g/dL Hct 40.3 L 40.1 L (42-52) % Plt Count 147 (130-400) K/uL BMP 03/16/19 05:49 Sodium 143 Potassium 4.2 Chloride 108 H Carbon Dioxide 31 BUN 15 Creatinine 0.94 Glucose 94 Calcium 10.0 Cardiac Enzymes 03/15/19 Range/Units 20:20 Troponin I < 0.015 (0-0.045) ng/ml (1) Spleen hematoma Encounter type: initial encounter Qualified Code(s): S36.029A - Unspecified contusion of spleen, initial encounter
[2019-03-16] MEDS: ATORVASTATIN 40 MG TAB PO SCH (20:41)
[2019-03-16] MEDS: TRAZODONE HCL 100 MG TAB PO SCH (22:32)
[2019-03-16] MEDS: OXYCODONE HCL IR 5 MG TAB (IMMEDIATE RELEASE) PO PRN (22:33)
[2019-03-17 05:45] LABS: Hematocrit (blood only) 38.4 % (42-52); Hemoglobin 12.1 g/dL (14.0-18.0); Mean Corpuscular Hemoglobin 27.6 pg (25-34); Mean Corpuscular Hgb Conc 31.5 g/dL (32-36); Mean Corpuscular Volume 87.7 fL (80-100); Mean Platelet Volume 10.3 fL (7.4-10.4); Platelet Count 139 K/uL (130-400); RDW Coefficient of Variation 13.2 % (11.5-14.5); RDW Standard Deviation 42.5 fL (36.4-46.3); Red Blood Count 4.38 M/uL (4.7-6.1); White Blood Count 5.82 K/uL (4.8-10.8)
[2019-03-17 06:23] LABS: BUN Creatinine Ratio 13.8 (10-20); Calcium 9.4 mg/dl (8.5-10.1); Creatinine Clr Calc Pharmacy 59.6 ml/min; Est GFR (African American) 83.3; Est GFR (Non-African American) 71.9; Potassium 3.8 mmol/L (3.5-5.1)
[2019-03-17] MEDS: FAMOTIDINE 20 MG TAB PO SCH (08:47)
[2019-03-17] MEDS: ASPIRIN 81 MG ECTAB PO SCH (08:49)
[2019-03-17] MEDS: DIVALPROEX DELAY RELEASE 250 MG TABEC PO SCH (08:50)
[2019-03-17] MEDS: SERTRALINE HCL 50 MG TABLET PO SCH (08:50)
[2019-03-17] MEDS: VITAMIN B COMPLEX TAB PO SCH (08:51)
[2019-03-17] MEDS: LORATADINE 10 MG TAB PO SCH (08:51)
[2019-03-17] MEDS: CHOLECALCIFEROL 1,000 UNITS TAB PO SCH (08:51)
[2019-03-17] MEDS: IPRATROPIUM BROMIDE NASAL SPRAY 0.06% 15ML NAE SCH (08:52)
[2019-03-17] MEDS: BACLOFEN 20 MG TAB PO SCH (08:52)
[2019-03-17] MEDS ORDERED: LOPERAMIDE HCL 2 MG CAP PO PRN (09:18)
[2019-03-17 11:09] VITALS: PULSE 66; TEMP 97.9; O2SAT 98
--- NOTE | 2019-03-17 11:09 | Hospitalist Progress Note ---
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 Atypical Chest Pain--Resolved Presented with abdominal/lower chest pain that is since resolved with GI cocktail and Pepcid during presentaion Chest CTA was negative for aortic dissection but did reveal apparent splenic rupture versus laceration with no significant perisplenic fluid at this time Cardiac enzymes negative EKG no signs of acute ischemia ECHO: No Regional no wall motion abnormalities Continue aspirin, statin Continue Pepcid Abnormal CT Possible splenic rupture Vs laceration Vs subcapsular hematoma H/O fall off ladder in September 2018 No recent Fall/Trauma as per patient ? 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 Continue aspirin, statin (6) Seizure disorder: Continue Depakote (7) Anxiety and depression: Continue home medication DVT Px: SCDs Code status: Full Code PCP: Chiquita Disposition: Plan to discharge home Subjective Patient is seen and examined at bedside Constipation resolved Has some loose BMs from stool softners No Chest pain or shoulder or Abdominal pain today Had PT eval today Also denies any nausea, vomiting, dizziness Review of Systems Review of Systems: All systems reviewed & are unremarkable except as noted in HPI & below Physical Exam Physical Exam: Physical Exam: Vitals signs as noted above General Appearance:Moderately built and nourished, no apparent distress Head: normocephalic, Atraumatic Eyes: normal inspection, EOMI Neck: supple, Trachea midline Respiratory/Chest: Normal breath sounds, CTA Cardiovascular: S1, S2, No murmur Abdomen/GI:Soft, Non tender, No guarding, rigidity, Bowel sounds present Extremities/Musculoskelatal:normal inspection, no edema Neurologic/Psych:AAOX3, grossly no focal neurological deficits Skin: normal color, warm Results & Data Vital Signs (Past 12 Hours) Vital Signs Temp Pulse Pulse Resp BP Pulse Ox 03/17/19 07:36 36.5 C 56 L 16 124/71 96 03/17/19 07:00 61 03/17/19 04:00 36.8 C 60 16 126/77 99 03/17/19 02:00 72 03/16/19 23:14 36.5 C 69 18 122/78 97 Laboratory Results Short CBC 03/17/19 Range/Units 05:29 WBC 5.82 (4.8-10.8) K/uL Hgb 12.1 L (14.0-18.0) g/dL Hct 38.4 L (42-52) % Plt Count 139 (130-400) K/uL BMP 03/17/19 05:29 Sodium 140 Potassium 3.8 Chloride 108 H Carbon Dioxide 30 BUN 13 Creatinine 0.97 Glucose 93 Calcium 9.4 (1) Spleen hematoma Encounter type: initial encounter Qualified Code(s): S36.029A - Unspecified contusion of spleen, initial encounter
--- NOTE | 2019-03-17 12:43 | Discharge Summary ---
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 Patient endorses nausea beginning last evening and then pain in abdomen, lower chest, and bilateral shoulders starting earlier today. Thinks that shoulder pain may be related to ongoing musculoskeletal issues, with known cervical disc disease with last injection 6 months ago. Was given GI cocktail and Pepcid in the ED with resolution of abdominal and lower chest pain. Still having dull aching pain in bilateral shoulders. Underwent a chest CTA that was negative for aortic dissection but did reveal apparent splenic rupture versus laceration with no significant perisplenic fluid at this time. Was evaluated by surgical service, who are unsure of exact etiology of splenic abnormality but considering chronic splenic laceration vs hematoma vs infarct vs metastatic disease (though no known primary lesion) in differential. Did have a CT abdomen pelvis performed in November that did not show any abnormalities of the spleen at that time. Patient is afebrile and hemodynamically stable. H&H stable at 13.3/42.6. No recent trauma. Per surgery, likely more of a chronic etiology than acute/subacute but recommend observing for 1 to 2 days to continue monitoring vital signs and H&H. Okay to have clear liquids. Currently patient only endorsing shoulder discomfort. Denies any fever, chills, lightheadedness, visual changes, chest pain, shortness of breath, nausea, vomiting, abdominal pain, dysuria, diarrhea or constipation. Admission Exam Per Admitting Provider Physical Exam Physical Exam: General Appearance: WD/WN, vitals as above, NAD, sitting up in bed, pleasant, conversing easily Head: normocephalic, atraumatic Eyes: normal inspection, PERRL, conjunctivae normal, anicteric sclerae ENT: external ear and nose normal, oropharynx normal Neck: trachea midline, no thyromegaly normal visual inspection Respiratory: lungs clear to auscultation, no wheeze, rales, rhonchi. Normal insp/exp effort, no accessory muscle use Cardiovascular: regular rate, rhythm, no murmur, normal peripheral pulses. Vessels: no JVD or carotid bruit Chest: normal inspection of chest, chest wall non-tender to palpation Abdomen/GI: normal bowel sounds, soft, nontender, no hepatosplenomegaly Extremities/Musculoskelatal: TTP along bony processes of clavicle and AC joints bilaterally. No Spinal TTP or deformities noted. No cyanosis or clubbing, extremities motor strength 5/5 Neurologic: PERRL, EOMI, accommodation nl, no face palsy, no dysarthria, CN's II-XI intact bilaterally and moves all extremities Psychiatric: A+Ox3, euthymic affect Skin: no rashes, normal color, warm/dry Principal Diagnosis Atypical chest pain Possible splenic rupture/laceration/hematoma Discharge Data Allergies Allergy/AdvReac Type Severity Reaction Status Date / Time vaccine adjuvant system, Allergy Intermediate HIVES AND Verified 03/15/19 13:22 AS01B liposomal SORENESS [From Shingrix (PF)] AT INJECTION SITE varicella-zoster virus Allergy Intermediate HIVES AND Verified 03/15/19 13:22 glycoprotein E, recombinant SORENESS [From Shingrix (PF)] AT INJECTION SITE celecoxib [From Celebrex] Allergy Unknown Unknown Verified 03/15/19 13:22 duloxetine [From Cymbalta] Allergy Unknown Unknown Verified 03/15/19 13:22 tramadol Allergy Unknown Unknown Verified 03/15/19 13:22 Consultations 03/15/19 16:48 ED Decision to Admit Stat 03/15/19 20:03 Consult General Surgery Routine Procedures Performed Chest CTA: 1. No evidence for aortic dissection. 2. Lungs are clear. 3. Apparent splenic rupture versus laceration with no significant perisplenic fluid at this time. 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 Atypical Chest Pain--Resolved Presented with abdominal/lower chest pain that is since resolved with GI cocktail and Pepcid during presentaion Chest CTA was negative for aortic dissection but did reveal apparent splenic rupture versus laceration with no significant perisplenic fluid at this time Cardiac enzymes negative EKG no signs of acute ischemia ECHO: No Regional no wall motion abnormalities Continue aspirin, statin Continue Pepcid Abnormal CT Possible splenic rupture Vs laceration Vs subcapsular hematoma H/O fall off ladder in September 2018 No recent Fall/Trauma as per patient ? 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 Continue aspirin, statin (6) Seizure disorder: Continue Depakote (7) Anxiety and depression: Continue home medication DVT Px: SCDs Code status: Full Code PCP: Chiquita Disposition: Plan to discharge home Total Time Total Time Spent Total Time Spent (In Minutes): 37 minutes Total Time Includes: Examination of the Patient, Discharge Planning, Medication Reconciliation, Communication With Other Providers and Other Discharge Plan Discharge Items Patient Disposition: Home - Self-Care Reason For Visit: STOMACH/LOWER CHEST PAIN Discharge Diagnosis: Atypical chest pain Possible splenic rupture/laceration/hematoma Activity: Resume your previous activity Exercise/Sports: Gradually increase as tolerated Non-emergency contact: Primary Care Provider and Surgeon Call non-emergency contact if: you have any medication questions, your symptoms worsen, your pain is not controlled, your pain is worsening, your pain is unusual for you, your pain is concerning for you and you have a fever Follow-up/Referrals: Scar Porras MD [Primary Care Provider] - Diet: Heart Healthy Addtl Attending Provider Instructions: Follow-up with your primary care physician on Mar 23, 2019 at 11:05 am Follow up with your Surgeon as needed Get repeat CT abdomen in 2 months for evaluation of your spleen Hold taking Colace, Magnesium Oxide if you have diarrhea s advised Seek immediate medical attention if your symptoms reoccur or worsen Pending Studies at Discharge: No Stand-Alone Forms: [employer], Smoking Cessation Medications and DC Order Prescriptions: New famotidine 20 mg Tablet 20 mg PO BID PRN (Reason: Dyspepsia) Qty: 30 RF: 0 Continued odndgkwxwb-dhkodkbwnu-efa-cod [id number] mg capsule 1 cap PO Q4H PRN (Reason: Migraine Headache) RF: 0 docusate sodium [Colace] 100 mg Capsule 100 mg PO BID RF: 0 cholecalciferol (vitamin D3) [Vitamin D3] 2,000 unit Tablet 2,000 unit PO QAM RF: 0 atorvastatin 40 mg Tablet 40 mg PO HS RF: 0 ipratropium bromide 42 mcg (0.06 %) Marissa,Non-Aerosol 2 spray INTRANASAL BID RF: 0 magnesium oxide [MagOx] 400 mg (241.3 mg magnesium) Tablet 400 mg PO QAM RF: 0 tadalafil 20 mg tablet 20 mg PO DAILY PRN (Reason: Erectile Dysfunction) RF: 0 zinc gluconate 50 mg Tablet 50 mg PO DAILY RF: 0 vitamin B complex-folic acid [Super B Maxi Complex] 0.4 mg Tablet 1 tab PO DAILY RF: 0 lorazepam [Ativan] 1 mg tablet 0.5 mg PO BID PRN (Reason: anxiety) RF: 0 sertraline 25 mg Tablet 25 mg PO DAILY RF: 0 aspirin 81 mg Tablet,Delayed Release (Dr/Ec) 81 mg PO DAILY Qty: 0 RF: 0 divalproex 250 mg tablet,delayed release (DR/EC) 250 mg PO DAILY RF: 0 baclofen 20 mg tablet 20 mg PO BID RF: 0 loratadine [Claritin] 10 mg Tablet 10 mg PO QAM RF: 0 coenzyme Q10 [Co Q-10] 100 mg Capsule 100 mg PO BID RF: 0 Prilosec OTC 20 mg Tablet,Delayed Release (Dr/Ec) 20 mg PO QAM RF: 0 yqefkayu-sdvgp-toe7-C-sobeida-bor [Etlwakww-Nqqvh-XCB(with boron)] [id number] mg Tablet 1 tab PO BID RF: 0 trazodone 50 mg Tablet 100 mg PO HS RF: 0 acetaminophen [Tylenol Extra Strength] 500 mg Tablet 500 mg PO Q6H PRN (Reason: Pain) RF: 0 nitroglycerin [Nitrostat] 0.4 mg Tablet, Sublingual 0.4 mg sublingual DIRECTED PRN (Reason: Chest Pain) RF: 0 Discharge Orders: Discharge Order (Routine); Ordered 03/17/19 Ordered By: Sahil Zaman Admission Data Admit Date/Time: 03/15/19 18:24 Attending Provider: Margie Qiu Admit Provider: Kobe Christie Primary Care Provider: Scar Porras I. Other Providers: Kobe Christie ; Amish Olivares ; Sahil Zaman
[2019-03-17 13:17] VITALS: BP 112/63
== END 2019-03-17 14:20 | disposition home or self-care (01) | DRG 313 ==
LOC: ED 12:08 → SUATTDRO 18:24 → 2N 18:24

== ENCOUNTER 2020-10-13 08:04 | Observation (INO) ==
--- NOTE | 2020-10-13 08:35 | XRay Report ---
XR chest 1V portable CLINICAL HISTORY: Atypical chest pain. COMPARISON STUDY: Chest CT March 15, 2019 and chest radiograph March 20, 2019. FINDINGS: Lung volumes are normal. Lungs are clear. There is no pneumothorax or pleural effusion. Car diac size is normal. Mediastinal contours are normal. There is no evidence for pulmonary edema. IMPRESSION: No acute cardiopulmonary findings. ACT 112: Negative or not required by law. Electronically signed by: Piero Hahn M.D. 10/13/2020 8:34 AM
[2020-10-13 08:39] LABS: Basophils # (auto) 0.01 K/uL (0-0.2); Basophils % (auto) 0.1 %; Eosinophils # (auto) 0.15 K/uL (0-0.5); Eosinophils % (auto) 2.2 %; Hematocrit (blood only) 39.1 % (42-52); Hemoglobin 12.9 g/dL (14.0-18.0); Immature Granulocytes # (auto) 0.01 K/uL (0.00-0.02); Immature Granulocytes % (auto) 0.1 %; Lymphocytes # (auto) 2.88 K/uL (1.2-3.4); Lymphocytes % (auto) 41.7 %; Mean Corpuscular Hemoglobin 29.2 pg (25-34); Mean Corpuscular Volume 88.5 fL (80-100); Mean Platelet Volume 10.7 fL (7.4-10.4); Monocytes # (auto) 0.55 K/uL (0.11-0.59); Neutrophils # (auto) 3.31 K/uL (1.4-6.5); Neutrophils % (auto) 47.9 %; Platelet Count 160 K/uL (130-400); RDW Coefficient of Variation 12.9 % (11.5-14.5); RDW Standard Deviation 41.8 fL (36.4-46.3); Red Blood Count 4.42 M/uL (4.7-6.1); White Blood Count 6.91 K/uL (4.8-10.8)
[2020-10-13 08:53] LABS: Partial Thromboplastin Ratio 0.8
[2020-10-13 08:56] LABS: Alanine Aminotransferase 25 U/L (12-78); Albumin Globulin Ratio 1.2 (0.9-2); Albumin Level 3.6 gm/dl (3.4-5.0); Aspartate Aminotransferase 20 U/L (15-37); BUN Creatinine Ratio 27.4 (10-20); Bilirubin,Total 0.3 mg/dl (0.2-1); Blood Urea Nitrogen 24 mg/dl (7-18); Calcium 9.8 mg/dl (8.5-10.1); Carbon Dioxide 29 mmol/L (21-32); Chloride 109 mmol/L (98-107); Creatinine Clr Calc Pharmacy 63.4 ml/min; Est GFR (African American) 90.8 ml/min; Est GFR (Non-African American) 78.3 ml/min; Globulin 3.1 gm/dl (2.5-4.0); Glucose 117 mg/dl (70-99); Lipase 234 U/L (73-393); Potassium 4.2 mmol/L (3.5-5.1); Sodium 141 mmol/L (136-145); Total Protein 6.7 gm/dl (6.4-8.2)
[2020-10-13 08:59] LABS: Alkaline Phosphatase 45 U/L (45-117); Troponin I < 0.015 ng/ml (0-0.045)
--- NOTE | 2020-10-13 08:59 | Communication Note ---
Date of Service: October 13, 2020 This patient was seen in concert with Dr. Hopkins and we discussed and agreed upon the history, physical, assessment, and plan. See attending's note for de tails. Resident Activity Tracking Resident Involvement: Resident Care Provided Care Provided: Adult ED
--- NOTE | 2020-10-13 10:01 | History & Physical Report ---
Date of Service October 13, 2020 Assessment & Plan (1) Atypical chest pain: Plan: - Admit to tele for observation for r/o - Took 3 doses of nitro glycerin this morning prior to coming to the ER, currently chest pain-free - Trend cardiac biomarkers, initial set was negative - EKG reviewed as above, sinus bradycardia - Check 2 D echo; last was 2 years ago in 2019 and had normal EF. - Consult cardiology-follows with Dr. Anders as an outpatient was recently seen in the office earlier this summer - If negative enzymes can consider a stress test tomorrow morning. - PT/OT consulted - Check CTA chest, will administer NSS 500 mL prior to scan. Cr 0.88 on admission. (2) CAD (coronary artery disease): Plan: - Hx of GINNA x 2 in 2008 with stenting to a bifurcating lesion of the LAD and second diagonal - Continue baby aspirin daily - Consult cardiology (3) CVA (cerebral vascular accident): Plan: - November 2018 for ischemic stroke with subsequent hemorrhagic conversion involving the right MCA maintained on aspirin therapy - No motor deficits, ambulates without assistance - Migraines post CVA - following with neurology as outpatient - Noted new medication of Nurtec ODT prn (4) HLD (hyperlipidemia): Plan: - Cont coezyme q10, atorvastatin 40 mg HS (5) Seizure disorder: Plan: -Continue Depakote 250 mg daily -Consider checking level to make sure is therapeutic but not needed currently. No seizure like activity prior to hospitalization. Follows with neurology as outpt. (6) Arthritis: Plan: - R chronic hip pain, continue Tylenol, Percocet, heat application for such -Follows with pain management and has received 3 hip injections in the past (7) Prediabetes: Plan: -Last A1c was 5.7 on 07/07/2020, recheck with a.m. lab -Diet controlled (8) Migraine: Plan: -History of such, follows with neurology as an outpatient status post CVA and chronic migraine issues -No current headache reported, was recently taken off of Fioricet due to rebound headaches, given new prescription for Nurtec ODT 75 mg as needed by neurologist, hold for now, only allowed to take 8 within a 30-day period. DVT PPx: - teds CODE: Full code Dispo: From home, likely to remain in the hospital x 1 day History of Present Illness Chief Complaint: Chest pain Primary Care Provider: Scar Porras MD This is an 85-year-old male with PMHx of CAD in 2008 with GINNA x 2 placed in a bifurcating lesion of the LAD and second diagonal, CVA in November 2018 for ischemic stroke with subsequent hemorrhagic conversion involving the right MCA maintained on aspirin therapy, HLD, anxiety, migraines, chronic R hip pain and prediabetes who presents with acute onset of sharp back pain and subsequent chest pain to the ER. Reports that this back pain occurred at approximately 0600, sharp, between shoulder blades, and then lasted for 30 minutes where it radiated into a substernal chest pain. He took 3 nitro tablets at home, and his brought him to the ER. Since then his back and chest pain has improved. Currently he reports being chest pain-free. He does note that last evening generalized unwell, and thought it was because he only ate corn on the cob for dinner, followed by ice cream and then a small bowl of cereal before he went to bed. Ot her complaints include fatigue, chronic right hip pain and frequent rebound headaches. Denies any shortness of breath, nausea, vomiting associated with the chest pain today. He was scheduled for an outpatient MRI of his head today which has been preapproved by his insurance for migraines, and is wishing to have this conducted here if possible. He reports that he was recently prescribed a new medication, Nurtec 75 mg once a day up to 8 days in a 30-day. But has not trialed this yet as he was supposed to pick it up from pharmacy today. He denies significant headache at this time. He has been eating and drinking well. notes that he seems to be tired all the time, specifically going on for 3 weeks. Patient has received outpatient hip injections for his chronic right hip pain in the past at [facility]. Allergies Allergy/AdvReac Type Severity Reaction Status Date / Time vaccine adjuvant system, Allergy Intermediate HIVES AND Verified 10/13/20 09:51 AS01B liposomal SORENESS [From Shingrix (PF)] AT INJECTION SITE varicella-zoster virus Allergy Intermediate HIVES AND Verified 10/13/20 09:51 glycoprotein E, recombinant SORENESS [From Shingrix (PF)] AT INJECTION SITE celecoxib [From Celebrex] Allergy Unknown Unknown Verified 10/13/20 09:51 duloxetine [From Cymbalta] Allergy Unknown Unknown Verified 10/13/20 09:51 tramadol Allergy Unknown Unknown Verified 10/13/20 09:51 Home Medications Medication Instructions Recorded Confirmed Type cholecalciferol (vitamin D3) 50 2,000 unit PO QAM 02/10/18 10/13/20 History mcg (2,000 unit) tablet (Vitamin D3) docusate sodium 100 mg capsule 100 mg PO BID 02/10/18 10/13/20 History (Colace) atorvastatin 40 mg tablet (Lipitor) 40 mg PO HS 07/01/18 10/13/20 History coenzyme Q10 100 mg capsule (Co 100 mg PO DAILY 09/03/18 10/13/20 History Q-10) acetaminophen 500 mg tablet 500 mg PO Q6H PRN 01/19/19 10/13/20 History (Tylenol Extra Strength) nitroglycerin 0.4 mg sublingual 0.4 mg SUBLINGUAL DIRECTED PRN 01/19/19 10/13/20 History tablet (Nitrostat) vitamin B complex-folic acid 0.4 1 tab PO QAM 02/08/19 10/13/20 History mg tablet (Super B Maxi Complex) zinc gluconate 50 mg tablet 50 mg PO QAM 02/08/19 10/13/20 History divalproex 250 mg tablet,delayed 250 mg PO QAM 03/15/19 10/13/20 History release (Depakote) aspirin 81 mg tablet,delayed 81 mg PO QAM 03/20/19 10/13/20 History release (Aspirin Low Dose) Glucosamine 1500 Complex 1 tab PO DAILY 10/13/20 10/13/20 History baclofen 5 mg tablet 5 mg PO HS PRN 10/13/20 10/13/20 History hydrocodone 5 mg-acetaminophen 325 1 tab PO Q6H PRN 10/13/20 10/13/20 History mg tablet magnesium 250 mg tablet 250 mg PO DAILY 10/13/20 10/13/20 History rimegepant 75 mg disintegrating 75 mg PO UD PRN 10/13/20 10/13/20 History tablet (Nurtec ODT) sertraline 50 mg tablet (Zoloft) 50 mg PO DAILY 10/13/20 10/13/20 History triamcinolone acetonide 0.1 % 1 applic TOPICAL UD 10/13/20 10/13/20 History topical cream (Triderm) Past Med/Surg History Medical History Anxiety and depression Arthritis BPH (benign prostatic hyperplasia) CAD (coronary artery disease) 2008 - GINNA to LAD and 2nd diagonal CVA (cerebral vascular accident) 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 GERD (gastroesophageal reflux disease) Hiatal hernia Kidney stones Migraine 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 Seizure disorder Surgical History H/O arthroscopy of knee H/O esophagogastroduodenoscopy H/O shoulder surgery History of cardiac cath History of hernia surgery History of left cataract surgery Was given 2mg of versed on 07/14 18 History of lithotripsy Family History Grandfather (Paternal) Family history of diabetes mellitus Mother Rheumatoid arthritis Hypercholesterolemia Father Depression Grandfather Diabetes Social History Smoking Status: Never smoker Second Hand Exposure: No; Hx Alcohol Use: No Hx Substance Use: No Preferred Language: Citizen Of [place] Communication Ability: Effective Home Theater Expert Required: No Beliefs That Will Affect Care: None marital status: Current Living Situation: Spouse Feels Safe at Home: Yes Safety Concerns: Feels Safe At This Time Assistive Devices: None Review of Systems Review of Systems: Constitutional: No fever, sweats or chills, + headache as per HPI Eyes: No diplopia, no worsening or blurred vision ENT: + Hard of hearing, no trouble swallowing Respiratory: No cough, sputum, dyspnea at rest or on exertion Cardiovascular: As per HPI, currently no chest pain, tightness or palpitations, no back pain Abdomen: No pain, nausea, vomiting, diarrhea or constipation Musculoskeletal: + Chronic right hip joint pain, no calf pain, swelling Neurologic: No weakness, numbness/tingling, or balance problems Psychiatric: No anxiety or depression Skin: No rash or itch Physical Exam Physical Exam: General: awake, alert, no apparent distress, appears fatigued Head: Normocephalic, atraumatic ENT: PERRL, EOMI, no pharyngeal exudate, mucous membranes moist Chest: No chest pain with palpation to chest wall, clear to auscultation, on room air, no adventitious breath sounds Back: No point tenderness over spine Cardiac: Bradycardic, HR in 50s, faint systolic murmur, euvolemic, no JVD, normal peripheral pulses, good capillary refill Abdominal: NABS x 4 quadrants, soft, nondistended, nontender to palpation, no rebound or guarding Extremities: Normal inspection, no peripheral edema or erythema, calfs nontender to palpation Psych: Normal mood and affect Neuro: AAO x 3, strength intact bilaterally and rated 5/5, no motor deficits, speech is clear, no peripheral sensory deficits Results & Data Results & Data ([facility]) Vital Signs (Past 12 Hours) Vital Signs Temp Pulse Resp BP Pulse Ox 10/13/20 08:23 55 L 21 110/61 99 10/13/20 08:08 36.5 C 55 L 18 97/54 L 99 Diagnostic Findings Chest X-Ray 10/13/20 08:16 XR chest 1V portable CLINICAL HISTORY: Atypical chest pain. COMPARISON STUDY: Chest CT March 15, 2019 and chest radiograph March 20, 2019. FINDINGS: Lung volumes are normal. Lungs are clear. There is no pneumothorax or pleural effusion. Cardiac size is normal. Mediastinal contours are normal. There is no evidence for pulmonary edema. IMPRESSION: No acute cardiopulmonary findings. ACT 112: Negative or not required by law. Electronically signed by: Piero Hahn M.D. 10/13/2020 8:34 AM ECG Additional Comments: 13-OCT-2020 08:07:18 [facility] [place]-EDSTAT ROUTINE RETRIEVAL Poor data quality, interpretation may be adversely affected Sinus bradycardia Otherwise normal ECG When compared with ECG of 20-MAR-2019 14:34, No significant change was found 25mm/s 10mm/mV 150Hz 9.0.9 12SL 241 SUNDAR: 16 Referred by: REFERRED SELF Unconfirmed Vent. rate 53 BPM TN interval 206 ms QRS duration 78 ms QT/QTc 434/407 ms Code Status & VTE Plan Code Status Full code-discussed with patient and his at bedside Supervising Physician Co-Signing Physician Notes Patient seen and examined by me, care coordinated with Rylee Dugan PA-C, please refer to her note above for further detail. Pt is an 85-year-old male with hx of CAD in 2008 with GINNA x 2 placed in a bifurcating lesion of the LAD and second diagonal, CVA in November 2018 for ischemic stroke with subsequent hemorrhagic conversion involving the right MCA maintained on aspirin therapy, HLD, anxiety, migraines, chronic R hip pain and prediabetes who presents with acute onset of sharp back pain and subsequent chest pain to the ER. Pain lasted for 30 min, pt took 3 nitro tablets at home, the pain resolved. Currently patient is sitting up in bed, in no acute distress, he is alert and oriented and answering questions appropriately. Heart sounds regular, breath sounds clear to auscultation bilaterally without any wheezing, rhonchi or crackles. Abdomen soft, nontender nondistended, positive bowel sounds. There is no lower extremity edema. Skin is warm, dry, well-perfused. Patient is currently comfortable, chest pain-free. Denies having any associated symptoms such as shortness of breath, diaphoresis, lightheadedness or dizziness. Initial work-up in ER negative, will obtain CTA chest (also previously abnormal, concern for possible splenic rupture/laceration, back in March 2019). Will obtain echocardiogram and will discuss further with cardiology. Continue to trend troponin, monitor closely on telemetry. Anna Welsh MD
--- NOTE | 2020-10-13 10:35 | Emergency Department Note ---
History of Present Illness General Chief complaint: Chest Pain Stated complaint: CHEST PAIN Time Seen by Provider: 10/13/20 08:16 History of Present Illness Maximum Pain Intensity: 8 85-year-old male who presents to the ED with a chief complaint of a sharp intrascapular back pain that started around 6 AM. He states that 30 minutes later it developed into a chest pressure that resolved after taking 3 nitroglycerin. The patient states that he did not have any shortness of breath. He has been feeling fatigued for the past 2 weeks. No fevers or cough. No additional symptoms. Nothing made it worse. He was resting at the time that it occurred. Home Medications Medication Instructions Recorded Confirmed Type butalbital 50 mg-acetaminophen 325 1 cap PO Q4H PRN 02/10/18 10/13/20 History mg-caffeine 40 mg-codeine 30 mg cap cholecalciferol (vitamin D3) 50 2,000 unit PO QAM 02/10/18 10/13/20 History mcg (2,000 unit) tablet (Vitamin D3) docusate sodium 100 mg capsule 100 mg PO BID 02/10/18 10/13/20 History (Colace) atorvastatin 40 mg tablet (Lipitor) 40 mg PO HS 07/01/18 10/13/20 History ipratropium bromide 42 mcg (0.06 2 spray INTRANASAL BID 07/01/18 10/13/20 History %) nasal spray coenzyme Q10 100 mg capsule (Co 100 mg PO BID 09/03/18 10/13/20 History Q-10) glucosamine 750 kr-mnjopcubbfr-vpz 1 tab PO BID 09/03/18 10/13/20 History no1 625 mg-C 30 mg-sobeida 1 mg tablet (Kahnzbymmew-Qjecyztuztv-TOU) magnesium oxide 400 mg (241.3 mg 400 mg PO QAM 11/01/18 10/13/20 History magnesium) tablet (MagOx) acetaminophen 500 mg tablet 500 mg PO Q6H PRN 01/19/19 10/13/20 History (Tylenol Extra Strength) nitroglycerin 0.4 mg sublingual 0.4 mg SUBLINGUAL DIRECTED PRN 01/19/19 10/13/20 History tablet (Nitrostat) trazodone 50 mg tablet 100 mg PO HS 01/19/19 10/13/20 History sertraline 25 mg tablet (Zoloft) 25 mg PO QAM 02/08/19 10/13/20 History vitamin B complex-folic acid 0.4 1 tab PO QAM 02/08/19 10/13/20 History mg tablet (Super B Maxi Complex) zinc gluconate 50 mg tablet 50 mg PO QAM 02/08/19 10/13/20 History divalproex 250 mg tablet,delayed 250 mg PO QAM 03/15/19 10/13/20 History release (Depakote) aspirin 81 mg tablet,delayed 81 mg PO QAM 03/20/19 10/13/20 History release (Aspirin Low Dose) famotidine 20 mg tablet (Pepcid) 20 mg PO BID PRN 10/13/20 10/13/20 History triamcinolone acetonide 0.1 % 1 applic TOPICAL UD 10/13/20 10/13/20 History topical cream (Triderm) Allergies Allergy/AdvReac Type Severity Reaction Status Date / Time vaccine adjuvant system, Allergy Intermediate HIVES AND Verified 10/13/20 09:51 AS01B liposomal SORENESS [From Shingrix (PF)] AT INJECTION SITE varicella-zoster virus Allergy Intermediate HIVES AND Verified 10/13/20 09:51 glycoprotein E, recombinant SORENESS [From Shingrix (PF)] AT INJECTION SITE celecoxib [From Celebrex] Allergy Unknown Unknown Verified 10/13/20 09:51 duloxetine [From Cymbalta] Allergy Unknown Unknown Verified 10/13/20 09:51 tramadol Allergy Unknown Unknown Verified 10/13/20 09:51 Past Med/Surg History Medical History Anxiety and depression Arthritis BPH (benign prostatic hyperplasia) CAD (coronary artery disease) 2008 - to LAD and 2nd diagonal CVA (cerebral vascular accident) 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 GERD (gastroesophageal reflux disease) Hiatal hernia Kidney stones Migraine 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 Seizure disorder Surgical History H/O arthroscopy of knee H/O esophagogastroduodenoscopy H/O shoulder surgery History of cardiac cath History of hernia surgery History of left cataract surgery Was given 2mg of versed on 07/14 18 History of lithotripsy Family History Grandfather (Paternal) Family history of diabetes mellitus Mother Rheumatoid arthritis Hypercholesterolemia Father Depression Grandfather Diabetes Social History Smoking Status: Never smoker Second Hand Exposure: No; Hx Alcohol Use: No Hx Substance Use: No Preferred Language: Danish Communication Ability: Effective Restaurant Hostess Required: No Beliefs That Will Affect Care: Anabaptist Anabaptist Beliefs: Sikhism marital status: Current Living Situation: Spouse Feels Safe at Home: Yes Assistive Devices: Glasses Review of Systems A total of 10 systems reviewed and were otherwise negative Physical Exam Vital Signs Vital Signs - 24 hr 10/13/20 08:08 10/13/20 08:23 10/13/20 08:30 Temperature 36.5 C Temperature Source Oral Pulse Rate 55 L 55 L Pulse Rate from SpO2 Sensor 55 L 55 L Pulse Rhythm Regular Regular Pulse Strength Normal Respiratory Rate 18 21 28 H Respiratory Effort / Characteristics Non-Labored Spontaneous Respiratory Depth Normal Respiratory Pattern Regular Blood Pressure 97/54 L 110/61 109/59 L Blood Pressure Mean 68 77 75 Blood Pressure Position Lying Pulse Oximetry 99 99 100 Oxygen Delivery Method Room Air Room Air Sepsis Recent Fever Within 48 Hours No Sepsis New/Unexplained Change in Mental Status No Sepsis Action Taken by Nursing No Action Required 10/13/20 09:00 10/13/20 09:30 10/13/20 10:00 Temperature Temperature Source Pulse Rate 53 L 52 L 51 L Pulse Rate from SpO2 Sensor 54 L 52 L 51 L Pulse Rhythm Pulse Strength Respiratory Rate 14 17 17 Respiratory Effort / Characteristics Respiratory Depth Respiratory Pattern Blood Pressure 100/67 108/58 L 115/59 L Blood Pressure Mean 78 74 77 Blood Pressure Position Pulse Oximetry 98 96 97 Oxygen Delivery Method Sepsis Recent Fever Within 48 Hours Sepsis New/Unexplained Change in Mental Status Sepsis Action Taken by Nursing CONSTITUTIONAL/VITAL SIGNS: Reviewed / noted above. GENERAL: Non-toxic in appearance. INTEGUMENTARY: Warm, dry, and [place]. HEAD: Normocephalic. EYES: without scleral icterus or trauma. ENT/OROPHARYNX: clear and moist. LYMPHADENOPATHY/NECK: Is supple without lymphadenopathy or meningismus. RESPIRATORY: Clear to auscultation bilaterally. No increased work of breathing. CARDIOVASCULAR: Regular rate and rhythm. GI/ABDOMEN: Soft and nontender. No organomegaly or pulsatile mass. EXTREMITIES: Warm and well perfused. BACK: No CVA tenderness. NEUROLOGICAL: Intact without focal deficits. PSYCHIATRIC: normal affect. MUSCULOSKELETAL: Normally developed with good muscle tone. TRIAGE NURSING DOCUMENTATION REVIEWED. Medical Decision Making Differential Diagnosis The differential that was considered includes acute myocardial infarction, acute coronary syndrome, myocarditis, pericarditis, pericardial effusions /tamponade, esophageal perforation, thoracic aortic dissection, pulmonary embolism, pneumonia, pneumothorax, pancreatitis, shingles, acute cholecystitis, perforated abdominal viscus. Medical Records Attestation: I reviewed the patient's medical records. Home Medications Current Medication List: was personally reviewed by me Laboratory Data Attestation: I reviewed the patient's lab results. Result diagrams: 10/13/20 08:23 10/13/20 08:23 Lab Results 10/13/20 10/13/20 10/13/20 Range/Units 08:23 08:23 08:23 WBC 6.91 (4.8-10.8) K/uL RBC 4.42 L (4.7-6.1) M/uL Hgb 12.9 L (14.0-18.0) g/dL Hct 39.1 L (42-52) % MCV 88.5 (80-100) fL MCH 29.2 (25-34) pg MCHC 33.0 (32-36) g/dL RDW Std Deviation 41.8 (36.4-46.3) fL RDW Coeff of Sukhdev 12.9 (11.5-14.5) % Plt Count 160 (130-400) K/uL MPV 10.7 H (7.4-10.4) fL Immature Gran % (Auto) 0.1 % Neut % (Auto) 47.9 % Lymph % (Auto) 41.7 % [place] % (Auto) 8.0 % Eos % (Auto) 2.2 % Baso % (Auto) 0.1 % Neut # (Auto) 3.31 (1.4-6.5) K/uL Lymph # (Auto) 2.88 (1.2-3.4) K/uL Merrick # (Auto) 0.55 (0.11-0.59) K/uL Eos # (Auto) 0.15 (0-0.5) K/uL Baso # (Auto) 0.01 (0-0.2) K/uL Immature Gran # (Auto) 0.01 (0.00-0.02) K/uL APTT 22.0 (21.0-31.0) Seconds PTT Ratio 0.8 Sodium 141 (136-145) mmol/L Potassium 4.2 (3.5-5.1) mmol/L Chloride 109 H (98-107) mmol/L Carbon Dioxide 29 (21-32) mmol/L Anion Gap 3.0 (3-11) BUN 24 H (7-18) mg/dl Creatinine 0.88 (0.6-1.4) mg/dl Est Cr Clr Drug Dosing 63.4 ml/min Est GFR ( Amer) 90.8 ml/min Est GFR (Non-Af Amer) 78.3 ml/min BUN/Creatinine Ratio 27.4 H (10-20) Glucose 117 H (70-99) mg/dl Calcium 9.8 (8.5-10.1) mg/dl Total Bilirubin 0.3 (0.2-1) mg/dl AST 20 (15-37) U/L ALT 25 (12-78) U/L Alkaline Phosphatase 45 (45-117) U/L Troponin I < 0.015 (0-0.045) ng/ml Total Protein 6.7 (6.4-8.2) gm/dl Albumin 3.6 (3.4-5.0) gm/dl Globulin 3.1 (2.5-4.0) gm/dl Albumin/Globulin Ratio 1.2 (0.9-2) Lipase 234 (73-393) U/L Imaging Data Radiologist's Impression: Chest X-Ray 10/13/20 08:16 XR chest 1V portable CLINICAL HISTORY: Atypical chest pain. COMPARISON STUDY: Chest CT March 15, 2019 and chest radiograph March 20, 2019. FINDINGS: Lung volumes are normal. Lungs are clear. There is no pneumothorax or pleural effusion. Cardiac size is normal. Mediastinal contours are normal. There is no evidence for pulmonary edema. IMPRESSION: No acute cardiopulmonary findings. ACT 112: Negative or not required by law. Electronically signed by: Piero Hahn M.D. 10/13/2020 8:34 AM ECG Data Attestation: I personally reviewed and interpreted this ECG as follows: Additional Comments: Twelve-lead EKG: Per my interpretation there is a sinus bradycardia at a rate of 53. No ST elevation. No ectopy. Normal QTC. MDM Narrative Patient presents with back pain and chest pain. The patient's EKG shows a sinus bradycardia with no acute injury pattern. Troponin was normal.CBC and chemistry panel was unremarkable. The patient will be seen by the hospitalist for further inpatient evaluation and care. Impression & Plan Chest pain Discharge Plan Visit Data Chief Complaint: Chest Pain Stated Complaint: CHEST PAIN ED Provider: [facility] ED Midlevel Provider: Sherwin Botello Discharge Problem: Chest pain Patient Disposition: Being Evaluated by Hospitalist Forms Stand Alone Forms: [facility] Prescriptions Prescriptions: No Action fofcuikcmd-ybwmprvrml-obm-cod [id number] mg capsule 1 cap PO Q4H PRN (Reason: Migraine Headache) RF: 0 docusate sodium [Colace] 100 mg Capsule 100 mg PO BID RF: 0 cholecalciferol (vitamin D3) [Vitamin D3] 2,000 unit Tablet 2,000 unit PO QAM RF: 0 atorvastatin [Lipitor] 40 mg Tablet 40 mg PO HS RF: 0 ipratropium bromide 42 mcg (0.06 %) [place],Non-Aerosol 2 spray INTRANASAL BID RF: 0 magnesium oxide [MagOx] 400 mg (241.3 mg magnesium) Tablet 400 mg PO QAM RF: 0 zinc gluconate 50 mg Tablet 50 mg PO QAM RF: 0 vitamin B complex-folic acid [Super B Maxi Complex] 0.4 mg Tablet 1 tab PO QAM RF: 0 sertraline [Zoloft] 25 mg Tablet 25 mg PO QAM RF: 0 divalproex [Depakote] 250 mg tablet,delayed release (DR/EC) 250 mg PO QAM RF: 0 coenzyme Q10 [Co Q-10] 100 mg Capsule 100 mg PO BID RF: 0 ypferuwx-yydea-nhi9-C-sobeida-bor [Ymwamjwe-Ucjlq-TTF(with boron)] [id number] mg Tablet 1 tab PO BID RF: 0 trazodone 50 mg Tablet 100 mg PO HS RF: 0 acetaminophen [Tylenol Extra Strength] 500 mg Tablet 500 mg PO Q6H PRN (Reason: Pain) RF: 0 nitroglycerin [Nitrostat] 0.4 mg Tablet, Sublingual 0.4 mg sublingual DIRECTED PRN (Reason: Chest Pain) RF: 0 aspirin [Aspirin Low Dose] 81 mg tablet,delayed release (DR/EC) 81 mg PO QAM RF: 0 triamcinolone acetonide [Triderm] 0.1 % cream 1 applic TOPICAL UD RF: 0 famotidine [Pepcid] 20 mg tablet 20 mg PO BID PRN (Reason: Dyspepsia) RF: 0 Referrals Referrals: Scar Porras MD [Primary Care Provider] -
[2020-10-13] MEDS ORDERED: BACLOFEN 10 MG TAB PO PRN (11:28)
[2020-10-13] MEDS ORDERED: GLUCOSAMINE COMPLEX PO SCH (11:30)
[2020-10-13] MEDS ORDERED: SODIUM CHLORIDE 0.9% 1000ML 500 ML IV ONE (11:47)
[2020-10-13] MEDS ORDERED: OPTIRAY 320 125ml IV ONE (13:14)
[2020-10-13] MEDS ORDERED: ONDANSETRON INJ 2 MG/ML 2 ML VIAL IV PRN (13:20)
[2020-10-13] MEDS ORDERED: ACETAMINOPHEN 325 MG TAB PO PRN (13:20)
[2020-10-13] MEDS ORDERED: ACETAMINOPHEN 500 MG TAB PO PRN (13:30)
--- NOTE | 2020-10-13 13:34 | CT Scan Report ---
CT ANGIOGRAM OF THE CHEST CLINICAL HISTORY: Dyspnea. COMPARISON STUDY: Chest CT scans dated 02/10/2018 and 03/15/2019. TECHNIQUE: Following the IV administration of 120 cc of Optiray 320, CT angiogram of the chest was pe rformed from the upper abdomen to the thoracic inlet utilizing the pulmonary embolus protocol. Images are reviewed in the axial, sagittal, and coronal planes. 3-D MIPS images are created and assessed. I V contrast was administered without complication. A dose lowering technique was utilized adhering to the principles of ALARA. CT DOSE: 452.00 mGycm FINDINGS: Thyroid: Normal in size and heterogeneous in attenuation. Thoracic aorta: The thoracic aorta is normal in caliber and demonstrates standard 3-vessel arch anato my. Not well opacified. Pulmonary vasculature: The pulmonary trunk is normal in caliber. There are no filling defects identif ied in main, lobar, or segmental pulmonary branches to suggest pulmonary embolus. Heart: The heart is mildly enlarged and and without pericardial effusion. The coronary arteries are d ensely calcified. Lungs and pleural spaces: There is no airspace consolidation or pleural effusion. Dependent atelectas is is noted at the lung bases. There are scattered calcified granulomas. The trachea and central airw ays are clear. Mild diffuse peribronchial thickening is observed. Mediastinum: There is no mediastinal lymphadenopathy. Chante: Clear. Axillae: There is no axillary lymphadenopathy. Upper abdomen: 2 right upper pole renal cysts measure up to 1.7 cm. A 1.4 cm hyperdense cyst is noted in the left upper pole. A small to moderate hiatal hernia is identified. Skeletal structures: The skeletal structures are osteopenic. Degenerative change and hyperkyphosis is noted in the thoracic spine. No lytic or blastic bony lesions are seen. IMPRESSION: 1. There is no evidence of pulmonary embolus in the main, lobar, or segmental pulmonary arteries. 2. There is no airspace consolidation or pleural effusion. 3. Mild diffuse peribronchial thickening suggests bronchitis/reactive airway disease. Clinical correl ation will be required. 4. Mild cardiomegaly. 5. Additional findings as above. ACT 112: Negative or not required by law. Electronically signed by: Donis Camarena M.D. 10/13/2020 1:33 PM
[2020-10-13] MEDS: MAGNESIUM OXIDE 400 MG TAB PO SCH (14:47)
[2020-10-13] MEDS: ZINC SULFATE 220 MG CAPSULE PO SCH (14:48)
[2020-10-13] MEDS: SERTRALINE HCL 50 MG TABLET PO SCH (14:48)
[2020-10-13] MEDS: DIVALPROEX EXTENDED RELEASE 250 MG TABCR PO SCH (14:48)
[2020-10-13] MEDS: CHOLECALCIFEROL 1,000 UNITS 25 MCG TAB PO SCH (14:48)
[2020-10-13] MEDS: ASPIRIN 81 MG ECTAB PO SCH (14:48)
[2020-10-13] MEDS: VITAMIN B COMPLEX TAB PO SCH (14:48)
[2020-10-13] MEDS: HYDROCODONE/ACETAMOPHEN 5/325MG TAB PO PRN (17:50)
[2020-10-13] MEDS: DOCUSATE SODIUM 100 MG CAP PO SCH (20:27)
[2020-10-13] MEDS ORDERED: ATORVASTATIN 40 MG TAB PO SCH (21:00)
--- NOTE | 2020-10-13 23:07 | Electrocardiogram Report ---
Test Reason : Blood Pressure : / mmHG Vent. Rate : 053 BPM Atrial Rate : 053 BPM P-R Int : 206 ms QRS Dur : 078 ms QT Int : 434 ms P-R-T Axes : 083 042 039 degrees QTc Int : 407 ms Poor data quality, interpretation may be adversely affected Sinus bradycardia Otherwise normal ECG When compared with ECG of 20-MAR-2019 14:34, No significant change was found Confirmed by Jovani Jefferson ([id number]) on 10/13/2020 11:07:28 PM Referred By: REFERRED SELF Confirmed By:Jovani Jefferson
[2020-10-14] MEDS: HYDROCODONE/ACETAMOPHEN 5/325MG TAB PO PRN (00:44)
[2020-10-14 06:28] LABS: Hematocrit (blood only) 39.3 % (42-52); Hemoglobin 12.5 g/dL (14.0-18.0); Mean Corpuscular Hemoglobin 28.1 pg (25-34); Mean Corpuscular Hgb Conc 31.8 g/dL (32-36); Mean Corpuscular Volume 88.3 fL (80-100); Mean Platelet Volume 10.6 fL (7.4-10.4); Platelet Count 161 K/uL (130-400); RDW Standard Deviation 41.9 fL (36.4-46.3); Red Blood Count 4.45 M/uL (4.7-6.1); White Blood Count 5.84 K/uL (4.8-10.8)
[2020-10-14 06:42] LABS: Estimated Average Glucose 114 mg/dl; Hemoglobin A1C 5.6 % (4.5-5.6)
[2020-10-14 06:51] LABS: Albumin Level 3.1 gm/dl (3.4-5.0); BUN Creatinine Ratio 27.1 (10-20); Calcium 9.2 mg/dl (8.5-10.1); Creatinine Clr Calc Pharmacy 74.4 ml/min; Est GFR (African American) 96.9 ml/min; Est GFR (Non-African American) 83.6 ml/min; Potassium 4.3 mmol/L (3.5-5.1)
[2020-10-14 06:55] LABS: Albumin Globulin Ratio 1.1 (0.9-2); Bilirubin,Total 0.4 mg/dl (0.2-1); Globulin 2.9 gm/dl (2.5-4.0); Magnesium 2.2 mg/dl (1.8-2.4); Phosphorus 2.9 mg/dl (2.5-4.9)
--- NOTE | 2020-10-14 07:18 | Hospitalist Progress Note ---
Date of Service October 14, 2020 Assessment & Plan (1) Atypical chest pain: Plan: - Admit to tele for observation for r/o - Took 3 doses of nitro glycerin prior to coming to the ER, currently chest pain-free - Trend cardiac biomarkers, initial set was negative Troponin x3 - negative - EKG reviewed showed sinus bradycardia on admission, no ischemic changes noted - Check 2 D echo; last was 2 years ago in 2019 and had normal EF. Current Echo -LV is normal in size. LV wall motion is normal. EF 55 to 60%. RV systolic function is normal. LA size is normal. RA size is normal. There is mild mitral regurg. There is trace tricuspid regurg. - Consult cardiology-follows with Dr. Anders as an outpatient was recently seen in the office earlier this summer - PT/OT consulted - Check CTA chest IMPRESSION: 1. There is no evidence of pulmonary embolus in the main, lobar, or segmental pulmonary arteries. 2. There is no airspace consolidation or pleural effusion. 3. Mild diffuse peribronchial thickening suggests bronchitis/reactive airway disease. Clinical correlation will be required. 4. Mild cardiomegaly. 5. Additional findings in full report. 10/14/2020, patient seen by cardiology, Dr. Yarbrough, this morning. Patient continues to feel well. It is believed patient had adequate chest pain, possibly secondary to GERD. Close follow-up with cardiology, next week will be arranged. (2) CAD (coronary artery disease): Plan: - Hx of GINNA x 2 in 2008 with stenting to a bifurcating lesion of the LAD and second diagonal - Continue baby aspirin daily - Consulted cardiology - as above (3) CVA (cerebral vascular accident): Plan: - November 2018 for ischemic stroke with subsequent hemorrhagic conversion involving the right MCA maintained on aspirin therapy - No motor deficits, ambulates without assistance - Migraines post CVA - following with neurology as outpatient - Noted new medication of Nurtec ODT prn (4) HLD (hyperlipidemia): Plan: - Cont coezyme q10, atorvastatin 40 mg HS (5) Seizure disorder: Plan: -Continue Depakote 250 mg daily -Consider checking level to make sure is therapeutic but not needed currently. No seizure like activity prior to hospitalization. Follows with neurology as outpt. (6) Arthritis: Plan: - R chronic hip pain, continue Tylenol, Percocet, heat application for such -Follows with pain management and has received 3 hip injections in the past (7) Prediabetes: Plan: -Last A1c was 5.7 on 07/07/2020, recheck with a.m. lab -Diet controlled (8) Migraine: Plan: -History of such, follows with neurology as an outpatient status post CVA and ch ronic migraine issues -No current headache reported, was recently taken off of Fioricet due to rebound headaches, given new prescription for Nurtec ODT 75 mg as needed by neurologist, hold for now, only allowed to take 8 within a 30-day period. DVT PPx: - teds CODE: Full code Dispo: From home, plan to [place] home today. Admission and Anticipated Discharge Date Admission Date: October 13, 2020 Subjective Patient seen in follow-up of chest pain currently chest pain-free, also denies any shortness of breath, dizziness, lightheadedness Sitting up in bed in NAD No acute events overnight Seen by cardiology Pt inquiring about going home Review of Systems Review of Systems: All systems reviewed & are unremarkable except as noted in Subjective Physical Exam Physical Exam: General: awake, alert, no apparent distress Head: Normocephalic, atraumatic ENT: PERRL, EOMI, no pharyngeal exudate, mucous membranes moist Chest: No chest pain with palpation to chest wall, clear to auscultation, on room air, no adventitious breath sounds Back: No point tenderness over spine Cardiac: RRR, + faint syst. murmur, no JVD, normal peripheral pulses, good capillary refill Abdominal: NABS x 4 quadrants, soft, nondistended, nontender to palpation, no rebound or guarding Extremities: Normal inspection, no peripheral edema or erythema, calfs nontender to palpation Psych: Normal mood and affect Neuro: AAO x 3, strength intact bilaterally and rated 5/5, no motor deficits, speech is clear Results & Data Results & Data ([facility]) Vital Signs (Past 12 Hours) Vital Signs Temp Pulse Resp BP Pulse Ox 10/14/20 03:45 36.8 C 55 L 17 128/69 97 10/13/20 23:30 36.3 C L 54 L 17 125/69 97 10/13/20 19:26 36.5 C 58 L 17 125/68 98 Laboratory Results 10/14/20 10/14/20 10/14/20 Range/Units 05:55 05:55 05:55 WBC 5.84 (4.8-10.8) K/uL RBC 4.45 L (4.7-6.1) M/uL Hgb 12.5 L (14.0-18.0) g/dL Hct 39.3 L (42-52) % MCV 88.3 (80-100) fL MCH 28.1 (25-34) pg MCHC 31.8 L (32-36) g/dL RDW Std Deviation 41.9 (36.4-46.3) fL RDW Coeff of Sukhdev 13.0 (11.5-14.5) % Plt Count 161 (130-400) K/uL MPV 10.6 H (7.4-10.4) fL Immature Gran % (Auto) % Neut % (Auto) % Lymph % (Auto) % Richardson % (Auto) % Eos % (Auto) % Baso % (Auto) % Neut # (Auto) (1.4-6.5) K/uL Lymph # (Auto) (1.2-3.4) K/uL Richardson # (Auto) (0.11-0.59) K/uL Eos # (Auto) (0-0.5) K/uL Baso # (Auto) (0-0.2) K/uL Immature Gran # (Auto) (0.00-0.02) K/uL APTT (21.0-31.0) Seconds PTT Ratio Sodium 141 (136-145) mmol/L Potassium 4.3 (3.5-5.1) mmol/L Chloride 109 H (98-107) mmol/L Carbon Dioxide 28 (21-32) mmol/L Anion Gap 4.0 (3-11) BUN 20 H (7-18) mg/dl Creatinine 0.75 (0.6-1.4) mg/dl Est Cr Clr Drug Dosing 74.4 ml/min Est GFR ( Amer) 96.9 ml/min Est GFR (Non-Af Amer) 83.6 ml/min BUN/Creatinine Ratio 27.1 H (10-20) Glucose 84 (70-99) mg/dl Estimat Average Glucose 114 mg/dl Hemoglobin A1c 5.6 (4.5-5.6) % Calcium 9.2 (8.5-10.1) mg/dl Phosphorus 2.9 (2.5-4.9) mg/dl Magnesium 2.2 (1.8-2.4) mg/dl Total Bilirubin 0.4 (0.2-1) mg/dl AST 17 (15-37) U/L ALT 24 (12-78) U/L Alkaline Phosphatase 41 L (45-117) U/L Troponin I (0-0.045) ng/ml Total Protein 6.0 L (6.4-8.2) gm/dl Albumin 3.1 L (3.4-5.0) gm/dl Globulin 2.9 (2.5-4.0) gm/dl Albumin/Globulin Ratio 1.1 (0.9-2) Triglycerides 97 (0-150) mg/dl Cholesterol 154 (0-200) mg/dl LDL Cholesterol, Calc 89 mg/dl VLDL Cholesterol, Calc 19 mg/dl HDL Cholesterol 46 mg/dl Cholesterol/HDL Ratio 3 Lipase (73-393) U/L COVID-19 Eval Order SARS-CoV-2 (PCR) (Negative) 10/13/20 10/13/20 10/13/20 Range/Units 22:29 14:21 10:27 WBC (4.8-10.8) K/uL RBC (4.7-6.1) M/uL Hgb (14.0-18.0) g/dL Hct (42-52) % MCV (80-100) fL MCH (25-34) pg MCHC (32-36) g/dL RDW Std Deviation (36.4-46.3) fL RDW Coeff of Sukhdev (11.5-14.5) % Plt Count (130-400) K/uL MPV (7.4-10.4) fL Immature Gran % (Auto) % Neut % (Auto) % Lymph % (Auto) % Richardson % (Auto) % Eos % (Auto) % Baso % (Auto) % Neut # (Auto) (1.4-6.5) K/uL Lymph # (Auto) (1.2-3.4) K/uL Richardson # (Auto) (0.11-0.59) K/uL Eos # (Auto) (0-0.5) K/uL Baso # (Auto) (0-0.2) K/uL Immature Gran # (Auto) (0.00-0.02) K/uL APTT (21.0-31.0) Seconds PTT Ratio Sodium (136-145) mmol/L Potassium (3.5-5.1) mmol/L Chloride (98-107) mmol/L Carbon Dioxide (21-32) mmol/L Anion Gap (3-11) BUN (7-18) mg/dl Creatinine (0.6-1.4) mg/dl Est Cr Clr Drug Dosing ml/min Est GFR ( Amer) ml/min Est GFR (Non-Af Amer) ml/min BUN/Creatinine Ratio (10-20) Glucose (70-99) mg/dl Estimat Average Glucose mg/dl Hemoglobin A1c (4.5-5.6) % Calcium (8.5-10.1) mg/dl Phosphorus (2.5-4.9) mg/dl Magnesium (1.8-2.4) mg/dl Total Bilirubin (0.2-1) mg/dl AST (15-37) U/L ALT (12-78) U/L Alkaline Phosphatase (45-117) U/L Troponin I < 0.015 < 0.015 (0-0.045) ng/ml Total Protein (6.4-8.2) gm/dl Albumin (3.4-5.0) gm/dl Globulin (2.5-4.0) gm/dl Albumin/Globulin Ratio (0.9-2) Triglycerides (0-150) mg/dl Cholesterol (0-200) mg/dl LDL Cholesterol, Calc mg/dl VLDL Cholesterol, Calc mg/dl HDL Cholesterol mg/dl Cholesterol/HDL Ratio Lipase (73-393) U/L COVID-19 Eval Order SARS-CoV-2 (PCR) NEGATIVE (Negative) 10/13/20 10/13/20 10/13/20 Range/Units 10:27 08:23 08:23 WBC (4.8-10.8) K/uL RBC (4.7-6.1) M/uL Hgb (14.0-18.0) g/dL Hct (42-52) % MCV (80-100) fL MCH (25-34) pg MCHC (32-36) g/dL RDW Std Deviation (36.4-46.3) fL RDW Coeff of Sukhdev (11.5-14.5) % Plt Count (130-400) K/uL MPV (7.4-10.4) fL Immature Gran % (Auto) % Neut % (Auto) % Lymph % (Auto) % Richardson % (Auto) % Eos % (Auto) % Baso % (Auto) % Neut # (Auto) (1.4-6.5) K/uL Lymph # (Auto) (1.2-3.4) K/uL Richardson # (Auto) (0.11-0.59) K/uL Eos # (Auto) (0-0.5) K/uL Baso # (Auto) (0-0.2) K/uL Immature Gran # (Auto) (0.00-0.02) K/uL APTT 22.0 (21.0-31.0) Seconds PTT Ratio 0.8 Sodium 141 (136-145) mmol/L Potassium 4.2 (3.5-5.1) mmol/L Chloride 109 H (98-107) mmol/L Carbon Dioxide 29 (21-32) mmol/L Anion Gap 3.0 (3-11) BUN 24 H (7-18) mg/dl Creatinine 0.88 (0.6-1.4) mg/dl Est Cr Clr Drug Dosing 63.4 ml/min Est GFR ( Amer) 90.8 ml/min Est GFR (Non-Af Amer) 78.3 ml/min BUN/Creatinine Ratio 27.4 H (10-20) Glucose 117 H (70-99) mg/dl Estimat Average Glucose mg/dl Hemoglobin A1c (4.5-5.6) % Calcium 9.8 (8.5-10.1) mg/dl Phosphorus (2.5-4.9) mg/dl Magnesium (1.8-2.4) mg/dl Total Bilirubin 0.3 (0.2-1) mg/dl AST 20 (15-37) U/L ALT 25 (12-78) U/L Alkaline Phosphatase 45 (45-117) U/L Troponin I < 0.015 (0-0.045) ng/ml Total Protein 6.7 (6.4-8.2) gm/dl Albumin 3.6 (3.4-5.0) gm/dl Globulin 3.1 (2.5-4.0) gm/dl Albumin/Globulin Ratio 1.2 (0.9-2) Triglycerides (0-150) mg/dl Cholesterol (0-200) mg/dl LDL Cholesterol, Calc mg/dl VLDL Cholesterol, Calc mg/dl HDL Cholesterol mg/dl Cholesterol/HDL Ratio Lipase 234 (73-393) U/L COVID-19 Eval Order Covid19 at [facility] SARS-CoV-2 (PCR) (Negative) 10/13/20 Range/Units 08:23 WBC 6.91 (4.8-10.8) K/uL RBC 4.42 L (4.7-6.1) M/uL Hgb 12.9 L (14.0-18.0) g/dL Hct 39.1 L (42-52) % MCV 88.5 (80-100) fL MCH 29.2 (25-34) pg MCHC 33.0 (32-36) g/dL RDW Std Deviation 41.8 (36.4-46.3) fL RDW Coeff of Sukhdev 12.9 (11.5-14.5) % Plt Count 160 (130-400) K/uL MPV 10.7 H (7.4-10.4) fL Immature Gran % (Auto) 0.1 % Neut % (Auto) 47.9 % Lymph % (Auto) 41.7 % Richardson % (Auto) 8.0 % Eos % (Auto) 2.2 % Baso % (Auto) 0.1 % Neut # (Auto) 3.31 (1.4-6.5) K/uL Lymph # (Auto) 2.88 (1.2-3.4) K/uL Richardson # (Auto) 0.55 (0.11-0.59) K/uL Eos # (Auto) 0.15 (0-0.5) K/uL Baso # (Auto) 0.01 (0-0.2) K/uL Immature Gran # (Auto) 0.01 (0.00-0.02) K/uL APTT (21.0-31.0) Seconds PTT Ratio Sodium (136-145) mmol/L Potassium (3.5-5.1) mmol/L Chloride (98-107) mmol/L Carbon Dioxide (21-32) mmol/L Anion Gap (3-11) BUN (7-18) mg/dl Creatinine (0.6-1.4) mg/dl Est Cr Clr Drug Dosing ml/min Est GFR ( Amer) ml/min Est GFR (Non-Af Amer) ml/min BUN/Creatinine Ratio (10-20) Glucose (70-99) mg/dl Estimat Average Glucose mg/dl Hemoglobin A1c (4.5-5.6) % Calcium (8.5-10.1) mg/dl Phosphorus (2.5-4.9) mg/dl Magnesium (1.8-2.4) mg/dl Total Bilirubin (0.2-1) mg/dl AST (15-37) U/L ALT (12-78) U/L Alkaline Phosphatase (45-117) U/L Troponin I (0-0.045) ng/ml Total Protein (6.4-8.2) gm/dl Albumin (3.4-5.0) gm/dl Globulin (2.5-4.0) gm/dl Albumin/Globulin Ratio (0.9-2) Triglycerides (0-150) mg/dl Cholesterol (0-200) mg/dl LDL Cholesterol, Calc mg/dl VLDL Cholesterol, Calc mg/dl HDL Cholesterol mg/dl Cholesterol/HDL Ratio Lipase (73-393) U/L COVID-19 Eval Order SARS-CoV-2 (PCR) (Negative) Medications Administered Current Inpatient Medications Acetaminophen (Acetaminophen 325 Mg Tab) 650 mg PO Q4H PRN PRN Reason: Moderate Pain Stop: 11/12/20 13:19 Hydrocodone Bitart/Acetaminophen (Hydrocodone/Acetamophen 5/325mg Tab) 1 tab PO Q6H PRN PRN Reason: Pain Stop: 10/27/20 11:27 Last Admin: 10/14/20 00:44 Dose: 1 tab Documented by: Aspirin (A[facility]in 81 Mg Ectab) [facility] [place]: 11/12/20 13:59 Last Admin: 10/13/20 14:48 Dose: 81 mg Documented by: Atorvastatin Calcium (Atorvastatin 40 Mg Tab) 40 mg PO [facility] Stop: 11/12/20 20:59 Last Admin: 10/13/20 20:27 Dose: 40 mg Documented by: Baclofen (Baclofen 10 Mg Tab) 5 mg PO HS PRN PRN Reason: Muscle Spasm Stop: 11/12/20 11:27 Divalproex Sodium (Divalproex Extended Release 250 Mg Tabcr) 250 mg PO QAM [facility] Stop: 11/12/20 13:59 Last Admin: 10/13/20 14:48 Dose: 250 mg Documented by: Docusate Sodium (Docusate Sodium 100 Mg Cap) 100 mg PO BID [facility] Stop: 11/12/20 20:59 Last Admin: 10/13/20 20:27 Dose: 100 mg Documented by: Magnesium Oxide (Magnesium Oxide 400 Mg Tab) 200 mg PO DAILY [facility] Stop: 11/12/20 13:59 Last Admin: 10/13/20 14:47 Dose: 200 mg Documented by: Ondansetron HCl (Ondansetron Inj 2 Mg/Ml 2 Ml Vial) 4 mg IV Q4H PRN PRN Reason: Nausea And Vomiting Stop: 11/12/20 13:19 Sertraline HCl (Sertraline Hcl 50 Mg Tablet) 50 mg PO DAILY [facility] Stop: 11/12/20 13:59 Last Admin: 10/13/20 14:48 Dose: 50 mg Documented by: Vitamin B Complex (Vitamin B Complex Tab) [facility] [place] [facility] [place] [place]: 11/12/20 13:59 Last Admin: 10/13/20 14:48 Dose: 1 tab Documented by: Vitamin D (Cholecalciferol 1,000 Units 25 Mcg Tab) 2,000 units PO QAM [facility] Stop: 11/12/20 13:59 Last Admin: 10/13/20 14:48 Dose: 2,000 units Documented by: Zinc Sulfate (Zinc Sulfate 220 Mg Capsule) [facility] [place]: 11/12/20 13:59 Last Admin: 10/13/20 14:48 Dose: 220 mg Documented by:
[2020-10-14] MEDS: ASPIRIN 81 MG ECTAB PO SCH (07:58)
[2020-10-14] MEDS: MAGNESIUM OXIDE 400 MG TAB PO SCH (07:58)
[2020-10-14] MEDS: CHOLECALCIFEROL 1,000 UNITS 25 MCG TAB PO SCH (07:58)
[2020-10-14] MEDS: ZINC SULFATE 220 MG CAPSULE PO SCH (07:58)
[2020-10-14] MEDS: DOCUSATE SODIUM 100 MG CAP PO SCH (07:58)
[2020-10-14] MEDS: SERTRALINE HCL 50 MG TABLET PO SCH (07:59)
[2020-10-14] MEDS: VITAMIN B COMPLEX TAB PO SCH (07:59)
[2020-10-14] MEDS: DIVALPROEX EXTENDED RELEASE 250 MG TABCR PO SCH (07:59)
[2020-10-14] MEDS ORDERED: NON-FORMULARY MEDICATION (Coenzyme Q10 [Co Q-10] 100 mg Capsule) PO SCH (09:00)
--- NOTE | 2020-10-14 10:26 | Electrocardiogram Report ---
Test Reason : Blood Pressure : / mmHG Vent. Rate : 054 BPM Atrial Rate : 054 BPM P-R Int : 218 ms QRS Dur : 086 ms QT Int : 434 ms P-R-T Axes : 079 046 044 degrees QTc Int : 411 ms Sinus bradycardia with 1st degree A-V block Otherwise normal ECG When compared with ECG of 13-OCT-2020 08:07, No significant change was found Confirmed by Eugenio Latif ([id number]) on 10/14/2020 10:26:16 AM Referred By: REFERRED SELF Confirmed By:Caio Latif
--- NOTE | 2020-10-14 11:31 | Cardiology Consultation ---
Date of Consultation October 14, 2020 Assessment & Plan (1) Atypical chest pain: (2) History of cerebrovascular accident: (3) CAD (coronary artery disease): (4) GERD (gastroesophageal reflux disease): I think the patient's discomfort last night is atypical and most likely due to his previous history of GERD. His cardiac markers as well as EKGs have been normal. He has had no additional discomfort after hospital admission. I think he can be discharged to outpatient follow-up. I will arrange early follow-up next week with his usual immunology specialist Dr. Mcgill through our clinic. History of Present Illness Attending Physician: Edilson Welsh MD History of Present Illness This is an 85-year-old male patient who usually follows with Dr. Mcgill through our clinic. He has a history of coronary artery disease with a previous stent placed in [place] in 2008. Almost 2 years ago he had a stroke. He has chronic pain which is generalized but also he has a long history of migraine headaches. He also has a history of chronic GERD with chest and abdominal discomfort. He was in his usual state of health, yesterday he did not eat all day and then in the evening ate some corn as well as ice cream. He woke up in the middle the night with severe GERD-like symptoms radiating into his back. He did take sublingual nitroglycerin and eventually by the time he arrived at the emergency department he was pain-free. He has had no additional chest, epigastric, back discomfort. No nausea or vomiting. His cardiac markers are negative. His EKGs are within normal limits. Allergies Allergy/AdvReac Type Severity Reaction Status Date / Time vaccine adjuvant system, Allergy Intermediate HIVES AND Verified 10/13/20 09:51 AS01B liposomal SORENESS [From Shingrix (PF)] AT INJECTION SITE varicella-zoster virus Allergy Intermediate HIVES AND Verified 10/13/20 09:51 glycoprotein E, recombinant SORENESS [From Shingrix (PF)] AT INJECTION SITE celecoxib [From Celebrex] Allergy Unknown Unknown Verified 10/13/20 09:51 duloxetine [From Cymbalta] Allergy Unknown Unknown Verified 10/13/20 09:51 tramadol Allergy Unknown Unknown Verified 10/13/20 09:51 Home Medications Medication Instructions Recorded Confirmed Type cholecalciferol (vitamin D3) 50 2,000 unit PO QAM 02/10/18 10/13/20 History mcg (2,000 unit) tablet (Vitamin D3) docusate sodium 100 mg capsule 100 mg PO BID 02/10/18 10/13/20 History (Colace) atorvastatin 40 mg tablet (Lipitor) 40 mg PO HS 07/01/18 10/13/20 History coenzyme Q10 100 mg capsule (Co 100 mg PO DAILY 09/03/18 10/13/20 History Q-10) acetaminophen 500 mg tablet 500 mg PO Q6H PRN 01/19/19 10/13/20 History (Tylenol Extra Strength) nitroglycerin 0.4 mg sublingual 0.4 mg SUBLINGUAL DIRECTED PRN 01/19/19 10/13/20 History tablet (Nitrostat) vitamin B complex-folic acid 0.4 1 tab PO QAM 02/08/19 10/13/20 History mg tablet (Super B Maxi Complex) zinc gluconate 50 mg tablet 50 mg PO QAM 02/08/19 10/13/20 History divalproex 250 mg tablet,delayed 250 mg PO QAM 03/15/19 10/13/20 History release (Depakote) aspirin 81 mg tablet,delayed 81 mg PO QAM 03/20/19 10/13/20 History release (Aspirin Low Dose) Glucosamine 1500 Complex 1 tab PO DAILY 10/13/20 10/13/20 History baclofen 5 mg tablet 5 mg PO HS PRN 10/13/20 10/13/20 History hydrocodone 5 mg-acetaminophen 325 1 tab PO Q6H PRN 10/13/20 10/13/20 History mg tablet magnesium 250 mg tablet 250 mg PO DAILY 10/13/20 10/13/20 History rimegepant 75 mg disintegrating 75 mg PO UD PRN 10/13/20 10/13/20 History tablet (Nurtec ODT) sertraline 50 mg tablet (Zoloft) 50 mg PO DAILY 10/13/20 10/13/20 History triamcinolone acetonide 0.1 % 1 applic TOPICAL UD 10/13/20 10/13/20 History topical cream (Triderm) Patient History Medical History Anxiety and depression Arthritis BPH (benign prostatic hyperplasia) CAD (coronary artery disease) 2008 - GINNA to LAD and 2nd diagonal CVA (cerebral vascular accident) 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 GERD (gastroesophageal reflux disease) Hiatal hernia Kidney stones Migraine 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 Seizure disorder Surgical History H/O arthroscopy of knee H/O esophagogastroduodenoscopy H/O shoulder surgery History of cardiac cath History of hernia surgery History of left cataract surgery Was given 2mg of versed on 07/14 18 History of lithotripsy Family History Grandfather (Paternal) Family history of diabetes mellitus Mother Rheumatoid arthritis Hypercholesterolemia Father Depression Grandfather Diabetes Social History Smoking Status: Never smoker Second Hand Exposure: No; Hx Alcohol Use: No Hx Substance Use: No Preferred Language: American Communication Ability: Effective [employer] Room Supervisor Required: No Beliefs That Will Affect Care: None marital status: Current Living Situation: Spouse Feels Safe at Home: Yes Safety Concerns: Feels Safe At This Time Assistive Devices: None Review of Systems Review of Systems: Review of Systems: See HPI for pertinent positives. All other 10 point review of systems are negative. Physical Exam Physical Exam: General: no acute distress and stated age Head: normocephalic, no masses, lesions, tenderness or abnormalities Eyes: conjunctiva are pink and non-injected, sclera clear Neck: supple, no adenopathy, no bruits, normal jugular venous pulse, no hepatojugular reflux Chest: normal shape and normal respiratory effort Lungs: clear to auscultation and percussion Cardiac Exam: - regular rate & rhythm, no murmurs gallops or rubs - normal S1, normal S2 Pulses: 2(+) throughout Abdomen: abdomen soft, non-tender, no abnormal masses and no hepatosplenomegaly Musculoskeletal: no gait disturbance, no joint inflammation, no deforming arthritis Extremities: no edema and no cyanosis Neuro: grossly normal exam Results & Data ([facility]) Vital Signs (Past 12 Hours) Vital Signs Temp Pulse Pulse Resp BP Pulse Ox Pulse Ox 10/14/20 08:00 54 L 98 10/14/20 07:31 36.8 C 58 L 18 108/63 100 10/14/20 03:45 36.8 C 55 L 17 128/69 97 10/13/20 23:30 36.3 C L 54 L 17 125/69 97 Laboratory Results Laboratory Results - last 24 hr 10/13/20 10/13/20 10/13/20 10:27 14:21 22:29 WBC RBC Hgb Hct MCV MCH MCHC RDW Std Deviation RDW Coeff of Sukhdev Plt Count MPV Sodium Potassium Chloride Carbon Dioxide Anion Gap BUN Creatinine Est Cr Clr Drug Dosing Est GFR ( Amer) Est GFR (Non-Af Amer) BUN/Creatinine Ratio Glucose Estimat Average Glucose Hemoglobin A1c Calcium Phosphorus Magnesium Total Bilirubin AST ALT Alkaline Phosphatase Troponin I < 0.015 < 0.015 Total Protein Albumin Globulin Albumin/Globulin Ratio Triglycerides Cholesterol LDL Cholesterol, Calc VLDL Cholesterol, Calc HDL Cholesterol Cholesterol/HDL Ratio SARS-CoV-2 (PCR) NEGATIVE 10/14/20 10/14/20 10/14/20 05:55 05:55 05:55 WBC 5.84 RBC 4.45 L Hgb 12.5 L Hct 39.3 L MCV 88.3 MCH 28.1 MCHC 31.8 L RDW Std Deviation 41.9 RDW Coeff of Sukhdev 13.0 Plt Count 161 MPV 10.6 H Sodium 141 Potassium 4.3 Chloride 109 H Carbon Dioxide 28 Anion Gap 4.0 BUN 20 H Creatinine 0.75 Est Cr Clr Drug Dosing 74.4 Est GFR ( Amer) 96.9 Est GFR (Non-Af Amer) 83.6 BUN/Creatinine Ratio 27.1 H Glucose 84 Estimat Average Glucose 114 Hemoglobin A1c 5.6 Calcium 9.2 Phosphorus 2.9 Magnesium 2.2 Total Bilirubin 0.4 AST 17 ALT 24 Alkaline Phosphatase 41 L Troponin I Total Protein 6.0 L Albumin 3.1 L Globulin 2.9 Albumin/Globulin Ratio 1.1 Triglycerides 97 Cholesterol 154 LDL Cholesterol, Calc 89 VLDL Cholesterol, Calc 19 HDL Cholesterol 46 Cholesterol/HDL Ratio 3 SARS-CoV-2 (PCR) Medications Administered Current Inpatient Medications Acetaminophen (Acetaminophen 325 Mg Tab) 650 mg PO Q4H PRN PRN Reason: Moderate Pain Stop: 11/12/20 13:19 Hydrocodone Bitart/Acetaminophen (Hydrocodone/Acetamophen 5/325mg Tab) 1 tab PO Q6H PRN PRN Reason: Pain Stop: 10/27/20 11:27 Last Admin: 10/14/20 00:44 Dose: 1 tab Documented by: Aspirin (Aspirin 81 Mg Ectab) 81 mg PO QAM [facility] Stop: 11/12/20 13:59 Last Admin: 10/14/20 07:58 Dose: 81 mg Documented by: Atorvastatin Calcium (Atorvastatin 40 Mg Tab) 40 mg PO HS [facility] Stop: 11/12/20 20:59 Last Admin: 10/13/20 20:27 Dose: 40 mg Documented by: Baclofen (Baclofen 10 Mg Tab) 5 mg PO HS PRN PRN Reason: Muscle Spasm Stop: 11/12/20 11:27 Divalproex Sodium (Divalproex Extended Release 250 Mg Tabcr) 250 mg PO QAM [facility] Stop: 11/12/20 13:59 Last Admin: 10/14/20 07:59 Dose: 250 mg Documented by: Docusate Sodium (Docusate Sodium 100 Mg Cap) 100 mg PO BID [facility] Stop: 11/12/20 20:59 Last Admin: 10/14/20 07:58 Dose: 100 mg Documented by: Magnesium Oxide (Magnesium Oxide 400 Mg Tab) 200 mg PO DAILY [facility] Stop: 11/12/20 13:59 Last Admin: 10/14/20 07:58 Dose: 200 mg Documented by: Ondansetron HCl (Ondansetron Inj 2 Mg/Ml 2 Ml Vial) 4 mg IV Q4H PRN PRN Reason: Nausea And Vomiting Stop: 11/12/20 13:19 Sertraline HCl (Sertraline Hcl 50 Mg Tablet) 50 mg PO DAILY [facility] Stop: 11/12/20 13:59 Last Admin: 10/14/20 07:59 Dose: 50 mg Documented by: Vitamin B Complex (Vitamin B Complex Tab) [facility] Stop: 11/12/20 13:59 Last Admin: 10/14/20 07:59 Dose: 1 tab Documented by: Vitamin D (Cholecalciferol 1,000 Units 25 Mcg Tab) 2,000 units PO QAM [facility] Stop: 11/12/20 13:59 Last Admin: 10/14/20 07:58 Dose: 2,000 units Documented by: Zinc Sulfate (Zinc Sulfate 220 Mg Capsule) [facility] [place] Stop: 11/12/20 13:59 Last Admin: 10/14/20 07:58 Dose: 220 mg Documented by:
[2020-10-14] MEDS ORDERED: PANTOprazole 40 MG TAB PO SCH (12:30)
--- NOTE | 2020-10-14 13:08 | Discharge Summary ---
Date of Service October 14, 2020 Admission HPI Per Admitting Provider This is an 85-year-old male with PMHx of CAD in 2008 with GINNA x 2 placed in a bifurcating lesion of the LAD and second diagonal, CVA in November 2018 for ischemic stroke with subsequent hemorrhagic conversion involving the right MCA maintained on aspirin therapy, HLD, anxiety, migraines, chronic R hip pain and prediabetes who presents with acute onset of sharp back pain and subsequent chest pain to the ER. Reports that this back pain occurred at approximately 0600, sharp, between shoulder blades, and then lasted for 30 minutes where it radiated into a substernal chest pain. He took 3 nitro tablets at home, and his brought him to the ER. Since then his back and chest pain has improved. Currently he reports being chest pain-free. He does note that last evening generalized unwell, and thought it was because he only ate corn on the cob for dinner, followed by ice cream and then a small bowl of cereal before he went to bed. Other complaints include fatigue, chronic right hip pain and frequent rebound headaches. Denies any shortness of breath, nausea, vomiting associated with the chest pain today. He was scheduled for an outpatient MRI of his head today which has been preapproved by his insurance for migraines, and is wishing to have this conducted here if possible. He reports that he was recently prescribed a new medication, Nurtec 75 mg once a day up to 8 days in a 30-day. But has not trialed this yet as he was supposed to pick it up from pharmacy today. He denies significant headache at this time. He has been eating and drinking well. notes that he seems to be tired all the time, specifically going on for 3 weeks. Patient has received outpatient hip injections for his chronic right hip pain in the past at [facility]. Admission Exam Per Admitting Provider General: awake, alert, no apparent distress, appears fatigued Head: Normocephalic, atraumatic ENT: PERRL, EOMI, no pharyngeal exudate, mucous membranes moist Chest: No chest pain with palpation to chest wall, clear to auscultation, on room air, no adventitious breath sounds Back: No point tenderness over spine Cardiac: Bradycardic, HR in 50s, faint systolic murmur, euvolemic, no JVD, normal peripheral pulses, good capillary refill Abdominal: NABS x 4 quadrants, soft, nondistended, nontender to palpation, no rebound or guarding Extremities: Normal inspection, no peripheral edema or erythema, calfs nontender to palpation Psych: Normal mood and affect Neuro: AAO x 3, strength intact bilaterally and rated 5/5, no motor deficits, speech is clear, no peripheral sensory deficits Principal Diagnosis Atypical chest pain, possibly due to GERD Discharge Exam General: awake, alert, no apparent distress Head: Normocephalic, atraumatic ENT: PERRL, EOMI, no pharyngeal exudate, mucous membranes moist Chest: No chest pain with palpation to chest wall, clear to auscultation, on room air, no adventitious breath sounds Back: No point tenderness over spine Cardiac: RRR, + faint syst. murmur, no JVD, normal peripheral pulses, good capillary refill Abdominal: NABS x 4 quadrants, soft, nondistended, nontender to palpation, no rebound or guarding Extremities: Normal inspection, no peripheral edema or erythema, calfs nontender to palpation Psych: Normal mood and affect Neuro: AAO x 3, strength intact bilaterally and rated 5/5, no motor deficits, speech is clear Discharge Data Allergies Allergy/AdvReac Type Severity Reaction Status Date / Time vaccine adjuvant system, Allergy Intermediate HIVES AND Verified 10/13/20 09:51 AS01B liposomal SORENESS [From Shingrix (PF)] AT INJECTION SITE varicella-zoster virus Allergy Intermediate HIVES AND Verified 10/13/20 09:51 glycoprotein E, recombinant SORENESS [From Shingrix (PF)] AT INJECTION SITE celecoxib [From Celebrex] Allergy Unknown Unknown Verified 10/13/20 09:51 duloxetine [From Cymbalta] Allergy Unknown Unknown Verified 10/13/20 09:51 tramadol Allergy Unknown Unknown Verified 10/13/20 09:51 Consultations 10/13/20 09:34 ED Decision to Admit Stat 10/13/20 13:20 Consult Cardiology Routine Ordered Studies 10/13/20 11:47 CT angio chest PE protocol Stat IMPRESSION: 1. There is no evidence of pulmonary embolus in the main, lobar, or segmental pulmonary arteries. 2. There is no airspace consolidation or pleural effusion. 3. Mild diffuse peribronchial thickening suggests bronchitis/reactive airway disease. Clinical correlation will be required. 4. Mild cardiomegaly. 5. Additional findings in full report. Hospital Course (1) Atypical chest pain: - Admit to tele for observation for r/o - Took 3 doses of nitro glycerin prior to coming to the ER, currently chest pain-free - Trend cardiac biomarkers, initial set was negative Troponin x3 - negative - EKG reviewed showed sinus bradycardia on admission, no ischemic changes noted - Check 2 D echo; last was 2 years ago in 2019 and had normal EF. Current Echo -LV is normal in size. LV wall motion is normal. EF 55 to 60%. RV systolic function is normal. LA size is normal. RA size is normal. There is mild mitral regurg. There is trace tricuspid regurg. - Consult cardiology-follows with Dr. Anders as an outpatient was recently seen in the office earlier this summer - PT/OT consulted - Check CTA chest IMPRESSION: 1. There is no evidence of pulmonary embolus in the main, lobar, or segmental pulmonary arteries. 2. There is no airspace consolidation or pleural effusion. 3. Mild diffuse peribronchial thickening suggests bronchitis/reactive airway disease. Clinical correlation will be required. 4. Mild cardiomegaly. 5. Additional findings in full report. 10/14/2020, patient seen by cardiology, Dr. Yarbrough, this morning. Patient cont inues to feel well. It is believed patient had adequate chest pain, possibly secondary to GERD. Close follow-up with cardiology, next week will be arranged. In addition, prescription for pantoprazole sent to patient's pharmacy. (2) CAD (coronary artery disease): - Hx of GINNA x 2 in 2008 with stenting to a bifurcating lesion of the LAD and second diagonal - Continue baby aspirin daily - Consulted cardiology - as above (3) CVA (cerebral vascular accident): - November 2018 for ischemic stroke with subsequent hemorrhagic conversion involving the right MCA maintained on aspirin therapy - No motor deficits, ambulates without assistance - Migraines post CVA - following with neurology as outpatient - Noted new medication of Nurtec ODT prn (4) HLD (hyperlipidemia): - Cont coezyme q10, atorvastatin 40 mg HS (5) Seizure disorder: -Continue Depakote 250 mg daily -Consider checking level to make sure is therapeutic but not needed currently. No seizure like activity prior to hospitalization. Follows with neurology as ou tpt. (6) Arthritis: - R chronic hip pain, continue Tylenol, Percocet, heat application for such -Follows with pain management and has received 3 hip injections in the past (7) Prediabetes: -Last A1c was 5.7 on 07/07/2020, recheck with a.m. lab -Diet controlled (8) Migraine: -History of such, follows with neurology as an outpatient status post CVA and chronic migraine issues -No current headache reported, was recently taken off of Fioricet due to rebound headaches, given new prescription for Nurtec ODT 75 mg as needed by neurologist, hold for now, only allowed to take 8 within a 30-day period. DVT PPx: - teds CODE: Full code Dispo: From home, plan to DC home today. Total Time Total Time Spent Total Time Spent (In Minutes): 35 Discharge Plan Discharge Items Patient Disposition: Home - Self-Care Reason For Visit: CHEST PAIN Discharge Diagnosis: Atypical chest pain, possibly due to GERD Activity: Per Instructions section Non-emergency contact: Primary Care Provider and Services Host Call non-emergency contact if: you have any medication questions and your symptoms worsen Follow-up/Referrals: Scar Porras MD [Primary Care Provider] - Diet: Heart Healthy Addtl Attending Provider Instructions: Recommend to follow-up with your primary care doctor within 1 week. You will also follow-up with cardiology, you will be contacted by the appointment. It is believed that you may have an acid reflux, and you were started on a new medication, pantoprazole. Prescription was sent to your pharmacy, please take it daily as prescribed. Discuss further with your primary care physician. There were no other medication changes made, please continue as prescribed. Pending Studies at Discharge: No Stand-Alone Forms: My [facility], Smoking Cessation Medications and DC Order Prescriptions: New pantoprazole 40 mg Tablet,Delayed Release (Dr/Ec) 40 mg PO QAM Qty: 30 RF: 0 Continued docusate sodium [Colace] 100 mg Capsule 100 mg PO BID RF: 0 cholecalciferol (vitamin D3) [Vitamin D3] 2,000 unit Tablet 2,000 unit PO QAM RF: 0 atorvastatin [Lipitor] 40 mg Tablet 40 mg PO HS RF: 0 zinc gluconate 50 mg Tablet 50 mg PO QAM RF: 0 vitamin B complex-folic acid [Super B Maxi Complex] 0.4 mg Tablet 1 tab PO QAM RF: 0 divalproex [Depakote] 250 mg tablet,delayed release (DR/EC) 250 mg PO QAM RF: 0 coenzyme Q10 [Co Q-10] 100 mg Capsule 100 mg PO DAILY RF: 0 acetaminophen [Tylenol Extra Strength] 500 mg Tablet 500 mg PO Q6H PRN (Reason: Pain) RF: 0 nitroglycerin [Nitrostat] 0.4 mg Tablet, Sublingual 0.4 mg sublingual DIRECTED PRN (Reason: Chest Pain) RF: 0 aspirin [Aspirin Low Dose] 81 mg tablet,delayed release (DR/EC) 81 mg PO QAM RF: 0 triamcinolone acetonide [Triderm] 0.1 % cream 1 applic TOPICAL UD RF: 0 Nurtec ODT 75 mg tablet,disintegrating 75 mg PO UD PRN (Reason: Headache) RF: 0 hydrocodone-acetaminophen 5-325 mg tablet 1 tab PO Q6H PRN (Reason: Pain) RF: 0 magnesium 250 mg Tablet 250 mg PO DAILY RF: 0 sertraline [Zoloft] 50 mg tablet 50 mg PO DAILY RF: 0 baclofen 5 mg tablet 5 mg PO HS PRN (Reason: Muscle Spasm) RF: 0 Glucosamine 1500 Complex 1,500 mg 1 tab PO DAILY RF: 0 Discharge Orders: Discharge Order (Routine); Ordered 10/14/20 Ordered By: Edilson Welsh Admission Data Admit Date/Time: 10/13/20 10:23 Attending Provider: Edilson Welsh Admit Provider: Edilson Welsh Primary Care Provider: Scar Porras I. Other Providers: Edilson Welsh ; Ludin Tapia
== END 2020-10-14 14:24 | disposition home or self-care (01) ==
LOC: ED 08:04 → 2S 08:04